=== PATIENT | male | born 1955 | race Caucasian/White ===

== ENCOUNTER → 2017-07-02 10:17 | Outpatient (CLI) | payer BC, SELFPAY ==
[2017-07-02 12:37] LABS: Prostate Specific Ag Screen 2.5 ng/mL (0.0-4.0)
== END ==
PROVIDERS: PCP Internal Medicine Adolescent Medicine; Visit Provider Urology
DX: Z12.5 Encounter for screening for malignant neoplasm of prostate (principal)
CPT/HCPCS: 36415; G0103

== ENCOUNTER → 2017-07-10 13:21 | Outpatient (CLI) | payer BC, SELFPAY ==
[2017-07-10 13:42] LABS: Basophils % 0.7 % (0.1-2.0); Eosinophils # 0.2 K/mm3 (0.0-0.4); Eosinophils % 3.6 % (0.1-12.0); Hematocrit 42.6 % (42.0-52.0); Hemoglobin 14.1 g/dL (14.1-18.0); Lymphocytes # 1.3 K/mm3 (0.7-4.5); Lymphocytes % 21.4 K/mm3 (10-50); Mean Corpuscular HGB Conc 33.2 g/dL (31.8-35.4); Mean Corpuscular Hemoglobin 28.8 pg (27.0-31.2); Mean Corpuscular Volume 86.8 fl (80-94); Mean Platelet Volume 7.9 fl (7.4-10.4); Monocytes # 0.5 K/mm3 (0.1-1.0); Monocytes % 8.4 % (1.7-9.3); Platelet Count 197 K/mm3 (142-424); Red Cell Distribution Width 13.2 % (11.5-17.5); White Blood Count 6.1 K/mm3 (4.8-10.8)
[2017-07-10 17:31] LABS: Alanine Aminotransferase 35 U/L (12-78); Albumin Level 3.8 gm/dL (3.4-5.0); Albumin/Globulin Ratio 1.6 (1.1-1.8); Alkaline Phosphatase 91 U/L (46-116); Anion Gap 9.5 mEq/L (5-15); Aspartate Amino Transferase 24 U/L (15-37); Bilirubin,Total 0.5 mg/dL (0.2-1.0); Blood Urea Nitrogen 15 mg/dL (7-18); Calcium 9.1 mg/dL (8.5-10.1); Carbon Dioxide 32 mmol/L (21.0-32.0); Chloride 106 mmol/L (98-107); Chol/HDL Ratio 2.9 (1-3.5); Cholesterol 124 mg/dL (140-200); Creatinine,Serum 1.47 mg/dL (0.70-1.30); Estimated Glomerular Filt Rate 49 ml/min (>60); GFR (African American) 59 ML/MIN (>60); Globulin 2.4 gm/dl (1.3-3.2); Glucose 93 mg/dL (74-106); HDL Cholesterol 43 mg/dL (27-67); LDL Cholesterol 66 mg/dL (0-130); Potassium 4.5 mmoL/L (3.5-5.1); Sodium 143 mmol/L (136-145); Thyroid Stimulating Hormone 0.03 uIU/ml (0.358-3.740); Total Protein,Serum 6.2 gm/dL (6.4-8.2); Triglycerides 76 mg/dL (30-200); VLDL Cholesterol 15 mg/dL (0-40)
== END ==
PROVIDERS: PCP Internal Medicine Adolescent Medicine; Visit Provider Internal Medicine Adolescent Medicine
DX: E78.5 Hyperlipidemia, unspecified (principal); I25.10 Atherosclerotic heart disease of native coronary artery without angina pectoris; E89.0 Postprocedural hypothyroidism
CPT/HCPCS: 36415; 80053; 80061; 84443; 85025

== ENCOUNTER → 2018-02-08 07:44 | Outpatient (CLI) | payer BC, SELFPAY ==
--- NOTE | 2018-02-08 07:53 | CA_ITS ---
PROCEDURE: 2-D M-mode and color Doppler study INDICATIONS FOR THE TEST: Chest pain + COPD Heart Murmur+ Tobacco Smoking Palpitations Fatigue Syncope Edema Hypertension+Diabetes Mellitus Rheumatic Fever SOB+LEONG Obesity Hyperlipidemia+ Family History HD Additional History B/S ORDERED, B/S NEG. STENTS PATIENT INFORMATION HEIGHT: 68 WEIGHT:188 GENDER: Male B/P:133/70 2-D/M-MODE INTERPRETATION: 2-D MEASUREMENTS OBSERVED VALUES IN CMS Right Ventricular Dimension (RVDd) 2.3 Interventricular Septum (Thickness)(IVsd) 1.5 Left Ventricular Internal Dimensions(LVIDd) 5.6 Left Ventricular Posterior Wall (Thickness)(LVPWd) 1.0 Aortic Root 3.0 Aortic Cusp Separation 1.8 Left Atrial Dimensions (LAD) 4.2 2D 1. Left atrium is mildly enlarged, left ventricle is normal size, mild concentric left ventricular hypertrophy, visually estimated ejection fraction 55% with no obvious regional wall motion abnormality. 2. The right atrium and right ventricle are normal size and contractility. 3. The aortic valve is minimally thickened and fibrosed leaflet continue to display good mobility. 4. The mitral and tricuspid valve leaflets are minimally thickened 5. The pulmonic valve is poorly visualized. 6. No significant pericardial effusion noted. DOPPLER INTERROGATION: Doppler interrogation of the aortic, mitral and tricuspid valvular presence of mild mitral and tricuspid regurgitation, tricuspid regurgitation jet velocity is insufficient for calculation of the right ventricular systolic pressure, grade 1 diastolic dysfunction seen with tissue Doppler evidence of raised left atrial pressure. CONCLUSION: 1. Mildly enlarged left atrium, normal left ventricular size, mild concentric left ventricular hypertrophy, visually estimated ejection fraction 55% with no obvious regional wall motion abnormality, diastolic dysfunction seen with tissue Doppler evidence of raised left atrial pressure. 2. Mild mitral and tricuspid regurgitation 3. No significant pericardial effusion noted.
--- NOTE | 2018-02-08 07:54 | CI_ITS ---
Cerebrovascular Exam Indications: 780.4 Dizziness and giddiness. IMPRESSIONS 1. The bilateral vertebral arteries are patent with normal antegrade flow. 2. Study suggests 20-49% stenosis involving the right internal carotid artery and the left internal carotid artery, lower end of the scale. Carotid duplex study. Complete study and Doppler flow study including spectral analysis, color and griffith scale imaging. Height: Height: 172.7cm. Height: 68in. Weight: Weight: 85.3kg. Weight: 187.6lb. Body mass index: BMI: 28.6kg/m^2. Body surface area: BSA: 2.04m^2. Location: Vascular laboratory. Patient status: Outpatient. Tables: Arterial flow: + +--------+--------+ Location V sys V ed + +--------+--------+ Right CCA - proximal 77.5cm/s 16.1cm/s + +--------+--------+ Right CCA - distal 71.2cm/s 20.3cm/s + +--------+--------+ Right ECA 70.6cm/s -------- + +--------+--------+ Right ICA - proximal 47.1cm/s 18.5cm/s + +--------+--------+ Right ICA - mid 42.8cm/s 19.3cm/s + +--------+--------+ Right ICA - distal 88.2cm/s 40.3cm/s + +--------+--------+ Right vertebral 45.4cm/s -------- + +--------+--------+ Left CCA - proximal 67.8cm/s 15.4cm/s + +--------+--------+ Left CCA - distal 61.8cm/s 19.9cm/s + +--------+--------+ Left ECA 77cm/s -------- + +--------+--------+ Left ICA - proximal 53cm/s 16.9cm/s + +--------+--------+ Left ICA - mid 75cm/s 31.4cm/s + +--------+--------+ Left ICA - distal 74.7cm/s 38.4cm/s + +--------+--------+ Left vertebral 59cm/s -------- + +--------+--------+ Velocity ratios: + + + + + + Right, V sys Right, V ed Left, V sys Left, V ed + + + + + + Max ICA/dist CCA 1.24 1.99 1.21 1.93 + + + + + + (Report amended ) Electronically signed by: Christ Ramon [id number]
[2018-02-08 10:28] LABS: Alanine Aminotransferase 27 U/L (12-78); Albumin Level 3.5 gm/dL (3.4-5.0); Albumin/Globulin Ratio 1.4 (1.1-1.8); Alkaline Phosphatase 85 U/L (46-116); Anion Gap 10.3 mEq/L (5-15); Aspartate Amino Transferase 14 U/L (15-37); Bilirubin,Total 0.6 mg/dL (0.2-1.0); Blood Urea Nitrogen 19 mg/dL (7-18); Calcium 9.4 mg/dL (8.5-10.1); Carbon Dioxide 30 mmol/L (21.0-32.0); Chloride 110 mmol/L (98-107); Chol/HDL Ratio 2.9 (1-3.5); Cholesterol 133 mg/dL (140-200); Creatinine,Serum 1.65 mg/dL (0.70-1.30); Estimated Glomerular Filt Rate 43 ml/min (>60); GFR (African American) 52 ML/MIN (>60); Globulin 2.5 gm/dl (1.3-3.2); Glucose 99 mg/dL (74-106); HDL Cholesterol 46 mg/dL (27-67); LDL Cholesterol 67 mg/dL (0-130); Potassium 4.3 mmoL/L (3.5-5.1); Sodium 146 mmol/L (136-145); Triglycerides 100 mg/dL (30-200); VLDL Cholesterol 20 mg/dL (0-40)
== END ==
PROVIDERS: PCP Internal Medicine Adolescent Medicine; Visit Provider Internal Medicine Adolescent Medicine
DX: I25.10 Atherosclerotic heart disease of native coronary artery without angina pectoris (principal); R51 Headache; R01.1 Cardiac murmur, unspecified
CPT/HCPCS: 36415; 80053; 80061; 93306; 93880

== ENCOUNTER → 2018-07-09 13:15 | Outpatient (CLI) | payer BC, SELFPAY ==
[2018-07-09 13:18] LABS: Microscopic, Urine URINE MICROSCOPIC (MICROSCOPIC)
[2018-07-09 13:36] LABS: Basophils % 0.4 % (0.1-2.0); Eosinophils # 0.2 K/mm3 (0.0-0.4); Eosinophils % 2.1 % (0.1-12.0); Hematocrit 38.2 % (42.0-52.0); Hemoglobin 12.2 g/dL (14.1-18.0); Lymphocytes # 1.2 K/mm3 (0.7-4.5); Lymphocytes % 15.4 % (10-50); Mean Corpuscular HGB Conc 32.1 g/dL (31.8-35.4); Mean Corpuscular Hemoglobin 27.7 pg (27.0-31.2); Mean Corpuscular Volume 86.4 fl (80-94); Mean Platelet Volume 7.8 fl (7.4-10.4); Monocytes # 0.7 K/mm3 (0.1-1.0); Monocytes % 8.6 % (1.7-9.3); Neutrophils # 5.5 K/mm3 (1.8-7.8); Neutrophils % 73.5 % (37.0-80.0); Platelet Count 208 K/mm3 (142-424); Red Blood Count 4.42 M/mm3 (4.60-6.20); Red Cell Distribution Width 14.6 % (11.5-17.5); White Blood Count 7.5 K/mm3 (4.8-10.8)
[2018-07-09 13:39] LABS: Appearance,Urine CLEAR (Clear); Bilirubin,Urine Negative (Negative); Blood, Urine TRACE-I (Negative); Color,Urine YELLOW (Yellow); Glucose,Urine (UA) Negative (Negative); Ketones,Urine Negative (Negative); Leukocyte Esterase,Urine 1+ (Negative); Nitrate,Urine Negative (Negative); PH,Urine 5.5 (5.0-8.5); Protein,Urine 1+ (Negative); Urobilinogen,Urine 0.2 EU/dl (0.2)
[2018-07-09 14:19] LABS: Bacteria,Urine Trace /lpf; Hyaline Casts,Urine Occasional #/lpf (0)
[2018-07-09 14:37] LABS: Creatinine,Urine Random 130 mg/dL (20-320)
[2018-07-09 15:10] LABS: Albumin Level 3.8 gm/dL (3.4-5.0); Anion Gap 12.3 mEq/L (5-15); Blood Urea Nitrogen 20 mg/dL (7-18); Calcium 9.2 mg/dL (8.5-10.1); Carbon Dioxide 27 mmol/L (21.0-32.0); Chloride 107 mmol/L (98-107); Creatinine,Serum 2.11 mg/dL (0.70-1.30); Estimated Glomerular Filt Rate 32 ml/min (>60); GFR (African American) 39 ML/MIN (>60); Glucose 98 mg/dL (74-106); Phosphorous 4.2 mg/dL (2.4-4.9); Potassium 4.3 mmoL/L (3.5-5.1); Sodium 142 mmol/L (136-145)
== END ==
PROVIDERS: Visit Provider Internal Medicine
DX: N18.9 Chronic kidney disease, unspecified (principal)
CPT/HCPCS: 36415; 80069; 81001; 82570; 84155; 85025; 87086

== ENCOUNTER → 2018-09-13 13:27 | Outpatient (CLI) | payer BC, SELFPAY ==
[2018-09-13 13:32] LABS: Microscopic, Urine URINE MICROSCOPIC (MICROSCOPIC)
[2018-09-13 14:00] LABS: Creatinine,Urine Random 296 mg/dL (20-320); Total Protein,Urine Random 27.4 mg/dL (0.0-11.9)
[2018-09-13 14:11] LABS: Basophils % 0.3 % (0.1-2.0); Eosinophils # 0.2 K/mm3 (0.0-0.4); Eosinophils % 2.8 % (0.1-12.0); Hematocrit 40.5 % (42.0-52.0); Hemoglobin 12.9 g/dL (14.1-18.0); Lymphocytes # 1.1 K/mm3 (0.7-4.5); Lymphocytes % 14.1 % (10-50); Mean Corpuscular HGB Conc 31.9 g/dL (31.8-35.4); Mean Corpuscular Hemoglobin 26.9 pg (27.0-31.2); Mean Corpuscular Volume 84.4 fl (80-94); Mean Platelet Volume 7.3 fl (7.4-10.4); Monocytes # 0.4 K/mm3 (0.1-1.0); Monocytes % 4.7 % (1.7-9.3); Neutrophils # 6.2 K/mm3 (1.8-7.8); Neutrophils % 78.1 % (37.0-80.0); Platelet Count 284 K/mm3 (142-424); Red Cell Distribution Width 13.6 % (11.5-17.5); White Blood Count 7.9 K/mm3 (4.8-10.8)
[2018-09-13 14:13] LABS: Appearance,Urine CLEAR (Clear); Bilirubin,Urine Negative (Negative); Blood, Urine Negative (Negative); Color,Urine YELLOW (Yellow); Glucose,Urine (UA) Negative (Negative); Ketones,Urine TRACE (Negative); Leukocyte Esterase,Urine Negative (Negative); Nitrate,Urine Negative (Negative); PH,Urine 5.5 (5.0-8.5); Protein,Urine Negative (Negative); Specific Gravity, Urine >= 1.030 (1.005-1.030); Urobilinogen,Urine 0.2 EU/dl (0.2)
[2018-09-13 14:27] LABS: Albumin Level 3.3 gm/dL (3.4-5.0); Anion Gap 15.7 mEq/L (5-15); Blood Urea Nitrogen 14 mg/dL (7-18); Calcium 9.1 mg/dL (8.5-10.1); Carbon Dioxide 26 mmol/L (21.0-32.0); Chloride 109 mmol/L (98-107); Creatinine,Serum 1.53 mg/dL (0.70-1.30); Estimated Glomerular Filt Rate 46 ml/min (>60); GFR (African American) 56 ML/MIN (>60); Glucose 129 mg/dL (74-106); Phosphorous 2.5 mg/dL (2.4-4.9); Potassium 3.7 mmoL/L (3.5-5.1); Sodium 147 mmol/L (136-145)
[2018-09-13 15:02] LABS: Bacteria,Urine Trace /lpf; RBC,Urine Occasional #/hpf (0-3)
[2018-09-14 16:13] LABS: Albumin 3.1 g/dL (2.9-4.4); Alpha-1-Globulin 0.3 g/dL (0.0-0.4); Free Kappa Lt Chains 16.9 mg/L (3.3-19.4); Free Lambda Lt Chains 13.4 mg/L (5.7-26.3); Gamma Globulin 0.6 g/dL (0.4-1.8); Protein, Total 6.1 g/dL (6.0-8.5)
[2018-09-16 14:16] LABS: Albumin, U 26.9 % (.); Alpha-2-Globulin, U 19.1 % (.); Beta Globulin, U 32.4 % (.); Gamma Globulin, U 18.7 % (.)
== END ==
PROVIDERS: Visit Provider Internal Medicine
DX: N18.9 Chronic kidney disease, unspecified (principal)
CPT/HCPCS: 36415; 80069; 81001; 82570; 83883; 84155; 84156; 84165; 84166; 85025

== ENCOUNTER → 2018-09-16 13:34 | Outpatient (POV) | payer BC, SELFPAY | PROVIDERS: Visit Provider Internal Medicine Nephrology | DX: Z00.00 Encounter for general adult medical examination without abnormal findings (principal) ==

== ENCOUNTER → 2019-01-31 12:51 | Outpatient (CLI) | payer BC, SELFPAY ==
[2019-01-31 13:14] LABS: Basophils % 0.6 % (0.1-2.0); Eosinophils # 0.2 K/mm3 (0.0-0.4); Eosinophils % 2.3 % (0.1-12.0); Hematocrit 46.5 % (42.0-52.0); Hemoglobin 15.5 g/dL (14.1-18.0); Lymphocytes # 1.7 K/mm3 (0.7-4.5); Mean Corpuscular HGB Conc 33.4 g/dL (31.8-35.4); Mean Corpuscular Hemoglobin 29.8 pg (27.0-31.2); Mean Corpuscular Volume 89.1 fl (80-94); Mean Platelet Volume 7.5 fl (7.4-10.4); Monocytes # 0.5 K/mm3 (0.1-1.0); Monocytes % 8.2 % (1.7-9.3); Neutrophils % 61.8 % (37.0-80.0); Platelet Count 233 K/mm3 (142-424); Red Blood Count 5.21 M/mm3 (4.60-6.20); Red Cell Distribution Width 14.3 % (11.5-17.5); White Blood Count 6.4 K/mm3 (4.8-10.8)
[2019-01-31 17:45] LABS: Alanine Aminotransferase 33 U/L (12-78); Albumin Level 3.8 gm/dL (3.4-5.0); Albumin/Globulin Ratio 1.5 (1.1-1.8); Alkaline Phosphatase 84 U/L (46-116); Anion Gap 11.4 mEq/L (5-15); Aspartate Amino Transferase 29 U/L (15-37); Bilirubin,Total 0.5 mg/dL (0.2-1.0); Blood Urea Nitrogen 15 mg/dL (7-18); Calcium 9.3 mg/dL (8.5-10.1); Carbon Dioxide 30 mmol/L (21.0-32.0); Chloride 107 mmol/L (98-107); Chol/HDL Ratio 3.2 (1-3.5); Cholesterol 120 mg/dL (140-200); Creatinine,Serum 1.57 mg/dL (0.70-1.30); Estimated Glomerular Filt Rate 45 ml/min (>60); GFR (African American) 54 ML/MIN (>60); Globulin 2.6 gm/dl (1.3-3.2); Glucose 107 mg/dL (74-106); HDL Cholesterol 37 mg/dL (27-67); LDL Cholesterol 66 mg/dL (0-130); Potassium 4.4 mmoL/L (3.5-5.1); Prostate Specific Ag Screen 3.3 ng/mL (0.0-4.0); Sodium 144 mmol/L (136-145); Thyroid Stimulating Hormone 0.23 uIU/ml (0.358-3.740); Total Protein,Serum 6.4 gm/dL (6.4-8.2); Triglycerides 84 mg/dL (30-200); VLDL Cholesterol 17 mg/dL (0-40)
== END ==
PROVIDERS: Visit Provider Internal Medicine Adolescent Medicine
DX: E78.5 Hyperlipidemia, unspecified (principal); E89.0 Postprocedural hypothyroidism; I25.10 Atherosclerotic heart disease of native coronary artery without angina pectoris; N40.1 Benign prostatic hyperplasia with lower urinary tract symptoms; Z12.5 Encounter for screening for malignant neoplasm of prostate
CPT/HCPCS: 36415; 80053; 80061; 84443; 85025; G0103

== ENCOUNTER → 2019-03-09 13:43 | Outpatient (CLI) | payer BC, SELFPAY ==
[2019-03-09 13:48] LABS: Microscopic, Urine URINE MICROSCOPIC (MICROSCOPIC)
[2019-03-09 14:03] LABS: Basophils % 0.6 % (0.1-2.0); Eosinophils # 0.1 K/mm3 (0.0-0.4); Eosinophils % 1.8 % (0.1-12.0); Hematocrit 45.1 % (42.0-52.0); Hemoglobin 13.9 g/dL (14.1-18.0); Lymphocytes % 14.8 % (10-50); Mean Corpuscular HGB Conc 30.9 g/dL (31.8-35.4); Mean Corpuscular Hemoglobin 29.2 pg (27.0-31.2); Mean Corpuscular Volume 94.3 fl (80-94); Mean Platelet Volume 8.1 fl (7.4-10.4); Monocytes # 0.5 K/mm3 (0.1-1.0); Monocytes % 6.6 % (1.7-9.3); Neutrophils # 5.2 K/mm3 (1.8-7.8); Neutrophils % 76.2 % (37.0-80.0); Platelet Count 240 K/mm3 (142-424); Red Blood Count 4.78 M/mm3 (4.60-6.20); Red Cell Distribution Width 14.6 % (11.5-17.5); White Blood Count 6.9 K/mm3 (4.8-10.8)
[2019-03-09 14:13] LABS: Appearance,Urine CLEAR (Clear); Bilirubin,Urine Negative (Negative); Blood, Urine Negative (Negative); Color,Urine YELLOW (Yellow); Glucose,Urine (UA) Negative (Negative); Ketones,Urine Negative (Negative); Leukocyte Esterase,Urine TRACE (Negative); Nitrate,Urine Negative (Negative); Protein,Urine Negative (Negative); Specific Gravity, Urine >= 1.030 (1.005-1.030); Urobilinogen,Urine 0.2 EU/dl (0.2)
[2019-03-09 14:22] LABS: Creatinine,Urine Random 197 mg/dL (20-320); Total Protein,Urine Random 15.6 mg/dL (0.0-11.9)
[2019-03-09 14:30] LABS: Squamous Epithelial Cell,Urine Occasional #/hpf (0-5)
[2019-03-09 16:05] LABS: Albumin Level 3.6 gm/dL (3.4-5.0); Anion Gap 14.1 mEq/L (5-15); Blood Urea Nitrogen 16 mg/dL (7-18); Calcium 9.2 mg/dL (8.5-10.1); Carbon Dioxide 26 mmol/L (21.0-32.0); Chloride 108 mmol/L (98-107); Creatinine,Serum 1.53 mg/dL (0.70-1.30); Estimated Glomerular Filt Rate 46 ml/min (>60); GFR (African American) 56 ML/MIN (>60); Glucose 107 mg/dL (74-106); Phosphorous 2.3 mg/dL (2.4-4.9); Potassium 4.1 mmoL/L (3.5-5.1); Sodium 144 mmol/L (136-145)
== END ==
PROVIDERS: PCP Internal Medicine Adolescent Medicine; Visit Provider Internal Medicine Nephrology
DX: N18.9 Chronic kidney disease, unspecified (principal)
CPT/HCPCS: 36415; 80069; 81001; 82570; 84155; 85025

== ENCOUNTER → 2019-03-17 14:38 | Outpatient (POV) | payer BC, SELFPAY | PROVIDERS: Visit Provider Internal Medicine Nephrology | DX: Z00.00 Encounter for general adult medical examination without abnormal findings (principal) ==

== ENCOUNTER → 2019-08-15 15:46 | Outpatient (CLI) | payer BC, SELFPAY ==
[2019-08-15 15:58] LABS: Basophils % 0.7 % (0.1-2.0); Eosinophils # 0.1 K/mm3 (0.0-0.4); Hematocrit 44.1 % (42.0-52.0); Lymphocytes # 1.3 K/mm3 (0.7-4.5); Lymphocytes % 21.3 % (10-50); Mean Corpuscular Volume 91.2 fl (80-94); Mean Platelet Volume 8.2 fl (7.4-10.4); Monocytes # 0.5 K/mm3 (0.1-1.0); Monocytes % 7.4 % (1.7-9.3); Neutrophils # 4.1 K/mm3 (1.8-7.8); Neutrophils % 68.7 % (37.0-80.0); Platelet Count 194 K/mm3 (142-424); Red Blood Count 4.84 M/mm3 (4.60-6.20); Red Cell Distribution Width 13.1 % (11.5-17.5)
[2019-08-15 16:31] LABS: Erythrocyte Sedimentation Rate 8 mm/hr (0-20)
[2019-08-15 18:52] LABS: Chloride 106 mmol/L (98-107); Potassium 4.5 mmoL/L (3.5-5.1); Sodium 142 mmol/L (136-145)
[2019-08-15 18:55] LABS: Alanine Aminotransferase 24 U/L (12-78); Albumin Level 3.9 g/dl (3.5-5.0); Albumin/Globulin Ratio 1.7 (1.1-1.8); Alkaline Phosphatase 69 U/L (38-126); Anion Gap 10.5 mEq/L (5-15); Aspartate Amino Transferase 29 U/L (17-59); Bilirubin,Total 0.3 mg/dl (0.2-1.3); Blood Urea Nitrogen 14 mg/dl (9-20); Calcium 9.6 mg/dl (8.4-10.2); Carbon Dioxide 30 mmol/L (22.0-30.0); Estimated Glomerular Filt Rate 47 ml/min (>60); GFR (African American) 57 ML/MIN (>60); Globulin 2.3 g/dL (1.3-3.2); Glucose 104 mg/dl (74-100); Total Protein,Serum 6.2 g/dl (6.3-8.2)
== END ==
PROVIDERS: Visit Provider Internal Medicine Adolescent Medicine
DX: G44.52 New daily persistent headache (NDPH) (principal)
CPT/HCPCS: 36415; 80053; 85025; 85651

== ENCOUNTER → 2019-08-19 14:10 | Outpatient (CLI) | payer BC, SELFPAY ==
--- NOTE | 2019-08-19 14:13 | MR_ITS ---
PROCEDURE: MR HEAD/BRAIN WO CON CLINICAL INDICATION: NEW DAILY PERSISTENT HEADACHE New daily persistent headache with dizziness COMPARISON: No exams were available for comparison TECHNIQUE: Routine multiplanar multi echo sequences are performed without gadolinium enhancement. FINDINGS: No midline shift, mass effect, intracranial hemorrhage, or hydrocephalus. No evidence of acute infarction The cerebellopontine angles, cerebellum, and brainstem are unremarkable. There is normal griffith-white matter differentiation with no abnormal white matter signal intensity evident. The pituitary, optic chiasm, corpus callosum, and craniocervical junction have an unremarkable appearance. No mastoid effusion or sinus air-fluid level. IMPRESSION: Negative MRI of the brain without contrast. No acute finding. Dictated by: Christ Ramon MD 08/20/2019 08:52 Electronically signed by Christ Ramon MD in [place] 08/20/2019 08:52
== END ==
PROVIDERS: PCP Internal Medicine Adolescent Medicine; Visit Provider Internal Medicine Adolescent Medicine
DX: G44.52 New daily persistent headache (NDPH) (principal)
CPT/HCPCS: 70551

== ENCOUNTER 2020-01-05 14:46 | Emergency (ER) | payer BC, SELFPAY ==
[2020-01-05 15:02] VITALS: PULSE 85; RESP 16; TEMP 36.9; O2SAT 98; BMI 28.0
--- NOTE | 2020-01-05 15:05 | HMH.EDUTC ---
[facility] Disposition Clinical Impression: Viral syndrome Disposition: Home, Self-Care Condition on Discharge: Good Instructions: DI for Viral Syndrome Additional Instructions: Drink plenty of fluids. Take tylenol or ibuprofen for pain or fever. Take the medications as directed. Follow up with your regular doctor. GO TO THE ER FOR ANY WORSENING SYMPTOMS FOLLOW THE DIRECTIONS ON THE COVID-19 HAND OUT THAT WE GAVE YOU REGARDING SELF-ISOLATION UNTIL YOU KNOW YOUR COVID-19 RESULTS Prescriptions: Benzonatate [Tessalon Perle 100mg Cap] 100 mg PO TIDP PRN #30 cap PRN Reason: Cough Transmission Status: Received by [facility] Azithromycin [Z-Walker 250mg Tab*] 250 mg PO UD DOSE PK #6 tab Transmission Status: Received by [facility] Referrals: Raúl Caraballo MD [Primary Care Provider] - Forms: Work/School Release Time of Disposition: 15:12 Medical Decision Making - Medical Records Medical records reviewed: No: I reviewed the patient's medical records. - Kike Inquiry Pt receiving controlled substance: No Vital Signs: 01/05/20 15:02 01/05/20 15:17 Temperature 98.5 F 98.5 F Temperature Source Oral Oral Pulse Rate 87 Pulse Rate [Right] 85 Respiratory Rate 16 16 Blood Pressure 145/78 H Blood Pressure Source Automatic Cuff Blood Pressure Position Sitting 02 Sat by Pulse Oximetry 98 Oxygen Delivery Method Room Air Room Air Orders (Tests/Meds): ORDERS Category Date Time Status SARS-CoV-2, LILY Stat Lab 01/05/20 14:55 Received [facility] HPI - General Stated complaint: wants covid test Time Seen by Provider: 01/05/20 15:05 Mode of Arrival: Ambulatory Source of Information: Patient Limitations: No Limitations Description of Symptoms (Recalled from Triage Doc. by RN): Pt c/o sore throat and cough that started last night. Doesn't thik he has had any direct exposure to covid but would like to be tested HEENT Symptoms (Recalled from RN notes): Yes (sore throat/cough) Resp Symptoms (Recalled from RN notes): No Skin Symptoms (Recalled from RN notes): No MS Symptoms (Recalled from RN notes): No Functional Status (Recalled from RN notes): na - History of Present Illness Provider Complaint: He states that for the past 2 days he has had a dry cough and a weird sore throat. He denies any known exposure to COVID-19, but he does work at [employer] and he is in contact with a lot of people. He denies any fever or chills. - Related Data Home Medications Medication Instructions Recorded Confirmed atorvastatin 10 mg tablet 10 mg PO QDAY 07/02/17 isosorbide dinitrate 5 mg tablet 5 mg PO QID 07/02/17 levothyroxine 25 mcg tablet 0.1 mcg PO QDAY tab 07/02/17 losartan 25 mg tablet 25 mg PO QDAY 07/02/17 ticagrelor 60 mg tablet 60 mg PO QDAY tab 07/02/17 trazodone 100 mg tablet 100 mg PO QDAY tab 07/02/17 Previous Rx's Medication Instructions Recorded Azithromycin [Z-Walker 250mg Tab*] 250 mg PO UD DOSE PK #6 tab 01/05/20 Benzonatate [Tessalon Perle 100mg 100 mg PO TIDP PRN #30 cap 01/05/20 Cap] Allergies Allergy/AdvReac Type Severity Reaction Status Date / Time No Known Allergies Allergy Unknown Uncoded 06/02/17 15:09 - Worker's Comp Is this a Worker's Comp case?: No [facility] History - Hepatitis A Screen Drug use history?: No High risk sexual behaviors?: No History of sexually transmitted infection?: No Currently employed?: No Childcare worker?: No Do you have indoor plumbing?: No Do you have electricity?: Yes Attestation statement:: This patient has been screened for Hepatitis A risk factors. I have reviewed the patient's past medical history: Yes Medical History: Reports:: Coronary Artery Disease, Hyperlipidemia, Hypertension Other Medical History: Reports: Thyroid Disease Comment: BPH Other Surgeries: Yes: Other (HEART STENT,THYROID,KIDNEY STONE) Amputation: No Fractures: No - Social History Smoking Status: Current every day smoker # Packs/Da
[2020-01-05 15:17] VITALS: BP 145/78; PULSE 87; RESP 16; TEMP 36.9; O2SAT 98
[2020-01-07 13:29] LABS: Covid-19 Nasal PCR Sendout Lex Not Detected
== END 2020-01-05 15:18 | disposition home or self-care (01) ==
PROVIDERS: Emergency Provider Nurse Practitioner Family; PCP Internal Medicine Adolescent Medicine
DX: B34.9 Viral infection, unspecified (principal); Z03.818 Encounter for observation for suspected exposure to other biological agents ruled out; I25.10 Atherosclerotic heart disease of native coronary artery without angina pectoris; E78.5 Hyperlipidemia, unspecified; I10 Essential (primary) hypertension; F17.210 Nicotine dependence, cigarettes, uncomplicated; Z79.899 Other long term (current) drug therapy
CPT/HCPCS: 99201; U0004

== ENCOUNTER → 2020-01-30 13:15 | Outpatient (CLI) | payer BC, SELFPAY ==
[2020-01-30 13:34] LABS: Basophils % 0.7 % (0.1-2.0); Eosinophils # 0.1 K/mm3 (0.0-0.4); Eosinophils % 2.5 % (0.1-12.0); Hematocrit 43.8 % (42.0-52.0); Hemoglobin 15.2 g/dL (14.1-18.0); Lymphocytes # 1.1 K/mm3 (0.7-4.5); Lymphocytes % 21.8 % (10-50); Mean Corpuscular HGB Conc 34.8 g/dL (31.8-35.4); Mean Corpuscular Hemoglobin 32.3 pg (27.0-31.2); Mean Corpuscular Volume 92.9 fl (80-94); Mean Platelet Volume 8.4 fl (7.4-10.4); Monocytes # 0.4 K/mm3 (0.1-1.0); Monocytes % 7.1 % (1.7-9.3); Neutrophils # 3.4 K/mm3 (1.8-7.8); Neutrophils % 67.9 % (37.0-80.0); Platelet Count 188 K/mm3 (142-424); Red Blood Count 4.71 M/mm3 (4.60-6.20); Red Cell Distribution Width 12.9 % (11.5-17.5); White Blood Count 4.9 K/mm3 (4.8-10.8)
[2020-01-30 14:06] LABS: Alanine Aminotransferase 22 U/L (12-78); Albumin Level 3.8 g/dl (3.5-5.0); Albumin/Globulin Ratio 1.7 (1.1-1.8); Alkaline Phosphatase 87 U/L (38-126); Anion Gap 11.4 mEq/L (5-15); Aspartate Amino Transferase 29 U/L (17-59); Bilirubin,Total 0.3 mg/dl (0.2-1.3); Blood Urea Nitrogen 17 mg/dl (9-20); Calcium 9.3 mg/dl (8.4-10.2); Carbon Dioxide 27 mmol/L (22.0-30.0); Chloride 107 mmol/L (98-107); Chol/HDL Ratio 2.8 (1-3.5); Cholesterol 137 mg/dl (140-200); Estimated Glomerular Filt Rate 47 ml/min (>60); GFR (African American) 57 ML/MIN (>60); Globulin 2.3 g/dL (1.3-3.2); Glucose 119 mg/dl (74-100); HDL Cholesterol 49 mg/dl (40-60); Potassium 4.4 mmoL/L (3.5-5.1); Sodium 141 mmol/L (136-145); Total Protein,Serum 6.1 g/dl (6.3-8.2); Triglycerides 97 mg/dl (30-150); VLDL Cholesterol 19 mg/dL (0-40)
[2020-01-30 14:17] LABS: Direct LDL Cholesterol 75.11 mg/dL (100-129)
[2020-01-30 14:36] LABS: Thyroid Stimulating Hormone 0.13 uIU/mL (0.465-4.68)
[2020-01-31 19:27] LABS: Hemoglobin A1C 5.6 % (4.0-6.0)
== END ==
PROVIDERS: Visit Provider Internal Medicine Adolescent Medicine
DX: E78.5 Hyperlipidemia, unspecified (principal); E89.0 Postprocedural hypothyroidism; I25.10 Atherosclerotic heart disease of native coronary artery without angina pectoris; R73.09 Other abnormal glucose
CPT/HCPCS: 36415; 80053; 80061; 83036; 84443; 85025

== ENCOUNTER → 2020-03-01 14:32 | Outpatient (CLI) | payer BC, SELFPAY ==
[2020-03-01 15:17] LABS: Calcium 9.3 mg/dl (8.4-10.2)
[2020-03-01 15:35] LABS: Free T4 (Free Thyroxine) 1.16 ng/dl (0.78-2.19)
[2020-03-01 15:49] LABS: Thyroid Stimulating Hormone 0.41 uIU/mL (0.465-4.68)
== END ==
PROVIDERS: Visit Provider Otolaryngology
DX: Z90.09 Acquired absence of other part of head and neck (principal)
CPT/HCPCS: 36415; 82310; 84439; 84443

== ENCOUNTER → 2020-03-20 14:49 | Outpatient (CLI) | payer BC, SELFPAY ==
[2020-03-20 14:53] LABS: Microscopic, Urine URINE MICROSCOPIC (MICROSCOPIC)
[2020-03-20 15:31] LABS: Basophils % 0.4 % (0.1-2.0); Eosinophils # 0.1 K/mm3 (0.0-0.4); Eosinophils % 1.7 % (0.1-12.0); Hematocrit 44.3 % (42.0-52.0); Hemoglobin 14.3 g/dL (14.1-18.0); Lymphocytes % 17.9 % (10-50); Mean Corpuscular HGB Conc 32.4 g/dL (31.8-35.4); Mean Corpuscular Hemoglobin 30.3 pg (27.0-31.2); Mean Corpuscular Volume 93.6 fl (80-94); Mean Platelet Volume 7.8 fl (7.4-10.4); Monocytes # 0.3 K/mm3 (0.1-1.0); Monocytes % 5.9 % (1.7-9.3); Neutrophils # 4.3 K/mm3 (1.8-7.8); Neutrophils % 74.2 % (37.0-80.0); Platelet Count 211 K/mm3 (142-424); Red Blood Count 4.73 M/mm3 (4.60-6.20); White Blood Count 5.8 K/mm3 (4.8-10.8)
[2020-03-20 15:59] LABS: Appearance,Urine CLEAR (Clear); Bilirubin,Urine Negative (Negative); Blood, Urine Negative (Negative); Color,Urine YELLOW (Yellow); Glucose,Urine (UA) Negative (Negative); Ketones,Urine Negative (Negative); Leukocyte Esterase,Urine Negative (Negative); Nitrate,Urine Negative (Negative); PH,Urine 5.5 (5.0-8.5); Protein,Urine Negative (Negative); Specific Gravity, Urine 1.025 (1.005-1.030); Urobilinogen,Urine 0.2 EU/dl (0.2)
[2020-03-20 16:07] LABS: Creatinine,Urine Random 195 mg/dL (Not Estab.)
[2020-03-20 17:04] LABS: Albumin Level 3.8 g/dl (3.5-5.0); Anion Gap 11.4 mEq/L (5-15); Blood Urea Nitrogen 16 mg/dl (9-20); Calcium 9.4 mg/dl (8.4-10.2); Carbon Dioxide 26 mmol/L (22.0-30.0); Chloride 110 mmol/L (98-107); Estimated Glomerular Filt Rate 47 ml/min (>60); GFR (African American) 57 ML/MIN (>60); Glucose 117 mg/dl (74-100); Phosphorous 2.4 mg/dl (2.5-4.5); Potassium 4.4 mmoL/L (3.5-5.1); Sodium 143 mmol/L (136-145)
[2020-03-20 17:17] LABS: Intact Parathyroid Hormone 36.2 pg/mL (7.5-53.5)
[2020-03-20 17:21] LABS: 25-OH Vitamin D, Total 76.2 ng/mL (30-100)
== END ==
PROVIDERS: Visit Provider Internal Medicine Nephrology
DX: N18.9 Chronic kidney disease, unspecified (principal)
CPT/HCPCS: 36415; 80069; 81001; 82306; 82570; 83970; 84155; 85025

== ENCOUNTER → 2020-03-26 15:32 | Outpatient (POV) | payer BC, SELFPAY | PROVIDERS: Visit Provider Internal Medicine Nephrology | DX: Z00.00 Encounter for general adult medical examination without abnormal findings (principal) ==

== ENCOUNTER → 2021-02-06 13:57 | Outpatient (CLI) | payer BC, SELFPAY ==
[2021-02-06 14:32] LABS: Basophils # 0.1 K/mm3 (0-0.2); Basophils % 0.7 % (0.1-2.0); Eosinophils # 0.2 K/mm3 (0.0-0.4); Eosinophils % 2.5 % (0.1-12.0); Hematocrit 41.3 % (42.0-52.0); Hemoglobin 13.8 g/dL (14.1-18.0); Lymphocytes # 1.2 K/mm3 (0.7-4.5); Mean Corpuscular HGB Conc 33.5 g/dL (31.8-35.4); Mean Corpuscular Hemoglobin 30.5 pg (27.0-31.2); Mean Corpuscular Volume 91.1 fl (80-94); Mean Platelet Volume 8.7 fl (7.4-10.4); Monocytes # 0.5 K/mm3 (0.1-1.0); Monocytes % 7.2 % (1.7-9.3); Neutrophils % 72.4 % (37.0-80.0); Platelet Count 196 K/mm3 (142-424); Red Blood Count 4.53 M/mm3 (4.60-6.20); Red Cell Distribution Width 13.8 % (11.5-17.5)
[2021-02-06 15:29] LABS: Alanine Aminotransferase 31 U/L (12-78); Albumin Level 3.6 g/dl (3.5-5.0); Albumin/Globulin Ratio 1.6 (1.1-1.8); Alkaline Phosphatase 86 U/L (38-126); Anion Gap 12.2 mEq/L (5-15); Aspartate Amino Transferase 37 U/L (17-59); Bilirubin,Total 0.5 mg/dl (0.2-1.3); Blood Urea Nitrogen 16 mg/dl (9-20); Calcium 9.1 mg/dl (8.4-10.2); Carbon Dioxide 26 mmol/L (22.0-30.0); Chloride 109 mmol/L (98-107); Chol/HDL Ratio 3.8 (1-3.5); Cholesterol 138 mg/dl (140-200); Estimated Glomerular Filt Rate 56 ml/min (>60); GFR (African American) 67 ML/MIN (>60); Globulin 2.3 g/dL (1.3-3.2); Glucose 104 mg/dl (74-100); HDL Cholesterol 36 mg/dl (40-60); Potassium 4.2 mmoL/L (3.5-5.1); Sodium 143 mmol/L (136-145); Total Protein,Serum 5.9 g/dl (6.3-8.2); Triglycerides 107 mg/dl (30-150); VLDL Cholesterol 21 mg/dL (0-40)
[2021-02-06 15:39] LABS: Direct LDL Cholesterol 76.91 mg/dL (100-129)
[2021-02-06 15:58] LABS: Prostate Specific Ag Screen 3.2 ng/ml (0.0-4.0); Thyroid Stimulating Hormone 0.27 uIU/mL (0.465-4.68)
[2021-02-06 16:21] LABS: Hemoglobin A1C 5.4 % (4.0-6.0)
== END ==
PROVIDERS: Visit Provider Internal Medicine Adolescent Medicine
DX: I25.10 Atherosclerotic heart disease of native coronary artery without angina pectoris (principal); E78.5 Hyperlipidemia, unspecified; E89.0 Postprocedural hypothyroidism; N40.1 Benign prostatic hyperplasia with lower urinary tract symptoms; Z12.5 Encounter for screening for malignant neoplasm of prostate
CPT/HCPCS: 36415; 80053; 80061; 83036; 84443; 85025; G0103

== ENCOUNTER → 2021-05-15 12:07 | Outpatient (CLI) | payer BC, SELFPAY ==
[2021-05-15 12:16] LABS: Microscopic, Urine URINE MICROSCOPIC (MICROSCOPIC)
[2021-05-15 13:05] LABS: Basophils # 0.1 K/mm3 (0-0.2); Basophils % 0.8 % (0.1-2.0); Eosinophils # 0.3 K/mm3 (0.0-0.4); Eosinophils % 2.6 % (0.1-12.0); Hematocrit 36.4 % (42.0-52.0); Hemoglobin 12.4 g/dL (14.1-18.0); Lymphocytes # 1.4 K/mm3 (0.7-4.5); Mean Corpuscular Volume 91.2 fl (80-94); Mean Platelet Volume 8.5 fl (7.4-10.4); Monocytes # 0.7 K/mm3 (0.1-1.0); Monocytes % 7.6 % (1.7-9.3); Neutrophils % 73.9 % (37.0-80.0); Platelet Count 385 K/mm3 (142-424); Red Blood Count 3.99 M/mm3 (4.60-6.20); Red Cell Distribution Width 14.3 % (11.5-17.5); White Blood Count 9.4 K/mm3 (4.8-10.8)
[2021-05-15 13:53] LABS: Albumin Level 3.5 g/dl (3.5-5.0); Anion Gap 6.3 mEq/L (5-15); Blood Urea Nitrogen 17 mg/dl (9-20); Calcium 8.8 mg/dl (8.4-10.2); Carbon Dioxide 32 mmol/L (22.0-30.0); Chloride 105 mmol/L (98-107); Estimated Glomerular Filt Rate 51 ml/min (>60); GFR (African American) 62 ML/MIN (>60); Glucose 102 mg/dl (74-100); Phosphorous 3.4 mg/dl (2.5-4.5); Potassium 4.3 mmoL/L (3.5-5.1); Sodium 139 mmol/L (136-145)
[2021-05-15 13:56] LABS: Appearance,Urine CLEAR (Clear); Bilirubin,Urine Negative (Negative); Blood, Urine Negative (Negative); Color,Urine YELLOW (Yellow); Glucose,Urine (UA) Negative (Negative); Ketones,Urine Negative (Negative); Leukocyte Esterase,Urine Negative (Negative); Nitrate,Urine Negative (Negative); Protein,Urine Negative (Negative); Specific Gravity, Urine >= 1.030 (1.005-1.030); Urobilinogen,Urine 0.2 EU/dl (0.2)
[2021-05-15 14:11] LABS: 25-OH Vitamin D, Total 52.3 ng/mL (30-100)
[2021-05-15 14:26] LABS: Total Protein,Urine Random < 5.0 mg/dL (0.0-12.0)
[2021-05-15 14:29] LABS: Bacteria,Urine 2+ /lpf; Mucus,Urine 2+ /lpf; Squamous Epithelial Cell,Urine Occasional #/hpf (0-5)
[2021-05-15 14:31] LABS: Creatinine,Urine Random 283 mg/dL (Not Estab.)
[2021-05-15 16:45] LABS: Intact Parathyroid Hormone 74.2 pg/mL (7.5-53.5)
[2021-05-16 16:11] LABS: Calcium, Ionized 5.2 mg/dL (4.5-5.6)
== END ==
PROVIDERS: Visit Provider Internal Medicine Nephrology
DX: N18.9 Chronic kidney disease, unspecified (principal)
CPT/HCPCS: 36415; 80069; 81001; 82306; 82330; 82570; 83970; 84155; 85025; 87086; 87088; 87186

== ENCOUNTER → 2021-05-20 15:10 | Outpatient (POV) | payer BC, SELFPAY | PROVIDERS: Visit Provider Internal Medicine Nephrology | DX: Z00.00 Encounter for general adult medical examination without abnormal findings (principal) ==

== ENCOUNTER → 2022-06-11 12:03 | Outpatient (CLI) | payer OTHER, MEDICARE, SELFPAY ==
[2022-06-11 12:17] LABS: Microscopic, Urine URINE MICROSCOPIC (MICROSCOPIC)
[2022-06-11 12:35] LABS: Appearance,Urine CLEAR (Clear); Bilirubin,Urine Negative (Negative); Blood, Urine Negative (Negative); Color,Urine YELLOW (Yellow); Glucose,Urine (UA) Negative (Negative); Ketones,Urine Negative (Negative); Leukocyte Esterase,Urine Negative (Negative); Nitrate,Urine Negative (Negative); PH,Urine 5.5 (5.0-8.5); Protein,Urine Negative (Negative); Specific Gravity, Urine 1.025 (1.005-1.030); Urobilinogen,Urine 0.2 EU/dl (0.2)
[2022-06-11 12:41] LABS: Basophils # 0.1 K/mm3 (0-0.2); Basophils % 0.9 % (0.1-2.0); Eosinophils # 0.2 K/mm3 (0.0-0.4); Eosinophils % 2.3 % (0.1-12.0); Hematocrit 41.1 % (42.0-52.0); Hemoglobin 13.6 g/dL (14.1-18.0); Lymphocytes # 1.6 K/mm3 (0.7-4.5); Lymphocytes % 22.1 % (10-50); Mean Corpuscular HGB Conc 33.1 g/dL (31.8-35.4); Mean Corpuscular Hemoglobin 29.1 pg (27.0-31.2); Mean Corpuscular Volume 87.9 fl (80-94); Mean Platelet Volume 8.8 fl (7.4-10.4); Monocytes # 0.5 K/mm3 (0.1-1.0); Monocytes % 7.1 % (1.7-9.3); Neutrophils # 4.8 K/mm3 (1.8-7.8); Neutrophils % 67.6 % (37.0-80.0); Platelet Count 295 K/mm3 (142-424); Red Blood Count 4.67 M/mm3 (4.60-6.20); White Blood Count 7.1 K/mm3 (4.8-10.8)
[2022-06-11 12:48] LABS: Bacteria,Urine Trace /lpf; RBC,Urine Occasional #/hpf (0-3); Squamous Epithelial Cell,Urine Occasional #/hpf (0-5); WBC,Urine Occasional #/hpf (0-3)
[2022-06-11 12:49] LABS: Total Protein,Urine Random < 5.0 mg/dL (0.0-12.0)
[2022-06-11 13:15] LABS: Albumin Level 4.1 g/dl (3.5-5.0); Anion Gap 11.5 mEq/L (5-15); Blood Urea Nitrogen 20 mg/dl (9-20); Calcium 9.3 mg/dl (8.4-10.2); Carbon Dioxide 27 mmol/L (22.0-30.0); Chloride 109 mmol/L (98-107); Estimated Glomerular Filt Rate 38 ml/min (>60); GFR (African American) 46 ML/MIN (>60); Glucose 104 mg/dl (74-100); Phosphorous 3.2 mg/dl (2.5-4.5); Potassium 4.5 mmoL/L (3.5-5.1); Sodium 143 mmol/L (136-145)
[2022-06-11 13:29] LABS: Intact Parathyroid Hormone 98.3 pg/mL (7.5-53.5)
[2022-06-11 13:34] LABS: 25-OH Vitamin D, Total 61.1 ng/mL (30-100)
[2022-06-12 15:54] LABS: Creatinine,Urine Random 237 mg/dL (Not Estab.)
== END ==
PROVIDERS: PCP Internal Medicine Adolescent Medicine; Visit Provider Internal Medicine Nephrology
DX: N18.30 Chronic kidney disease, stage 3 unspecified (principal)
CPT/HCPCS: 36415; 80069; 81001; 82306; 82570; 83970; 84155; 85025

== ENCOUNTER → 2022-06-19 13:52 | Outpatient (POV) | payer OTHER, MEDICARE, SELFPAY | PROVIDERS: Visit Provider Internal Medicine Nephrology | DX: Z00.00 Encounter for general adult medical examination without abnormal findings (principal) ==

== ENCOUNTER 2023-07-10 15:51 | Outpatient (CLI) | payer MEDICARE, SELFPAY ==
[2023-07-10 16:15] LABS: Microscopic, Urine URINE MICROSCOPIC (MICROSCOPIC)
[2023-07-10 16:44] LABS: Basophils # 0.1 K/mm3 (0-0.2); Basophils % 0.8 % (0.1-2.0); Eosinophils # 0.2 K/mm3 (0.0-0.4); Eosinophils % 2.4 % (0.1-12.0); Hematocrit 47.7 % (42.0-52.0); Hemoglobin 16.1 g/dL (14.1-18.0); Lymphocytes # 1.4 K/mm3 (0.7-4.5); Lymphocytes % 20.4 % (10-50); Mean Corpuscular HGB Conc 33.7 g/dL (31.8-35.4); Mean Corpuscular Volume 91.8 fl (80-94); Mean Platelet Volume 8.3 fl (7.4-10.4); Monocytes # 0.4 K/mm3 (0.1-1.0); Monocytes % 6.1 % (1.7-9.3); Neutrophils # 4.9 K/mm3 (1.8-7.8); Neutrophils % 70.4 % (37.0-80.0); Platelet Count 214 K/mm3 (142-424); Red Blood Count 5.19 M/mm3 (4.60-6.20); Red Cell Distribution Width 13.5 % (11.5-17.5)
[2023-07-10 17:23] LABS: Anion Gap 11.3 mEq/L (5-15); Blood Urea Nitrogen 20 mg/dl (9-20); Calcium 9.6 mg/dl (8.4-10.2); Carbon Dioxide 30 mmol/L (22.0-30.0); Chloride 106 mmol/L (98-107); Estimated Glomerular Filt Rate 40 ml/min (>60); GFR (African American) 49 ML/MIN (>60); Glucose 139 mg/dl (74-100); Potassium 4.3 mmoL/L (3.5-5.1); Sodium 143 mmol/L (136-145)
[2023-07-10 17:33] LABS: Intact Parathyroid Hormone 57.9 pg/mL (7.5-53.5)
[2023-07-10 17:40] LABS: 25-OH Vitamin D, Total 53.8 ng/mL (30-100)
[2023-07-10 18:00] LABS: Appearance,Urine CLEAR (Clear); Bilirubin,Urine Negative (Negative); Blood, Urine Negative (Negative); Color,Urine YELLOW (Yellow); Glucose,Urine (UA) Negative (Negative); Ketones,Urine Negative (Negative); Leukocyte Esterase,Urine Negative (Negative); Nitrate,Urine Negative (Negative); PH,Urine 5.5 (5.0-8.5); Protein,Urine Negative (Negative); Specific Gravity, Urine 1.025 (1.005-1.030); Urobilinogen,Urine 0.2 EU/dl (0.2)
[2023-07-10 18:41] LABS: RBC,Urine Occasional #/hpf (0-3); Squamous Epithelial Cell,Urine Occasional #/hpf (0-5); WBC,Urine Occasional #/hpf (0-3)
[2023-07-10 19:24] LABS: Total Protein,Urine Random < 5.0 mg/dL (0.0-12.0)
[2023-07-10 19:28] LABS: Creatinine,Urine Random 211 mg/dL (Not Estab.)
== END 2023-07-10 23:59 ==
LOC: LAB 15:55
PROVIDERS: PCP Internal Medicine Adolescent Medicine; Visit Provider Internal Medicine Nephrology
DX: N18.32 Chronic kidney disease, stage 3b; N18.9 Chronic kidney disease, unspecified; M89.9 Disorder of bone, unspecified; E83.9 Disorder of mineral metabolism, unspecified
CPT/HCPCS: 36415; 80069; 81001; 82306; 82570; 83970; 84155; 85025

== ENCOUNTER 2023-07-16 15:11 | Outpatient (POV) | payer MEDICARE, SELFPAY | END 2023-07-16 23:59 | disposition home or self-care (01) | LOC: SC 15:12 | PROVIDERS: Visit Provider Internal Medicine Nephrology | DX: Z00.00 Encounter for general adult medical examination without abnormal findings (principal) ==

== ENCOUNTER 2024-04-04 14:59 | Emergency (ER) | payer MEDICARE, SELFPAY ==
[2024-04-04 15:52] VITALS: BP 114/79; PULSE 53; RESP 16; TEMP 36.8; O2SAT 96; BMI 28.0
[2024-04-04 16:05] VITALS: BP 103/70; PULSE 50; O2SAT 92
[2024-04-04 16:11] LABS: Basophils # 0.1 K/mm3 (0-0.2); Basophils % 1.9 % (0.1-2.0); Eosinophils # 0.1 K/mm3 (0.0-0.4); Eosinophils % 2.1 % (0.1-12.0); Hematocrit 47.6 % (42.0-52.0); Hemoglobin 16.3 g/dL (14.1-18.0); Lymphocytes # 1.2 K/mm3 (0.7-4.5); Mean Corpuscular HGB Conc 34.3 g/dL (31.8-35.4); Mean Corpuscular Hemoglobin 31.7 pg (27.0-31.2); Mean Corpuscular Volume 92.3 fl (80-94); Mean Platelet Volume 8.1 fl (7.4-10.4); Monocytes # 0.4 K/mm3 (0.1-1.0); Monocytes % 6.3 % (1.7-9.3); Neutrophils # 4.2 K/mm3 (1.8-7.8); Neutrophils % 69.6 % (37.0-80.0); Platelet Count 170 K/mm3 (142-424); Red Blood Count 5.15 M/mm3 (4.60-6.20); Red Cell Distribution Width 13.4 % (11.5-17.5)
[2024-04-04 16:15] VITALS: BP 122/77; PULSE 49; O2SAT 92
--- NOTE | 2024-04-04 16:18 | HMH.EDGENADL ---
Discharge Plan Disposition Patient Disposition: Home, Self-Care Chief Complaint: Headache Prescriptions Prescriptions: No Action isosorbide mononitrate 30 mg tablet extended release 24 hr 30 mg PO atorvastatin 80 mg tablet 80 mg PO tamsulosin 0.4 mg capsule PO trazodone 150 mg tablet 150 mg PO clopidogrel 75 mg tablet 75 mg PO promethazine 12.5 mg tablet 12.5 mg PO Patient Comments: TAKE ONE TABLET BY MOUTH EVERY 4 TO 6 HOURS NEEDED FOR NAUSEA MAY CAUSE DROWSINESS losartan 25 mg tablet 25 mg PO levothyroxine 125 mcg tablet 125 mcg PO DAILY levocetirizine [Xyzal] 5 mg tablet 5 mg PO DAILY metoprolol tartrate 25 mg tablet 25 mg PO diclofenac sodium 1 % gel 2 g topical Referrals Follow up/Referrals: Raúl Caraballo MD [Primary Care Provider] - See instructions Activity Restrictions/Add. Instructions Additional Instructions/Restrictions: Call your family doctor to establish care for this visit to the emergency department and schedule follow-up within 48 hours to ensure improvement. If you have any worsening of your condition or any other concerning signs or symptoms, return to the emergency department or your primary care doctor for further evaluation. Erythromycin 3 times daily for 5 days. Clinical Impressions Clinical Impression: Acute conjunctivitis of right eye Print Language Print Language: Afghan Discharge ED Provider: Adrian Hutchins General Adult HPI General Chief complaint: Headache Stated complaint: knot in R eye headache Time Seen by Provider: 04/04/24 15:49 Mode of Arrival: Ambulatory Source of Information: Patient Limitations: No Limitations Description of Symptoms (Recalled from ER Triage Doc. by RN): pt c/o R eye redness and a MOODY behind his R eye x3d. pt states his eye became more red today. pt states the pain feels like pressure and is 3/10. History of Present Illness HPI narrative: Please note that above description of symptoms, in this electronic medical record under categorization of recalled from ER triage doctor by RN are reflective of an initial nursing assessment, however, is not reflective of my full history and physical exam that was personally taken and clarified. Consequentially, this preceding description of symptoms, which may include the patient's categorized chief complaint in the EMR, do not reflect my personal clinical impression, and the ultimate description of history of present illness and patient stated complaints should be deferred to this section of the note. Unless stated otherwise or congruent with this section of the note, additional signs, symptoms, or incongruence should be interpreted as inaccurate with my clinical impression. Related Data Home Medications ?Medication ?Instructions ?Recorded ?Confirmed atorvastatin 80 mg tablet 80 mg PO 03/06/20 05/25/23 clopidogrel 75 mg tablet 75 mg PO 03/06/20 05/25/23 isosorbide mononitrate 30 mg 30 mg PO 03/06/20 05/25/23 tablet,extended release 24 hr tamsulosin 0.4 mg capsule cap PO 03/06/20 05/25/23 trazodone 150 mg tablet 150 mg PO 03/06/20 05/25/23 promethazine 12.5 mg tablet 12.5 mg PO 03/29/20 05/25/23 diclofenac sodium 1 % topical gel 2 g topical 05/25/23 05/25/23 levocetirizine 5 mg tablet (Xyzal) 5 mg PO DAILY 05/25/23 05/25/23 levothyroxine 125 mcg tablet 125 mcg PO DAILY 05/25/23 05/25/23 losartan 25 mg tablet 25 mg PO 05/25/23 05/25/23 metoprolol tartrate 25 mg tablet 25 mg PO 05/25/23 05/25/23 Allergies Allergy/AdvReac Type Severity Reaction Status Date / Time No Known Allergies Allergy Unknown Uncoded 05/25/23 14:19 [facility] Disclaimer: The information contained in this section may have been updated after the patient was seen, as this information can be updated by other users. Medical History (Updated 04/04/24 @ 17:10 by Adrian Hutchins MD) Allergic rhinitis Impacted cerumen of right ear Social History Smoking Status: Never smoker alcohol intake: never substance use type: denies use current occupational status: retired Travel in the last 8 weeks: None Other Medical History Have you received the Flu Vaccine for this season: Yes Have you received the Pneumonia Vaccine: Yes ROS Obtained: Yes All systems reviewed & no additional complaints except as documented Physical Exam General General appearance: alert Head Head exam: atraumatic and normocephalic Eye Eye exam: Present normal appearance, PERRL and EOMI Neck Neck exam: Present normal inspection, full ROM and trachea midline Respiratory Respiratory exam: Absent respiratory distress, wheezes, stridor, accessory muscle use or prolonged expiratory phase Cardiovascular Cardiovascular exam: Present other (Pulses equal symmetric in upper and lower extremities) Abdominal Exam Abdominal exam: Present soft; Absent distention, tenderness or pulsatile mass Extremities Exam Extremities exam: Absent edema Neurological Exam Neurological exam: Present alert, oriented X3 and CN II-XII intact; Absent motor sensory deficit Skin Skin exam: Present warm and dry; Absent diaphoresis or erythema Medical Decision Making Medical Records Medical records reviewed: Yes I reviewed the patient's medical records. Screening: Per USPSTF and CDC recommendations, given the prevalence of disease in our region, it is our hospital?s policy to screen for HIV and viral Hepatitis for all patients aged 18 and over and those with ongoing risk factors. Kike Inquiry Pt receiving controlled substance: No Kike was queried for this patient: No Vital Signs: 04/04/24 15:52 04/04/24 16:05 04/04/24 16:15 Temperature 98.3 F Temperature Source Oral Pulse Rate 50 L 49 L Pulse Rate [Left] 53 L Respiratory Rate 16 Blood Pressure 103/70 L 122/77 Blood Pressure [Right Arm] 114/79 Blood Pressure Mean [Right Arm] 90 Blood Pressure Source [Right Arm] Automatic Cuff Blood Pressure Position [Right Arm] Sitting 02 Sat by Pulse Oximetry 96 92 L 92 L Oxygen Delivery Method Room Air Room Air Room Air 04/04/24 16:30 Temperature Temperature Source Pulse Rate 50 L Pulse Rate [Left] Respiratory Rate Blood Pressure 126/79 Blood Pressure [Right Arm] Blood Pressure Mean [Right Arm] Blood Pressure Source [Right Arm] Blood Pressure Position [Right Arm] 02 Sat by Pulse Oximetry 92 L Oxygen Delivery Method Room Air Lab Data Lab Results 04/04/24 16:05: WBC 6.0, RBC 5.15, Hgb 16.3, Hct 47.6, MCV 92.3, MCH 31.7 H, MCHC 34.3, RDW 13.4, Plt Count 170, MPV 8.1, Neut % (Auto) 69.6, Lymph % (Auto) 20.0, [place] % (Auto) 6.3, Eos % (Auto) 2.1, Baso % (Auto) 1.9, Neut # (Auto) 4.2, Lymph # (Auto) 1.2, [place] # (Auto) 0.4, Eos # (Auto) 0.1, Baso # (Auto) 0.1, Sodium 141, Potassium 4.1, Chloride 109 H, Carbon Dioxide 29, Anion Gap 7.1, BUN 17, Creatinine 1.50 H, Estimated Creat Clear 58, Estimated GFR 47 L, Est GFR ( Amer) 56 L, Glucose 102 H, Calcium 9.2, Total Bilirubin 0.7, AST 35, ALT 34, Alkaline Phosphatase 72, C-Reactive Protein 0.9, Total Protein 6.5, Albumin 4.1, Globulin 2.4, Albumin/Globulin Ratio 1.7 04/04/24 16:05 04/04/24 16:05 Orders (Tests/Meds): ED MEDICATIONS Discontinued Medications Generic Name Dose Route Start Last Admin Trade Name Freq PRN Reason Stop Dose Admin Acetaminophen 1,000 mg 04/04/24 16:21 04/04/24 16:29 Acetaminophen 500mg Tab PO 04/04/24 16:22 1,000 mg ONCE ONE Administration Fluorescein Sodium 1 mg 04/04/24 15:54 04/04/24 16:29 Fluorescein Sodium 1mg Strip OP 04/04/24 15:55 1 mg ONCE ONE Administration Ketorolac Tromethamine 15 mg 04/04/24 16:21 04/04/24 16:28 Ketorolac 30mg/Ml Vial IV 04/04/24 16:22 15 mg ONCE ONE Administration Tetracaine HCl 0 ml 04/04/24 15:54 04/04/24 16:29 Tetracaine 0.5% Opth Fang 15ml OP 04/04/24 15:55 15 ml ONCE ONE Administration ORDERS Category Date Time Status POCUS Point of Care (ER Only) Stat Exams 04/04/24 15:54 Ordered CBC w/Auto Diff [Complete Blood Count Auto Diff] Stat Lab 04/04/24 16:05 Results CMP [Comprehensive Metabolic Panel] Stat Lab 04/04/24 16:05 Completed CRP [C-Reactive Protein] Stat Lab 04/04/24 16:05 Completed ESR [Erythrocyte Sedimentation Rate] Stat Lab 04/04/24 16:05 Results HIV (1&2) Antibody Rapid Stat Lab 04/04/24 16:05 Received Hep C Ab with Reflex to RNA Stat Lab 04/04/24 16:05 Received Medical Decision Narrative: 68-year-old male presenting with right eye pain and headache. Patient states that 2 days prior to this, he started having conjunctival injection in the right eye. Has since progressed. States that today, it seemed worse. He is also having right-sided headache. He has not taken any medications for this. No fevers, chills, nausea, vomiting, weight loss, night sweats, blurry or double vision, eye pain, trauma to the area, jaw or scalp pain, or any other concerns. History was obtained via conversation with patient. On arrival, patient hemodynamically stable, alert, oriented x4, appropriate, GCS 15, moving all extremities spontaneously, pupils equal and reactive to light. Full physical exam performed and significant for well-appearing male in no acute distress. Visual marin intact. Pupils 2 mm bilaterally and reactive to light. EOMs intact and full. States that EOMs make his right sided headache worse. No evidence of hyphema, proptosis, entrapment, conjunctival hemorrhage, pupillary changes, cellulitic change, obvious foreign body, or otherwise irregular ocular findings. Fluorescein staining without focal uptake. 8.9 mmHg. Differential includes headache, migraine, conjunctivitis, arteritis, foreign body, among others.. Acetaminophen and Toradol given for symptoms. Fluorescein stain as above. Labs independently interpreted and significant for nonactionable CBC or chemistry, negative inflammatory markers. On reevaluation, patient states headache is gone. Given patient presentation, workup, history, this most likely represents acute conjunctivitis. Patient was given erythromycin for home-going. CT scan of the head with contrast was considered, but given complete resolution of headache with medications, not deemed necessary at this time. No red flag signs or symptoms and no pain with EOMs after topical tetracaine numbing and fluorescein staining. Because patient at baseline without signs or symptoms of clinical decompensation, deemed appropriate for discharge. Results were relayed to patient who voiced understanding and were agreeable to outpatient management and follow up. I discussed my clinical impression with patient and answered all questions. At this time, the evidence for any other entities in the differential is insufficient to warrant any further testing or ED observation. This was explained as well. Advisory was given that persistent or worsening symptoms require further evaluation. I confirmed the understanding of this discussion. Contract Graphic Designer disclaimer Much of this encounter note is an electronic camp maintenance supervisor spoken language to printed text. Electronic camp maintenance supervisor of the spoken language may permit errors. Although I have reviewed the note, some errors may still exist. Critical Care Critical Care Time Critical Care Time: No
[2024-04-04 16:20] LABS: Alanine Aminotransferase 34 U/L (12-78); Albumin Level 4.1 g/dl (3.5-5.0); Albumin/Globulin Ratio 1.7 (1.1-1.8); Alkaline Phosphatase 72 U/L (38-126); Anion Gap 7.1 mEq/L (5-15); Aspartate Amino Transferase 35 U/L (17-59); Bilirubin,Total 0.7 mg/dl (0.2-1.3); Blood Urea Nitrogen 17 mg/dl (9-20); Calcium 9.2 mg/dl (8.4-10.2); Carbon Dioxide 29 mmol/L (22.0-30.0); Chloride 109 mmol/L (98-107); Creatinine Clearance Estimated 58 mL/min (50-200); Estimated Glomerular Filt Rate 47 ml/min (>60); GFR (African American) 56 ML/MIN (>60); Globulin 2.4 g/dL (1.3-3.2); Glucose 102 mg/dl (74-100); Potassium 4.1 mmoL/L (3.5-5.1); Sodium 141 mmol/L (136-145); Total Protein,Serum 6.5 g/dl (6.3-8.2)
[2024-04-04] MEDS: KETOROLAC 30MG/ML VIAL 15 MG IV (16:28)
[2024-04-04] MEDS: ACETAMINOPHEN 500MG TAB 1000 MG PO (16:29)
[2024-04-04] MEDS: TETRACAINE 0.5% OPTH SOL 15ML OP (16:29)
[2024-04-04] MEDS: FLUORESCEIN SODIUM 1MG STRIP 1 MG OP (16:29)
[2024-04-04 16:30] VITALS: BP 126/79; PULSE 50; O2SAT 92
[2024-04-04 16:33] LABS: C-Reactive Protein 0.9 mg/L (0-4)
[2024-04-04 17:07] LABS: Erythrocyte Sedimentation Rate 10 mm/hr (0-20)
[2024-04-04 17:14] VITALS: BP 124/81; PULSE 50; RESP 18; TEMP 36.6; O2SAT 95
[2024-04-04 19:08] LABS: HIV (1&2) Antibody Rapid NONREACTIVE (NONREACTIVE)
[2024-04-05 09:29] LABS: HCV Ab Non Reactive (Non Reactive)
== END 2024-04-04 17:14 | disposition home or self-care (01) ==
PROVIDERS: Emergency Provider Emergency Medicine; PCP Internal Medicine Adolescent Medicine
DX: H10.31 Unspecified acute conjunctivitis, right eye (principal); R51.9 Headache, unspecified; H57.11 Ocular pain, right eye
CPT/HCPCS: 80053; 85025; 85651; 86140; 86803; 87389; 96374; 99283; J1885

== ENCOUNTER 2024-08-12 15:36 | Outpatient (CLI) | payer MEDICARE, SELFPAY ==
[2024-08-12 16:00] LABS: Microscopic, Urine URINE MICROSCOPIC (MICROSCOPIC)
[2024-08-12 16:40] LABS: Hematocrit 44.8 % (42.0-52.0); Hemoglobin 15.3 g/dL (14.1-18.0); Mean Corpuscular HGB Conc 34.2 g/dL (31.8-35.4); Mean Corpuscular Hemoglobin 31.1 pg (27.0-31.2); Mean Corpuscular Volume 91.1 fl (80-94); Platelet Count 213 K/mm3 (142-424); Red Blood Count 4.92 M/mm3 (4.60-6.20); Red Cell Distribution Width 12.5 % (11.5-17.5); White Blood Count 8.7 K/mm3 (4.8-10.8)
[2024-08-12 17:06] LABS: Anion Gap 9.3 mEq/L (5-15); Blood Urea Nitrogen 15 mg/dl (9-20); Calcium 9.2 mg/dl (8.4-10.2); Carbon Dioxide 25 mmol/L (22.0-30.0); Chloride 108 mmol/L (98-107); Estimated Glomerular Filt Rate 47 ml/min (>60); GFR (African American) 56 ML/MIN (>60); Glucose 119 mg/dl (74-100); Phosphorous 2.4 mg/dl (2.5-4.5); Potassium 4.3 mmoL/L (3.5-5.1); Sodium 138 mmol/L (136-145)
[2024-08-12 17:09] LABS: Appearance,Urine CLEAR (Clear); Bilirubin,Urine Negative (Negative); Blood, Urine Negative (Negative); Color,Urine YELLOW (Yellow); Glucose,Urine (UA) 3+ (Negative); Ketones,Urine Negative (Negative); Leukocyte Esterase,Urine Negative (Negative); Nitrate,Urine Negative (Negative); Protein,Urine Negative (Negative); Specific Gravity, Urine 1.025 (1.005-1.030); Urobilinogen,Urine 0.2 EU/dl (0.2)
[2024-08-12 17:14] LABS: Intact Parathyroid Hormone 56.9 pg/mL (7.5-53.5)
[2024-08-12 17:38] LABS: Creatinine,Urine Random 190 mg/dL (Not Estab.)
[2024-08-12 18:20] LABS: Bacteria,Urine Trace /lpf; Mucus,Urine Trace /lpf
[2024-08-16 15:38] LABS: Total Protein,Urine Random < 5.0 mg/dL (0.0-12.0)
[2024-08-19 16:12] LABS: 1,25 Dihydroxy Vitamin D 30 pg/mL (.); 1,25-Dihydroxy, Vitamin D-2 <10 pg/mL (.); 1,25-Dihydroxy, Vitamin D-3 30 pg/mL (.)
== END 2024-08-12 23:59 | disposition home or self-care (01) ==
LOC: LAB 15:37
PROVIDERS: PCP Internal Medicine Adolescent Medicine; Visit Provider Internal Medicine Nephrology
DX: N18.32 Chronic kidney disease, stage 3b (principal)
CPT/HCPCS: 36415; 80069; 81001; 82570; 82652; 83970; 84156; 85027

== ENCOUNTER 2025-04-21 12:52 | Outpatient (CLI) | payer MEDICARE, SELFPAY ==
--- OUTSIDE RECORDS SUMMARY | 2025-04-21 12:58 | XMS_ITS | Encounter Summary ---
Author Organization [employer] ([place], [place], [place], [place], [place]) Address [address] [place] [address] Care Team Providers Care Devil Dog Name Role Phone Raúl Caraballo MD Primary Care Provider + [phone] Encounter Details Date Type Department Care Team (Late st Contact Info) Description 04/15/2021 Transcribed Document [facility] Cardiology [address] [place], [place] [id number] Tisha Cheung MD [address] [facility] [address] [place] [address] Social History Tobacco Use Types Packs/Day Years Used Date Smoking Tobacco: Never Assessed Sex and Gender Information Value Date Recorded Sex Assigned at Not on file Legal Sex Male 1:20 PM CDT Gender Identity Not on file Sexual Orientation Not on file documented as of this encounter Miscellaneous Notes * Cerner Conversion Note - Tisha Cheung MD - 04/15/2021 3:44 PM EDT DATE OF SERVICE: PROCEDURE IN DETAIL: This patient underwent a pharmacologic stress test with a myocardial perfusion scan. EKG at baseline showed normal sinus rhythm, no EKG changes suggestive of ischemia were seen. No ventricular dysrhythmia was noted. NUCLEAR SCAN: Raw data, stress and resting images were reviewed, images were gated. Myocardial perfusion followup was reviewed as well. There appears to be a within normal myocardial perfusion throughout the entire myocardium except from some mild subtle apical reversibility, which may represent an artifact versus some mild ischemic changes at the apex. Ejection fraction was 58%. Mildly abnormal myocardial perfusion study with apical mild reversibility, which may represent mild ischemia. All-in-all, however, normal wall motion and normal perfusion is noted throughout the rest of the heart. Ejection fraction by gated SPECT was 58%. /[id number] Tisha Cheung MD NMF/AQ / NMF / MODL /[id number] documented in this encounter Plan of Treatment Not on file documented as of this encounter Visit Diagnoses Not on filedocumented in this encounter Care Teams Devil Dog Relationship Specialty Start Date End Date Raúl Caraballo MD [address] [place] [address] [place] [address] PCP - General Adolescent Medicine 12/08/22 documented as of this encounter
--- OUTSIDE RECORDS SUMMARY | 2025-04-21 12:58 | XMS_ITS | Encounter Summary ---
Author Organization [employer] ([place], [place], [place], [place], [place]) Address [address] [place] [address] Care Team Providers Care Matlab Developer Name Role Phone Raúl Caraballo MD Primary Care Provider + [phone] Encounter Details Date Type Department Care Team (Late st Contact Info) Description 05/09/2021 Transcribed Document [facility] Family Medicine [address] [place] [address] ProviderKyree MD [address] [place], [place] [address] Social History Tobacco Use Types Packs/Day Years Used Date Smoking Tobacco: Never Assessed Sex and Gender Information Value Date Recorded Sex Assigned at Not on file Legal Sex Male 1:20 PM CDT Gender Identity Not on file Sexual Orientation Not on file documented as of this encounter Miscellaneous Notes * Cerner Conversion Note - Historical ProviderMD - 05/09/2021 4:00 AM 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 Height and Weight, Routine Entered On: 05/09/2021 6:45 EST Performed On: 05/09/2021 4:00 EST by CHALO HERNANDEZ, RN Height and Weight, Routine Routine Weight Source : Bed scale Routine Weight Entry Format : Metric Routine Weight, Kilograms : 89 kg(Converted to: 196 lb 3 oz) Routine Weight Calculation : 89 kg Height Source : Measured Height Entry Format : [place] Height, Feet : 5 ft Height, Inches : 9 Inch Clinical Height : 175.26 cm Body Surface Area (BSA), Routine : 2.05 m2 Body Mass Index (BMI), Routine : 28.98 kg/m2 CHALO HERNANDEZ, RN - 05/09/2021 6:44 EST Electronically signed by [facility] Conversion Lead Pharmacy Technician Cerner at 09/29/2022 3:30 PM CDT documented in this encounter Plan of Treatment Not on file documented as of this encounter Visit Diagnoses Not on filedocumented in this encounter Care Teams Matlab Developer Relationship Specialty Start Date End Date Raúl Caraballo MD [address] [place] [address] [place] [address] PCP - General Adolescent Medicine 12/08/22 documented as of this encounter
--- OUTSIDE RECORDS SUMMARY | 2025-04-21 12:58 | XMS_ITS | Encounter Summary ---
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 Or Department Name Role Phone Raúl Card MD Primary Care Provider + [phone] Encounter Details Date Type Department Care Team (Late st Contact Info) Description 04/30/2021 Transcribed Document [facility] Family Medicine [address] [place] [address] ProviderKyree MD [address] [place] [address] Social History Tobacco Use Types Packs/Day Years Used Date Smoking Tobacco: Never Assessed Sex and Gender Information Value Date Recorded Sex Assigned at Not on file Legal Sex Male 1:20 PM CDT Gender Identity Not on file Sexual Orientation Not on file documented as of this encounter Miscellaneous Notes * Cerner Conversion Note - Kyree ProviderMD - 04/30/2021 2:58 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 [address] CHELSEA AVINA :1955 Visit Time:04/30/2021 Your Visit Summary Your Care Team Admitting Physician - JANEEN PICKETT MD-CAR Attending Physician - JANEEN PICKETT MD-CAR Primary Care Physician - RAÚL CARD (REF)[facility] Referring Physician - JANEEN PICKETT MD-CAR Your Diagnosis Abnormal result of other cardiovascular function study, Abnormal result of other cardiovascular function study These Are Your Goals No qualifying data available. Discharge Vitals Heart Rate (Monitored) 52 Blood Pressure 146/100 What to do next Instructions From Your Care Team Please read post radial instruction sheet Follow-Up Appointments Follow Up with AMARILYS JALLOH MD When Comments Follow-up as instructed Where: Medications What How Much When Instructions Next Dose aspirin 81 Milligram(s) atorvastatin 80 Milligram(s) Oral Every Day isosorbide mononitrate 30 Milligram(s) Oral Every Morning levothyroxine (levothyroxine 125 mcg (0.125 mg) oral tablet) 1 Tablet(s) Oral Every Day losartan (losartan 25 mg oral tablet) 2 Tablet(s) Oral Every Day tamsulosin (Flomax 0.4 mg oral capsule) Oral Every Day traZODone (traZODone 100 mg oral tablet) Oral At Bedtime Take your medications faithfully. Do NOT skip medication. Do NOT stop taking medications without the direction of a physician. Carry a list of your medications with you at all times, and take this medication list with you to your first follow up visit. Report any side effects. Avoid herbal remedies unless discussed with your physician. As part of your treatment plan, your physician may have prescribed a limited course of a controlled substance. This medication may be given to help people with moderate or severe pain or for other medical conditions, but there are risks involved with treatment. Common side effects may include nausea, constipation, drowsiness, sweating, itching, dry mouth, and rash. More serious side effects may include cognitive and motor impairment, like problems with thinking, concentrating, alertness, and movement (e.g. slowed reflexes), and driving and operating heavy machinery can be dangerous. It is important for you to talk to your physician if you have these side effects or questions. These controlled substances can produce physical dependence and be habit-forming if taken for an extended period of time, which means that the body has gotten used to them and may experience withdrawal symptoms if they are abruptly stopped. Withdrawal symptoms can include runny nose, sweating, goose bumps, diarrhea, abdominal cramping, rapid heartbeat, difficulty sleeping, and nervousness. Please dispose of unused and medications per your retail pharmacy guidance. Allergies shellfish ([D]Nausea and vomiting, [D]Nausea and vomiting) Immunizations This Visit No Immunizations Found Stroke/TIA Instructions Individualized Stroke Risk Factors Individualized Stroke Risk Factors *Q: Coronary artery disease, Diabetes, High cholesterol Stroke/TIA Signs/Symptoms to Report Immediately: Sudden onset difficulty speaking, Sudden onset difficulty understanding speech, Sudden onset change in vision, Sudden onset weakness particulary on one side of the body, Sudden onset numbness/tingling, Sudden severe headache, Sudden dizziness or trouble with gait, Call : EMS activation is crucial Mutually Agreed Upon Goals My LDL Level: My LDL Level: Education Materials Transradial Angiogram A transradial angiogram is an imaging test that is used to examine blood vessels. For this test, a long, thin tube (catheter) is inserted into an artery in the wrist (radial artery) and moved into the blood vessels that need to be checked. A dye (contrast dye) is injected into the blood vessels, and then X-rays are taken. The contrast dye makes the blood vessels show up better on X-rays to help your health care provider see any problems. You may have this test to check for problems that can affect blood flow through the blood vessels, such as: ??? A blocked or narrowed blood vessel. ??? A blood clot. ??? Abnormal connections between blood vessels. Tell a health care provider about: ??? Any allergies you have. ??? All medicines you are taking, including vitamins, herbs, eye drops, creams, and czff-qir-yqympka medicines. ??? Any problems you or family members have had with anesthetic medicines. ??? Any blood disorders you have. ??? Any surgeries you have had. ??? Any medical conditions you have or have had. ??? Whether you are or may be . What are the risks? Generally, this is a safe procedure. However, problems may occur, including: ??? Infection. ??? Bleeding. ??? Allergic reactions to medicines or dyes. ??? Damage to other structures or organs, such as the blood vessels, lungs, or heart. ??? Blood clots. ??? Blood flow through the radial artery stopping or slowing down. This is rare. What happens before the procedure? Medicines Ask your health care provider about: ??? Changing or stopping your regular medicines. This is especially important if you are taking diabetes medicines or blood thinners. ??? Taking medicines such as aspirin and ibuprofen. These medicines can thin your blood. Do not take these medicines unless your health care provider tells you to take them. ??? Taking gpem-ttm-jhvmmvu medicines, vitamins, herbs, and supplements. Exams and tests ??? You may have a physical exam. ??? You may have tests, including blood tests and X-rays. General instructions ??? Follow instructions from your health care provider about eating or drinking restrictions. ??? Do not use any products that contain nicotine or tobacco for at least 24 hours before the procedure. These products include cigarettes, e-cigarettes, and chewing tobacco. If you need help quitting, ask your health care provider. ??? Ask your health care provider: ? How your procedure site will be marked. ? What steps will be taken to help prevent infection. These may include: ? Washing skin with a germ-killing soap. ? Taking antibiotic medicine. ??? Plan to have someone take you home from the hospital or clinic. ??? If you will be going home right after the procedure, plan to have someone with you for 24 hours. What happens during the procedure? An IV will be inserted into one of your veins. ??? You may be given the following: ? A medicine to help you relax (sedative). ? A medicine that is injected into your wrist to numb the area near the radial artery (local anesthetic). ??? A needle will be inserted into your radial artery in your wrist. ??? A catheter will be inserted into your radial artery. The needle will help guide the catheter into your radial artery and will then be removed. ??? The catheter will be moved through your body to the desired area. An X-ray machine (fluoroscope) will help your health care provider place the catheter in the correct place in your body. ??? Contrast dye will be injected into the catheter and will travel to the blood vessels that are being examined. ??? X-ray images will be taken of how the dye flows through your blood vessels. While the images are being taken, you may be given instructions on breathing, swallowing, moving, or talking. ??? The catheter will be removed from your body. ??? A pressure (compression) wrap will be applied to your wrist to stop bleeding. The procedure may vary among health care providers and hospitals. What happens after the procedure? You will need to keep your wrist still for as long as told by your health care provider. ??? The pressure applied to your wrist will be gradually decreased until the compression wrap is removed. ??? Your blood pressure, heart rate, breathing rate, and blood oxygen level will be monitored until you leave the hospital or clinic. ??? You may continue to get fluids and medicines through an IV. ??? You may have soreness and bruising in your wrist. This is normal. This should get better within about 1 week. ??? Do not drive for 24 hours if you were given a sedative during your procedure. ??? You may have to wear compression stockings. These stockings help to prevent blood clots and lessen swelling in your legs. Summary ??? A transradial angiogram is an imaging test that is used to examine blood vessels and to check for problems that can affect blood flow. ??? For this test, a catheter is inserted into an artery in the wrist (radial artery) and moved into the blood vessels being examined. A dye (contrast dye) is injected into the blood vessels, and then X-rays are taken. ??? Before the procedure, follow instructions from your health care provider about changing or stopping your medicines. ??? Before the procedure, follow instructions from your health care provider about eating or drinking restrictions. ??? If you will be going home right after the procedure, plan to have someone take you home and stay with you for 24 hours. This information is not intended to replace advice given to you by your health care provider. Make sure you discuss any questions you have with your health care provider. Document Revised: 04/25/2019 Document Reviewed: 04/25/2019 [employer] Patient Education ?? 2020 [email or web address]. Radial Site Care This sheet gives you information about how to care for yourself after your procedure. Your health care provider may also give you more specific instructions. If you have problems or questions, contact your health care provider. What can I expect after the procedure? After the procedure, it is common to have: ??? Bruising and tenderness at the catheter insertion area. Follow these instructions at home: Medicines ??? Take znhg-ojj-ciighfp and prescription medicines only as told by your health care provider. Insertion site care ??? Follow instructions from your health care provider about how to take care of your insertion site. Make sure you: ? Wash your hands with soap and water before you change your bandage (dressing). If soap and water are not available, use hand gamb cutter. ? Change your dressing as told by your health care provider. ? Leave stitches (sutures), skin glue, or adhesive strips in place. These skin closures may need to stay in place for 2 weeks or longer. If adhesive strip edges start to loosen and curl up, you may trim the loose edges. Do not remove adhesive strips completely unless your health care provider tells you to do that. ??? Check your insertion site every day for signs of infection. Check for: ? Redness, swelling, or pain. ? Fluid or blood. ? Pus or a bad smell. ? Warmth. ??? Do not take baths, swim, or use a hot tub until your health care provider approves. ??? You may shower 24???48 hours after the procedure, or as directed by your health care provider. ? Remove the dressing and gently wash the site with plain soap and water. ? Pat the area dry with a clean towel. ? Do not rub the site. That could cause bleeding. ??? Do not apply powder or lotion to the site. Activity ??? For 24 hours after the procedure, or as directed by your health care provider: ? Do not flex or bend the affected arm. ? Do not push or pull heavy objects with the affected arm. ? Do not drive yourself home from the hospital or clinic. You may drive 24 hours after the procedure unless your health care provider tells you not to. ? Do not operate machinery or power tools. ??? Do not lift anything that is heavier than 10 lb (4.5 kg), or the limit that you are told, until your health care provider says that it is safe. ??? Ask your health care provider when it is okay to: ? Return to work or school. ? Resume usual physical activities or sports. ? Resume sexual activity. General instructions ??? If the catheter site starts to bleed, raise your arm and put firm pressure on the site. If the bleeding does not stop, get help right away. This is a medical emergency. ??? If you went home on the same day as your procedure, a responsible adult should be with you for the first 24 hours after you arrive home. ??? Keep all follow-up visits as told by your health care provider. This is important. Contact a health care provider if: ??? You have a fever. ??? You have redness, swelling, or yellow drainage around your insertion site. Get help right away if: ??? You have unusual pain at the radial site. ??? The catheter insertion area swells very fast. ??? The insertion area is bleeding, and the bleeding does not stop when you hold steady pressure on the area. ??? Your arm or hand becomes pale, cool, tingly, or numb. These symptoms may represent a serious problem that is an emergency. Do not wait to see if the symptoms will go away. Get medical help right away. Call your local emergency services (911 in the [place] Do not drive yourself to the hospital. Summary ??? After the procedure, it is common to have bruising and tenderness at the site. ??? Follow instructions from your health care provider about how to take care of your radial site wound. Check the wound every day for signs of infection. ??? Do not lift anything that is heavier than 10 lb (4.5 kg), or the limit that you are told, until your health care provider says that it is safe. This information is not intended to replace advice given to you by your health care provider. Make sure you discuss any questions you have with your health care provider. Document Revised: 07/07/2018 Document Reviewed: 07/07/2018 [employer] Patient Education ?? 2021 [employer] Moderate Conscious Sedation, Adult, Care After This sheet gives you information about how to care for yourself after your procedure. Your health care provider may also give you more specific instructions. If you have problems or questions, contact your health care provider. What can I expect after the procedure? After the procedure, it is common to have: ??? Sleepiness for several hours. ??? Impaired judgment for several hours. ??? Difficulty with balance. ??? Vomiting if you eat too soon. Follow these instructions at home: For at least 24 hours after the procedure: ??? Rest. ??? Do not: ? Participate in activities where you could fall or become injured. ? Drive. ? Use machinery. ? Drink alcohol. ? Take sleeping pills or medicines that cause drowsiness. ? Make important decisions or sign legal documents. ? Take care of children on your own. Eating and drinking ??? Follow the diet recommended by your health care provider. ??? Drink enough fluid to keep your urine pale yellow. ??? If you vomit: ? Drink water, juice, or soup when you can drink without vomiting. ? Make sure you have little or no nausea before eating solid foods. General instructions ??? Have a responsible adult stay with you until you are awake and alert. ??? Take eabc-vyw-ysmqwpp and prescription medicines only as told by your health care provider. ??? Do not smoke. ??? Keep all follow-up visits as told by your health care provider. This is important. Contact a health care provider if: ??? You are still sleepy or having trouble with balance after 24 hours. ??? You feel light-headed. ??? You keep feeling nauseous or you keep vomiting. ??? You develop a rash. ??? You have a fever. ??? You have redness or swelling around the IV site. Get help right away if: ??? You have trouble breathing. ??? You have new-onset confusion at home. Summary ??? After the procedure, it is common to feel sleepy, have impaired judgment, or feel nauseous if you eat too soon. ??? Rest after you get home. Know the things you should not do for at least 24 hours after the procedure. ??? Follow the diet recommended by your health care provider and drink enough fluid to keep your urine pale yellow. ??? Get help right away if you have trouble breathing or new-onset confusion at home. This information is not intended to replace advice given to you by your health care provider. Make sure you discuss any questions you have with your health care provider. Document Revised: 04/26/2020 Document Reviewed: 04/26/2020 [employer] Patient Education ?? 2020 [employer] What to do if you are sick with coronavirus disease 2019 (COVID-19) If you are sick with COVID-19 or suspect you are infected with the virus that causes COVID-19, follow the steps below to help prevent the disease from spreading to people in your home and community. Missing Image - the embedded image is not supported COVID-19 and Animals for more information. Call ahead before visiting your doctor If you have a medical appointment, call the healthcare provider and tell them that you have or may have COVID-19. This will help the healthcare provider???s office take steps to keep other people from getting infected or exposed. Wear a facemask You should wear a facemask when you are around other people (e.g., sharing a room or vehicle) or pets and before you enter a healthcare provider???s office. If you are not able to wear a facemask (for example, because it causes trouble breathing), then people who live with you should not stay in the same room with you, or they should wear a facemask if they enter your room. Cover your coughs and sneezes Cover your mouth and nose with a tissue when you cough or sneeze. Throw used tissues in a lined trash can; immediately wash your hands with soap and water for at least 20 seconds or clean your hands with an alcohol-based hand gamb cutter that contains at least 60 to 95% alcohol, covering all surfaces of your hands and rubbing them together until they feel dry. Soap and water should be used preferentially if hands are visibly dirty. Avoid sharing personal household items You should not share dishes, drinking glasses, cups, eating utensils, towels, or bedding with other people or pets in your home. After using these items, they should be washed thoroughly with soap and water. Clean your hands often Wash your hands often with soap and water for at least 20 seconds. If soap and water are not available, clean your hands with an alcohol-based hand gamb cutter that contains at least 60% alcohol, covering all surfaces of your hands and rubbing them together until they feel dry. Soap and water should be used preferentially if hands are visibly dirty. Avoid touching your eyes, nose, and mouth with unwashed hands. Clean all ???high-touch?? surfaces every day High touch surfaces include counters, tabletops, doorknobs, bathroom fixtures, toilets, phones, keyboards, tablets, and bedside tables. Also, clean any surfaces that may have blood, stool, or body fluids on them. Use a household cleaning spray or wipe, according to the label instructions. Labels contain instructions for safe and effective use of the cleaning product including precautions you should take when applying the product, such as wearing gloves and making sure you have good ventilation during use of the product. Monitor your symptoms Seek prompt medical attention if your illness is worsening (e.g., difficulty breathing). Before seeking care, call your healthcare provider and tell them that you have, or are being evaluated for, COVID-19. Put on a facemask before you enter the facility. These steps will help the healthcare provider???s office to keep other people in the office or waiting room from getting infected or exposed. Ask your healthcare provider to call the local or state health department. Persons who are placed under active monitoring or facilitated self-monitoring should follow instructions provided by their local health department or occupational health professionals, as appropriate. If you have a medical emergency and need to call 911, notify the dispatch personnel that you have, or are being evaluated for COVID-19. If possible, put on a facemask before emergency medical services arrive. Discontinuing home isolation Patients with confirmed COVID-19 should remain under home isolation precautions until the risk of secondary transmission to others is thought to be low. The decision to discontinue home isolation precautions should be made on a yymn-pg-lhds basis, in consultation with healthcare providers and state and local health departments. For more information: HYPERLINK http://www.cdc.gov/COVID19 www.cdc.gov/COVID19 DISCLAIMER: COVID-19 information is rapidly changing and documents will be updated accordingly. August 19, 2019 It???s Cold and Flu Season ??? How are you protecting yourself? The start of each year is often met with the peak of cold and flu season. This year is no different except that we are facing the new strain of coronavirus, COVID-19, and the widespread media attention this public health outbreak is causing. It is understandable that many are feeling overwhelmed by the thought of catching coronavirus and are concerned about how to best care for ourselves and our loved ones during this challenging time. Take comfort in knowing there are simple things you can do each and every day to help ensure your health is protected. Scrub a dub! Wash your hands! As simple as this sounds, it truly is the most effective way to stop the spread of germs. Be sure to use soap, and to make sure you are being thorough enough, sing the ???Happy Birthday?? song which is just the right length to ensure a thorough cleaning of your hands. Wash all parts of your hands, including the ???webs?? between your fingers and thumbs. When without, use a squeeze! If you are unable to get to a sink for soap and water to thoroughly wash your hands, use hand gamb cutter. While handwashing is best, hand gamb cutter helps to reduce the spread of germs when you are out and about. Have hand gamb cutter in several locations so you can always have some on hand ??? think about placing some bottles in your car, your purse, your suitcase, the diaper bag, or even in your coat pocket. Don???t rub, don???t touch! As tempting as it is to rub those scratchy eyes during allergy season or to rub a runny nose, don???t. In fact, if you can, try to avoid touching your face as much as possible, especially with unclean hands. Our eyes, nose, and mouth are easy access points for germs to enter our bodies. When in doubt, don???t go out! If you are feeling under the weather, stay home. If your child is feeling sick, keep them home. It is so important to not only rest when you are starting to get sick or are already under the weather, but also staying home and away from others helps to keep people from also getting sick. Don???t [place] It! Sneezing this time of year is part of life, especially if you suffer from allergies or do have the cold or flu. To help minimize the spread of germs from sneezing or coughing, use a Kleenex or your elbow to protect against rogue spray and to help keep your hands clean. And remember, most people will have a runny nose, coughs and sneezes these days either from seasonal allergies, the cold or the flu, but if you do feel ill or feel like you need some help to feel better, please contact your Primary Care Provider to determine the best course of treatment for you which may include home care for mild cases or making an appointment to be seen to address more moderate needs. To find a PCP near you, please visit HYPERLINK [email or web address]. August 19, 2019 Emergency Awareness and Preventative Care STROKE is an EMERGENCY Every Minute Counts Act FAST and Check for these signs: FACE Does the face look uneven? ARM Does one arm drift down? SPEECH Does their speech sound strange? TIME Call at any sign of stroke Stroke Risk Factors Atrial Fibrillation (irregular heartbeat) Diabetes Family history of stroke Heart Disease Heavy alcohol use High Blood Pressure High Cholesterol Physical inactivity and obesity Smoking Cigarette Smoking The facts are clear, cigarette smoking will shorten your life. Smoking can cause many illnesses along the way. As a healthcare provider, we recommend that you stop smoking. Assistance with quitting is available by contacting 3-198-WTOZ-NOW. This is a free resource providing counseling, support, and referral. Or you may contact your personal physician. National Suicide Prevention Lifeline: The National Suicide Prevention Lifeline is a national network of local crisis centers that provides free and confidential emotional support to people in suicidal crisis or emotional distress 24 hours a day, 7 days a week. Don't Wait! Stop a Heart Attack Before it Starts What is a heart attack? A heart attack is damage or to a part of the heart from severely decreased or lack of blood flow to the heart. Over time, arteries can become narrow from the buildup of fat and cholesterol, which is called plaque. The plaque can rupture causing a blood clot to form. When the blood clot forms, the artery can become severely narrowed or completely blocked, causing a heart attack. Heart attack is the leading cause of in the [place]. 85% of muscle damage occurs within the first 2 hours. Delay in the recognition of heart attack symptoms increases the chances of . Know the early symptoms of a heart attack: Nausea Feeling of fullness in chest Jaw Pain Pain that travels down one or both arms Fatigue/being tired Anxiety Back Pain Chest pressure, squeezing, or discomfort Shortness of breath Sweating, or a cold sweat Feeling of impending doom There are unusual signs of a heart attack, too! Women, the elderly, and diabetics may present with atypical symptoms: Fainting/dizziness Weakness Confusion Risk Factors for a Heart Attack Some heart disease risk factors, such as age and family history, cannot be changed. Others, like smoking and lack of exercise, can be changed. Smoking High Cholesterol High Blood Pressure Family History Obesity Age Gender (Males are at higher risk) Lack of Exercise Diabetes Diet Stress Excessive Alcohol Intake If you or someone you know is experiencing the signs and symptoms of a heart attack, DON???T DELAY. Call immediately and seek help. If someone collapses, perform CPR! Do not attempt to drive if you are having symptoms of heart attack. Hands-Only CPR Why Hands-Only CPR? Hands-Only CPR has been shown to be as effective as conventional CPR for cardiac arrests that occur outside of a hospital. Survival depends on immediately receiving CPR from someone nearby. How do you perform Hands-Only CPR? There are two easy steps: Call if you see a teen or adult collapse Push hard and fast in the center of the chest at a beat of 100 beats per minute. Save a life! 4 WAYS TO GET AHEAD OF SEPSIS SEPSIS is a MEDICAL EMERGENCY. Time matters! Infections put you and your family at risk for a life-threatening condition called sepsis. Sepsis is the body's extreme response to an infection. It is life-threatening, and without timely treatment, sepsis can rapidly lead to tissue damage, organ failure, and . Sepsis happens when an infection you already have-in your skin, lungs, urinary tract or somewhere else-triggers a chain reaction throughout your body. 1 PREVENT INFECTIONS Take good care of chronic conditions. Talk to your doctor about getting the recommended vaccines. 2 PRACTICE GOOD HYGIENE Wash your hands frequently. Keep cuts or open sores clean and covered until they are healed. 3 KNOW THE SYMPTOMS Confusion or disorientation Shortness of breath High heart rate Fever, shivering, or feeling very cold Extreme pain or discomfort Clammy or sweaty skin 4 ACT FAST Get medical care IMMEDIATELY if you suspect sepsis or if you have an infection that is not getting better or is getting worse. To learn more about sepsis and how to prevent infections, visit www.cdc.gov/sepsis. Test Results Laboratory or Other Results This Visit (last charted value for your 04/30/2021 visit) Hematology 04/30/2021 7:38 AM Platelet Count: 195 K/uL -- Normal range between ( 163 and 369 ) Microbiology 04/26/2021 3:00 PM SARS-CoV-2 (COVID19 PCR): Negative Patient Name:CHELSEA AVINA I have received and understand this information and was given the opportunity to ask questions. Patient/Automatic Pilot Mechanic Name: Patient/Automatic Pilot Mechanic Signature: Relationship to Patient: Clinician/Hospital Automatic Pilot Mechanic Signature: Date: Electronically signed by Jessica, [facility] Conversion Radar Engineering Teacher Cerner at 09/29/2022 3:33 PM CDT documented in this encounter Plan of Treatment Not on file documented as of this encounter Visit Diagnoses Not on filedocumented in this encounter Care Teams Chief Librarian Branch Or Department Relationship Specialty Start Date End Date Raúl Card MD [address] [place] [id number] PCP - General Adolescent Medicine 12/08/22 documented as of this encounter
--- OUTSIDE RECORDS SUMMARY | 2025-04-21 12:58 | XMS_ITS | Clinical Summary ---
Author Organization [employer] ([place], [place], [place], [place], [place]) Address [address] [place] [address] Care Team Providers Care Curb Supervisor Name Role Phone Raúl Caraballo MD Primary Care Provider + [phone] Allergies Active Allergy Reactions Criticality Noted Date Comments Shellfish Derived 12/03/2022 Medications aspirin 81 MG EC tablet Take 1 tablet (81 mg total) by mouth daily. Active atorvastatin (LIPITOR) 80 MG tablet Take 1 tablet (80 mg total) by mouth daily. Active levothyroxine (SYNTHROID, LEVOTHROID) 125 MCG tablet Take 1 tablet (125 mcg total) by mouth Every morning on an empty stomach. Active metoprolol tartrate (LOPRESSOR) 25 MG tablet Take 0.5 tablets (12.5 mg total) by mouth daily Takes 1/2 tab QD. Active clopidogreL (PLAVIX) 75 mg tablet Take 1 tablet (75 mg total) by mouth daily . Active potassium chloride (KLOR-CON-M) 10 MEQ CR tablet Take 1 tablet (10 mEq total) by mouth daily. Active tamsulosin (FLOMAX) 0.4 mg Cap 24 hr capsule Take 1 capsule (0.4 mg total) by mouth daily. Active Hospital, Clinic, or Other Facility Administered Medication Ordered Dose Route Frequency Start Date End Date Status nitroglycerin (NITROSTAT) SL tablet 0.4 mgIndications:Chest pain, unspecified type 0.4 mg SL Every 5 min PRN 08/06/2022 Active Active Problems Problem Noted Date Diagnosed Date Arteriosclerotic coronary artery disease 023 Carotid artery stenosis 12/03/2022 HLD (hyperlipidemia) 12/03/2022 HTN (hypertension) 12/03/2022 Family History Medical History Relation Name Comments Coronary artery disease Brother Hypertension Father Stroke Father Diabetes Maternal Grandmother Hypertension Mother Relation Name Status Comments Brother Father Maternal Grandmother Mother Social History Tobacco Use Types Packs/Day Years Used Date Smoking Tobacco: Never Smokeless Tobacco: Never Tobacco Cessation:Counseling Given: Not Answered Alcohol Use Standard Drinks/Week Comments Not Currently 0 (1 standard drink = 0.6 oz pur e alcohol) Family and Community Support Answer Chilo e Recorded Help with Day to Day Activities Not on file 06/26/2023 Feeling Lonely or Isolated Not on file 06/26 Educational Attainment Answer Date Tera rded Speak language other than Croatian at home Not on file 06/26/2023 Want help with school or training Not on file 06/26/2023 Substance Use Answer Date Recorded Used prescription meds for non-medical reasons N ot on file 06/26/2023 Used illegal drugs past 12 months Not on file 06/26/2023 Sex and Gender Information Value Date Recorded Sex Assigned at Not on file Legal Sex Male 1:20 PM CDT Gender Identity Not on file Sexual Orientation Not on file Last Filed Vital Signs Vital Sign Reading Time Taken Comments Blood Pressure 100/70 09/09/2023 2:10 PM EDT Pulse 54 09/09/2023 2:10 PM EDT Temperature - - Respiratory Rate - - Oxygen Saturation - - Inhaled Oxygen Concentration - - Weight 89.8 kg (198 lb) 09/09/2023 2:10 PM EDT Height 175.3 cm (5' 9 ) 09/09/2023 2:10 PM EDT Body Mass Index 29.24 09/09/2023 2:10 PM EDT Plan of Treatment Health Maintenance Due Date Last Done Comments CT Colonography 1956 Colonoscopy 1956 Colorectal Cancer Screening 1956 FOBT/FIT 1956 Fit-DNA (Cologuard) 1956 Sigmoidoscopy 1956 Depression Screening (12+) 1968 Hepatitis C Screening 1974 DTAP/TDAP/TD VACCINES (1 - Tdap) 1975 Shingles Vaccine (Zoster) (1 of 2) 2006 Respiratory Syncytial Virus (RSV) Adult or (1 - Risk 60-74 years 1-dose series) 2016 Pneumococcal 50+ years (2 of 2 - PCV) 05/15/202206/2020 Medicare Initial AWV [id number] 06/16/2023 Tobacco Cessation Counseling and Screening (12+) 12/09/2023 12/08/2022 Falls Risk Screening 06/15/2024 COVID-19 VACCINE ( - 2024- season) 2025 11/26/2021, 10/05/2020, 08/25/2020 Influenza Vaccine (#1) 2025 04/14/2022 Insurance [employer] MEDICARE HMO Care Teams Curb Supervisor Relationship Specialty Start Date End Date Raúl Caraballo MD [address] [place] [address] PCP - General Adolescent Medicine 12/08/22
--- OUTSIDE RECORDS SUMMARY | 2025-04-21 12:58 | XMS_ITS | Encounter Summary ---
Author Organization [employer] ([place], [place], [place], [place], [place]) Address [address] [place] [address] Care Team Providers Care Black Top Raker Name Role Phone Raúl Caraballo MD Primary Care Provider + [phone] Encounter Details Date Type Department Care Team (Late st Contact Info) Description 12/15/2019 Transcribed Document [facility] Cardiology [address] [place], [place] [id number] [place] [address] [place] [address] [address] [place] [address] Social History Tobacco Use Types Packs/Day Years Used Date Smoking Tobacco: Never Assessed Sex and Gender Information Value Date Recorded Sex Assigned at Not on file Legal Sex Male 1:20 PM CDT Gender Identity Not on file Sexual Orientation Not on file documented as of this encounter Miscellaneous Notes * Cerner Conversion Note - Tisha Cheung MD - 12/15/2019 10:11 AM EDT DATE OF SERVICE: This patient underwent a stress test with a myocardial perfusion study, the EKG portion of which was unremarkable. NUCLEAR SCAN: There appears to be a within normal myocardial perfusion, normal wall motion and wall thickening appreciated. Ejection fraction by gated SPECT was 72%. IMPRESSION: 1. Normal study. 2. Ejection fraction 72%. /[id number] Tisha Cheung MD NMF/AQ / CARINA / MODL /[id number] documented in this encounter Plan of Treatment Not on file documented as of this encounter Visit Diagnoses Not on filedocumented in this encounter Care Teams Black Top Raker Relationship Specialty Start Date End Date Raúl Caraballo MD [address] [place] [address] PCP - General Adolescent Medicine 12/08/22 documented as of this encounter
--- OUTSIDE RECORDS SUMMARY | 2025-04-21 12:58 | XMS_ITS | Encounter Summary ---
Author Organization [employer] ([place], [place], [place], [place], [place]) Address [address] [place] [address] Care Team Providers Care Metal Burnisher Name Role Phone Raúl Caraballo MD Primary Care Provider + [phone] Encounter Details Date Type Department Care Team (Late st Contact Info) Description 04/30/2021 Transcribed Document [facility] [place] [facility] [address] [place] [address] ProviderKyree MD [address], [place] [id number] Social History Tobacco Use Types Packs/Day Years Used Date Smoking Tobacco: Never Assessed Sex and Gender Information Value Date Recorded Sex Assigned at Not on file Legal Sex Male 1:20 PM CDT Gender Identity Not on file Sexual Orientation Not on file documented as of this encounter Miscellaneous Notes * Cerner Conversion Note - Historical ProviderMD - 04/30/2021 7:56 AM CEMENT FINISHER Pre Procedure Adult Entered On: 04/30/2021 8:01 EST Performed On: 04/30/2021 7:56 EST by YARELY OLIVAS RN Height and Weight, Clinical Dosing Height Source : Stated Height Entry Format : [place] Height, Feet : 5 ft(Converted to: 152 cm, 60 Inch) Height, Inches : 9 Inch(Converted to: 0 ft 9 Inch, 22.86 cm) Clinical Height : 175.26 cm Weight Source : Standing scale Weight Entry Format : [place] Clinical Dosing Weight : 85.45 kg Weight, Pounds : 188 lb Body Surface Area (BSA) : 2.01 m2 Body Mass Index : 27.8 kg/m2 (HI) [place] Body Weight : 70 kg YARELY OLIVAS RN - 04/30/2021 7:56 EST Health Histories Smoking Status : Former smoker, quit more than 30 days ago Smokeless Tobacco Status : Never YARELY OLIVAS RN - 04/30/2021 7:56 EST Social History (As Of: 04/30/2021 08:01:04 EST) Tobacco: Smoking Status Former smoker. Last Used: stopped in 2001. (Last Updated: 11/18/2016 07:56:15 EDT by LUZMA VELIZ RN) Alcohol: Alcohol Use History No. (Last Updated: 11/18/2016 07:56:35 EDT by LUZMA VELIZ RN) Infectious Disease History Does patient have symptoms of COVID-19? : No Has the Patient Been Tested for COVID-19 in the last 14 days? : Yes, Patient stated results Negative Does the Patient state known exposure to a COVID-19 positive case in the last 14 days? : No Patient Vaccinated for COVID-19 : Fully vaccinated YARELY OLIVAS RN - 04/30/2021 7:56 EST Infectious Disease Risk Screening Grid Cough < 2 wks of unknown origin : NO Cough > 2 weeks : NO Blood in Sputum : NO Fever or self-reported Fever : NO Rash of unknown origin : NO Headache : NO Stiff neck : NO Night Sweats : NO Unexplained Weight Loss : NO Diarrhea (3 episode per day) : NO YARELY OLIVAS RN - 04/30/2021 7:56 EST Physical contact outside [place] in the last 30 days : No Hospitalized in Foreign Country : No Infectious Disease History : Chicken pox/Shingles, Measles, Mumps INF Disease TB Screening Calc : 0 INF Disease Recent Travel Calc : 0 YARELY OLIVAS RN - 04/30/2021 7:56 EST COVID19 PreProcedure Screening Is this an Emergent or Add on Procedure? : No Date PreProcedure COVID-19 test known? : Yes Date of PreProcedure COVID-19 : 04/26/2021 EST Has patient been isolated since the test : Yes Exposed to COVID19 symptoms since test? : No YARELY OLIVAS RN - 04/30/2021 7:56 EST Anesthesia/Transfusion History Family History of Anesthesia Reaction : No prior transfusion(s) Blood Transfusion Acceptable to Patient : Yes Transfusion History : Prior anesthesia reaction Type of Anesthesia Reaction : Excessive somnolence Family History of Anesthesia Reaction : None YARELY OLIVAS RN - 04/30/2021 7:56 EST Functional Assessment Living Situation : Home Patient Lives With : Spouse Current Home Treatments : None YARELY OLIVAS RN - 04/30/2021 7:56 EST [place] Suicide Severity Rating Scale (C-SSRS) CSSRS Past Month Wish to be : No CSSRS Past Month Suicidal Thoughts : No CSSRS Lifetime Suicide Behavior : No Suicide Severity Rating Score : 0 Suicide Severity Rating : No Additional Care Required at this time YARELY OLIVAS RN - 04/30/2021 7:56 EST Psychosocial History Currently in Unsafe Situation : No YARELY OLIVAS RN - 04/30/2021 7:56 EST Advance Directive Patient has Advance Directive *Q : No, patient refuses Advance Directive information YARELY OLIVAS RN - 04/30/2021 7:56 EST General Info Want Family/Rep/Phys Notified of Admit : No Emergency Contact #1 : Deja Emergency Contact #1 Phone Number : Emergency Contact #1 Relationship : [phone] Emergency Contact #2 : none Emergency Contact #2 Phone Number : none Emergency Contact #2 Relationship : none Primary Language : Zambian Communication Barrier : None Freight Solicitor Needed : No YARELY OLIVAS RN - 04/30/2021 7:56 EST Sleep Apnea Risk Assmt Hx of Obstructive Sleep Apnea Diagnosis : No Snore Loudly : No Tired, Fatigued, or Sleepy During Day : No Observed Stopping Breathing During Sleep : No Have/Are Being Treated for Hypertension : Yes BMI Greater Than 35 kg/m2 : No Age over 50 Years Old : Yes Neck Circumference Greater Than 40 cm : No Gender Male : Yes STOP-BANG Sleep Apnea Risk Level Score : 3 YARELY OLIVAS RN - 04/30/2021 7:56 EST Brian Scale Brian Sensory Perception : No impairment Brian Moisture : Rarely moist Brian Activity : Walks frequently Brian Mobility : No limitation Brian Nutrition : Adequate Brian Friction and Shear : No apparent problem Brian Score : 22 YARELY OLIVAS RN - 04/30/2021 7:56 EST Fall Risk Scales ABCs Fall Injury Risk Identification : None MCDONALD Hx Falls Immediate/Within 3 Months : No Mcdonald Secondary Diagnosis : Yes MCDONALD Use of Ambulatory Aid : None MCDONALD IV Therapy or IV Access : Yes Mcdonald Gait/Transferring : Normal, bedrest, immobile Mcdonald Mental Status : Oriented to own ability Mcdonald Fall Risk Score : 35 MCDONALD Fall Scale Risk Level : 25-45 Medium Risk [place] Fall Interventions : Adequate lighting, Assistive devices within reach, Bed in low position, Call device within reach, Fall prevention handout/education per facility policy, Hourly comfort/safety rounds, Non-slip footwear, Personal items within reach, Reinforced to call for assistance before getting out of bed, Room free of clutter/spills, Upper side-rails up, Wheels locked, Wires/Cords secured YARELY OLIVAS RN - 04/30/2021 7:56 EST Valuables and Belongings Valuables and Belongings : Clothing Clothing : Common streetwear Clothing Disposition : Bedside YARELY OLIVAS RN - 04/30/2021 7:56 EST Electronically signed by Jessica [facility] Conversion Aircraft Cleaner Cerner at 09/29/2022 3:44 PM CDT documented in this encounter Plan of Treatment Not on file documented as of this encounter Visit Diagnoses Not on filedocumented in this encounter Care Teams Metal Burnisher Relationship Specialty Start Date End Date Raúl Caraballo MD [address] [place] [address] PCP - General Adolescent Medicine 12/08/22 documented as of this encounter
--- OUTSIDE RECORDS SUMMARY | 2025-04-21 12:58 | XMS_ITS | Encounter Summary ---
Author Organization [employer] ([place], [place], [place], [place], [place]) Address [address] [place] [address] Care Team Providers Care Drywall Taper Name Role Phone Raúl Caraballo MD Primary Care Provider + [phone] Encounter Details Date Type Department Care Team (Late st Contact Info) Description 05/09/2021 Transcribed Document [facility] [place] [facility] [address] [place] [address] ProviderKyree MD [address] [place] [place], [place] [address] Social History Tobacco Use Types Packs/Day Years Used Date Smoking Tobacco: Never Assessed Sex and Gender Information Value Date Recorded Sex Assigned at Not on file Legal Sex Male 1:20 PM CDT Gender Identity Not on file Sexual Orientation Not on file documented as of this encounter Miscellaneous Notes * Cerner Conversion Note - Historical ProviderMD - 05/09/2021 5:00 PM DIRECTOR OF INSTRUCTIONAL TECHNOLOGY Chart Check - Review Order Profile Entered On: 05/09/2021 18:58 EST Performed On: 05/09/2021 17:00 EST by SOLIS ISAACS, RN Chart Check All Active Orders Reviewed : Yes SOLIS ISAACS, RN - 05/09/2021 18:58 EST Electronically signed by Jessica [facility] Conversion Agency Development Manager Cerner at 09/29/2022 3:14 PM CDT documented in this encounter Plan of Treatment Not on file documented as of this encounter Visit Diagnoses Not on filedocumented in this encounter Care Teams Drywall Taper Relationship Specialty Start Date End Date Raúl Caraballo MD [address] [place] [address] PCP - General Adolescent Medicine 12/08/22 documented as of this encounter
--- OUTSIDE RECORDS SUMMARY | 2025-04-21 12:58 | XMS_ITS | Encounter Summary ---
Author Organization [employer] ([place], [place], [place], [place], [place]) Address [address] [place] [address] Care Team Providers Care Bisque Kiln Placer Name Role Phone Raúl Caraballo MD Primary Care Provider + [phone] Encounter Details Date Type Department Care Team (Late st Contact Info) Description 04/30/2021 Transcribed Document [facility] [place] [facility] [place] [address] ProviderKyree MD [address] [place] [address] Social History Tobacco Use Types Packs/Day Years Used Date Smoking Tobacco: Never Assessed Sex and Gender Information Value Date Recorded Sex Assigned at Not on file Legal Sex Male 1:20 PM CDT Gender Identity Not on file Sexual Orientation Not on file documented as of this encounter Miscellaneous Notes * Cerner Conversion Note - Historical ProviderMD - 04/30/2021 2:54 PM ALLEY CLEANER Nursing Discharge Summary Entered On: 04/30/2021 14:57 EST Performed On: 04/30/2021 14:54 EST by YARELY OLIVAS upper trimmer Documentation Discharge Date/Time : 04/30/2021 14:54 EST Patient Disposition, General : Discharge Discharge To : Home with ambulatory/outpatient follow-up Mode Of Departure, General Discharge : Private vehicle Accompanied By, Discharge : Spouse Personal Belongings With Patient : Yes Discharge Instructions Reviewed With, Opportunity For Questions Given : Patient, Spouse Patient Education Completed : Yes Teaching Method : Explanation Teaching Evaluation : Verbalizes understanding YARELY OLIVAS RN - 04/30/2021 14:54 EST Electronically signed by Jessica, [facility] Conversion Timber Harvester Operator Cerner at 09/29/2022 3:16 PM CDT documented in this encounter Plan of Treatment Not on file documented as of this encounter Visit Diagnoses Not on filedocumented in this encounter Care Teams Bisque Kiln Placer Relationship Specialty Start Date End Date Raúl Caraballo MD [address] [place] [address] PCP - General Adolescent Medicine 12/08/22 documented as of this encounter
--- OUTSIDE RECORDS SUMMARY | 2025-04-21 12:58 | XMS_ITS | Encounter Summary ---
Author Organization [employer] ([place], [place], [place], [place], [place]) Address [address] [place] [address] Care Team Providers Care Railroad Car Inspector Name Role Phone Raúl Caraballo MD Primary Care Provider + [phone] Encounter Details Date Type Department Care Team (Late st Contact Info) Description 05/11/2021 Transcribed Document [facility] [place] Family Medicine [address] [place] [address] ProviderKyree MD [address], [place] [address] Social History Tobacco Use Types Packs/Day Years Used Date Smoking Tobacco: Never Assessed Sex and Gender Information Value Date Recorded Sex Assigned at Not on file Legal Sex Male 1:20 PM CDT Gender Identity Not on file Sexual Orientation Not on file documented as of this encounter Miscellaneous Notes * Cerner Conversion Note - Historical ProviderMD - 05/11/2021 2:00 AM MOISTURE TESTER Farmworker Poultry Details Entered On: 05/11/2021 2:31 EST Performed On: 05/11/2021 2:00 EST by Allie Smith RN Order Details Transport Mode Order Detail : Wheelchair Isolation Precautions Order Detail : Standard Precautions Order Detail : N/A IV Order Detail : 1 Oxygen Order Detail : 1 Nurse Collect Order Detail : 0 Lift/Transfer : Minimal Central Line Order Detail : No Room Service : Appropriate Arterial Line : No Patient Needs Meds Crushed/Liquid : No Allie Smith RN - 05/11/2021 2:30 EST Electronically signed by Jessica [facility] Conversion Blackjack Dealer Cerner at 09/29/2022 3:42 PM CDT documented in this encounter Plan of Treatment Not on file documented as of this encounter Visit Diagnoses Not on filedocumented in this encounter Care Teams Railroad Car Inspector Relationship Specialty Start Date End Date Raúl Caraballo MD [address] [place] [address] PCP - General Adolescent Medicine 12/08/22 documented as of this encounter
--- OUTSIDE RECORDS SUMMARY | 2025-04-21 12:58 | XMS_ITS | Encounter Summary ---
Author Organization [employer] ([place], [place], [place], [place], [place]) Address [address] [place] [address] Care Team Providers Care Administrative Liaison Name Role Phone Raúl Caraballo MD Primary Care Provider + [phone] Encounter Details Date Type Department Care Team (Late st Contact Info) Description 04/30/2021 Transcribed Document [facility] [place] Family Medicine [address] [place] [address] ProviderKyree MD [address] [place] [address] Social History Tobacco Use Types Packs/Day Years Used Date Smoking Tobacco: Never Assessed Sex and Gender Information Value Date Recorded Sex Assigned at Not on file Legal Sex Male 1:20 PM CDT Gender Identity Not on file Sexual Orientation Not on file documented as of this encounter Miscellaneous Notes * Cerner Conversion Note - Historical ProviderMD - 04/30/2021 2:52 PM CINDER MAN Stroke/Warfarin Instructions Entered On: 04/30/2021 14:52 EST Performed On: 04/30/2021 14:52 EST by YARELY OLIVAS RN Stroke/Warfarin Instructions Stroke/TIA Discharge Ins : Open Warfarin Discharge Ins : N/A YARELY OLIVAS RN - 04/30/2021 14:52 EST Stroke/TIA Discharge Instructions Individualized Stroke Risk Factors *Q : Coronary artery disease, Diabetes, High cholesterol Stroke Education Handouts Given *Q : Yes YARELY OLIVAS RN - 04/30/2021 14:52 EST Stroke Education Materials Given-Grid Activation of EMS *Q : Verbalizes understanding Follow-up Care After Discharge *Q : Verbalizes understanding Medications prescribed at DC *Q : Verbalizes understanding Risk Factors for Stroke *Q : Verbalizes understanding Warning S&S of Stroke *Q : Verbalizes understanding YARELY OLIVAS RN - 04/30/2021 14:52 EST Stroke/TIA Signs/Symptoms to Report Immediately : Sudden onset difficulty speaking, Sudden onset difficulty understanding speech, Sudden onset change in vision, Sudden onset weakness particulary on one side of the body, Sudden onset numbness/tingling, Sudden severe headache, Sudden dizziness or trouble with gait, Call : EMS activation is crucial My LDL Level: : LDL Level No qualifying data available. YARELY OLIVAS RN - 04/30/2021 14:52 EST Electronically signed by Jessica [facility] Conversion Clothing Designer Cerner at 09/29/2022 3:28 PM CDT documented in this encounter Plan of Treatment Not on file documented as of this encounter Visit Diagnoses Not on filedocumented in this encounter Care Teams Administrative Liaison Relationship Specialty Start Date End Date Raúl Caraballo MD [address] [place] [address] [place] [id number] PCP - General Adolescent Medicine 12/08/22 documented as of this encounter
--- OUTSIDE RECORDS SUMMARY | 2025-04-21 12:58 | XMS_ITS | Encounter Summary ---
Author Organization [employer] ([place], [place], [place], [place], [place]) Address [address] [place] [address] Care Team Providers Care Tubing Drier Name Role Phone Raúl Caraballo MD Primary Care Provider + [phone] Encounter Details Date Type Department Care Team (Late st Contact Info) Description 05/09/2021 Transcribed Document [facility] [place] [address] [place] [address] ProviderKyree MD [address], [place] [address] Social History Tobacco Use Types Packs/Day Years Used Date Smoking Tobacco: Never Assessed Sex and Gender Information Value Date Recorded Sex Assigned at Not on file Legal Sex Male 1:20 PM CDT Gender Identity Not on file Sexual Orientation Not on file documented as of this encounter Miscellaneous Notes * Cerner Conversion Note - Historical ProviderMD - 05/09/2021 5:00 AM PIG FARM MANAGER Chart Check - Review Order Profile Entered On: 05/09/2021 6:35 EST Performed On: 05/09/2021 5:00 EST by CHALO HERNANDEZ RN Chart Check Powerplans Initiated/Discontinued as Appropriate : Yes All Active Orders Reviewed : Yes CHALO HERNANDEZ RN - 05/09/2021 6:34 EST documented in this encounter Plan of Treatment Not on file documented as of this encounter Visit Diagnoses Not on filedocumented in this encounter Care Teams Tubing Drier Relationship Specialty Start Date End Date Raúl Caraballo MD [address] [place] [address] [place] [id number] PCP - General Adolescent Medicine 12/08/22 documented as of this encounter
--- OUTSIDE RECORDS SUMMARY | 2025-04-21 12:58 | XMS_ITS | Encounter Summary ---
Author Organization [employer] ([place], [place], [place], [place], [place]) Address [address] [place] [address] Care Team Providers Care Corporate Representative Name Role Phone Raúl Caraballo MD Primary Care Provider + [phone] Encounter Details Date Type Department Care Team (Late st Contact Info) Description 04/30/2021 Transcribed Document [facility] [place] Family Medicine [address] [place] [address] ProviderKyree MD [address], [place] [address] Social History Tobacco Use Types Packs/Day Years Used Date Smoking Tobacco: Never Assessed Sex and Gender Information Value Date Recorded Sex Assigned at Not on file Legal Sex Male 1:20 PM CDT Gender Identity Not on file Sexual Orientation Not on file documented as of this encounter Miscellaneous Notes * Cerner Conversion Note - Historical ProviderMD - 04/30/2021 2:51 PM BPM DEVELOPER Patient Education Materials Follows: What to do if you are sick with coronavirus disease 2019 (COVID-19) If you are sick with COVID-19 or suspect you are infected with the virus that causes COVID-19, follow the steps below to help prevent the disease from spreading to people in your home and community. Stay home except to get medical care You should restrict activities outside your home, except for getting medical care. Do not go to work, school, or public areas. Avoid using public transportation, ride-sharing, or taxis. Separate yourself from other people and animals in your home People: As much as possible, you should stay in a specific room and away from other people in your home. Also, you should use a separate bathroom, if available. Animals: Do not handle pets or other animals while sick. See HYPERLINK https://www.cdc.gov/coronavirus/2019-ncov/faq.html#5901-nZqO-cij-animals COVID-19 and Animals for more information. Call [...] clean your hands with an alcohol-based hand oil tester that contains at least 60 to 95% [...] clean your hands with an alcohol-based hand oil tester that contains at least 60% alcohol, covering [...] isolation precautions should be made on a gali-la-veep basis, in consultation with healthcare providers and [...] to thoroughly wash your hands, use hand oil tester. While handwashing is best, hand oil tester helps to reduce the spread of germs when you are out and about. Have hand oil tester in several locations so you can always [...] keep people from also getting sick. Don???t [place] It! Sneezing this time of year is [...] a PCP near you, please visit HYPERLINK [email or web address]. August 19, 2019 Neurology Radial Site Care This sheet gives you [...] these instructions at home: Medicines ??? Take epgz-mqr-aoyybgu and prescription medicines only as told by your health care provider. Insertion site care ??? Follow instructions from your health care provider about how to take care of your insertion site. Make sure you: ? Wash your hands with soap and water before you change your bandage (dressing). If soap and water are not available, use hand oil tester. ? Change your dressing as told by [...] care provider approves. ??? You may shower 24?48 hours after the procedure, or as directed [...] provider. Document Revised: 07/07/2018 Document Reviewed: 07/07/2018 [employer] Patient Education ? 2020 [employer] Pharmacology Moderate Conscious Sedation, Adult, Care After This [...] you are awake and alert. ??? Take ndrl-zax-mmalyxs and prescription medicines only as told by [...] provider. Document Revised: 04/26/2020 Document Reviewed: 04/26/2020 [employer] Patient Education ? 2020 [employer] Procedures Transradial Angiogram A transradial angiogram is an [...] including vitamins, herbs, eye drops, creams, and vlpq-jkc-khjuoxq medicines. ??? Any problems you or family [...] tells you to take them. ??? Taking knjd-byq-yilngmg medicines, vitamins, herbs, and supplements. Exams and [...] provider. Document Revised: 04/25/2019 Document Reviewed: 04/25/2019 [employer] Patient Education ? 2020 [employer] documented in this encounter Plan of Treatment Not on file documented as of this encounter Visit Diagnoses Not on filedocumented in this encounter Care Teams Corporate Representative Relationship Specialty Start Date End Date Raúl Caraballo MD [address] [place] [id number] PCP - General Adolescent Medicine 12/08/22 documented as of this encounter
--- OUTSIDE RECORDS SUMMARY | 2025-04-21 12:58 | XMS_ITS | Clinical Summary ---
Author Organization [facility] Address [address] [place] [address] Care Team Providers Care Chlorobutadiene Scrubber Operator Name Role Phone Raúl Caraballo MD Primary Care Provider + [phone] Allergies Active Allergy Reactions Criticality Noted Date Comments Shellfish Protein-Containing Drug Products Unknown (See Comments) Low 07/14/2018 Medications tamsulosin (FLOMAX) 0.4 MG capsule 24 hr capsule Take 1 capsule by mouth Every Night. Active atorvastatin (LIPITOR) 80 MG tablet Take 1 tablet by mouth Daily. Active levothyroxine (SYNTHROID, LEVOTHROID) 125 MCG tablet Take 1 tablet by mouth Daily. Active traZODone (DESYREL) 100 MG tablet Take 1.5 tablets by mouth Every Night. Active losartan (COZAAR) 50 MG tablet 02/06/2021 Active metoprolol tartrate (LOPRESSOR) 25 MG tablet Take 0.5 tablets by mouth Daily. Active Farxiga 10 MG tablet Take 10 mg by mouth Daily. 12/06/2023 Active clopidogrel (PLAVIX) 75 MG tablet Take 1 tablet by mouth Daily. Active aspirin 81 MG EC tablet Take 1 tablet by mouth Daily. Active Sod Picosulfate-Mag Ox-Cit Acd 10-3.5-12 MG-GM -GM/160ML solution Take 350 mL by mouth Take As Directed for 1 dose. 350 mL 04/04/2024 Active Active Problems Problem Noted Date Diagnosed Date Arteriosclerotic coronary artery disease 023 Carotid artery stenosis 12/03/2022 HLD (hyperlipidemia) 12/03/2022 Chronic kidney disease-mineral and bone disorder 05/20/2021 BPH (benign prostatic hyperplasia) 07/14/2018 Essential hypertension 07/14/2018 High cholesterol 07/14/2018 Stage 3 chronic kidney disease 05/24/2018 Immunizations Immunization Administration Dates Next Due Arexvy (RSV, Adults 60+ yrs) 06/24/2023 Fluzone >6mos 05/11/2021(Deferred: Patient roberto carlos reinoso) Fluzone High-Dose 65+YRS 02/25/2023,04/14/2022 Hepatitis A 01/26/2019,01/25/2019 Pneumococcal Polysaccharide (PPSV23) 05/15/2021 Family History Medical History Relation Name Comments Colon cancer Neg Hx Colon polyps Neg Hx Esophageal cancer Neg Hx Social History Tobacco Use Types Packs/Day Years Used Date Smoking Tobacco: Former Smokeless Tobacco: Never Tobacco Cessation:Counseling Given: No Alcohol Use Standard Drinks/Week Comments No 0 (1 standard drink = 0.6 oz pur e alcohol) AUDIT-C Answer Date Recorded Frequency of Alcohol Consumption Never 04/05/2019 Average Number of Drinks Not on file 019 Frequency of Binge Drinking Not on file 03/16 Abuse Screen Answer Date Recorded Unsafe at Home or Work/School Not on file Feels Threatened by Someone? Not on file 02/2023 Does Anyone Keep You from Co ntacting Others or Doint Things Outside the Home? Not on file 03/23/2023 Physical Sign of Abuse Present Not on file 1 Housing Stability Answer Date Recorded Current Living Arrangements Not on file 02/2023 Potentially Unsafe Housing Conditions Not on jenelle e 03/23/2023 Family and Community Support Answer Chilo e Recorded Help with Day-to-Day Activities Not on file 03/23/2023 Lonely or Isolated Not on file 03/23/2023 Employment Answer Date Recorded Do you want help finding or keeping work or a vladimir b? Not on file 03/23/2023 Disabilities Answer Date Recorded Concentrating, Remembering, or Making Decisions Difficulty Not on file 03/23/2023 Doing Errands Independently Difficulty Not on fi le 03/23/2023 Education Answer Date Recorded Help with school or training? Not on file Preferred Language Not on file 03/23/2023 Sex and Gender Information Value Date Recorded Sex Assigned at Not on file Legal Sex Male 12:21 PM EDT Gender Identity Not on file Sexual Orientation Not on file Last Filed Vital Signs Vital Sign Reading Time Taken Comments Blood Pressure 118/72 02/22/2024 2:08 PM EDT Pulse 51 02/22/2024 2:08 PM EDT Temperature 36.3 C (97.4 F) 02/22/2024 2:08 PM EDT Respiratory Rate 16 04/05/2019 2:38 PM EDT Oxygen Saturation 96% 02/22/2024 2:08 PM EDT Inhaled Oxygen Concentration - - Weight 88.4 kg (194 lb 12.8 oz) 02/22/2024 2:08 PM EDT Height 175.3 cm (5' 9 ) 02/22/2024 2:08 PM EDT Body Mass Index 28.77 02/22/2024 2:08 PM EDT Plan of Treatment Health Maintenance Due Date Last Done Comments LIPID PANEL 1956 TDAP/TD VACCINES (1 - Tdap) 1975 COLOGUARD 2001 COLON CANCER SCREENING 5 YEA R SIGMOIDOSCOPY 2001 CT COLONOGRAPHY 2001 FECAL OCCULT BLOOD TEST 2001 FIT Testing (1 year) 2001 ZOSTER VACCINE (1 of 2) 2006 ANNUAL WELLNESS VISIT 09/23/2018 HEPATITIS C SCREENING 09/23/2018 Pneumococcal Vaccine 50+ (2 of 2 - PCV) 05/15/2022 05/15/2021 INFLUENZA VACCINE 01/13/2025 02/29/2024, , 04/14/2022 COVID-19 Vaccine ( season) 2025 11/26/2021, 10/05/2020, 08/25/2020 COLONOSCOPY 04/11/2034 04/11/2024, 11/22/2018 COLORECTAL CANCER SCREENING 04/11/2034 AAA SCREEN ONCE Completed 09/28/2018 Procedures Procedure Name Priority Date/Time Associated Diagnosis Comments SCANNED - COLONOSCOPY 04/11/2024 US ABDOMEN COMPLETE Routine 09/28/2018 2 :29 PM EDT Abnormal finding on radiology exam Chronic abdominal pain from Last 3 Months or Most Recently Relevant to Health Maintenance Results * Colonoscopy, Scan (04/11/2024) Bolivar Harvey MD CHART REVIEW TABS Final Result * US Abdomen Complete (09/28/2018 2:29 PM EDT) Anatomical Region Laterality Modality Body, Abdomen Ultrasound 09/29/2018 9:52 AM EDT Impressions 09/29/2018 1:15 PM EDT Normal examination. E: 09/29/2018 This report was finalized on 09/29/2018 1:[address] Cristian Obrien MD. Narrative 09/29/2018 1:15 PM EDT EXAMINATION: US ABDOMEN COMPLETE- 09/28/2018 INDICATION: Chronic right sided pain; R93.89-Abnormal findings on diagnostic imaging of other specified body structures; R10.9-Unspecified abdominal pain; G89.29-Other chronic pain TECHNIQUE: Ultrasound of the abdomen was performed in the longitudinal and transverse planes. COMPARISON: NONE FINDINGS: The aorta and inferior vena cava are normal. The pancreas is normal. The liver reveals no focal abnormality or biliary ductal dilatation. Gallbladder demonstrates no wall thickening or stones. The common bile duct is normal with an AP dimension of 4 mm. The right and left kidneys measure 11.9 and 11.2 cm in length respectively without evidence of mass, stone or obstruction. The spleen is normal with a sagittal dimension of 11 cm. Procedure Note Den Obrien MD - 09/29/2018 EXAMINATION: US ABDOMEN COMPLETE- 09/28/2018 INDICATION: Chronic right sided pain; R93.89-Abnormal findings on diagnostic imaging of other specified body structures; R10.9-Unspecified abdominal pain; G89.29-Other chronic pain TECHNIQUE: Ultrasound of the abdomen was performed in the longitudinal and transverse planes. COMPARISON: NONE FINDINGS: The aorta and inferior vena cava are normal. The pancreas is normal. The liver reveals no focal abnormality or biliary ductal dilatation. Gallbladder demonstrates no wall thickening or stones. The common bile duct is normal with an AP dimension of 4 mm. The right and left kidneys measure 11.9 and 11.2 cm in length respectively without evidence of mass, stone or obstruction. The spleen is normal with a sagittal dimension of 11 cm. IMPRESSION: Normal examination. E: 09/29/2018 This report was finalized on 09/29/2018 1:[address] Cristian Obrien MD. Bolivar Harvey MD [facility] ORDERABLES Final Re sult from Last 3 Months or Most Recently Relevant to Health Maintenance Insurance MEDICARE A & B Member Subscriber Plan / Payer (Ef fective 2021-Present) Name:Jovon Duncan Member ID:[id number] Relation to Subscriber:Self Name:Jovon Duncan Subscriber ID:[id number] Payer ID:[id number] Group ID:Not on file Type:Not on file Address: [facility] [id number] MEDICARE ADVANTAGE HMO Care Teams Chlorobutadiene Scrubber Operator Relationship Specialty Start Date End Date Raúl Caraballo MD [address] [facility] [address] [place] [address] PCP - General 02/09/15
--- OUTSIDE RECORDS SUMMARY | 2025-04-21 12:58 | XMS_ITS | Encounter Summary ---
Author Organization [employer] ([place], [place], [place], [place], [place]) Address [address] [place] [address] Care Team Providers Care Wind Farm Support Specialist Name Role Phone Raúl Caraballo MD Primary Care Provider + [phone] Encounter Details Date Type Department Care Team (Late st Contact Info) Description 05/09/2021 Transcribed Document [facility] [place] [facility] [place] [address] ProviderKyree MD [address] [place] [address] Social History Tobacco Use Types Packs/Day Years Used Date Smoking Tobacco: Never Assessed Sex and Gender Information Value Date Recorded Sex Assigned at Not on file Legal Sex Male 1:20 PM CDT Gender Identity Not on file Sexual Orientation Not on file documented as of this encounter Miscellaneous Notes * Cerner Conversion Note - Historical ProviderMD - 05/09/2021 8:06 AM PHONE BANKER Patient: CHELSEA AVINA Age: 66 years Sex: Male : 1955 Associated Diagnoses: None Author: SOFIE WRAY PA Subjective Mr. Avina is a 66-year-old gentleman who presented with chest pain. He was diagnosed by cath as having multivessel disease. The patient elected to go home prior to his procedure. He was symptom-free at that time and allowed to be discharged home. Remainder of his workup was noncontributory. His risk calculator for the STS database was calculated and discussed with the patient in full detail. He is agreeable to an STS risk calculator score of approximately 1%. He was consented and taken to the operating room in an elective fashion. 05/07: Coronary artery bypass grafting x4 (left internal mammary to LAD, reverse saphenous vein graft triple sequential from PD to OM to ramus) on cardiopulmonary bypass with endoscopic vein harvest. 05/08/21: POD#1 OOB in chair. Reports incisional discomfort. Denies dyspnea. 05/09/21: POD#2 usual post op soreness, admits he hasn't been using IS, walked 80 ft yesterday with PT Health Status Allergies: Allergic Reactions (Selected) Severity Not Documented Shellfish- [d]nausea and vomiting and [d]nausea and vomiting., No qualifying data available Current medications: (Selected) Inpatient Medications Ordered Chap Stick: 1 Application, Topical, Q1H, PRN: Other (See Comment) Colace: 100 mg, Oral, BID Dextrose 50% injection: 12.5 Gram, IV Push, Q15Min, PRN: Other (See Comment) Dextrose 50% injection: 25 Gram, IV Push, Q15Min, PRN: Other (See Comment) Dextrose 50% injection: 25 Gram, IV Push, Q15Min, PRN: Other (See Comment) Dextrose 50% injection: 25 Gram, IV Push, Q15Min, PRN: Other (See Comment) DuoNeb 0.5 mg-2.5 mg/3 mL inhalation solution: 3 mL, Nebulized Inhalation, RT_Q4H, PRN: Shortness of Breath Lopressor: 12.5 mg, Oral, BID Milk of Magnesia 8% oral suspension: 30 mL, Oral, Q8H, PRN: Constipation Nitrostat: 0.4 mg, SubLINgual, Q5Min, PRN: Pain Normal Saline Flush: 10 mL, IV Push, Q8H Normal Saline Flush: 10 mL, IV Push, See Comment, PRN: IV Use Normal Saline Flush: 10 mL, IV Push, See Comment, PRN: Other (See Comment) Plavix: 75 mg, Oral, Daily Protonix: 40 mg, Oral, Daily Reglan: 5 mg, IV Push, Q6H, PRN: Nausea/Vomiting Senokot: 17.2 mg, Oral, BID Tylenol: 1 Gram, Oral, Q8H, PRN: Temperature Tylenol: 650 mg, Oral, Q6H, PRN: Fever Zofran: 4 mg, IV Push, Q4H, PRN: Nausea acetaminophen-HYDROcodone 325 mg-5 mg oral tablet: 2 Tab, Oral, Q4H, PRN: Pain (Moderate 4-6) ascorbic acid: 500 mg, Oral, BID aspirin: 81 mg, Oral, Daily atorvastatin: 80 mg, Oral, Daily fluocinonide 0.05% topical cream: 1 Application, Topical, QID, PRN: Other (See Comment) glucagon: 1 mg, IntraMuscular, Q15Min, PRN: Other (See Comment) glucose 4 g oral tablet, chewable: 16 Gram, 4 Tab, Chew, Q15Min, PRN: Other (See Comment) glucose 40% oral gel: 15 Gram, 37.5 mL, Oral, Q15Min, PRN: Other (See Comment) insulin lispro sliding scale: Scale D:, SubCutaneous, AC and at Bedtime levothyroxine: 125 mcg, Oral, Daily multivitamin: 1 Tab, Oral, Daily oxyCODONE: 5 mg, Oral, Q6H, PRN: Pain (Moderate 4-6) sodium bicarbonate 50 mEq per amp (adult): 100 mEq, IV Push, 1-Time, PRN: Other (See Comment) sodium bicarbonate 50 mEq per amp (adult): 50 mEq, IV Push, 1-Time, PRN: Other (See Comment) tamsulosin: 0.4 mg, Oral, Daily Pending Complete influenza virus vaccine, inactivated: 0.5 mL, IntraMuscular, [id number] pneumococcal 23-polyvalent vaccine: 0.5 mL, IntraMuscular, [id number] Documented Medications Documented Fish Oil: Oral, Daily, 0 Refill(s) Flomax 0.4 mg oral capsule: Cap, Oral, Daily, 0 Refill(s) Saw Maddock: mg, Oral, Daily, does not know dose, 0 Refill(s) aspirin: 81 mg, 0 Refill(s) atorvastatin: 80 mg, Oral, Daily, 0 Refill(s) isosorbide mononitrate: 30 mg, Oral, QAM, 0 Refill(s) levothyroxine 125 mcg (0.125 mg) oral tablet: 1 Tab, Oral, Daily, 60 Tab, 0 Refill(s) losartan: 50 mg, Oral, Daily, 0 Refill(s) multivitamin: 1 Tab, Oral, Daily, 0 Refill(s) traZODone 100 mg oral tablet: Tab, Oral, At Bedtime, 0 Refill(s), Home Medications (10) Active aspirin 81 mg atorvastatin 80 mg, Oral, Daily Fish Oil , Oral, Daily Flomax 0.4 mg oral capsule , Oral, Daily isosorbide mononitrate 30 mg, Oral, QAM levothyroxine 125 mcg (0.125 mg) oral tablet 125 mcg = 1 Tab, Oral, Daily losartan 50 mg, Oral, Daily multivitamin 1 Tab, Oral, Daily Saw Maddock , Oral, Daily traZODone 100 mg oral tablet , Oral, At Bedtime , Medications (35) Active Scheduled: (13) #NaCl 0.9% *FLUSH* inj 10 mL 10 mL, IV Push, Q8H ascorbic acid 500 mg tab 500 mg 1 Tab, Oral, BID aspirin EC 81 mg tab 81 mg 1 Tab, Oral, Daily atorvastatin 40 mg tab 80 mg 2 Tab, Oral, Daily clopidogrel 75 mg tab 75 mg 1 Tab, Oral, Daily docusate sodium 100 mg cap 100 mg 1 Cap, Oral, BID insulin lispro 1 unit/0.01 mL inj Scale D:, SubCutaneous, AC and at Bedtime levothyroxine 125 mcg tab 125 mcg 1 Tab, Oral, Daily metoprolol tartrate 25 mg tab 12.5 mg 0.5 Tab, Oral, BID multiple vitamin (Thera) tab 1 Tab, Oral, Daily pantoprazole EC 40 mg tab 40 mg 1 Tab, Oral, Daily senna 8.6 mg tab 17.2 mg 2 Tab, Oral, BID tamsulosin CR 0.4 mg cap 0.4 mg 1 Cap, Oral, Daily Continuous: (0) PRN: (22) #NaCl 0.9% *FLUSH* inj 10 mL 10 mL, IV Push, See Comment #NaCl 0.9% *FLUSH* inj 10 mL 10 mL, IV Push, See Comment acetaminophen 325 mg tab 650 mg 2 Tab, Oral, Q6H acetaminophen 500 mg tab 1 Gram 2 Tab, Oral, Q8H acetaminophen/HYDROcodone 325/5 mg tab 2 Tab, Oral, Q4H albuterol-ipratropium inh 3 mL 3 mL, Nebulized Inhalation, RT_Q4H dextrose 50% 25 g/50 mL inj syr 25 Gram 50 mL, IV Push, Q15Min dextrose 50% 25 g/50 mL inj syr 25 Gram 50 mL, IV Push, Q15Min dextrose 50% 25 g/50 mL inj syr 25 Gram 50 mL, IV Push, Q15Min dextrose 50% 25 g/50 mL inj syr 12.5 Gram 25 mL, IV Push, Q15Min fluocinonide 0.05% crm 15 g 1 Application, Topical, QID glucagon 1 mg/1 mL inj 1 mg 1 mL, IntraMuscular, Q15Min glucose 4 g tab 16 Gram 4 Tab, Chew, Q15Min glucose 40% gel 15 g 15 Gram 37.5 mL, Oral, Q15Min magnesium hydroxide 8% liq 30 mL 30 mL, Oral, Q8H metoclopramide 10 mg/2 mL inj 5 mg 1 mL, IV Push, Q6H nitroglycerin 0.4 mg tab # 25 btl 0.4 mg 1 Tab, SubLINgual, Q5Min ondansetron 4 mg/2 mL inj 4 mg 2 mL, IV Push, Q4H oxyCODONE 5 mg tab 5 mg 1 Tab, Oral, Q6H padimate O Lip balm stick 1 Application, Topical, Q1H sodium bicarbonate 50 mEq/50 ml inj syr 50 mEq 50 mL, IV Push, 1-Time sodium bicarbonate 50 mEq/50 ml inj syr 100 mEq 100 mL, IV Push, 1-Time Problem list: All Problems Allergic rhinitis / SNOMED CT 762600054 / Confirmed At risk for sleep apnea / IMO 05200830 / Confirmed Bronchitis / SNOMED CT 74296174 / Confirmed Carotid artery stenosis / SNOMED CT 624331955 / Confirmed 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 / SNOMED CT 5533764614 / Confirmed Coronary artery disease / SNOMED CT 0500945281 / Confirmed Hemorrhoids / SNOMED CT 733684517 / Confirmed H/O right coronary artery stent placement / SNOMED CT 6367750480 / Confirmed History of placement of stent in LAD coronary artery / SNOMED CT 1805329450 / Confirmed Hyperlipidemia / SNOMED CT 85739436 / Confirmed Hypertension / SNOMED CT 07889259 / Confirmed Renal calculus / SNOMED CT 079023538 / Confirmed Thyroid cancer / SNOMED CT 9385910068 / Confirmed Thyroid disease / SNOMED CT 539848719 / Confirmed, Active Problems (14) Allergic rhinitis At risk for sleep apnea Bronchitis Carotid artery stenosis Coronary artery disease H/O right coronary artery stent placement Hemorrhoids History of placement of stent in LAD coronary artery Hyperlipidemia Hypertension Renal calculus 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 Neck: Supple. Respiratory: Respirations are non-labored. Breath sounds: Bilateral, Base, Diminished. Cardiovascular: Normal rate, 74 beats per minute, Regular rhythm, No edema. Gastrointestinal: Soft, Non-tender. Integumentary: Warm, Dry, Sternal Dressing: c/d/i. Neurologic: Alert, Oriented. Psychiatric: Cooperative, Appropriate mood & affect. Results Review Radiology Results (Last 48 hours) [id number] -- 05/07/2021 06:53 CR Chest 1 Vw Portable (05/07/2021 12:26) Result: PORTABLE CHEST 05/07/2021 11:29 AMHISTORY: PneumothoraxCOMPARISON: May 03, 2021FINDINGS: The patient is status post sternotomy for CABG. There is anendotracheal tube present with the tip at the right mainstem origin,recommend retracting 2.5 cm. There is a mediastinal drain present. Thereis an NG tube and left-sided chest tube present. The cardiac silhouetteis normal in size. The aortic contours are normal. The mediastinal andhilar structures are unremarkable. Small left pleural effusion with leftbasilar atelectasis. There is no pneumothorax.IMPRESSION: Endotracheal tube at the right mainstem origin, recommendretracting 2.5 cm.Small left effusion and left basilar atelectasis.The findings were discussed with the patient's nurse, Krysta, at thetime of dictation.Images reviewed, interpreted, and dictated by Dr. Golden Hassan.Transcribed by Toan Briggs PA-C.I have personally viewed, interpreted and dictated the examination. Ihave read and agree with the above final transcribed report. CR Chest 1 Vw Portable (05/08/2021 04:29) Result: PORTABLE CHEST 05/08/2021 4:00 AM HISTORY: Shortness of breath.COMPARISON: Previous day .FINDINGS: The heart is stable in size. Lungs are under aerated.Otherwise, there is no significant change in the appearance of thelungs. There is no pneumothorax. The patient has been extubated in theinterim. Nasogastric tube has been removed. The remainder of the supportdevices are in stable position.IMPRESSION: There has been no significant interval change .Images reviewed, interpreted, and dictated by Dr. Dallas Montoya.Transcribed by YEN Mederos have personally viewed, interpreted and dictated the examination. Ihshanice read and agree with the above final transcribed report. MAY 09 05:50 138 105 19 / H 143 4.8 29 H 1.40 \ MAY 09 05:50 \ L 12.1 / H 13.4 169 / L 36.8 \ Impression and Plan 05/07 Coronary artery bypass grafting x4 (left internal mammary to LAD, reverse saphenous vein graft triple sequential from PD to OM to ramus) on cardiopulmonary bypass with endoscopic vein harvest. 05/08 POD#[address]: 170mL overnight/300mL 24 hours MT: 280mL overnight/640mL 24 hours Continue tubes for drainage. Start Plavix, Statin. Continue aspirin, beta jerry. Transfer to telemetry. 05/09/21 POD #2 s/p CABG x 4 Continue tubes for drainage ASA, statin, Plavix, BB Lasix 20 mg IV x 1 1L fluid restriction Post op atelectasis - Encouraged IS 10x/ hour - counselled patient on proper use of IS documented in this encounter Plan of Treatment Not on file documented as of this encounter Visit Diagnoses Not on filedocumented in this encounter Care Teams Wind Farm Support Specialist Relationship Specialty Start Date End Date Raúl Caraballo MD [address] [place] [address] [place] [id number] PCP - General Adolescent Medicine 12/08/22 documented as of this encounter
--- OUTSIDE RECORDS SUMMARY | 2025-04-21 12:58 | XMS_ITS | Encounter Summary ---
Author Organization [employer] ([place], [place], [place], [place], [place]) Address [address] [place] [address] Care Team Providers Care Medical Education Specialist Name Role Phone Raúl Caraballo MD Primary Care Provider + [phone] Encounter Details Date Type Department Care Team (Late st Contact Info) Description 05/05/2021 Transcribed Document [facility] Pulm & Critical Care Medicine [address] [place] [address] [place], [place] [id number] [place] [address] [place] [address] [address] [place] [address] Social History Tobacco Use Types Packs/Day Years Used Date Smoking Tobacco: Never Assessed Sex and Gender Information Value Date Recorded Sex Assigned at Not on file Legal Sex Male 1:20 PM CDT Gender Identity Not on file Sexual Orientation Not on file documented as of this encounter Miscellaneous Notes * Cerner Conversion Note - Hyacinth Mcgrath MD - 05/05/2021 7:10 PM EST DATE OF SERVICE: 05/03/2021 DEMOGRAPHIC DATA: Gender: Male. Age: 66. Race: . Height: 69 inches. Weight: 188 pounds. BMI 27.92. PULMONARY FUNCTION TEST: SPIROMETRY: FVC 3.86 L, 87% of predicted; FEV1 3.25 L, 98% predicted; FEV1/FVC ratio 84%. DIFFUSION STUDY: DLCO 21.8, 97% of predicted; DLCO adjusted for lung volume 4.27, 115% of predicted. INTERPRETATION: Spirometry data is acceptable and reproducible for interpretation. Based on ATS criteria spirometry show no evidence of obstruction. Bronchodilator response study was not performed during spirometry. Diffusion study show normal diffusion for carbon monoxide. IMPRESSION: Normal spirometry and normal diffusion study. /[id number] Hyacinth Mcgrath MD NB/AQ / NB / MODL /[id number] documented in this encounter Plan of Treatment Not on file documented as of this encounter Visit Diagnoses Not on filedocumented in this encounter Care Teams Medical Education Specialist Relationship Specialty Start Date End Date Raúl Caraballo MD [address] [place] [address] [place] [id number] PCP - General Adolescent Medicine 12/08/22 documented as of this encounter
--- OUTSIDE RECORDS SUMMARY | 2025-04-21 12:58 | XMS_ITS | Data Portability ---
Author Organization [facility] YESSI SoaresS [place] CLOSED Address [address] [place] [address] Care Team Providers Care Welfare Supervisor Name Role Phone FRANCO CORDERO Urologist FRANCO CARD Primary Care Provider Assessment Encounter Date Assessment Date Assessment LastModified by Organization Details LastModified Time 03/05/2021 03/05/2021 65-year-old male with a history of urolithiasis, BPH, and chronic kidney disease. He underwent laser lithotripsy around 1993 and ESWL around 2010. He has been on tamsulosin since about 2019. He feels reasonably well. He has moderate lower urinary tract symptoms despite tamsulosin. Other options include finasteride, cystoscopy, Urolift, Greenlight laser, and TURP. He has some interest in Urolift. Plan: Check KUB and PSA. Schedule cystoscopy. Consider Urolift. ventura Not available 03/05/2021 15:41:55 Plan of Treatment Reminders Order Date Submit Date Provider Last Modified By Organization Details Last Modified Time Details Appointments None recorded. Lab urinalysis panel, auto 2024 025 pollo [facility], [address], [place], [address], 23:16:16 PSA, serum or plasma 2024 025 pollo [facility], [address], [address], [place], [address], 5 23:16:16 urinalysis panel, auto [address] [facility], [address], [address], [place], [address], 4 22:20:49 PSA, serum or plasma [address] [facility], [address], [address], [place], [address], 4 22:20:50 urinalysis panel, auto [address] [facility], [address], [address], [place], [address], 3 15:46:40 urinalysis, dipstick 2020 021 [email or web address] Not available 1 15:09:38 Referral None recorded. Procedures None recorded. Surgeries None recorded. Imaging None recorded. Medication Orders tamsulosin 0.4 mg capsule 2023 024 [id number], [address], [place], [id number], 4 22:20:55 Patient TargetsNo targets recorded. Patient InstructionsNo instructions recorded. Reason for Referral None Reported. Results Created Date Observation Date Name Description Value Unit Range Abnormal Flag Note LastModifiedBy Organization Detail LastModifiedTime 03/05/20 21 03/05/2021 PROST ATE SPECI FIC AG prostate specific Ag 2.78 NG/mL 0.00-4 .10 normal Test metho d is based on WHO-s tanda rdize d calib ratio n using the Michael Cinthia E801 ankush zer. PSA resul ts by diffe rent test proce dures canno t be direc tly justin red with one anoth er. . Not Available [facility] [address] [place] [address], [address], 03/05/2021 17:00:22 03/05/20 21 03/05/2021 urina lysis , dipst ick Unknown Analyte Yellow Not Available [facility] [address], [address], 03/05/2021 14:41:58 03/05/20 21 03/05/2021 urina lysis , dipst ick Unknown Analyte Clear Not Available [facility] [address], [address], 03/05/2021 14:41:58 03/05/2003/05/2021 urina lysis , dipst ick Unknown Analyte 1.010 Not Available [facility] [address], [address], 03/05/2021 14:41:58 03/05/20 21 03/05/2021 urina lysis , dipst ick Unknown Analyte 1.003 - 1.035 Not Available [facility] [address], [address], 03/05/2021 14:41:58 03/05/20 21 03/05/2021 urina lysis , dipst ick Unknown Analyte 7.0 Not Available [facility] [address], [address], 03/05/2021 14:41:58 03/05/2003/05/2021 urina lysis , dipst ick Unknown Analyte 5.0 - 8.0 Not Available [facility] [address], [address], 03/05/2021 14:41:58 03/05/20 21 03/05/2021 urina lysis , dipst ick Unknown Analyte Negati ve Not Available [facility] [address], [address], 03/05/2021 14:41:58 03/05/20 21 03/05/2021 urina lysis , dipst ick Unknown Analyte Negati ve Not Available [facility] [address], [address], 03/05/2021 14:41:58 03/05/20 21 03/05/2021 urina lysis , dipst ick Unknown Analyte Negati ve Not Available [facility] [address], [address], 03/05/2021 14:41:58 03/05/20 21 03/05/2021 urina lysis , dipst ick Unknown Analyte Negati ve Not Available [facility] [address], [address], 03/05/2021 14:41:58 03/05/2003/05/2021 urina lysis , dipst ick Unknown Analyte Negati ve Not Available [address], [address], 03/05/2021 14:41:58 03/05/20 21 03/05/2021 urina lysis , dipst ick Unknown Analyte Negati ve - Trace Not Available [address], [address], 03/05/2021 14:41:58 03/05/2003/05/2021 urina lysis , dipst ick Unknown Analyte Normal Not Available [facility] [address], [address], 03/05/2021 14:41:58 03/05/20 21 03/05/2021 urina lysis , dipst ick Unknown Analyte Normal Not Available [facility] [address] [place], [address], 03/05/2021 14:41:58 03/05/20 21 03/05/2021 urina lysis , dipst ick Unknown Analyte Negati ve Not Available [facility] [address] [place] [address], [address], 03/05/2021 14:41:58 03/05/20 21 03/05/2021 urina lysis , dipst ick Unknown Analyte Negati ve Not Available [facility] [address] [place] [address], [address], 03/05/2021 14:41:58 03/05/2003/05/2021 urina lysis , dipst ick Unknown Analyte Normal Not Available [facility] [address], [address], 03/05/2021 14:41:58 03/05/20 21 03/05/2021 urina lysis , dipst ick Unknown Analyte Normal - 1mg/dl Not Available [facility] [address], [address], 03/05/2021 14:41:58 03/05/2003/05/2021 urina lysis , dipst ick Unknown Analyte Negati ve Not Available [facility] [address], [address], 03/05/2021 14:41:58 03/05/2003/05/2021 urina lysis , dipst ick Unknown Analyte Negati ve Not Available [facility] [address], [address], 03/05/2021 14:41:58 03/05/20 21 03/05/2021 urina lysis , dipst ick Unknown Analyte Negati ve Not Available [facility] [address] [place], [address], 03/05/2021 14:41:58 03/05/20 21 03/05/2021 urina lysis , dipst ick Unknown Analyte Negati ve Not Available [facility] [address], [address], 03/05/2021 14:41:58 03/05/20 21 03/05/2021 urina lysis , dipst ick Unknown Analyte Clean Catch Not Available [facility] [address], [address], 03/05/2021 14:41:58 03/05/2003/05/2021 urina lysis , dipst ick Unknown Analyte Visual Not Available [facility] [address], [address], 03/05/2021 14:41:58 10/28/19 23 10/27/2022 urina lysis panel , auto Unknown Analyte Clean Catch Not Available [facility] [address], [address], 10/27/2022 14:30:48 10/28/19 23 10/27/2022 urina lysis panel , auto Unknown Analyte Yellow Not Available [facility] [address], [address], 10/27/2022 14:30:48 10/28/19 23 10/27/2022 urina lysis panel , auto Unknown Analyte Clear Not Available [facility] [address], [address], 10/27/2022 14:30:48 10/28/19 23 10/27/2022 urina lysis panel , auto Unknown Analyte 1.020 Not Available [facility] [address], [place], [address], 10/27/2022 14:30:48 10/28/19 23 10/27/2022 urina lysis panel , auto Unknown Analyte 1.003- 1.035 Not Available [facility] [address], [place], [address], 10/27/2022 14:30:48 10/28/19 23 10/27/2022 urina lysis panel , auto Unknown Analyte 5.0 Not Available [facility] [address], [place], [address], 10/27/2022 14:30:48 10/28/19 23 10/27/2022 urina lysis panel , auto Unknown Analyte 5.0-8. 0 Not Available [facility] [address] [place] [address] [address], [place], [address], 10/27/2022 14:30:48 10/28/19 23 10/27/2022 urina lysis panel , auto Unknown Analyte 500 [address]/ul (++) Not Available [facility] [address] [place] [address] [address], [place], [address], 10/27/2022 14:30:48 10/28/19 23 10/27/2022 urina lysis panel , auto Unknown Analyte Negati ve Not Available [facility] [address], [place], [address], 10/27/2022 14:30:48 10/28/19 23 10/27/2022 urina lysis panel , auto Unknown Analyte Negati ve Not Available [facility] [address], [place], [address], 10/27/2022 14:30:48 10/28/19 23 10/27/2022 urina lysis panel , auto Unknown Analyte Negati ve Not Available [facility] [address], [place], [address], 10/27/2022 14:30:48 10/28/19 23 10/27/2022 urina lysis panel , auto Unknown Analyte 30 mg/dl (+) Not Available [facility] [address], [place], [address], 10/27/2022 14:30:48 10/28/19 23 10/27/2022 urina lysis panel , auto Unknown Analyte Negati ve Not Available [facility] [address], [place], [address], 10/27/2022 14:30:48 10/28/19 23 10/27/2022 urina lysis panel , auto Unknown Analyte Normal Not Available [facility] [address], [place], [address], 10/27/2022 14:30:48 10/28/19 23 10/27/2022 urina lysis panel , auto Unknown Analyte Normal Not Available [facility] [address], [place], [address], 10/27/2022 14:30:48 10/28/19 23 10/27/2022 urina lysis panel , auto Unknown Analyte Negati ve Not Available [facility] [address], [place], [address], 10/27/2022 14:30:48 10/28/19 23 10/27/2022 urina lysis panel , auto Unknown Analyte Negati ve Not Available [facility] [address], [place], [address], 10/27/2022 14:30:48 10/28/19 23 10/27/2022 urina lysis panel , auto Unknown Analyte Normal Not Available [facility] [address], [place], [address], 10/27/2022 14:30:48 10/28/19 23 10/27/2022 urina lysis panel , auto Unknown Analyte Normal 1 mg/dl Not Available [facility] [address], [place], [address], 10/27/2022 14:30:48 10/28/19 23 10/27/2022 urina lysis panel , auto Unknown Analyte 1 mg/dl (+) Not Available [facility] [address], [place], [address], 10/27/2022 14:30:48 10/28/19 23 10/27/2022 urina lysis panel , auto Unknown Analyte Negati ve Not Available [facility] [address], [place], [address], 10/27/2022 14:30:48 10/28/19 23 10/27/2022 urina lysis panel , auto Unknown Analyte Negati ve Not Available [facility] [address], [place], [address], 10/27/2022 14:30:48 10/28/19 23 10/27/2022 urina lysis panel , auto Unknown Analyte Negati ve Not Available [facility] [address], [place], [address], 10/27/2022 14:30:48 10/29/19 23 10/28/2022 PSA, serum or plasm a PSA 2.3 NG/mL 0.0 - 4.0 Not Available [facility] [address] [address], [place], [address], 10/28/2022 07:30:20 11/02/19 24 11/02/2023 PSA, serum or plasm a PSA 2.6 NG/mL 0.0 - 4.0 Not Available [facility] [address], [place], [address], 11/02/2023 14:36:29 11/02/19 24 11/02/2023 urina lysis panel , auto Unknown Analyte Clean Catch Not Available [facility] [address], [address], 11/02/2023 14:14:54 11/02/19 24 11/02/2023 urina lysis panel , auto Unknown Analyte Yellow Not Available [facility] [address], [address], 11/02/2023 14:14:54 11/02/19 24 11/02/2023 urina lysis panel , auto Unknown Analyte Clear Not Available [facility] [address] [facility] [address], [place], [address], 11/02/2023 14:14:54 11/02/19 24 11/02/2023 urina lysis panel , auto Unknown Analyte 1.015 Not Available [facility] [address] [place] [address] [address], [place], [address], 11/02/2023 14:14:54 11/02/19 24 11/02/2023 urina lysis panel , auto Unknown Analyte 1.003- 1.035 Not Available [facility] [address] [facility] [address], [place], [address], 11/02/2023 14:14:54 11/02/19 24 11/02/2023 urina lysis panel , auto Unknown Analyte 5.0 Not Available [facility] [address] [place] [address] [address], [place], [address], 11/02/2023 14:14:54 11/02/19 24 11/02/2023 urina lysis panel , auto Unknown Analyte 5.0-8. 0 Not Available [facility] [address] [place] [address] [address], [place], [address], 11/02/2023 14:14:54 11/02/19 24 11/02/2023 urina lysis panel , auto Unknown Analyte 25 Aldair/ul Trace Not Available [facility] [address] [facility] [address], [place], [address], 11/02/2023 14:14:54 11/02/19 24 11/02/2023 urina lysis panel , auto Unknown Analyte Negati ve Not Available [facility] [address], [place], [address], 11/02/2023 14:14:54 11/02/19 24 11/02/2023 urina lysis panel , auto Unknown Analyte Negati ve Not Available [facility] [address], [place], [address], 11/02/2023 14:14:54 11/02/19 24 11/02/2023 urina lysis panel , auto Unknown Analyte Negati ve Not Available [facility] [address], [place], [address], 11/02/2023 14:14:54 11/02/19 24 11/02/2023 urina lysis panel , auto Unknown Analyte Negati ve Not Available [facility] [address], [place], [address], 11/02/2023 14:14:54 11/02/19 24 11/02/2023 urina lysis panel , auto Unknown Analyte Negati ve Not Available [facility] [address], [place], [address], 11/02/2023 14:14:54 11/02/19 24 11/02/2023 urina lysis panel , auto Unknown Analyte >1000 mg/dl Not Available [facility] [address], [place], [address], 11/02/2023 14:14:54 11/02/19 24 11/02/2023 urina lysis panel , auto Unknown Analyte Normal Not Available [facility] [address], [place], [address], 11/02/2023 14:14:54 11/02/19 24 11/02/2023 urina lysis panel , auto Unknown Analyte Negati ve Not Available [facility] [address], [place], [address], 11/02/2023 14:14:54 11/02/19 24 11/02/2023 urina lysis panel , auto Unknown Analyte Negati ve Not Available [facility] [address], [place], [address], 11/02/2023 14:14:54 11/02/19 24 11/02/2023 urina lysis panel , auto Unknown Analyte Normal Not Available [facility] [address], [place], [address], 11/02/2023 14:14:54 11/02/19 24 11/02/2023 urina lysis panel , auto Unknown Analyte Normal 1 mg/dl Not Available [facility] [address], [place], [address], 11/02/2023 14:14:54 11/02/19 24 11/02/2023 urina lysis panel , auto Unknown Analyte Negati ve Not Available [facility] [address], [place], [address], 11/02/2023 14:14:54 11/02/19 24 11/02/2023 urina lysis panel , auto Unknown Analyte Negati ve Not Available [facility] [address], [place], [address], 11/02/2023 14:14:54 11/02/19 24 11/02/2023 urina lysis panel , auto Unknown Analyte Negati ve Not Available [facility] [address], [place], [address], 11/02/2023 14:14:54 11/02/19 24 11/02/2023 urina lysis panel , auto Unknown Analyte Negati ve Not Available [facility] [address], [place], [address], 11/02/2023 14:14:54 12/06/19 25 12/05/2024 PSA, serum or plasm a PSA 3.0 NG/mL 0.0 - 4.0 Not Available [facility] [address], [place], [address], 12/05/2024 16:53:06 12/06/19 25 12/05/2024 urina lysis panel , auto Unknown Analyte Clean Catch Not Available [facility] [address], [place], [address], 12/05/2024 16:31:05 12/06/19 25 12/05/2024 urina lysis panel , auto Unknown Analyte Yellow Not Available [facility] [address], [place], [address], 12/05/2024 16:31:05 12/06/19 25 12/05/2024 urina lysis panel , auto Unknown Analyte Clear Not Available [facility] [address], [place], [address], 12/05/2024 16:31:05 12/06/19 25 12/05/2024 urina lysis panel , auto Unknown Analyte 1.015 Not Available [facility] [address] [place] [address] [address], [place], [address], 12/05/2024 16:31:05 12/06/19 25 12/05/2024 urina lysis panel , auto Unknown Analyte 1.003 - 1.030 Not Available [facility] [address], [place], [address], 12/05/2024 16:31:05 12/06/19 25 12/05/2024 urina lysis panel , auto Unknown Analyte 5.0 Not Available [facility] [address], [place], [address], 12/05/2024 16:31:05 12/06/19 25 12/05/2024 urina lysis panel , auto Unknown Analyte 5.0 - 8.0 Not Available [facility] [address], [place], [address], 12/05/2024 16:31:05 12/06/19 25 12/05/2024 urina lysis panel , auto Unknown Analyte 25 Aldair/uL Not Available [facility] [address], [place], [address], 12/05/2024 16:31:05 12/06/19 25 12/05/2024 urina lysis panel , auto Unknown Analyte Negati ve Not Available [facility] [address], [place], [address], 12/05/2024 16:31:05 12/06/19 25 12/05/2024 urina lysis panel , auto Unknown Analyte Negati ve Not Available [facility] [address], [place], [address], 12/05/2024 16:31:05 12/06/19 25 12/05/2024 urina lysis panel , auto Unknown Analyte Negati ve Not Available [facility] [address], [place], [address], 12/05/2024 16:31:05 12/06/19 25 12/05/2024 urina lysis panel , auto Unknown Analyte Negati ve Not Available [facility] [address], [place], [address], 12/05/2024 16:31:05 12/06/19 25 12/05/2024 urina lysis panel , auto Unknown Analyte Negati ve Not Available [facility] [address], [place], [address], 12/05/2024 16:31:05 12/06/19 25 12/05/2024 urina lysis panel , auto Unknown Analyte 250 mg/dL Not Available [facility] [address], [place], [address], 12/05/2024 16:31:05 12/06/19 25 12/05/2024 urina lysis panel , auto Unknown Analyte Normal Not Available [facility] [address], [place], [address], 12/05/2024 16:31:05 12/06/19 25 12/05/2024 urina lysis panel , auto Unknown Analyte Negati ve Not Available [facility] [address], [place], [address], 12/05/2024 16:31:05 12/06/19 25 12/05/2024 urina lysis panel , auto Unknown Analyte Negati ve Not Available [facility] [address], [place], [address], 12/05/2024 16:31:05 12/06/19 25 12/05/2024 urina lysis panel , auto Unknown Analyte Normal Not Available [facility] [address], [place], [address], 12/05/2024 16:31:05 12/06/19 25 12/05/2024 urina lysis panel , auto Unknown Analyte Normal Not Available [facility] [address], [place], [address], 12/05/2024 16:31:05 12/06/19 25 12/05/2024 urina lysis panel , auto Unknown Analyte Negati ve Not Available [facility] [address], [place], [address], 12/05/2024 16:31:05 12/06/19 25 12/05/2024 urina lysis panel , auto Unknown Analyte Negati ve Not Available [facility] [address], [place], [address], 12/05/2024 16:31:05 12/06/19 25 12/05/2024 urina lysis panel , auto Unknown Analyte Negati ve Not Available [facility] [address], [place], [address], 12/05/2024 16:31:05 12/06/19 25 12/05/2024 urina lysis panel , auto Unknown Analyte Negati ve Not Available [facility] [address], [place], [address], 12/05/2024 16:31:05 03/05/20 21 03/05/2021 XR, abdom en, [address] [address] Patien t Name: CHELSEA KING ON Patien t : 1954 Patien t 3 Orderi ng Provid er: DA CORDERO EXAM DATE: 2020 EXAM: XR ABDOME N [facility] AL INFORM ATION: Histor y of urinar y tract stones . IMAGES PROVID ED: KUB AP radiog raphic images of the abdome n. COMPAR ALIN: None. FINDIN GS AND IMPRES JOSE M: No stones or calcif icatio ns are seen in the expect ed locati on of the kidney s, ureter s or urinar y bladde r. No other signif icant abnorm ality. Interp reted By: Landen Linder MD Electr onical ly Signed By: Landen Linder MD on 021 5:15 PM [email or web address] [facility] [address], [address], 03/06/2021 09:37:37 Result Notes Documentation Provider Name and Address Organization Details Recorded Time Xr, Abdomen, 1 View : [address] [address] Patient Name: CHELSEA DUNCAN Patient : 1955 Patient Ordering Provider: FRANCO CORDERO EXAM DATE: 03/05/2021 EXAM: XR ABDOMEN [facility] INFORMATION: History of urinary tract stones. IMAGES PROVIDED: KUB AP radiographic images of the abdomen. COMPARISON: None. FINDINGS AND IMPRESSION: No stones or calcifications are seen in the expected location of the kidneys, ureters or urinary bladder. No other significant abnormality. Interpreted By: Flo Linder MD Manuel Coffey [facility] 03/06/2021 09:37:37 Problems No Known Problems Procedures Surgical History Date Name Laterality Status Provider Name and Address Organization Details Recorded Time Post Void Residual; Ultrasound completed [facility] 03/05/2021 15:12:53 Kidney Stone Removal completed [facility] 03/05/2021 14:41:13 Imaging Results None recorded. Procedure Notes None recorded. Medical Equipment None Reported. Allergies Allergen ID Allergen Name Allergen Category Reaction Reaction Severity Criticality Documentation Date Start Date Code Code System Note Provider Name and Address Organization Details Recorded Time 972242 shellfish derived food,medi cation Not available Not available Not available 03/05/2021 Melissa Dutton [facility] 14:39:20 Medications Name Sig Start Date Stop Date Status Note LastModified by Organization Details LastModified Time losartan 50 mg tablet Take 0.5 tablets every day by oral route for 90 days. 10/27 completed Not Available Not Available Not Available atorvasta tin 80 mg tablet Take 1 tablet every day by oral route for 90 days. active Not Available Not Available No t Available azithromy rose 250 mg tablet TAKE 2 TABLETS BY MOUTH ON DAY 1, THEN TAKE 1 TABLET DAILY ON DAYS 2-5 11/01 completed Not Available Not Available Not Available promethaz ine 12.5 mg tablet TAKE ONE TABLET BY MOUTH EVERY 4 TO 6 HOURS NEEDED FOR NAUSEA MAY CAUSE DROWSINE SS active Not Available Not Available No t Available isosorbid e mononitra te ER 30 mg tablet,ex tended release 24 hr Take 1 tablet every day by oral route for 90 days. 10/27 completed Not Available Not Available Not Available clopidogr el 75 mg tablet active Not Available Not Available Not Available tamsulosi n 0.4 mg capsule Take 2 capsules every day by oral route. 2023 active Not Available Not Available Not Avai lable trazodone 100 mg tablet active Not Available Not Available Not Available trazodone 150 mg tablet active Not Available Not Available Not Available levothyro xine 125 mcg tablet Take 1 tablet every day by oral route for 90 days. active Not Available Not Available No t Available promethaz ine 25 mg tablet TAKE 1/2 TABLET BY MOUTH EVERY 6 HOURS NEEDED FOR NAUSEA AND VOMITING active Not Available Not Available No t Available levothyro xine 150 mcg tablet active Not Available Not Available Not Available losartan 25 mg tablet active Not Available Not Available Not Available nitroglyc herminio 0.4 mg sublingua l tablet DISSOLVE 1 TABLET UNDER THE TONGUE EVERY 5 MINUTES NEEDED FOR CHEST PAIN. DO NOT EXCEED A TOTAL OF 3 DOSES IN 15 MINUTES. IF NO RELIEF AFTER 3 DOSES CALL 911/GO TO ER active Not Available Not Available No t Available Claritin- D 12 Hour 5 mg-120 mg tablet,ex tended release TAKE 1 TABLET BY MOUTH EVERY 12 HOURS active Not Available Not Available No t Available levothyro xine 112 mcg tablet active Not Available Not Available Not Available metoprolo l tartrate 25 mg tablet active Not Available Not Available Not Available simvastat in active Medicati on Descript ion: simvasta tin; Route:or al; refills: 0 Not Available Not Available Not Available trazodone 10/27 completed Medicati on Descript ion: trazodon e; refills: 0 Not Available Not Available Not Available amlodipin e-benazep ril 10/27 completed Medicati on Descript ion: amlodipi ne; Route:or al; refills: 0 Not Available Not Available Not Available peg 3350-elec trolytes 236 gram-22.7 4 gram-6.74 gram-5.86 gram solution take BY MOUTH DIRECTED (4 liters WITHIN 24 hours) active Not Available Not Available No t Available diclofena c 1 % topical gel active Not Available Not Available Not Available levothyro xine 150 mcg capsule Take 1 capsule every day by oral route. 10/27 completed Not Available Not Available Not Available Farxiga 10 mg tablet active Not Available Not Available Not Available Vitals Date Recorded Body weight Body mass index (BMI) Body height Provider Name and Address Organization Details Last Updated DateTime 10/27/2022 96553.55 g 28.1 kg/m2 175.26 cm Barb Eid [facility] 10/27/2022 14:24:48 Date Recorded Body height Body mass index (BMI) Body weight Provider Name and Address Organization Details Last Updated DateTime 11/02/2023 175.26 cm 28.4 kg/m2 00232.74 g Keren Johnson [facility] 11/02/2023 14:12:33 Date Recorded Body height Body mass index (BMI) Body weight Provider Name and Address Organization Details Last Updated DateTime 12/05/2024 172.72 cm 28.4 kg/m2 66596.77 g Cira Stanton [facility] 12/05/2024 16:32:47 Date Recorded Body height Body mass index (BMI) Body weight Provider Name and Address Organization Details Last Updated DateTime 03/05/2021 175.26 cm 27.9 kg/m2 94438.96 g Melissa Dutton [facility] 03/05/2021 14:40:11 Social History Question Answer Notes LastModified by Organizat ion Details LastModified Time Tobacco Smoking Status Former Smoker Melissa Dutton [facility] 03/05/2021 14:40:45 What Was The Date Of Your Most Recent Tobacco Screening? 03/05/2021 [email or web address] Information not available 03/05/2021 What Is Your Relationship Status? [email or web address] Information not available 03/05/2021 Sex: Unknown Functional Status Question Answer Note LastModified by Organizat ion Details LastModified Time What is your level of alcohol consumption? None Information not available 03/05/2021 Are you currently employed? 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 Family History Relationship Description Onset Age of this Age Resolved Age Notes LastModified by Organization Details LastModified Time Unspecified Relation Family history of malignant neoplasm thyroi d [email or web address] Not available 03/05/2021 14:40:29 Medical History Condition Response Kidney Stones Y Cancer Y High Cholesterol Y Hypertension Y Past Encounters Encounter ID Performer Location Encounter Start Date Encounter Closed Date Diagnosis/Indication Diagnosis SNOMED-CT Code Diagnosis ICD10 Code Diagnosis IMO Codes Diagnosis Note [id number] FRANCO CORDERO MD UROLOGY [facility] [address] [place] [address] 03/05/2021 14:06:28 03/05/2021 15:47:48 Lower urinary tract symptoms due to benign prostatic hypertrophy 2559516118 9101 N40.1 History of urinary stone 261215880 Z87.442 Screening for malignant neoplasm of prostate 820981457 Z12.5 [id number] BOWEN ELISE MD [facility] [address] [place] [address] 10/27/2022 13:51:56 10/27/2022 14:47:33 Benign prostatic hyperplasia with outflow obstruction 385496384 N40.1 He will continue with tamsulosin 0.8 mg/day. He will follow-up in 1 year if his PSA is acceptable [id number] BOWEN ELISE MD [facility] [address] [place] [address] 11/02/2023 13:59:09 11/02/2023 14:50:01 Benign prostatic hyperplasia with outflow obstruction 195523403 N40.1 He will continue with tamsulosin 0.8 mg/day. He will follow-up in 1 year with PSA [id number] BOWEN ELISE MD [facility] [address] [address] 12/05/2024 14:41:39 12/05/2024 16:54:42 Benign prostatic hyperplasia with outflow obstruction 216927089 N40.1 N13.8 [id number] He will continue with tamsulosin 0.8 mg/day. He will follow-up in 1 year with PSA Health Concerns Section Related Observation LastModified by Organization Detai ls LastModified Time None Recorded Concern Status LastModified by Organization Details LastModified Time None Recorded Advance Directives Directive None Recorded Payers Insurance Date Sequence Insurance Name Policy Number Policy Holloway Covered Member ID Holloway Member ID Guarantor Name 11/17/2022 2 [employer] (MEDICARE REPLACEMENT/ ADVANTAGE - PPO) Chelsea Pichardo Dakota [id number] Chelsea Pichardo Dakota 12/05/2024 2 [employer] - GOLD PLUS (MEDICARE REPLACEMENT/ ADVANTAGE - HMO) [id number] Chelsea Duncan [id number] Chelsea Duncan 12/05/2024 1 [employer] (MEDICARE REPLACEMENT/ ADVANTAGE - PPO) Chelsea Pichardo [place] [id number] Chelsea Pichardo Dakota 10/27/2022 1 [place] [id number] Chelsea Duncan [id number] Chelsea Duncan Notes Date Note Type Note Provider Name and Address Organization Details Recorded Time 03/05/2021 text/html 65-year-old white male self-referred for checkup of the prostate and kidney stones. He has a history of urolithiasis. He underwent laser lithotripsy in 1993. He passed some stones on his own. He underwent ESWL in 2010. He was previously under the care of Dr. Antonio. He tries to drink water and lemon. He said he saw a prosthetic aides teacher to [place] was placed on tamsulosin around 2019. He said he has elevated creatinine but does not know if he has chronic kidney disease. He has a history of BPH. He believes the tamsulosin helped some. He has decreased flow, starting and stopping of the flow, some straining, mild frequency, occasional urgency, and nocturia one time. The AUA symptom index is 18. 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 He is a former smoker. He denies family history of prostate cancer or kidney stones. FRANCO CORDERO MD [address] [place] [address], [address], [facility] 03/05/2021 15:42:47 10/27/2022 text/html Patient is here to establish urologic care. He takes tamsulosin 0.8 mg/day for moderate obstructive symptoms. He states he typically has nocturia x2 and for the most part satisfied. He has history of urolithiasis. He states that he has not had a PSA in a couple of years. His PSA today is pending. He has no other urologic complaints. BOWEN ELISE MD [address] [place], [address], [facility] 10/27/2022 15:47:09 11/02/2023 text/html Patient is here for schedule I year follow-up for prostate enlargement. He continues to take tamsulosin 0.8 mg/day. He has no voiding complaints. He does have a small right spermatocele which occasionally is symptomatic but for the most part is tolerable. His PSA remains acceptable at 2.6. His PSA last year was 2.3. He also has a previous history of urolithiasis but has had no stones recently. BOWEN ELISE MD [facility] [place], [address], [facility] 11/03/2023 22:21:15 12/05/2024 text/html Patient is here in follow-up. Regarding prostate enlargement. He continues to take tamsulosin twice per day. He was satisfied from a urination standpoint. He PSA is stable at 3.0. He typically has nocturia x 1. Follow-up MD [place], [address], [facility] 12/06/2024 23:17:28
--- OUTSIDE RECORDS SUMMARY | 2025-04-21 12:59 | XMS_ITS | Encounter Summary ---
Author Organization [employer] ([place], [place], [place], [place], [place]) Address [address] [place] [address] Care Team Providers Care Screen Machine Operator Name Role Phone Raúl Caraballo MD Primary Care Provider + [phone] Encounter Details Date Type Department Care Team (Late st Contact Info) Description 05/11/2021 Transcribed Document [facility] Family Medicine [address] [place] [address] ProviderKyree MD [address] [place], [place] [address] Social History Tobacco Use Types Packs/Day Years Used Date Smoking Tobacco: Never Assessed Sex and Gender Information Value Date Recorded Sex Assigned at Not on file Legal Sex Male 1:20 PM CDT Gender Identity Not on file Sexual Orientation Not on file documented as of this encounter Miscellaneous Notes * [employer] Conversion Note - Historical ProviderMD - 05/11/2021 12:17 PM SENIOR QUALITY ASSURANCE SPECIALIST Nursing Discharge Summary Entered On: 05/11/2021 12:18 EST Performed On: 05/11/2021 12:17 EST by SOLIS ISAACS heating and air conditioning mechanic Documentation Discharge Date/Time : 05/11/2021 13:00 EST Patient Disposition, General : Discharge Discharge To : Home with ambulatory/outpatient follow-up Mode Of Departure, General Discharge : Private vehicle Accompanied By, Discharge : Spouse IV Discontinued : Yes Personal Belongings With Patient : Yes Prescriptions Given to Patient : Yes Discharge Instructions Reviewed With, Opportunity For Questions Given : Patient, Spouse Patient Education Completed : Yes Number of Prescriptions Given : 2 Teaching Method : Explanation, Printed materials Teaching Evaluation : Verbalizes understanding Education Comment : pt verbalized understanding of POC and medication ISAACS, SOLIS Randle RN - 05/11/2021 12:17 EST Electronically signed by Interface, [facility] Conversion Shank Stitcher [employer] at 09/29/2022 3:39 PM CDT documented in this encounter Plan of Treatment Not on file documented as of this encounter Visit Diagnoses Not on filedocumented in this encounter Care Teams Screen Machine Operator Relationship Specialty Start Date End Date Raúl Caraballo MD [address] [place] [address] [place] [id number] PCP - General Adolescent Medicine 12/08/22 documented as of this encounter
--- OUTSIDE RECORDS SUMMARY | 2025-04-21 12:59 | XMS_ITS | Referral Summary ---
Author Organization [employer] ([place], [place], [place], [place], [place]) Address [address] [place] [address] Care Team Providers Care Manager Games Name Role Phone Raúl Caraballo MD Primary Care Provider + [phone] Allergies Active Allergy Reactions Criticality Noted Date [...] 12/03/2022 HLD (hyperlipidemia) 12/03/2022 HTN (hypertension) 12/03/2022 Social History Tobacco Use Types Packs/Day Years [...] Date Tera rded Speak language other than Omani at home Not on file 06/26/2023 Want [...] 09/09/2023 2:10 PM EDT Plan of Treatment Not on file Insurance [employer] MEDICARE HMO Care Teams Manager Games Relationship Specialty Start Date End Date Raúl Caraballo MD [address] [place] [address] [place] [id number] PCP - General Adolescent Medicine 12/08/22
--- OUTSIDE RECORDS SUMMARY | 2025-04-21 12:59 | XMS_ITS | Encounter Summary ---
Author Organization [employer] ([place], [place], [place], [place], [place]) Address [address] [place] [address] Care Team Providers Care Oracle Architect Name Role Phone Raúl Caraballo MD Primary Care Provider + [phone] Encounter Details Date Type Department Care Team (Late st Contact Info) Description 05/10/2021 Transcribed Document [facility] Family Medicine [address] [place] [address] ProviderKyree MD [address] [place], [place] [address] Social History Tobacco Use Types Packs/Day Years Used Date Smoking Tobacco: Never Assessed Sex and Gender Information Value Date Recorded Sex Assigned at Not on file Legal Sex Male 1:20 PM CDT Gender Identity Not on file Sexual Orientation Not on file documented as of this encounter Miscellaneous Notes * [employer] Conversion Note - Kyree ProviderMD - 05/10/2021 5:00 AM POWER LINE INSTALLER Chart Check - Review Order Profile Entered On: 05/10/2021 5:16 EST Performed On: 05/10/2021 5:00 EST by CHALO HERNANDEZ RN Chart Check Powerplans Initiated/Discontinued as Appropriate : Yes All Active Orders Reviewed : Yes CHALO HERNANDEZ RN - 05/10/2021 5:16 EST Electronically signed by Jessica [facility] Conversion Storeperson [employer] at 09/29/2022 3:34 PM CDT documented in this encounter Plan of Treatment Not on file documented as of this encounter Visit Diagnoses Not on filedocumented in this encounter Care Teams Oracle Architect Relationship Specialty Start Date End Date Raúl Caraballo MD [address] [place] [id number] PCP - General Adolescent Medicine 12/08/22 documented as of this encounter
--- OUTSIDE RECORDS SUMMARY | 2025-04-21 12:59 | XMS_ITS | Encounter Summary ---
Author Organization [employer] ([place], [place], [place], [place], [place]) Address [address] [place] [address] Care Team Providers Care Resource Conservation Manager Name Role Phone Raúl Caraballo MD Primary Care Provider + [phone] Encounter Details Date Type Department Care Team (Late st Contact Info) Description 05/11/2021 Transcribed Document [facility] Family Medicine [address] [place] [address] ProviderKyree MD [address], [place] [address] Social History Tobacco Use Types Packs/Day Years Used Date Smoking Tobacco: Never Assessed Sex and Gender Information Value Date Recorded Sex Assigned at Not on file Legal Sex Male 1:20 PM CDT Gender Identity Not on file Sexual Orientation Not on file documented as of this encounter Miscellaneous Notes * [employer] Conversion Note - Historical ProviderMD - 05/11/2021 12:17 PM STUDENT SPECIALIST Stroke/Warfarin Instructions Entered On: 05/11/2021 12:17 EST Performed On: 05/11/2021 12:17 EST by SOLIS ISAACS RN Stroke/Warfarin Instructions Stroke/TIA Discharge Ins : N/A Warfarin Discharge Ins : N/A SOLIS ISAACS RN - 05/11/2021 12:17 EST Electronically signed by Jessica [facility] Conversion Call Center Recruiter [employer] at 09/29/2022 3:28 PM CDT documented in this encounter Plan of Treatment Not on file documented as of this encounter Visit Diagnoses Not on filedocumented in this encounter Care Teams Resource Conservation Manager Relationship Specialty Start Date End Date Raúl Caraballo MD [address] [place] [id number] PCP - General Adolescent Medicine 12/08/22 documented as of this encounter
--- OUTSIDE RECORDS SUMMARY | 2025-04-21 12:59 | XMS_ITS | Encounter Summary ---
Author Organization [employer] ([place], [place], [place], [place], [place]) Address [address] [place] [address] Care Team Providers Care Statistical Machine Servicer Name Role Phone Raúl Caraballo MD Primary Care Provider + [phone] Encounter Details Date Type Department Care Team (Late st Contact Info) Description 05/07/2021 Transcribed Document [facility] [place] [facility] [address] [place] [address] ProviderKyree MD [address] [place], [place] [address] Social History Tobacco Use Types Packs/Day Years Used Date Smoking Tobacco: Never Assessed Sex and Gender Information Value Date Recorded Sex Assigned at Not on file Legal Sex Male 1:20 PM CDT Gender Identity Not on file Sexual Orientation Not on file documented as of this encounter Miscellaneous Notes * Cerner Conversion Note - Kyree ProviderMD - 05/07/2021 8:09 AM VALIDATION CONSULTANT [facility] Main OR IntraOp Summary Primary Physician: AMARILYS JALLOH MD Finalized Date/Time: 05/08/21 10:55:17 Pt. Name: CHELSEA DUNCAN /Sex: 1955 Male Med Rec #: [id number] Physician: AMARILYS JALLOH MD Financial #: [id number] Pt. Type: I Room/Bed: [facility] Admit/Disch: 05/07/21 06:53:00 - Institution: [facility] IntraOp Case Attendance Entry 1 Entry 2 Entry 3 Case Attendee AMARILYS JALLOH MD GHANSAH, LALITA DUARTE, ALICIA MARTIN, ÁNGELA BERGER Role Performed Surgeon/Proceduralist, Anesthesiologist Physician stores assistant First Time In 05/07/21 07:15:00 05/07/21 07:15:00 05/07/21 07:15:00 Time Out 05/07/21 11:39:00 05/07/21 11:39:00 05/07/21 11:39:00 Procedure Coronary Artery Bypass Coronary Artery Bypass Coronary Artery Bypass Graft, Vein Paulden Graft, Vein Paulden Graft, Vein Paulden Endo Saphenous, Endo Saphenous, Endo Saphenous, Transesophageal Transesophageal Transesophageal Echocardiogram Echocardiogram Echocardiogram Other Attendee Superficial Wound Closed By: Last Modified By: MERT ADLER, MERT JETER, MERT JETER, RILEY 05/07/21 11:39:31 05/07/21 11:39:31 05/07/21 11:39:31 Entry 4 Entry 5 Entry 6 Case Attendee Faraz Guerra, patient care manager Miriam Smith, VALIDATION CONSULTANT MARY GRESHAM, Role Performed Physicist Solid State Scrub, First Scrub, Second Time In 05/07/21 07:15:00 05/07/21 07:15:00 05/07/21 07:15:00 Time Out 05/07/21 11:39:00 05/07/21 11:39:00 05/07/21 11:39:00 Procedure Coronary Artery Bypass Coronary Artery Bypass Coronary Artery Bypass Graft, Vein Paulden Graft, Vein Paulden Graft, Vein Paulden Endo Saphenous, Endo Saphenous, Endo Saphenous, Transesophageal Transesophageal Transesophageal Echocardiogram Echocardiogram Echocardiogram Other Attendee Superficial Wound Closed By: Last Modified By: MERT ADLER, MERT JETER, MERT JETER RN 05/07/21 11:39:31 05/07/21 11:39:31 05/07/21 11:39:31 Entry 7 Entry 8 Entry 9 Case Attendee MERT ADLER, Jami Horn, Mishel PAZ, LORETTA GUPTA, Pref Card Builder AB Role Performed Feller Machine Operator, First Feller Machine Operator, Second Anesthesiologist Time In 05/07/21 07:15:00 05/07/21 09:20:00 05/07/21 09:49:00 Time Out 05/07/21 11:39:00 05/07/21 09:39:00 05/07/21 09:58:00 Procedure Coronary Artery Bypass Coronary Artery Bypass Coronary Artery Bypass Graft, Vein Paulden Graft, Vein Paulden Graft, Vein Paulden Endo Saphenous, Endo Saphenous, Endo Saphenous, Transesophageal Transesophageal Transesophageal Echocardiogram Echocardiogram Echocardiogram Other Attendee BREAK Superficial Wound Closed By: Last Modified By: MERT ADLER, RN MERT ADLER, RN MERT ADLER, RN 05/07/21 11:39:31 05/07/21 11:39:31 05/07/21 11:39:31 [facility] IntraOp Case Attendance Audit 05/07/21 11:39:31 Production Support Consultant: [email or web address] Modifier: RESULTJO 1 <+> Time Out 1 <*> Procedure Coronary Artery Bypass Graft, Vein Paulden Endo Saphenous, Transesophageal Echocardiogram 2 <+> Time Out 2 <*> Procedure Coronary Artery Bypass Graft, Vein Paulden Endo Saphenous, Transesophageal Echocardiogram 3 <+> Time Out 3 <*> Procedure Coronary Artery Bypass Graft, Vein Paulden Endo Saphenous, Transesophageal Echocardiogram 4 <+> Time Out 4 <*> Procedure Coronary Artery Bypass Graft, Vein Paulden Endo Saphenous, Transesophageal Echocardiogram 5 <+> Time Out 5 <*> Procedure Coronary Artery Bypass Graft, Vein Paulden Endo Saphenous, Transesophageal Echocardiogram 6 <+> Time Out 6 <*> Procedure Coronary Artery Bypass Graft, Vein Paulden Endo Saphenous, Transesophageal Echocardiogram 7 <+> Time Out 7 <*> Procedure Coronary Artery Bypass Graft, Vein Paulden Endo Saphenous, Transesophageal Echocardiogram 8 <*> Procedure Coronary Artery Bypass Graft, Vein Paulden Endo Saphenous, Transesophageal Echocardiogram 9 <*> Procedure Coronary Artery Bypass Graft, Vein Paulden Endo Saphenous, Transesophageal Echocardiogram 05/07/21 09:58:29 Production Support Consultant: [email or web address] Modifier: RESULTJO 9 <+> Time Out 9 <*> Procedure Coronary Artery Bypass Graft, Vein Paulden Endo Saphenous, Transesophageal Echocardiogram 05/07/21 09:52:14 Production Support Consultant: RESULTJO Modifier: RESULTJO 1 <*> Case Attendee AMARILYS JALLOH MD 1 <*> Role Performed Surgeon/Proceduralist, First 1 <*> Time In 05/07/21 07:15:00 1 <*> Procedure Coronary Artery Bypass Graft, Vein Paulden Endo Saphenous, Transesophageal Echocardiogram 2 <*> Case Attendee LALITA ANGEL MD-ANS 2 <*> Role Performed Anesthesiologist 2 <*> Time In 05/07/21 07:15:00 2 <*> Procedure Coronary Artery Bypass Graft, Vein Paulden Endo Saphenous, Transesophageal Echocardiogram 3 <*> Case Attendee ALICIA MARTIN PA-UNK 3 <*> Role Performed Physician stores assistant 3 <*> Time In 05/07/21 07:15:00 3 <*> Procedure Coronary Artery Bypass Graft, Vein Paulden Endo Saphenous, Transesophageal Echocardiogram 4 <*> Case Attendee Faraz Guerra, patient care manager 4 <*> Role Performed Physicist Solid State 4 <*> Time In 05/07/21 07:15:00 4 <*> Procedure Coronary Artery Bypass Graft, Vein Paulden Endo Saphenous, Transesophageal Echocardiogram 5 <*> Case Attendee Miriam Smith, VALIDATION CONSULTANT 5 <*> Role Performed Scrub, First 5 <*> Time In 05/07/21 07:15:00 5 <*> Procedure Coronary Artery Bypass Graft, Vein Paulden Endo Saphenous, Transesophageal Echocardiogram 6 <*> Case Attendee MARY GRESHAM ST 6 <*> Role Performed Scrub, Second 6 <*> Time In 05/07/21 07:15:00 6 <*> Procedure Coronary Artery Bypass Graft, Vein Paulden Endo Saphenous, Transesophageal Echocardiogram 7 <*> Case Attendee MERT ADLER, RN 7 <*> Role Performed Feller Machine Operator, First 7 <*> Time In 05/07/21 07:15:00 7 <*> Procedure Coronary Artery Bypass Graft, Vein Paulden Endo Saphenous, Transesophageal Echocardiogram <+> 8 Case Attendee <+> 8 Role Performed <+> 8 Time In <+> 8 Time Out <+> 8 Procedure <+> 9 Case Attendee <+> 9 Role Performed <+> 9 Time In <+> 9 Procedure <+> 9 Other Attendee 05/07/21 08:33:19 Production Support Consultant: [email or web address] Modifier: RESULTJO 1 <*> Procedure Coronary Artery Bypass Graft, Vein Paulden Endo Saphenous, Transesophageal Echocardiogram 2 <*> Procedure Coronary Artery Bypass Graft, Vein Paulden Endo Saphenous, Transesophageal Echocardiogram 3 <*> Procedure Coronary Artery Bypass Graft, Vein Paulden Endo Saphenous, Transesophageal Echocardiogram 4 <*> Procedure Coronary Artery Bypass Graft, Vein Paulden Endo Saphenous, Transesophageal Echocardiogram 5 <*> Procedure Coronary Artery Bypass Graft, Vein Paulden Endo Saphenous, Transesophageal Echocardiogram 6 <*> Procedure Coronary Artery Bypass Graft, Vein Paulden Endo Saphenous, Transesophageal Echocardiogram 7 <+> Time In 7 <*> Procedure Coronary Artery Bypass Graft, Vein Paulden Endo Saphenous, Transesophageal Echocardiogram 05/07/21 08:20:37 Production Support Consultant: RESULTJO Modifier: RESULTJO 1 <*> Procedure Coronary Artery Bypass Graft, Vein Paulden Endo Saphenous, Transesophageal Echocardiogram 2 <+> Time In 2 <*> Procedure Coronary Artery Bypass Graft, Vein Paulden Endo Saphenous, Transesophageal Echocardiogram 3 <+> Time In 3 <*> Procedure Coronary Artery Bypass Graft, Vein Paulden Endo Saphenous, Transesophageal Echocardiogram 4 <+> Time In 4 <*> Procedure Coronary Artery Bypass Graft, Vein Paulden Endo Saphenous, Transesophageal Echocardiogram 5 <+> Time In 5 <*> Procedure Coronary Artery Bypass Graft, Vein Paulden Endo Saphenous, Transesophageal Echocardiogram 6 <+> Time In 6 <*> Procedure Coronary Artery Bypass Graft, Vein Paulden Endo Saphenous, Transesophageal Echocardiogram <+> 7 Case Attendee <+> 7 Role Performed <+> 7 Procedure 05/07/21 07:40:15 Production Support Consultant: RESULTJO Modifier: RESULTJO 1 <*> Procedure Transesophageal Echocardiogram, Coronary Artery Bypass Graft, Vein Paulden Endo Saphenous <+> 2 Case Attendee <+> 2 Role Performed <+> 2 Procedure <+> 3 Case Attendee <+> 3 Role Performed <+> 3 Procedure <+> 4 Case Attendee <+> 4 Role Performed <+> 4 Procedure <+> 5 Case Attendee <+> 5 Role Performed <+> 5 Procedure <+> 6 Case Attendee <+> 6 Role Performed <+> 6 Procedure 05/07/21 07:38:48 Production Support Consultant: RESULTJO Modifier: RESULTJO <+> 1 Procedure [facility] IntraOp Case Times Entry 1 Patient In Room Time 05/07/21 07:15:00 Out Room Time 05/07/21 11:39:00 Anesthesia Start Time 05/07/21 07:15:00 Stop Time 05/07/21 11:39:00 Surgery / Procedure Times Start Time 05/07/21 08:09:00 Stop Time 05/07/21 11:28:00 Last Modified By: MERT ADLER RN 05/07/21 11:39:28 [facility] IntraOp Case Times Audit 05/07/21 11:39:28 Production Support Consultant: [email or web address] Modifier: RESULTJO <+> 1 Out Room Time <+> 1 Stop Time 05/07/21 11:28:33 Production Support Consultant: RESULTJO Modifier: RESULTJO <+> 1 Stop Time 05/07/21 08:34:54 Production Support Consultant: RESULTJO Modifier: RESULTJO <+> 1 Start Time [facility] IntraOp Cautery Entry 1 Entry 2 ESU Identification Cautery Type Monopolar ESU Monopolar ESU Cautery Type Comments ID Number [id number] ID Type Hospital Number Hospital Number Cautery Settings Cut Setting 40 1 Coag Setting 60 35 Blend Setting 2 Bipolar Setting Argon Setting Argon Salvador ESU Grounding Pad Ground Pad Type Reusable electrode pad Reusable electrode pad Grounding Pad Type Comment Grounding Pad Site Posterior Posterior Grounding Pad Site Comment Grounding Pad MERT ADLER RN RESULTAY, JOSEFINA, RN Applied By Grounding Pad Site Warm, Dry, Intact Warm, Dry, Intact Skin Condition Before Cautery Site Skin Condition WDL WDL Before Comment Grounding Pad Site Unchanged Unchanged Skin Condition After Cautery Site Skin Condition WDL WDL After Comment Last Modified By: MERT ADLER RN RESULTAY, JOSEFINA, RN 05/07/21 08:36:36 05/07/21 08:36:36 [facility] IntraOp Communication Entry 1 Entry 2 Entry 3 Communication To Family/Significant other Other Other Comment START CTVU - START CTVU - ON PUMP Communication By MERT ADLER RN RESULTAY, JOSEFINA, RN RESULTAY, JOSEFINA, RN Date and Time 05/07/21 08:09:00 05/07/21 08:09:00 05/07/21 08:53:00 Last Modified By: MERT ADLER RN RESULTAY, JOSEFINA, RN RESULTAY, JOSEFINA, RN 05/07/21 08:35:30 05/07/21 08:35:30 05/07/21 08:55:50 Entry 4 Entry 5 Entry 6 Communication To Family/Significant other Other Family/Significant other Comment UPDATE CTVU - OFF PUMP UPDATE Communication By MERT ADLER RN RESULTAY, JOSEFINA, RN RESULTAY, JOSEFINA, RN Date and Time 05/07/21 09:19:00 05/07/21 10:25:00 05/07/21 10:27:00 Last Modified By: MERT ADLER RN RESULTAY, JOSEFINA, RN RESULTAY, JOSEFINA, RN 05/07/21 09:19:43 05/07/21 10:26:38 05/07/21 10:34:27 Entry 7 Entry 8 Communication To Family/Significant other Other Comment CLOSING CTVU - CLOSING Communication By MERT ADLER RN RESULTAY, JOSEFINA, RN Date and Time 05/07/21 11:18:00 05/07/21 11:18:00 Last Modified By: MERT ADLER RN RESULTAY, JOSEFINA, RN 05/07/21 11:19:09 05/07/21 11:19:09 [facility] IntraOp Communication Audit 05/07/21 11:19:09 Production Support Consultant: [email or web address] Modifier: RESULTJO <+> 7 Communication By <+> 7 Date and Time <+> 7 Communication To <+> 7 Comment <+> 8 Communication By <+> 8 Date and Time <+> 8 Communication To <+> 8 Comment 05/07/21 10:34:27 Production Support Consultant: [email or web address] Modifier: RESULTJO <+> 6 Communication By <+> 6 Date and Time <+> 6 Communication To <+> 6 Comment 05/07/21 10:26:38 Production Support Consultant: [email or web address] Modifier: RESULTJO <+> 5 Communication By <+> 5 Date and Time <+> 5 Communication To <+> 5 Comment 05/07/21 09:19:43 Production Support Consultant: RESULTJO Modifier: RESULTJO <+> 4 Communication By <+> 4 Date and Time <+> 4 Communication To <+> 4 Comment 05/07/21 08:55:50 Production Support Consultant: RESULTJO Modifier: RESULTJO <+> 3 Communication By <+> 3 Date and Time <+> 3 Communication To <+> 3 Comment [facility] IntraOp Counts Verification Entry 1 Entry 2 Procedure Coronary Artery Bypass Coronary Artery Bypass Graft, Vein Paulden Graft, Vein Paulden Endo Saphenous, Endo Saphenous, Transesophageal Transesophageal Echocardiogram Echocardiogram Count Info Count Type Sponge, Sharps, Sponge, Sharps, Instrument, Instrument, Miscellaneous Miscellaneous Counts Verification Baseline/pre-procedure Before wound closure Sequence Count Results Not Applicable Correct, surgeon notified If Incorrect or Waived complete the Counts Action Taken form: If Intentional Retention, complete the Intential Retention form: Counts Performed By Count Performed By Miriam Smith, Miriam Villasenor CST (Scrub) Count Performed By MERT ADLER RN RESULTAY, JOSEFINA, RN (RN) Last Modified By: MERT ADLER RN RESULTAY, JOSEFINA, RN 05/07/21 08:24:23 05/07/21 11:07:12 [facility] IntraOp Counts Verification Audit 05/07/21 11:07:12 Production Support Consultant: [email or web address] Modifier: RESULTJO <+> 2 Procedure <+> 2 Count Type <+> 2 Counts Verification Sequence <+> 2 Count Results <+> 2 Count Performed By (Scrub) <+> 2 Count Performed By (RN) [facility] IntraOp Counts Final Entry 1 Procedure Coronary Artery Bypass Graft, Vein Paulden Endo Saphenous, Transesophageal Echocardiogram Final Count Info Count Type Sponge, Sharps, Miscellaneous Counts Verification Skin Closure/end of Sequence procedure Count Results Correct, surgeon notified Counts Performed By Count Performed By MARY GRESHAM ST (Scrub) Count Performed By MERT ADLER RN (RN) Last Modified By: EMRT ADLER RN 05/07/21 11:19:28 [facility] IntraOp Departure from OR Entry 1 Integumentary Assessment Integumentary WDL Assessment WDL Transfer/Handoff Transfer to ICU - Cardiovascular Handoff Method Bedside/Face to face, Phone call, Online nursing summary Post-op Transport Bed (including Via specialty) Patient Transport LALITA ANGEL, Accompanied by AB, Faraz Guerra, patient care manager, ALICIA MARTIN PA-UNK Transfer/Handoff CTVU UPDATED THROUGHOUT Comments CASE Last Modified By: MERT ADLER RN 05/07/21 08:25:06 [facility] IntraOp Drains and Tubes Entry 1 Entry 2 Device Type Chest Tube Calixto Drain Size 36 Fr. straight FR 24 ROUND X2 Drain/Tube Activity Tube Tube secured/stabilized, secured/stabilized, Inserted Inserted Drain/Tube Suction Drain/Tube Drainage Device Location Mediastinum Mediastinum Method of Drainage Continuous suction Continuous suction Chest Tubes Water-Seal 20 cm suction Water-Seal 20 cm suction Connectivity Tube Dressing Dry, Intact Dry, Intact Condition Surgical Drains and Tubes Irrigation Comment Last Modified By: MERT ADLER RN RESULTAY, JOSEFINA, RN 05/07/21 08:37:42 05/07/21 08:37:42 [facility] IntraOp Dressing and Packing Entry 1 Entry 2 Type Dressing Dressing Location Chest Leg incision Wound Dressing Item Skin Closure Glue, Skin Closure Glue, Occlusive dressing Other, Coban Wound Packing Type Tape Type Supplemental Applications Applied By ALICIA MARTIN PA-UNK MEECE, PAUL, PA-UNK Other Comments DERMABOND, COVADERM, DERMABOND, ROLLED TEGADERM STERILE TOWEL Last Modified By: MERT ADLER RN RESULTAY, JOSEFINA, RN 05/07/21 08:27:36 05/07/21 08:27:36 [facility] IntraOp Fire Risk Assessment Entry 1 Fire Info Surgical Site or 1- Yes Incision Above the Xyphoid Open O2 Source 0- No (Mask or Cannula) Available Ignition 1- Yes (ESU, Laser, Light Source) Fire Risk 2 Assessment Score Fire Score Fire Risk Yes Assessment Complete Fire Risk MERT ADLER RN Assessment Verified By Fire Risk 05/07/21 07:38:00 Assessment Verified Date/Time Fire Risk Standard Fire Yes Safety Precautions Followed Last Modified By: MERT ADLER RN 05/07/21 08:27:43 [facility] IntraOp Fire Risk Assessment Audit 05/07/21 08:27:43 Production Support Consultant: [email or web address] Modifier: RESULTJO <+> 1 Fire Risk Assessment Verified By [facility] IntraOp General Case Felt Dyeing Machine Tender 1 Case Information OR OR 14 [facility] Case Level 2 Room Verified Yes Wound Class 1 - Clean Specialty Cardio Thoracic Anesthesia Type General ASA Class 4 Diagnosis Preop Diagnosis CAD Postop Diagnosis SEE POST OP MD NOTES Wound Class Definitions Last Modified By: MERT ADLER RN 05/07/21 08:28:16 [facility] IntraOp General Case Data Audit 05/07/21 08:28:16 Production Support Consultant: RESULTJO Modifier: RESULTJO <+> 1 Specialty <+> 1 ASA Class <+> 1 Wound Class <+> 1 Anesthesia Type <+> 1 Preop Diagnosis <+> 1 Postop Diagnosis <+> 1 Room Verified [facility] IntraOp Implant Log Entry 1 Type Implant (Synthetic) Implant Log Implant Type Marker Implant [employer] Identification [id number] Description Implant Quantity 1 Implant Site AORTA Implant [id number] Identification Lot Number Implant Rand Med Prdt Identification Clipping Marker Name: Implant [id number] Identification Catalog Number Implant Has an Yes Expiration Date Implant Expiration 10/12/22 Date Tissue Implant Last Modified By: MERT ADLER RN 05/07/21 10:09:32 [facility] IntraOp Intraoperative Assessment Entry 1 Handoff Method Online nursing summary Valid History / Yes Physical in Chart Preoperative Yes Checklist Reviewed/Evaluated Allergies Reviewed Yes Patient is Latex No Sensitive Isolation Not applicable Precautions Noted Level of WDL Consciousness (WDL = Alert, Oriented to Person, Place, and Time) Patient's Normal WDL Level of Consciousness Variance(s) Skin Assessment Yes Verified Present Upon IVs Arrival to OR Intraoperative SMALL RED AREA ON THE Assessment Comment LEFT THIGH Last Modified By: MERT ADLER RN 05/07/21 08:28:55 [facility] IntraOp Intraoperative Assessment Audit 05/07/21 08:28:55 Production Support Consultant: RESULTJO Modifier: RESULTJO <+> 1 Intraoperative Assessment Comment [facility] IntraOp Intraoperative Equipment Entry 1 Type Monitoring Equipment Intraop Monitoring Electrocardiogram Five lead placement (ECG) Electrode Placement Blood Pressure Arterial Pressure Line Source Pulse Oximeter Hand, right Probe Site Antiembolic Devices Scopes Flexible Endoscopes KIKA Transducer Scope Used Photo/Video Documentation Photo No Video No Last Modified By: MERT ADLER RN 05/07/21 08:29:22 [facility] IntraOp Medication Admin Entry 1 Entry 2 Entry 3 Medication/Irrigant lidocaine 1% 30ml vial NS 0.9% 50ml injection COMBO heparinized - [id number] - [id number] Lactated Ringers 1000units/100ml - [id number] Combo Med List Time Administered Route of LOCAL - LINE INSERTION FLUSH - LINE INSERTION FLUSH Administration Dose Dose 8 20 1000 Unit of Measure ml ml units Volume Administered By ALICIA MARTIN PA-UNK MEECE, PAUL, PA-UNK DIMELING, GEORGE, MD Procedure Irrigation Irrigant Volume In Irrigant Volume Out Last Modified By: MERT ADLER RN RESULTAY, JOSEFINA, RN RESULTAY, JOSEFINA, RN 05/07/21 08:31:12 05/07/21 08:31:12 05/07/21 08:31:12 Entry 4 Entry 5 Entry 6 Medication/Irrigant papaverine HCL 30mg/ml thrombin 5000units SPNG SURGFOAM [id number] 10ml - [id number] topical powder - [id number] Combo Med List Time Administered Route of TOPICAL (MIXED WITH TOPICAL TOPICAL Administration SALINE) Dose Dose 60 16644 1 Unit of Measure mg units gram Volume Administered By AMARILYS JALLOH MD DIMELING, GEORGE, MD DIMELING, GEORGE, MD Procedure Irrigation Irrigant Volume In Irrigant Volume Out Last Modified By: MERT ADLER RN RESULTAY, JOSEFINA, RN RESULTAY, JOSEFINA, RN 05/07/21 08:31:12 05/07/21 08:31:12 05/07/21 08:32:12 Entry 7 Medication/Irrigant SPNG CLLGN AVITN 3 [id number] Combo Med List Time Administered Route of TOPICAL Administration Dose Dose 1 Unit of Measure pkt Volume Administered By AMARILYS JALLOH MD Procedure Irrigation Irrigant Volume In Irrigant Volume Out Last Modified By: MERT ADLER RN 05/07/21 08:32:12 [facility] IntraOp Medication Admin Audit 05/07/21 08:32:12 Production Support Consultant: ARMANDO Modifier: RESULTJO <+> 6 Medication/Irrigant <+> 6 Route of Administration <+> 6 Administered By <+> 6 Dose <+> 6 Unit of Measure <+> 7 Medication/Irrigant <+> 7 Route of Administration <+> 7 Administered By <+> 7 Dose <+> 7 Unit of Measure [facility] IntraOp Patient Positioning Entry 1 Procedure Coronary Artery Bypass Graft, Vein Paulden Endo Saphenous, Transesophageal Echocardiogram Body Position Supine Left Arm Position Tucked and padded at side Right Arm Position Tucked and padded at side Left Leg Position Uncrossed, parallel Right Leg Position Uncrossed, parallel Feet Uncrossed Yes Pressure Points Yes Checked Positioning Devices Head Rest, Pad, Arm, Pad, Elbow, Pad, Mattress, Wedge, Safety Strap, Thighs Device Position SAINI HEADREST, TEMPURPEDIC MATTRESS, ULNAR NERVE PROTECTORS, SAFETY BELT PRE-PREP, SHOULDER ROLL Positioned By AMARILYS JALLOH MD, [facility], MERT ADLER RN Position Verified Positioning Yes Verified by Anesthesia Positioning Yes Verified by Surgeon Last Modified By: MERT ADLER RN 05/07/21 08:33:08 [facility] IntraOp Sign In Entry 1 Patient, Site, Yes Procedure Identified Surgical Consent Yes Confirmed Relevant Surgical Yes Documents Available Surgical Site N/A Marked by person performing procedure Anesthesia Machine Yes Check Completed Medication Checks Yes Completed Allergies Yes Airway Difficult Yes Airway/Aspiration Risk Difficult Yes Airway/Aspiration Intervention Equipment Available Blood Loss Risk Yes Blood Loss Yes Intervention Equipment Prepared and Ready Blood Identifiers Yes Verified Per Policy Hypothermia Risk Yes Warming Measures Yes Taken Last Modified By: MERT ADLER RN 05/07/21 08:33:17 [facility] IntraOp Sign Out Entry 1 RN Confirmation Surgical Yes Procedure(s) Identified Instrument, Sponge Yes and Sharps Counts Correct/Documented Equipment Problems N/A Documented Specimen Labeled N/A Correctly Urinary Catheter Yes Documented in IView Wound Yes classification reviewed, verified and updated post case in both the General Case Data and Procedure segments [place] Patient Yes Recovery Concerns Reviewed with Anesthesia Provider, Surgeon and RN [place] Patient Yes Management Concerns Reviewed with Anesthesia Provider, Surgeon and RN Safety Checklist Yes Elements Complete? RN Sign Out MERT ADLER RN Signature RN Sign Out 05/07/21 11:39:00 Signature Date/Time Plan of Care Outcome - Fire Risk OUTCOME STATEMENT: Goal met Patient is free from injury related to surgical fire Plan of Care Outcome - Pt Positioning OUTCOME STATEMENT: Goal met Absence of signs and symptoms of positioning injury. Plan of Care Outcome - Skin Prep OUTCOME STATEMENT: Goal met Intraoperative care is consistent with measures to prevent infection Plan of Care Outcome - Xray/Images OUTCOME STATEMENT: N/A Absence of observable signs or symptoms of radiation injury Plan of Care Outcome - Counts OUTCOME STATEMENT: Goal met Absence of signs and symptoms of injury related to extraneous objects Last Modified By: MERT ADLER RN 05/07/21 11:40:01 [facility] IntraOp Sign Out Audit 05/07/21 11:40:01 Production Support Consultant: RESULTJO Modifier: RESULTJO <+> 1 RN Sign Out Signature Date/Time [facility] IntraOp Skin Prep Entry 1 Procedure Coronary Artery Bypass Graft, Vein Paulden Endo Saphenous, Transesophageal Echocardiogram Prescribed Yes Pre-Surgical Prep Completed Prep Area Chin to toes, legs circumferentially Intraop Prep Integumentary WDL Assessment WDL Patients Normal WDL Integumentary Variance(s) Prep Agents Alcohol, Iodine Prep by MERT ADLER RN Hair Removal Methods No hair removal performed Last Modified By: MERT ADLER RN 05/07/21 08:33:54 [facility] IntraOp Surgical Procedures Entry 1 Entry 2 Entry 3 Procedure Coronary Artery Bypass Vein [place] [facility] Transesophageal Graft Saphenous Echocardiogram Modifiers Additional INTRAOP KIKA, CORONARY Procedure ARTERY BYPASS GRAFT X 4 Description (ON PUMP) USING LEFT SAPHENOUS VEIN VIA ENDOSCOPIC VEIN HARVEST + LEFT INTERNAL MAMMARY ARTERY Primary Procedure Yes No No Primary Surgeon AMARILYS JALLOH MD DIMELING, GEORGE, MD DIMELING, GEORGE, MD Start 05/07/21 08:09:00 05/07/21 08:09:00 05/07/21 08:09:00 Stop 05/07/21 11:28:00 05/07/21 08:55:00 05/07/21 11:28:00 Physician States Cecum Reached Anesthesia Type General General General Specialty Cardio Thoracic Cardio Thoracic Cardio Thoracic Wound Class 1 - Clean 1 - Clean 2 - Clean-Contaminated Last Modified By: MERT ADLER RN RESULTAY, JOSEFINA, MERT JETER RN 05/07/21 11:40:04 05/07/21 09:01:17 05/07/21 11:40:23 [facility] IntraOp Surgical Procedures Audit 05/07/21 11:40:23 Production Support Consultant: RESULTJO Modifier: RESULTJO 3 <*> Procedure Transesophageal Echocardiogram 3 <+> Specialty 05/07/21 11:40:04 Production Support Consultant: RESULTJO Modifier: RESULTJO <+> 1 Stop <+> 3 Stop 05/07/21 10:10:44 Production Support Consultant: RESULTJO Modifier: RESULTJO 1 <*> Procedure Coronary Artery Bypass Graft 1 <+> Specialty 1 <+> Wound Class 1 <*> Additional Procedure Description (CABG, EVH) 05/07/21 09:01:17 Production Support Consultant: RESULTJO Modifier: RESULTJO <+> 1 Start 2 <*> Procedure Vein [place] Endo Saphenous 2 <+> Specialty 2 <+> Start 2 <+> Stop 2 <+> Wound Class <+> 3 Start [facility] IntraOp Temp Regulation Devices Entry 1 Temp Regulation Temperature Forced Air Warming Regulation Device device, Warm blankets Temperature [id number] Regulation Device Serial/Unit Number Temperature Lower body Regulation Site Temperature Device 43 DEGREES Setting Temperature MERT ADLER RN Regulation Device Applied by Temperature KOFFI HUGGER TURNED ON Regulation Comment AFTER AORTIC CROSS CLAMP REMOVED. FULL BODY WARM BLANKETS APPLIED BEFORE AND AFTER THE PROCEDURE Last Modified By: MERT ADLER RN 05/07/21 08:34:42 [facility] IntraOP Time Out Entry 1 Procedure to be Coronary Artery Bypass Performed Graft, Vein [place] [facility] Saphenous, Transesophageal Echocardiogram Time Out Time Out Pause Time 05/07/21 08:09:00 All activity Yes suspended (unless life threatening emergency) Team Verbally Correct patient Confirms Information identity, Correct side and site are marked, Consent form is present and accurate, Agreement on the procedure to be done, Correct patient position, Relevant images/results properly labeled/appropriately displayed, Confirm antibiotics have been administered, Confirm the skin prep has dried, Performed in location of procedure after prepped/draped Antibiotic Yes Prophylaxis Administered Or In Progress Within the Last 60 Minutes Beta Chloe N/A Administered Venous Yes Thromboembolism Prophylaxis Required Anticipated Critical Events Surgeon Critical or unexpected steps, Anticipated blood loss, Special equipment need, Special instrumentation need Anesthesia Provider Patient specific concerns Nursing Assures Sterility of instruments Essential Imaging Yes Labeled and Displayed Anticipated ALLERGIC TO SHELLFISH Critical Event BUT THE PT SAID, HE'S Comment OK WITH TOPICAL IODINE. NO BETA CHLOE - HR IS LOW Last Modified By: MERT ADLER RN 05/07/21 08:22:46 Case Comments <None> Finalized By: ALINA SALVADOR Document Signatures Signed By: ALINA SALVADOR 05/07/21 16:04 MERT ADLER RN 05/07/21 11:40 ALINA SALVADOR 05/08/21 10:55 Unfinalized History Date/Time Username Reason for Unfinalizing Freetext Reason for Unfinalizing 05/07/21 16:02 WATTSDR Correct Billing 05/08/21 10:53 WATTSDR Correct Billing Electronically signed by Jessica [facility] Conversion Network Operations Analyst Cerner at 09/29/2022 3:25 PM CDT documented in this encounter Plan of Treatment Not on file documented as of this encounter Visit Diagnoses Not on filedocumented in this encounter Care Teams Statistical Machine Servicer Relationship Specialty Start Date End Date Raúl Caraballo MD [address] [place] [address] PCP - General Adolescent Medicine 12/08/22 documented as of this encounter
--- OUTSIDE RECORDS SUMMARY | 2025-04-21 12:59 | XMS_ITS | Encounter Summary ---
Author Organization [employer] ([place], [place], [place], [place], [place]) Address [address] [place] [address] Care Team Providers Care Line Mechanic Name Role Phone Raúl Caraballo MD Primary Care Provider + [phone] Encounter Details Date Type Department Care Team (Late st Contact Info) Description 05/07/2021 Transcribed Document [facility] [place] [address] [place] [address] ProviderKyree MD [address] [place] [address] Social History Tobacco Use Types Packs/Day Years Used Date Smoking Tobacco: Never Assessed Sex and Gender Information Value Date Recorded Sex Assigned at Not on file Legal Sex Male 1:20 PM CDT Gender Identity Not on file Sexual Orientation Not on file documented as of this encounter Miscellaneous Notes * Cerner Conversion Note - Kyree ProviderMD - 05/07/2021 11:59 AM TEXTILE CHEMIST Pain Assessment Entered On: 05/10/2021 5:51 EST Performed On: 05/10/2021 6:24 EST by CHALO HERNANDEZ RN Intervention Information: acetaminophen-HYDROcodone Performed by CHALO HERNANDEZ RN on 05/10/2021 05:24:00 EST acetaminophen-HYDROcodone,2Tab Oral,Pain (Moderate 4-6) Pain Assessment Pain Assessment : Follow-up assessment Pain Scale Goal : 2 Pain Improved by Intervention : Yes CHALO HERNANDEZ RN - 05/10/2021 5:51 EST Electronically signed by Jessica [facility] Conversion Cad Technician Cerner at 10/05/2022 1:04 PM CDT documented in this encounter Plan of Treatment Not on file documented as of this encounter Visit Diagnoses Not on filedocumented in this encounter Care Teams Line Mechanic Relationship Specialty Start Date End Date Raúl Caraballo MD [address] [place] [address] PCP - General Adolescent Medicine 12/08/22 documented as of this encounter
--- OUTSIDE RECORDS SUMMARY | 2025-04-21 12:59 | XMS_ITS | Clinical Summary ---
Author Organization Healthcare Address [address] [place] [address] Care Team Providers Care Passenger Screener Name Role Phone Raúl Caraballo MD Primary Care Provider + [phone] Allergies Active Allergy Reactions Criticality Noted Date Comments Shellfish-Derived Products Unknown - Pat ient states they do not know rxn details Low 07/14/2018 Medications atorvastatin (Lipitor) 80 MG tablet 8 Active clopidogrel (Plavix) 75 MG tablet 0 Active isosorbide mononitrate ER (Imdur) 30 MG 24 hr tablet 8 Active nitroglycerin (Nitrostat) 0.4 MG SL tablet 8 Active aspirin 81 MG EC tablet Take 1 tablet (81 mg) by mouth daily. Active metoprolol succinate XL (Toprol-XL) 25 MG 24 hr tablet Take 1 tablet (25 mg) by mouth daily. Do not crush or chew. 1 1/2 tab daily Active Multiple Vitamin (multivitamin) tablet Take 1 tablet by mouth daily. Active losartan (Cozaar) 25 MG tablet 4 Active metoprolol tartrate (Lopressor) 25 MG tablet 4 Active Finerenone (Kerendia) 10 MG tablet Take 10 mg by mouth 1 (one) time each day. Active levothyroxine (Synthroid, Levoxyl) 112 MCG tablet Take 1 tablet (112 mcg) by mouth daily before breakfast. Active traZODone (Desyrel) 150 MG tablet Take 175 mg by mouth nightly. Active dapagliflozin (Farxiga) 10 MG tablet Take 1 tablet (10 mg) by mouth daily. Active tamsulosin (Flomax) 0.4 MG 24 hr capsule Take 2 capsules (0.8 mg) by mouth 1 (one) time each day with dinner. Active promethazine (Phenergan) 12.5 MG tabletIndication s:Nausea Take 1 tablet (12.5 mg) by mouth every 6 hours as needed for nausea or vomiting. 30 tablet Active Active Problems Problem Noted Date Diagnosed Date Hypertensive chronic kidney disease with stage 1 through stage 4 chronic kidney disease, or unspecified chronic kidney disease 08/19/2024 Nausea 08/19/2024 Anemia in stage 3a chronic kidney disease 2024 Chronic kidney disease-mineral and bone disorder (CKD-MBD) 05/20/2021 BPH (benign prostatic hyperplasia) 07/14/2018 Essential hypertension 07/14/2018 Other hyperlipidemia 07/14/2018 Stage 3 chronic kidney disease 05/24/2018 Immunizations Immunization Administration Dates Next Due Hep A, Adult 01/26/2019 Influenza, high-dose, quadrivalent 02/25/2023, Pneumococcal Polysaccharide PPV23 05/15/2021 Rsvpref, Recombinant, Protein Subunit, Adjuvent 06/24/2023 Family History Medical History Relation Name Comments Hypertension Father Hypertension Mother Relation Name Status Comments Father Mother Social History Tobacco Use Types Packs/Day Years Used Date Smoking Tobacco: Former Smokeless Tobacco: Never Tobacco Cessation:Counseling Given: Not Answered Alcohol Use Standard Drinks/Week Comments No 0 (1 standard drink = 0.6 oz pure alcohol) Alcoholic Drinks/day: Never Drank Alcohol Sex and Gender Information Value Date Recorded Sex Assigned at Not on file Legal Sex Male 8:56 PM EDT Gender Identity Not on file Sexual Orientation Not on file Last Filed Vital Signs Vital Sign Reading Time Taken Comments Blood Pressure 114/74 08/19/2024 1:10 PM EST Pulse 50 08/19/2024 1:10 PM EST Temperature 36.6 C (97.8 F) 08/19/2024 1:10 PM EST Respiratory Rate 18 08/19/2024 1:10 PM EST Oxygen Saturation 97% 08/19/2024 1:10 PM EST Inhaled Oxygen Concentration - - Weight 87.1 kg (192 lb) 08/19/2024 1:10 PM EST Height 172.7 cm (5' 8 ) 08/19/2024 1:10 PM EST Body Mass Index 29.19 08/19/2024 1:10 PM EST Plan of Treatment Upcoming Encounters Date Type Department Care Team (Late st Contact Info) Description 08/18/2025 1:40 PM EST Office Visit [facility] [address] [place] [id number] Patrick Barron MD [address] [place] [address] Health Maintenance Due Date Last Done Comments [facility]-Depression Screening 1955 [facility]-Hepatitis C Screening 1955 [facility]-Medicare Annual Wellness (AWV) 1955 [facility]-Infant/Child/Adol SDOH Screenings 1956 [facility]- SDOH Screenings 1974 [facility]-Adult SDOH Screenings 1974 CT Colonography 2001 Colonoscopy 2001 FIT-DNA 2001 FIT 2001 FOBT 2001 Sigmoidoscopy 2001 [facility]-Colorectal Cancer Screening 2001 [facility]-Zoster Vaccines (1 of 2) 2006 [facility]-Abdominal Aortic Aneurys m (AAA) Screening 2021 [facility]-Pneumococcal Vaccine: 50 + Years (2 of 2 - PCV) 05/15/2022 05/15/2021 AZO-KEGTH-62 Vaccine (4 - season) 2025 11/26/2021, 10/05/2020, 08/25/2020 [facility]-Influenza Vaccine (#1) 02/13/202502/28, 02/25/2023, 04/14/2022 [facility]-DTaP,Tdap,and Td Vaccine s (2 - Td or Tdap) 06/14/2034 06/14/2024 [facility]-Hepatitis A Vaccines Aged Out 01/26/2019 No longer eligible based on patient's age to complete this topic [facility]-RSV Vaccine: 60+ Years o r Completed 06/24/2023 [facility]-Obesity Intervention Completed 025, 07/16/2023 HPV Vaccines Aged Out No longer eligi ble based on patient's age to complete this topic [facility]-HIB Vaccines Aged Out No longer e ligible based on patient's age to complete this topic [facility]-IPV Vaccines Aged Out No longer e ligible based on patient's age to complete this topic [facility]-Rotavirus Vaccines Aged Out No lo nger eligible based on patient's age to complete this topic Insurance [facility] MEDICARE Care Teams Passenger Screener Relationship Specialty Start Date End Date Raúl Caraballo MD [address] [place] [address] PCP - General 10/26/20
--- OUTSIDE RECORDS SUMMARY | 2025-04-21 12:59 | XMS_ITS | Encounter Summary ---
Author Organization [employer] ([place], [place], [place], [place], [place]) Address [address] [place] [address] Care Team Providers Care Small Offset Printer Name Role Phone Raúl Caraballo MD Primary Care Provider + [phone] Encounter Details Date Type Department Care Team (Late st Contact Info) Description 05/06/[address] [facility] [place] Medicine [address] [place] [address] ProviderKyree MD [address], [place] [address] Social History Tobacco Use Types Packs/Day Years Used Date Smoking Tobacco: Never Assessed Sex and Gender Information Value Date Recorded Sex Assigned at Not on file Legal Sex Male 1:20 PM CDT Gender Identity Not on file Sexual Orientation Not on file documented as of this encounter Miscellaneous Notes * Cerner Conversion Note - Historical ProviderMD - 05/06/2021 1:12 PM AIR INTELLIGENCE SPECIALIST Authorization Entered On: 05/06/2021 13:12 EST Performed On: 05/06/2021 13:12 EST by MAU GILES, Nursing Resident Primary Insurance Authorization Authorization and Policy Numbers : Insurance 1 Health Plan: [employer]THE[employer] Policy Number: [id number] Authorization Number: Insurance 2 Health Plan: MEDICARE Policy Number: [id number] Authorization Number: Insurance Primary Name : Farhana [id number] Authorization Status-Primary : Admit approved Authorization Number-Primary : [id number] Number of Days Authorized-Primary : 3 Day(s) Authorized Service Begin Date-Primary : 05/07/2021 EST Authorized Service End Date-Primary : 05/10/2021 EST Authorization Comments-Primary : per BLAYNE hernandez approved 4 IP days auth# [id number] Historical Authorization Comments-Primary : No Authorization Comments Found MAU GILES, Nursing Resident - 05/06/2021 13:12 EST Electronically signed by [facility] Conversion Skip Pitman Cerner at 09/29/2022 3:15 PM CDT documented in this encounter Plan of Treatment Not on file documented as of this encounter Visit Diagnoses Not on filedocumented in this encounter Care Teams Small Offset Printer Relationship Specialty Start Date End Date Raúl Caraballo MD [address] [place] [address] PCP - General Adolescent Medicine 12/08/22 documented as of this encounter
--- OUTSIDE RECORDS SUMMARY | 2025-04-21 12:59 | XMS_ITS | Encounter Summary ---
Author Organization [employer] ([place], [place], [place], [place], [place]) Address [address] [place] [address] Care Team Providers Care Wind Turbine Technician Name Role Phone Raúl Caraballo MD Primary Care Provider + [phone] Encounter Details Date Type Department Care Team (Late st Contact Info) Description 05/11/2021 Transcribed Document [facility] [place] Family Medicine [address] [place] [address] ProviderKyree MD [address] [place], [place] [id number] Social History Tobacco Use Types Packs/Day Years Used Date Smoking Tobacco: Never Assessed Sex and Gender Information Value Date Recorded Sex Assigned at Not on file Legal Sex Male 1:20 PM CDT Gender Identity Not on file Sexual Orientation Not on file documented as of this encounter Miscellaneous Notes * Cerner Conversion Note - Kyree ProviderMD - 05/11/2021 5:00 AM TELEGRAPHIC TYPEWRITER OPERATOR Chart Check - Review Order Profile Entered On: 05/11/2021 6:27 EST Performed On: 05/11/2021 5:00 EST by Allie Smith RN Chart Check All Active Orders Reviewed : Yes Allie Smith RN - 05/11/2021 6:27 EST documented in this encounter Plan of Treatment Not on file documented as of this encounter Visit Diagnoses Not on filedocumented in this encounter Care Teams Wind Turbine Technician Relationship Specialty Start Date End Date Raúl Caraballo MD [address] [place] [address] PCP - General Adolescent Medicine 12/08/22 documented as of this encounter
--- OUTSIDE RECORDS SUMMARY | 2025-04-21 12:59 | XMS_ITS | Encounter Summary ---
Author Organization [employer] ([place], [place], [place], [place], [place]) Address [address] [place] [address] Care Team Providers Care Coffee Host Name Role Phone Raúl Caraballo MD Primary Care Provider + [phone] Encounter Details Date Type Department Care Team (Late st Contact Info) Description 05/11/2021 Transcribed Document [facility] [place] [facility] [place] [address] ProviderKyree MD [address] [place] [address] Social History Tobacco Use Types Packs/Day Years Used Date Smoking Tobacco: Never Assessed Sex and Gender Information Value Date Recorded Sex Assigned at Not on file Legal Sex Male 1:20 PM CDT Gender Identity Not on file Sexual Orientation Not on file documented as of this encounter Miscellaneous Notes * Cerner Conversion Note - Historical ProviderMD - 05/11/2021 11:51 AM PIPE LINE GAUGER Final Discharge Planning Entered On: 05/11/2021 11:51 EST Performed On: 05/11/2021 11:51 EST by NETTIE DINERO, Corrosion Control Fitter-Quahogger Final Discharge Planning Discharge Arrangements : Patient Post-Acute Information Patient Name: CHELSEA AVINA Gender: Male : 57 Age: 66 Years No Post-Acute Placement(s) Listed No Post-Acute Service(s) Listed No [place] Referral(s) Listed Patient Offered Choice/Affiliations Explained : No Designation of Choice Signed : No Transportation Needs : Family/Friend Follow Up Appointment Scheduled : No Is Patient High/Moderate Readmission Risk? : No Patient/Family Notified of Plan : Yes Support Person/Pt Rep Notified of Plan : Yes Is Patient Ready for Discharge? : Yes Physician Notified Patient is Ready for Discharge? : Yes Discharge To Care Management : Home/Residential/Halfway or Self Care -01 NETTIE DINERO Corrosion Control Fitter-Quahogger - 05/11/2021 11:51 EST Final Narrative Note Final Narrative Note : Patient is discharging home. Patient declined any discharge services. Patient was tested for home o2 and did not qualify. He also did not have a qualifying diagnosis. NO other needs identified. Patient has transport home. NETTIE DINERO Corrosion Control Fitter-Quahogger - 05/11/2021 11:51 EST documented in this encounter Plan of Treatment Not on file documented as of this encounter Visit Diagnoses Not on filedocumented in this encounter Care Teams Coffee Host Relationship Specialty Start Date End Date Raúl Caraballo MD [address] [place] [address] PCP - General Adolescent Medicine 12/08/22 documented as of this encounter
--- OUTSIDE RECORDS SUMMARY | 2025-04-21 12:59 | XMS_ITS | Encounter Summary ---
Author Organization [employer] ([place], [place], [place], [place], [place]) Address [address] [place] [address] Care Team Providers Care Conductor Pullman Name Role Phone Raúl Caraballo MD Primary Care Provider + [phone] Encounter Details Date Type Department Care Team (Late st Contact Info) Description 05/07/2021 Transcribed Document [facility] Family Medicine [address] [place] [address] ProviderKyree MD [address] [place] [address] Social History Tobacco Use Types Packs/Day Years Used Date Smoking Tobacco: Never Assessed Sex and Gender Information Value Date Recorded Sex Assigned at Not on file Legal Sex Male 1:20 PM CDT Gender Identity Not on file Sexual Orientation Not on file documented as of this encounter Miscellaneous Notes * [employer]ner Conversion Note - Historical ProviderMD - 05/07/2021 6:30 AM ANCHOR TACK PULLER Patient: CHELSEA AVINA Age: 66 years Sex: Male : 1955 Associated Diagnoses: None Author: COMEROTTO APRN Chief Complaint pleasant 66 yo male here with his for CABG with Dr. Rey. pt has had chest pain for 3-4 months and some SOB with exertion. Review of Systems Constitutional: Negative. Eye: Negative. Ear/Nose/Mouth/Throat: Negative. Respiratory: Shortness of breath. Cardiovascular: Chest pain: Bilateral, Midsternal, Anterior. Gastrointestinal: Negative. Genitourinary: Negative. Hematology/Lymphatics: Negative. Endocrine: Negative. Immunologic: Negative. Musculoskeletal: Negative. Integumentary: Negative. Neurologic: Negative. Psychiatric: Negative. All other systems are negative Health Status Allergies: Allergic Reactions (Selected) Severity Not Documented Shellfish- [d]nausea and vomiting and [d]nausea and vomiting., No qualifying data available Current medications: (Selected) Inpatient Medications Ordered Ancef: 2 Gram, 50 mL, 100 mL/Hr, IV Piggyback, PREOP Lactated Ringers Injection intravenous solution 1,000 mL: 20 mL/Hr, IntraVENous Lactated Ringers Injection intravenous solution 1,000 mL: 30 mL/Hr, IntraVENous NORepinephrine injection 8 mg + NaCl 0.9% for drip 250 mL: TITRATE, IntraVENous Nitrostat: 0.4 mg, SubLINgual, Q5Min, PRN: Pain dexmedeTOMIDine injection 400 mcg + NaCl 0.9% for drip 100 mL: TITRATE, IntraVENous Pending Complete Bactroban 2% topical ointment: 1 Application, Nostrils Both, BID Documented Medications Documented Fish Oil: Oral, Daily, 0 Refill(s) Flomax 0.4 mg oral capsule: Cap, Oral, Daily, 0 Refill(s) Saw Merlin: mg, Oral, Daily, does not know dose, [...] Daily multivitamin 1 Tab, Oral, Daily Saw Merlin , Oral, Daily traZODone 100 mg oral tablet , Oral, At Bedtime , Medications (6) Active Scheduled: (1) ceFAZolin/D5w 2 Gram 50 mL, IV Piggyback, PREOP Continuous: (4) dexmedeTOMIDine 400 mcg + NaCl 0.9% TITRATE 100 mL 100 mL, IntraVENous lactated ringers 1,000 mL 1,000 mL, IntraVENous, 30 mL/Hr lactated ringers 1,000 mL 1,000 mL, IntraVENous, 20 mL/Hr NORepinephrine 8 mg + NaCl 0.9% T ITRATE 250 mL 250 mL, IntraVENous PRN: (1) nitroglycerin 0.4 mg tab # 25 btl 0.4 mg 1 Tab, SubLINgual, Q5Min Problem list: All Problems Thyroid disease / SNOMED CT 753730528 / Confirmed Thyroid cancer / SNOMED CT 4256059330 / Confirmed Renal calculus / SNOMED CT 108130984 / Confirmed Hypertension / SNOMED CT 76226124 / Confirmed Hyperlipidemia / SNOMED CT 85220160 / Confirmed History of placement of stent in LAD coronary artery / SNOMED CT 3659391709 / Confirmed H/O right coronary artery stent placement / SNOMED CT 6310219023 / Confirmed Hemorrhoids / SNOMED CT 695107565 / Confirmed Coronary artery disease / SNOMED CT 5789352341 / Confirmed 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 / SNOMED CT 4326509419 / Confirmed Carotid artery stenosis / SNOMED CT 367569691 / Confirmed Bronchitis / SNOMED CT 66583201 / Confirmed At risk for sleep apnea / IMO 49793120 / Confirmed Allergic rhinitis / SNOMED CT 549935372 / Confirmed, Active Problems (14) Allergic rhinitis At risk for sleep apnea Bronchitis Carotid artery stenosis Coronary artery disease H/O right coronary artery stent placement Hemorrhoids History of placement of stent in LAD coronary artery Hyperlipidemia Hypertension Renal calculus 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 Family History: No family history items have been selected or recorded. Procedure history: hemhroid ectomy. cardiac cath with stent. thyroidectomy. lithotripsy. Comments: 05/03/2021 9:25 BELLO - WANDA ALMAZAN RN shockwave x1 and laser x1 retinal tear bleeding left. Social History Social & Psychosocial Habits Alcohol 11/18/2016 Alcohol Use History, Social Habits No Substance Abuse 05/03/2021 Recreational Drug Use History No Recreational Drug Use Last 12 Months No Tobacco 11/18/2016 Smoking Status Former smoker Month Tobacco Last Used stopped in 200105/02/2021 Smoking Status Former smoker, quit more Smokeless Tobacco Status Never Years of Tobacco Use 5 Packs/Tins Daily 1 Month Tobacco Last Used Quit 2000 . Physical Examination VS/Measurements Vital Signs/Vital Measures 05/07/2021 6:46 EST Heart Rate, Apical Not Done: hr 53 held (Not Done) 05/07/2021 6:18 EST Systolic Blood Pressure 137 mmHg Diastolic Blood Pressure 83 mmHg Temperature Source Temporal artery scanning Temperature Mode Fahrenheit Temperature, Fahrenheit 98.1 Deg F Clinical Temperature, C 36.7 Deg C Heart Rate Monitored 57 bpm LOW Respiratory Rate 20 Breaths/Min Oxygen Saturation 97 % , Vitals Signs (last 24 hrs) Last Charted Minimum Maximum Temp 98.1 (MAY 07 06:18) 98.1 (MAY 07 06:18) 98.1 (MAY 07 06:18) Mon HR 57 (MAY 07 06:18) 57 (MAY 07 06:18) 57 (MAY 07 06:18) Resp Rate 20 (MAY 07 06:18) 20 (MAY 07 06:18) 20 (MAY 07 06:18) SBP 137 (MAY 07 06:18) 137 (MAY 07 06:18) 137 (MAY 07 06:18) DBP 83 (MAY 07 06:18) 83 (MAY 07 06:18) 83 (MAY 07 06:18) SpO2 97 (MAY 07 06:18) 97 (MAY 07 06:18) 97 (MAY 07 06:18) General: Alert and oriented, No acute distress. Eye: Extraocular movements are intact, glasses. HENT: Normocephalic, Normal hearing. Respiratory: Lungs are clear to auscultation, Respirations are non-labored. Cardiovascular: Normal rate, Regular rhythm, No murmur, No gallop, No edema. Musculoskeletal: Normal range of motion, Normal strength. Integumentary: Warm, Dry, [place]. Neurologic: Alert, Oriented. Psychiatric: Cooperative, Appropriate mood & affect. Review / Management Results review: Labs (Last four charted values) WBC 9.0 (MAY 03) HB 16.0 (MAY 03) HCT 47.5 (MAY 03) Plt 215 (MAY 03) Na 143 (MAY 03) K 4.2 (MAY 03) Cl 109 (MAY 03) CO2 26 (MAY 03) BUN 21 (MAY 03) Cr H 1.70 (MAY 03) H 1.4 (MAY 07) Glu R 100 (MAY 03) Ca 10.0 (MAY 03) PT 10.4 (MAY 03) INR 1.0 (MAY 03) PTT 26.1 (MAY 03) AST 20 (MAY 03) ALT 32 (MAY 03) ALK P 98 (MAY 03) T Bili 0.5 (MAY 03) PTN 6.7 (MAY 03) ALB 3.8 (MAY 03) , Lab results 05/07/2021 6:33 EST eGFR 62 mL/min/1.73m2 eGFR NonAfrican 51 mL/min/1.73m2 LOW Creatinine POC 1.4 mg/dL HI 05/07/2021 6:26 EST Glucose POC2 100 mg/dL ABO/Rh O POS Antibody Screen Negative ABSC . Impression and Plan Diagnosis 1. CAD 2. chest pain 3. NOE risk 4. hemorrhoids 5. hyperlipidemia 6. HTN 7. CKD. Condition: Stable. pt to proceed with surgery, plan to stay 4-7 nights. Electronically signed by Jessica, [facility] Conversion Job Boss Cerner at 09/29/2022 3:30 PM CDT documented in this encounter Plan of Treatment Not on file documented as of this encounter Visit Diagnoses Not on filedocumented in this encounter Care Teams Conductor Pullman Relationship Specialty Start Date End Date Raúl Caraballo MD [address] [place] [id number] PCP - General Adolescent Medicine 12/08/22 documented as of this encounter
--- OUTSIDE RECORDS SUMMARY | 2025-04-21 12:59 | XMS_ITS | Encounter Summary ---
Author Organization [employer] ([place], [place], [place], [place], [place]) Address [address] [place] [address] Care Team Providers Care Academic Support Assistant Name Role Phone Raúl Caraballo MD Primary Care Provider + [phone] Encounter Details Date Type Department Care Team (Late st Contact Info) Description 05/08/2021 Transcribed Document [facility] [place] [address] [place] [address] ProviderKyree MD [address] [place] [address] Social History Tobacco Use Types Packs/Day Years Used Date Smoking Tobacco: Never Assessed Sex and Gender Information Value Date Recorded Sex Assigned at Not on file Legal Sex Male 1:20 PM CDT Gender Identity Not on file Sexual Orientation Not on file documented as of this encounter Miscellaneous Notes * [employer]ner Conversion Note - Historical ProviderMD - 05/08/2021 9:02 AM MANAGEMENT SCIENTIST Evaluation, Physical Therapy Entered On: 05/08/2021 13:22 EST Performed On: 05/08/2021 11:00 EST by Sissy Hester INTERN-PHYSICAL THERAPY General Information, PT Visit Type, PT : Initial evaluation Patient Orders : Order Date Order Ordering 05/07/2021 11:29 Consult to Physical Therapy Ordered By: AMARILYS JALLOH MD 05/08/2021 09:02 PT Evaluation and Treatment Ordered By: KELLEN PARIKH PA Active Diagnoses : No Qualifying Diagnoses Therapy Diagnosis, PT : Dx: pain limiting function Onset of Problem, PT : 05/07/2021 EST Admission Date : 05/07/2021 06:53 Assisted by, PT : technology strategist/aide Personal Devices : Personal Devices No Devices Recorded Assistive Devices : Assistive Devices No Devices Recorded Precautions in Place : Fall prevention measures, Sternal Precautions General Information Comment, PT : Hx: HTN, CKD, HLD Dx: CAD Sx: 05/07/2021 CABG x4 Sissy Hester INTERNPHYSICAL THERAPY - 05/08/2021 13:11 EST General Status Patient Received Status : Up in chair Treatment Start Time : 05/08/2021 10:30 EST Patient Left Status : Up in chair, RN/PCT informed, Communication board completed, All needs met and within reach RN/PCT Informed Comment : RN ok'd PTx Treatment End Time : 05/08/2021 11:00 EST Treatment Time : 30 Minute(s) Sissy Hester INTERNPHYSICAL THERAPY - 05/08/2021 13:11 EST History and Environment Living Situation, Therapy : Home Patient Lives With : Spouse Persons Assisting Patient at Home : Significant other(s) Home Setup : One story Stairs : Yes Stair Location(s) : Outside Outside Stairs, Number of Steps : 2 Railing Outside : No Sissy Hester INTERNPHYSICAL THERAPY - 05/08/2021 13:11 EST Prior Level of Function PT GRID Prior LOF Ambulation, Household : Independent Prior LOF Ambulation, Community : Independent Prior LOF Bed Mobility : Independent Prior LOF Toileting : Independent Prior LOF Transfer : Independent Sissy Hester INTERNPHYSICAL THERAPY - 05/08/2021 13:11 EST Intervention Summary BP Systolic Pre-intervention : 135 mmHg BP Diastolic Pre-intervention : 95 mmHg O2 Pre-Intervention : 4 L NC O2 During Intervention : 4 L NC O2 Post-Intervention : 4 L NC SpO2 Post-Intervention : 94 % Sissy Hester INTERNPHYSICAL THERAPY - 05/08/2021 13:11 EST Functional Mobility Mobility Grid Sit to Stand : Supervision/set-up Stand to Sit : Supervision/set-up Sissy Hester INTERNPHYSICAL THERAPY - 05/08/2021 13:11 EST Sit to Stand Device : Belt, gait, Walker, front wheel Stand to Sit Device : Belt, gait, Walker, front wheel Sissy Hester INTERNPHYSICAL THERAPY - 05/08/2021 13:11 EST Gait Training/Assessment, PT Weight Bearing Status Maintained : Yes Weight Bearing Status : Full Gait Assistance Level : Assist, minimal Walking Distance : 80' Ambulatory Devices : Gait belt, Walker, front wheel Sissy Hester INTERNPHYSICAL THERAPY - 05/08/2021 13:11 EST Cognition Assessment, PT Orientation : Oriented x 4 Follows Basic Command Assessment : pt able to follow commands appropriately. Sissy Hester INTERNPHYSICAL THERAPY - 05/08/2021 13:11 EST Edu Topics Physical Therapy Education Grid Gait Training : Returns demonstration, Needs further teaching Home Program/Exercises : Verbalizes understanding Precaution/Contraindication : Verbalizes understanding Sissy Hester INTERNPHYSICAL THERAPY - 05/08/2021 13:11 EST Balance Training : Returns demonstration, Needs further teaching FRANCIS TORO, PT - 05/08/2021 17:02 EST Teaching/Learning Assessment Barriers To Learning : Acuity of Illness Sissy Hester INTERNPHYSICAL THERAPY - 05/08/2021 13:11 EST Indication Assesessment, PT Physical Therapy Indicated : Yes PT Problem List : Impaired, endurance tolerance, Impaired, gait, Impaired, muscle tone, Impaired, strength, Pain limiting function Potential Barriers To Therapy : Acuity of Illness, Pain Rehabilitation Potential : Good Sissy Hester INTERNPHYSICAL THERAPY - 05/08/2021 13:11 EST Plan of Care, PT PT Tx Plan/Goals Established w Patient : Yes PT Frequency Rehab : Daily PT Duration Rehab : Fourteen days PT Treatments Planned : Balance training, Caregiver training, Gait training, Neuromuscular reeducation, Pain management, Safety education, Stair training, Therapeutic exercises, Transfer training Sissy Hester INTERNPHYSICAL THERAPY - 05/08/2021 13:11 EST Short Term Goals Transfer STG Grid Goal #1 Destination : Chair, with arms Type : Stand Pivot Sit Cues : No cues Assist : Independent, complete Equipment : Belt, gait Date to Meet : 05/15/2021 EST Goal Status : Intial Goal Sissy Hester INTERNPHYSICAL THERAPY - 05/08/2021 13:11 EST Ambulation STG Grid Goal #1 Device : Walker, front wheel Distance : 150' Cues : No cues Assist : Assist, minimal Date to Meet : 05/15/2021 EST Goal Status : Intial Goal Sissy Hester INTERNPHYSICAL THERAPY - 05/08/2021 13:11 EST Stairs STG Grid Goal #1 Device : Walker, front wheel Number of Steps : 2 Handrail(s) : No handrails Assist : Assist, minimal Date to Meet : 05/15/2021 EST Goal Status : Initial goal Sissy Hester INTERNPHYSICAL THERAPY - 05/08/2021 13:11 EST Jail Goals Ambulation LTG Grid Goal #1 Device : Walker, front wheel Distance : 250' Cues : No cues Assist : Independent, modified Date to Meet : 05/22/2021 EST Goal Status : Intial Goal Sissy Hester INTERNPHYSICAL THERAPY - 05/08/2021 13:11 EST Stairs LTG Grid Goal #1 Device : Walker, front wheel Number of Steps : 2 Handrail(s) : No handrails Assist : Independent, modified Date to Meet : 05/22/2021 EST Goal Status : Intial Goal Sissy Hester INTERNPHYSICAL THERAPY - 05/08/2021 13:11 EST Treatment Note Subjective Comment : pt agreed to PTx. Patient's Response to Treatment : Pt SpO2 remaining in 90s with ambulation and pt had slight increase in pain. Additional Objective Information : Pt was educated on sternal precautions and utilizing sternal pillow. Pt completed a STS transfer from chair with supervision. Pt ambulated 80' with Min A and required several standing breaks 2/2 pain. Pt returned to chair in room and completed a STS transfer with supervision. Pt was educated on completing exercise in bed when possible to promote strength and blood flow such as APs and SLR. Assessment : Pt tolerated therapy session well today with slight increase in pain with ambulation. Pt was educated on sternal precautions and remaining active and pt was agreeable to this education. Pt is highly motivated to participate in PT. Pt would benefit from skilled PT services in order to increase tolerance to mobility and initiate stair training. Sissy Hester INTERN-PHYSICAL THERAPY - 05/08/2021 13:11 EST Plan for Treatment : Continue with PTx and POC. PT has reviewed and agrees. FRANCIS TORO, PT - 05/08/2021 17:02 EST Pain Assessment Pain Scaled Used : 0-10 Pain scale Pain Score Pre-Intervention : 7 Location : Chest (Comment: incision site [Sissy Hester INTERN-PHYSICAL THERAPY - 05/08/2021 13:11 EST] ) Pain Improved by : Medication, Relaxation, Repositioning Sissy Hester FINANCIAL COACH-PHYSICAL THERAPY - 05/08/2021 13:11 EST Image 1 - Images currently included in the form version of this document have not been included in the text rendition version of the form. Anticipated Discharge Needs, OT/PT Anticipated Discharge to : Home, with home health Recommend Continued Therapy at Discharge : Yes Sissy Hester FINANCIAL COACH-PHYSICAL THERAPY - 05/08/2021 13:[address] [facility] PT Charges Gait Training Each 15 Min : 1 PT Eval Low Complexity : 1 Sissy Hester FINANCIAL COACH-PHYSICAL THERAPY - 05/08/2021 13:11 EST Electronically signed by Jessica, [facility] Conversion Research Staff Member Cerner at 09/29/2022 3:28 PM CDT documented in this encounter Plan of Treatment Not on file documented as of this encounter Visit Diagnoses Not on filedocumented in this encounter Care Teams Academic Support Assistant Relationship Specialty Start Date End Date Raúl Caraballo MD [address] [place] [id number] PCP - General Adolescent Medicine 12/08/22 documented as of this encounter
--- OUTSIDE RECORDS SUMMARY | 2025-04-21 12:59 | XMS_ITS | Encounter Summary ---
Author Organization [email or web address] ([place], [place], [place], [place], [place]) Address [address] [place] [address] Care Team Providers Care Curtain Drier Name Role Phone Raúl Caraballo MD Primary Care Provider + [phone] Encounter Details Date Type Department Care Team (Late st Contact Info) Description 05/08/2021 Transcribed Document [facility] Family [facility] [place] [address] ProviderKyree MD [address] [place] [address] Social History Tobacco Use Types Packs/Day Years Used Date Smoking Tobacco: Never Assessed Sex and Gender Information Value Date Recorded Sex Assigned at Not on file Legal Sex Male 1:20 PM CDT Gender Identity Not on file Sexual Orientation Not on file documented as of this encounter Miscellaneous Notes * Cerner Conversion Note - Historical ProviderMD - 05/08/2021 7:57 AM VETERINARIAN Patient: CHELSEA AVINA Age: 66 years Sex: Male : 1955 Associated Diagnoses: None Author: KELLEN PARIKH PA Subjective Mr. Avina is a 66-year-old [...] on cardiopulmonary bypass with endoscopic vein harvest. 05/08: POD#1 OOB in chair. Reports incisional discomfort. Denies dyspnea. Health Status Allergies: Allergic Reactions (Selected) Severity Not Documented Shellfish- [d]nausea and vomiting and [d]nausea and vomiting., No qualifying data available Current medications: (Selected) Inpatient Medications Ordered Dextrose 5% with 0.225% NaCl intravenous solution 1,000 mL: 30 mL/Hr, IntraVENous Dextrose 50% injection: 12.5 Gram, IV Push, [...] Nebulized Inhalation, RT_Q4H, PRN: Shortness of Breath Lactated Ringers Injection intravenous solution 1,000 mL: 30 mL/Hr, IntraVENous Lyrica: 75 mg, Oral, Q8H Milk of Magnesia 8% oral suspension: 30 mL, Oral, Q8H, PRN: Constipation NORepinephrine injection 8 mg + NaCl 0.9% for drip 250 mL: TITRATE, IntraVENous Nitrostat: 0.4 mg, SubLINgual, Q5Min, PRN: Pain Normal Saline Flush: 10 mL, IV Push, Q12H Normal Saline Flush: 10 mL, IV Push, See Comment, PRN: IV Use Normal Saline Flush: 10 mL, IV Push, See Comment, PRN: IV Use Protonix: 40 mg, IV Push, BID Reglan: 5 mg, IV Push, Q6H, PRN: Nausea/Vomiting Senokot: 17.2 mg, Oral, BID Tylenol: 1 Gram, Oral, Q8H, PRN: Temperature Tylenol: 650 mg, Oral, Q6H, PRN: Fever Zofran: 4 mg, IV Push, Q4H, PRN: Nausea acetaminophen-HYDROcodone 325 mg-5 mg oral tablet: 2 Tab, Oral, Q4H, PRN: Pain (Moderate 4-6) albumin human 5% intravenous solution: 12.5 Gram, 50 mL, IV Piggyback, Q1H, PRN: Hypotension ascorbic acid: 500 mg, Oral, BID aspirin: 81 mg, Oral, Daily dexmedeTOMIDine injection 400 mcg + NaCl 0.9% for drip 100 mL: TITRATE, IntraVENous fluocinonide 0.05% topical cream: 1 Application, Topical, QID, PRN: Other (See Comment) glucagon: 1 mg, IntraMuscular, Q15Min, PRN: Other (See Comment) glucose 4 g oral tablet, chewable: 16 Gram, 4 Tab, Chew, Q15Min, PRN: Other (See Comment) glucose 40% oral gel: 15 Gram, 37.5 mL, Oral, Q15Min, PRN: Other (See Comment) influenza virus vaccine, inactivated: 0.5 mL, IntraMuscular, [id number] insulin lispro sliding scale: Scale D:, SubCutaneous, AC and at Bedtime magnesium sulfate: 1 Gram, 100 mL, 100 mL/Hr, IV Piggyback, 1-Time, PRN: Other (See Comment) metoprolol tartrate: 12.5 mg, Oral, 1-Time morphine: 2 mg, IV Push, Q10Min, PRN: Pain (Severe 7-10) nitroglycerin injection 25 mg + D5W Premix Diluent for Drip 250 mL: TITRATE, IntraVENous oxyCODONE: 5 mg, Oral, Q6H, PRN: Pain (Moderate 4-6) pneumococcal 23-polyvalent vaccine: 0.5 mL, IntraMuscular, [id number] potassium chloride 10 mEq/50 mL intravenous solution: 10 mEq, 50 mL, 50 mL/Hr, IV Piggyback, Q1H, PRN: Other (See Comment) sodium bicarbonate 50 mEq per amp (adult): 100 mEq, IV Push, 1-Time, PRN: Other (See Comment) sodium bicarbonate 50 mEq per amp (adult): 50 mEq, IV Push, 1-Time, PRN: Other (See Comment) Documented Medications Documented Fish Oil: Oral, Daily, 0 Refill(s) Flomax 0.4 mg oral capsule: Cap, Oral, Daily, 0 Refill(s) Saw [place]: mg, Oral, Daily, does not know dose, [...] Daily multivitamin 1 Tab, Oral, Daily Saw [place] , Oral, Daily traZODone 100 mg oral tablet , Oral, At Bedtime , Medications (40) Active Scheduled: (10) #NaCl 0.9% *FLUSH* inj 10 mL 10 mL, IV Push, Q12H ascorbic acid 500 mg tab 500 mg 1 Tab, Oral, BID aspirin EC 81 mg tab 81 mg 1 Tab, Oral, Daily influenza vaccine, quadrivalent 0.5 mL, IntraMuscular, [id number] insulin lispro 1 unit/0.01 mL inj Scale D:, SubCutaneous, AC and at Bedtime metoprolol tartrate 25 mg tab 12.5 mg 0.5 Tab, Oral, 1-Time pantoprazole 40 mg inj 40 mg, IV Push, BID pneumococcal 23-josé miguel vacc inj 0.5 mL 0.5 mL, IntraMuscular, [id number] pregabalin 75 mg cap 75 mg 1 Cap, Oral, Q8H senna 8.6 mg tab 17.2 mg 2 Tab, Oral, BID Continuous: (5) D5/NaCl 0.225% 1,000 mL 1,000 mL, IntraVENous, 30 mL/Hr dexmedeTOMIDine 400 mcg + NaCl 0.9% TITRATE 100 mL 100 mL, IntraVENous lactated ringers 1,000 mL 1,000 mL, IntraVENous, 30 mL/Hr nitroglycerin/D5w 25 mg + Premix Diluent D5W TITRATE 250 mL 250 mL, IntraVENous NORepinephrine 8 mg + NaCl 0.9% T ITRATE 250 mL 250 mL, IntraVENous PRN: (25) #NaCl 0.9% *FLUSH* inj 10 mL 10 mL, IV Push, See Comment #NaCl 0.9% *FLUSH* inj 10 mL 10 mL, IV Push, See Comment acetaminophen 325 mg tab 650 mg 2 Tab, Oral, Q6H acetaminophen 500 mg tab 1 Gram 2 Tab, Oral, Q8H acetaminophen/HYDROcodone 325/5 mg tab 2 Tab, Oral, Q4H albumin human 25% 12.5 g/50 mL inj 12.5 Gram 50 mL, IV Piggyback, Q1H albuterol-ipratropium inh 3 mL 3 mL, Nebulized [...] liq 30 mL 30 mL, Oral, Q8H magnesium sulfate 1 Gram 100 mL, IV Piggyback, 1-Time metoclopramide 10 mg/2 mL inj 5 mg 1 mL, IV Push, Q6H morphine 2 mg/1 ml inj 2 mg 1 mL, IV Push, Q10Min nitroglycerin 0.4 mg tab # 25 btl 0.4 mg 1 Tab, SubLINgual, Q5Min ondansetron 4 mg/2 mL inj 4 mg 2 mL, IV Push, Q4H oxyCODONE 5 mg tab 5 mg 1 Tab, Oral, Q6H potassium chloride 10 mEq 50 mL, IV Piggyback, Q1H sodium bicarbonate 50 mEq/50 ml inj syr 50 mEq 50 mL, IV Push, 1-Time sodium bicarbonate 50 mEq/50 ml inj syr 100 mEq 100 mL, IV Push, 1-Time Problem list: All Problems Allergic rhinitis / SNOMED CT 223385041 / Confirmed Coronary artery disease / SNOMED CT 0970187608 / Confirmed Hypertension / SNOMED CT 05835762 / Confirmed Hyperlipidemia / SNOMED CT 53444655 / Confirmed Bronchitis / SNOMED CT 24443328 / Confirmed Hemorrhoids / SNOMED CT 586954526 / Confirmed Renal calculus / SNOMED CT 509764344 / Confirmed Thyroid disease / SNOMED CT 693620492 / Confirmed Thyroid cancer / SNOMED CT 4537491364 / Confirmed At risk for sleep apnea / IMO 49295795 / Confirmed Carotid artery stenosis / SNOMED CT 722510527 / Confirmed History of placement of stent in LAD coronary artery / SNOMED CT 0717486702 / Confirmed H/O right coronary artery stent placement / SNOMED CT 5765770952 / Confirmed 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 / SNOMED CT 3662098517 / Confirmed, Active Problems (14) Allergic rhinitis At risk for sleep apnea Bronchitis Carotid artery stenosis Coronary artery disease H/O right coronary artery stent placement Hemorrhoids History of placement of stent in LAD coronary artery Hyperlipidemia Hypertension Renal calculus 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 Thyroid cancer Thyroid disease Objective Intake and Output 24 hour intake: Total 4,932 ml 24 hour output: Total 4,[address]: 170mL overnight/300mL 24 hours MT: 280mL overnight/640mL 24 hours VS/Measurements Vitals Signs (last 24 hrs) Last Charted Minimum Maximum Mon HR 74 (MAY 08 06:45) 67 (MAY 07 12:00) 81 (MAY 07 22:30) Resp Rate H 25 (MAY 08 06:45) 16 (MAY 07 11:40) H 49 (MAY 08 06:15) SBP 129 (MAY 08 06:45) L 86 (MAY 07 15:00) H 152 (MAY 07 23:45) DBP 72 (MAY 08 06:45) L 54 (MAY 07 16:00) H 98 (MAY 08 05:15) MAP 86 (MAY 08 06:45) 68 (MAY 07 15:00) 118 (MAY 07 23:45) SpO2 97 (MAY 08 06:45) L 89 (MAY 08 04:15) 99 (MAY 07 11:40) General: Alert and oriented, No acute distress. Neck: Supple. Respiratory: Respirations are non-labored. Breath sounds: Bilateral, Base, Diminished. Cardiovascular: Normal rate, Regular rhythm, No edema. Integumentary: Warm, Dry, Sternal Dressing: c/d/i. Neurologic: Alert, Oriented. Psychiatric: Cooperative, Appropriate mood & affect. Results Review Radiology Results (Last 48 hours) [id number] -- 05/07/2021 06:53 CR Chest 1 Vw [...] reviewed, interpreted, and dictated by Dr. Golden Hasasn.Transcribed by Toan Briggs PA-C.I have personally viewed, [...] and dictated by Dr. Dallas Montoya.Transcribed by Chi Mckeon PA-C MAY 08 03:02 138 106 14 / H 163 4.7 25 1.30 \ MAY 08 03:02 \ L 12.3 / H 13.9 L 155 / L 35.8 \ Impression and Plan 05/07 Coronary artery bypass grafting x4 (left internal mammary to LAD, reverse saphenous vein graft triple sequential from PD to OM to ramus) on cardiopulmonary bypass with endoscopic vein harvest. 05/08 POD#[address]: 170mL overnight/300mL 24 hours MT: 280mL overnight/640mL 24 hours Continue tubes for drainage. Start Plavix, Statin. Continue aspirin, beta jerry. Transfer to telemetry. documented in this encounter Plan of Treatment Not on file documented as of this encounter Visit Diagnoses Not on filedocumented in this encounter Care Teams Curtain Drier Relationship Specialty Start Date End Date Raúl Caraballo MD [address] [place] [address] [place] [address] PCP - General Adolescent Medicine 12/08/22 documented as of this encounter
--- OUTSIDE RECORDS SUMMARY | 2025-04-21 12:59 | XMS_ITS | Encounter Summary ---
Author Organization [employer] ([place], [place], [place], [place], [place]) Address [address] [place] [address] Care Team Providers Care Liaison Planner Name Role Phone Raúl Caraballo MD Primary Care Provider + [phone] Encounter Details Date Type Department Care Team (Late st Contact Info) Description 05/07/2021 Transcribed Document [facility] Radiology [address] [place] [address] Jazmin Best MD [address] [place] [address] Social History Tobacco Use Types Packs/Day Years Used Date Smoking Tobacco: Never Assessed Sex and Gender Information Value Date Recorded Sex Assigned at Not on file Legal Sex Male 1:20 PM CDT Gender Identity Not on file Sexual Orientation Not on file documented as of this encounter Miscellaneous Notes * Cerner Conversion Note - Jazmin Best MD - 05/07/2021 12:55 PM EST DATE OF SERVICE: 05/07/2021 INTRAOPERATIVE ECHOCARDIOGRAPHY This 66-year-old gentleman with a history of coronary artery disease and prior stents to the LAD and RCA, presents for coronary artery bypass grafting due to unstable angina. Due to the high risk of ischemia, Dr. Rey requested for intraoperative echocardiography. The procedure was carried out in the operating room with the patient under general anesthesia. The echocardiographic probe was passed easily and images were acquired by Dr. Best. The aortic valve was a normal trileaflet structure. There was neither stenosis nor regurgitation. The valve area by planimetry was 2.7 sq cm, annulus measured 2.4, the sinotubular junction 2.7, and the ascending aorta 3.2 cm. The mitral valve leaflets were grossly normal and the subvalvular apparatus was intact. The annulus was dilated measuring 3.7 cm. There was trace regurgitation and no stenosis. The pulmonary vein flow pattern was grossly normal. The transmitral flow showed pseudonormalization. This was indicative of diastolic dysfunction of the left ventricle. Left atrium was enlarged measuring about 3.4 x 5 cm. There were no clots or masses seen in the left atrial appendage. Tricuspid valve was grossly normal with trace to mild regurgitation. The intra-atrial septum was intact. A saline contrast study showed no shunt. There was trace pulmonary regurgitation. Left ventricular function was grossly normal with an estimated ejection fraction of about 50% to 55%. There was mild to moderate left ventricular hypertrophy. Right ventricle was grossly normal. All sections of the thoracic aorta examined showed no atheromatous changes. There were neither pleural effusions. No pericardial fluid seen. POST CARDIOPULMONARY BYPASS: 1. Left ventricular ejection fraction stayed grossly unchanged about 50% to 55%. 2. There was trace mitral regurgitation. 3. There was mild tricuspid regurgitation. 4. There was no aortic insufficiency seen. 5. There was no aortic dissection seen. IMPRESSION: 1. Normal left ventricular function with estimated ejection fraction about 50% to 55%. Mild to moderate left ventricular hypertrophy. 2. No atheromatous disease seen in the thoracic aorta. 3. Trace mitral regurgitation. 4. Mild tricuspid regurgitation. 5. Left atrial enlargement. 6. Diastolic dysfunction of left ventricle. All these findings were discussed with Dr. Rey. /[id number] Emmanuelle Best MD NDG/AQ / NDG / MODL /[id number] CC: Calvin Rey IV, MD documented in this encounter Plan of Treatment Not on file documented as of this encounter Visit Diagnoses Not on filedocumented in this encounter Care Teams Liaison Planner Relationship Specialty Start Date End Date Raúl Caraballo MD [address] [place] [address] PCP - General Adolescent Medicine 12/08/22 documented as of this encounter
--- OUTSIDE RECORDS SUMMARY | 2025-04-21 12:59 | XMS_ITS | Encounter Summary ---
Author Organization [employer] ([place], [place], [place], [place], [place]) Address [address] [place] [address] Care Team Providers Care Rigging Worker Name Role Phone Raúl Caraballo MD Primary Care Provider + [phone] Encounter Details Date Type Department Care Team (Late st Contact Info) Description 05/08/2021 Transcribed Document [facility] Family Medicine [facility] [place] [address] ProviderKyree MD [address] [place] [address] Social History Tobacco Use Types Packs/Day Years Used Date Smoking Tobacco: Never Assessed Sex and Gender Information Value Date Recorded Sex Assigned at Not on file Legal Sex Male 1:20 PM CDT Gender Identity Not on file Sexual Orientation Not on file documented as of this encounter Miscellaneous Notes * Cerner Conversion Note - Kyree ProviderMD - 05/08/2021 10:07 AM PERSONNEL TRAINING OFFICER Patient: CHELSEA AVINA Age: 66 years Sex: Male : 1955 Associated Diagnoses: None Author: JOVANNI GARCIA MD Referring physician: Dr. Rey Reason for consult: post operative ventilator weaning CC: Unable to obtain Basic Information HPI: The patient is a 66 year old male with past medical history significant for CAD s/p PCI, carotid artery stenosis, hypertension, and hyperlipidemia who presented to our facility on 05/07 for scheduled CABG. Per medical record, the patient had been experiencing chest pain both at rest and with activity with associated shortness of breath. Echo on 04/15/2021 showed normal EF with no significant valvular disease. Stress test on 04/15 was abnormal. Cardiac craterization on 04/30/2021 reported to have shown multivessel CAD. On 05/07, the patient underwent a CABG X [address] Rey. Pulmonary is being asked to see the patient for post operative ventilator weaning. At time of exam, patient remains sedated on ventilator. There is no family present at bedside during exam, therefor history was obtained primarily via chart review. Past medical history CAD Hyperlipidemia HTN Thyroid cancer Carotid artery stenosis Surgical history: Cardiac cath with PCI Hemorrhoidectomy Thyroidectomy Social history: Former smoker, Quit 2001 Family history: Brother with CAD 05/08: Seen and examined on 6L HFNC, sitting in chair. Extubated yesterday without difficulty. Awake and alert, reporting some post-op chest pain. Hemodynamically stable, afebrile. Leukocytosis improving. Creatinine stable, 2.9L UOP and +492mL I&Os. Tolerating PO diet. ICU day: 2 Review of Systems Constitutional: No weakness, No fatigue. Eye: No recent visual problem. Ear/Nose/Mouth/Throat: No decreased hearing. Respiratory: No shortness of breath, No cough, No sputum production. Cardiovascular: Post-op pain. Immunologic: Negative. Musculoskeletal: Negative. Integumentary: Negative. Neurologic: Alert and oriented X4. Psychiatric: Negative. Health Status Allergies: Allergic Reactions (Selected) Severity [...] of Breath Lopressor: 12.5 mg, Oral, BID Lyrica: 75 mg, Oral, Q8H Milk of [...] influenza virus vaccine, inactivated: 0.5 mL, IntraMuscular, [id number] pneumococcal 23-polyvalent vaccine: 0.5 mL, IntraMuscular, [id number] Documented Medications Documented Fish Oil: Oral, Daily, 0 Refill(s) Flomax 0.4 mg oral capsule: Cap, Oral, Daily, 0 Refill(s) Saw [place]: mg, Oral, Daily, does not know dose, [...] tablet: Tab, Oral, At Bedtime, 0 Refill(s), Medications (38) Active Scheduled: (15) #NaCl 0.9% *FLUSH* inj 10 mL 10 mL, IV Push, Q12H #NaCl 0.9% *FLUSH* inj 10 mL 10 [...] tab 40 mg 1 Tab, Oral, Daily pregabalin 75 mg cap 75 mg 1 Cap, Oral, Q8H senna 8.6 mg tab 17.2 mg 2 Tab, Oral, BID tamsulosin CR 0.4 mg cap 0.4 mg 1 Cap, Oral, Daily Continuous: (0) PRN: (23) #NaCl 0.9% *FLUSH* inj 10 mL 10 [...] All Problems Allergic rhinitis / SNOMED CT 694297253 / Confirmed At risk for sleep apnea / IMO 55639512 / Confirmed Bronchitis / SNOMED CT 01029882 / Confirmed Carotid artery stenosis / SNOMED CT 050177663 / Confirmed 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 / SNOMED CT 0443798671 / Confirmed Coronary artery disease / SNOMED CT 6691808238 / Confirmed Hemorrhoids / SNOMED CT 783772254 / Confirmed H/O right coronary artery stent placement / SNOMED CT 2341173965 / Confirmed History of placement of stent in LAD coronary artery / SNOMED CT 3755830222 / Confirmed Hyperlipidemia / SNOMED CT 72594206 / Confirmed Hypertension / SNOMED CT 64099042 / Confirmed Renal calculus / SNOMED CT 190625228 / Confirmed Thyroid cancer / SNOMED CT 2852101680 / Confirmed Thyroid disease / SNOMED CT 974424714 / Confirmed, Active Problems (14) Allergic rhinitis At risk for sleep apnea Bronchitis Carotid artery stenosis Coronary artery disease H/O right coronary artery stent placement Hemorrhoids History of placement of stent in LAD coronary artery Hyperlipidemia Hypertension Renal calculus 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 Thyroid cancer Thyroid disease Physical Examination VS/Measurements Vitals Signs (last 24 hrs) Last Charted Minimum Maximum Apical HR 75 (MAY 08 08:27) 75 (MAY 08 08:27) 75 (MAY 08 08:) Mon HR 74 (MAY 08 09:00) 67 (MAY 07 12:00) 81 (MAY 07 22:30) Resp Rate H 23 (MAY 08:00) 16 (MAY 07 11:40) H 49 (MAY 08 06:15) SBP 131 (MAY 08 09:00) L 86 (MAY 07 15:00) H 152 (MAY 07 23:45) DBP 83 (MAY 08 09:00) L 54 (MAY 07 16:00) H 98 (MAY 08 05:15) MAP 103 (MAY 08 09:00) 68 (MAY 07 15:00) 118 (MAY 07 23:45) SpO2 96 (MAY 08 09:00) L 89 (MAY 08 04:15) 99 (MAY 07 11:40) General: Alert and oriented, Mild distress, 6L HFNC. Eye: Pupils are equal, round and reactive to light, Normal conjunctiva. HENT: Normocephalic, Oral ET tube present. Mouth: Oral mucosa ( Dry ). Neck: Supple, No lymphadenopathy. Respiratory: Respirations are non-labored, Breath sounds are equal, Symmetrical chest wall expansion, Breath sounds diminished bilaterally. No wheezing. Support: Chest tube ( MT X 2 ). Cardiovascular: Normal rate, Regular rhythm, No edema. Gastrointestinal: Soft, Non-distended. Bowel sounds: All four quadrants, Diminished. Genitourinary: Support: Urinary catheter ( Indwelling ). Musculoskeletal: No swelling, No deformity. Integumentary: Warm, Dry, Midsternal incision present. CDI. Left leg EVH site. Neurologic: Alert, Oriented. Psychiatric: Cooperative, Appropriate mood & affect. Review / Management Results review: Labs (Last four charted values) WBC H 13.9 (MAY 08) H 14.7 (MAY 07) H 20.5 (MAY 07) H 19.3 (MAY 07) HB L 12.3 (MAY 08) L 11.9 (MAY 07) L 12.2 (MAY 07) L 11.4 (MAY 07) HCT L 35.8 (MAY 08) L 35.3 (MAY 07) L 35.3 (MAY 07) L 33.3 (NOV ) Plt L 155 (MAY 08) L 139 (NOV ) 163 (NOV ) L 122 (NOV ) Na 138 (NOV ) 141 (NOV ) 143 (NOV ) K 4.7 (MAY 08) H 5.4 (MAY 07) 4.8 (MAY 07) 4.4 (MAY 07) Cl 106 (NOV ) 108 (NOV ) 109 (NOV ) CO2 25 (NOV 24) 25 (NOV ) 26 (NOV ) BUN 14 (NOV ) 15 (NOV ) 21 (NOV ) Cr 1.30 (MAY 08) 1.30 (NOV ) H 1.70 (NOV ) H 1.4 (MAY 07) Glu R H 163 (MAY 08) H 156 (MAY 07) 100 (NOV ) Ca L 7.5 (MAY 08) L 7.6 (MAY 07) 10.0 (MAY 03) PT H 12.7 (MAY 07) 10.4 (MAY 03) INR 1.2 (MAY 07) 1.0 (MAY 03) PTT 27.1 (MAY 07) 26.1 (MAY 03) AST H 116 (MAY 08) 20 (MAY 03) ALT 31 (MAY 08) 32 (MAY 03) ALK P 53 (MAY 08) 98 (MAY 03) T Bili 0.5 (MAY 08) 0.5 (MAY 03) PTN L 5.5 (MAY 08) 6.7 (MAY 03) ALB 3.5 (MAY 08) 3.8 (MAY 03) . Blood Gases (Current Encounter/Past 24 Hours) pH Art 7.38 05/08/2021 04:03 pCO2 Art 42.4 05/08/2021 04:03 pO2 Art 60.0 LOW 05/08/2021 04:03 HCO3 Art 25.1 05/08/2021 04:03 BE Art -.1 05/08/2021 04:03 sO2 Art 92.3 LOW 05/08/2021 04:03 tHb Art 12.2 05/08/2021 04:03 FHHb 7.5 NA 05/08/2021 04:03 ctO2 15.5 NA 05/08/2021 04:03 FIO2 Art 32 NA 05/08/2021 04:03 Delivery Device Type Art Cannula NA 05/08/2021 04:03 Temperature, F Art 98.6 NA 05/08/2021 04:03 Art Blood Gas (ABG) Site Arterial Line NA 05/08/2021 04:03 Acceptable Christ's Test Art Non-Applicable NA 05/08/2021 04:03 Ventilator Mode Art N/A NA 05/08/2021 04:03 Tidal Volume Set Art 480.0 NA 05/07/2021 12:18 Oxygen Flow Rate Art 3.0 NA 05/08/2021 04:03 Set Rate Art 16.0 NA 05/07/2021 12:18 Respiratory Rate Art 16.0 NA 05/07/2021 15:17 CPAP/PEEP Art 5.0 NA 05/07/2021 15:17 Pressure Support Art 8.0 NA 05/07/2021 15:17 Comment Art supine NA 05/08/2021 04:03 ABG Num of Draw Attempts 1 NA 05/08/2021 04:03 PaO2/FiO2 calculated 188 NA 05/08/2021 04:03 Radiology Results (Last 48 hours) [id number] -- 05/07/2021 06:53 CR Chest 1 Vw [...] Dr. Dallas Montoya.Transcribed by Chi Mckeon PA-C PFTs 05/03/2021 FVC 87% predicted, FEVV1 98% predicted, FEV1/FVC best 84 Impression and Plan Pulmonary Encounter for post operative ventilator weaning FVC 87% predicted, FEVV1 98% predicted, FEV1/FVC best 84 Former cigarette smoker, quit 2001 Cardiac S/p CABG X [address] Rey History of CAD with PCI History of carotid artery disease History of hypertension History of hyperlipidemia ID Leukocytosis, suspect acute phase reactant - improving Heme Anemia Thrombocytopenia Leukocytosis - improving Neuro Awake, alert Endocrine Hyperglycemia Plan: Supplemental O2 for goal sat 92-96% - currently on 6L HFNC DuoNeb PRN Encourage IS/FVD Hemodynamics: Stable off pressors Chest tube management per CTS Antibiotics: None currently Glycemic control per CTS protocol Prophylaxis: Protonix, SCD, chemical DVT prophylaxis when OK with CTS I have personally evaluated the patient; history and review of systems, physical examination, laboratory studies and radiology data. I have actively directed the medical care, formulated diagnosis and plan and discussed it with our team. Chest imaging were reviewed independent of the radiologist report. Prognosis: Guarded. Complex case Pulmonary will sign off at this time. Please call if needed further. Electronically signed by Interface, [facility] Conversion Back Feeder [employer] Layup Line Cerner at 09/29/2022 3:23 PM CDT documented in this encounter Plan of Treatment Not on file documented as of this encounter Visit Diagnoses Not on filedocumented in this encounter Care Teams Rigging Worker Relationship Specialty Start Date End Date Raúl Caraballo MD [address] [place] [address] PCP - General Adolescent Medicine 12/08/22 documented as of this encounter
--- OUTSIDE RECORDS SUMMARY | 2025-04-21 12:59 | XMS_ITS | Encounter Summary ---
Author Organization [employer] ([place], [place], [place], [place], [place]) Address [address] [place] [address] Care Team Providers Care Olive Grower Name Role Phone Raúl Caraballo MD Primary Care Provider + [phone] Encounter Details Date Type Department Care Team (Late st Contact Info) Description 05/11/2021 Transcribed Document [facility] [place] Family Medicine [address] [place] [address] ProviderKyree MD [address] [place], [place] [address] Social History Tobacco Use Types Packs/Day Years Used Date Smoking Tobacco: Never Assessed Sex and Gender Information Value Date Recorded Sex Assigned at Not on file Legal Sex Male 1:20 PM CDT Gender Identity Not on file Sexual Orientation Not on file documented as of this encounter Miscellaneous Notes * Cerner Conversion Note - Historical ProviderMD - 05/11/2021 2:13 PM HAND II CUTTER Discharge Summary, PT Entered On: 05/11/2021 14:14 EST Performed On: 05/11/2021 14:13 EST by BOUBACAR VYAS, PT Discharge Summary Discharge Summary Provider Notified : Physical Therapy Reason for Discharge : Discharged from hospital Discharged to, Therapy : Home, with family care Discharge Summary Comment, PT : 1 goals met, but pt able to perform supine to sit and sit to/from stand with min A. He completed sit to supine with supervision and amb x 250 ft with a RWx with supervision. BOUBACAR VYAS, PT - 05/11/2021 14:13 EST Short Term Goals Transfer STG Grid Goal #1 Destination : Chair, with arms Type : Stand Pivot Sit Cues : No cues Assist : Independent, complete Equipment : Belt, gait Date to Meet : 05/15/2021 EST Goal Status : Not met BOUBACAR VYAS, PT - 05/11/2021 14:13 EST Ambulation STG Grid Goal #1 Device : Walker, front wheel Distance : 150' Cues : No cues Assist : Assist, minimal Date to Meet : 05/15/2021 EST Goal Status : Goal met Date Met : 05/10/2021 EST BOUBACAR VYAS, PT - 05/11/2021 14:13 EST Stairs STG Grid Goal #1 Device : Walker, front wheel Number of Steps : 2 Handrail(s) : No handrails Assist : Assist, minimal Date to Meet : 05/15/2021 EST Goal Status : Not Met BOUBACAR VYAS, PT - 05/11/2021 14:13 EST Aerospace Project Engineer Goals Ambulation LTG Grid Goal #1 Device : Walker, front wheel Distance : 250' Cues : No cues Assist : Independent, modified Date to Meet : 05/22/2021 EST Goal Status : Not met BOUBACAR VYAS, PT - 05/11/2021 14:13 EST Stairs LTG Grid Goal #1 Device : Walker, front wheel Number of Steps : 2 Handrail(s) : No handrails Assist : Independent, modified Date to Meet : 05/22/2021 EST Goal Status : Not met BOUBACAR VYAS, PT - 05/11/2021 14:13 EST Electronically signed by Jessica [facility] Conversion Remote Sensing Research Scientist Cerner at 09/29/2022 3:25 PM CDT documented in this encounter Plan of Treatment Not on file documented as of this encounter Visit Diagnoses Not on filedocumented in this encounter Care Teams Olive Grower Relationship Specialty Start Date End Date Raúl Caraballo MD [address] [place] [address] PCP - General Adolescent Medicine 12/08/22 documented as of this encounter
--- OUTSIDE RECORDS SUMMARY | 2025-04-21 12:59 | XMS_ITS | Encounter Summary ---
Author Organization [employer] ([place], [place], [place], [place], [place]) Address [address] [place] [address] Care Team Providers Care Assembler Body Name Role Phone Raúl Caraballo MD Primary Care Provider + [phone] Encounter Details Date Type Department Care Team (Late st Contact Info) Description 05/08/2021 Transcribed Document [facility] [place] Family Medicine [address] [place] [address] ProviderKyree MD [address] [place] [address] Social History Tobacco Use Types Packs/Day Years Used Date Smoking Tobacco: Never Assessed Sex and Gender Information Value Date Recorded Sex Assigned at Not on file Legal Sex Male 1:20 PM CDT Gender Identity Not on file Sexual Orientation Not on file documented as of this encounter Miscellaneous Notes * Cerner Conversion Note - Kyree ProviderMD - 05/08/2021 8:42 AM PORCELAIN ENAMEL SPRAYER Authorization Entered On: 05/08/2021 8:42 EST Performed On: 05/08/2021 8:42 EST by CORTNEY DAWKINS Rn-Utilization Review Primary Insurance Authorization Authorization and Policy Numbers : Insurance 1 Health Plan: FARHANA HMOPPO Policy Number: [id number] Authorization Number: [id number] Insurance 2 Health Plan: MEDICARE Policy Number: [id number] Authorization Number: Insurance Primary Name : Farhana [id number] Authorization Status-Primary : Admit approved Authorization Number-Primary : [id number] Number of Days Authorized-Primary : 3 Day(s) Authorized Service Begin Date-Primary : 05/07/2021 EST Authorized Service End Date-Primary : 05/10/2021 EST Historical Authorization Comments-Primary : Comment 1: octavia hernandez approved 4 IP days auth# [id number] (MAU GILES, High School Industrial Arts Teacher 05/06/2021 13:12) CORTNEY DAWKINS Rn-Utilization Review - 05/08/2021 8:42 EST Electronically signed by Jessica [facility] Conversion Linoleum Printer Cerner at 09/29/2022 3:42 PM CDT documented in this encounter Plan of Treatment Not on file documented as of this encounter Visit Diagnoses Not on filedocumented in this encounter Care Teams Assembler Body Relationship Specialty Start Date End Date Raúl Caraballo MD [address] [place] [address] PCP - General Adolescent Medicine 12/08/22 documented as of this encounter
--- OUTSIDE RECORDS SUMMARY | 2025-04-21 12:59 | XMS_ITS | Encounter Summary ---
Author Organization [employer] ([place], [place], [place], [place], [place]) Address [address] [place] [address] Care Team Providers Care Core Fitter Name Role Phone Raúl Caraballo MD Primary Care Provider + [phone] Encounter Details Date Type Department Care Team (Late st Contact Info) Description 05/11/2021 Transcribed Document [facility] [place] [facility] [place] [address] ProviderKyree MD [address] [place] [address] Social History Tobacco Use Types Packs/Day Years Used Date Smoking Tobacco: Never Assessed Sex and Gender Information Value Date Recorded Sex Assigned at Not on file Legal Sex Male 1:20 PM CDT Gender Identity Not on file Sexual Orientation Not on file documented as of this encounter Miscellaneous Notes * Cerner Conversion Note - Historical ProviderMD - 05/11/2021 8:58 AM MEDICAL TECHNOLOGIST CHEMISTRY Patient: CHELSEA AVINA Age: 66 years Sex: [...] IS, walked 80 ft yesterday with PT 05/10/21: POD#3 s/p CABG x 4, denies SOB, did not walk yesterday 05/11/21: POD#4 s/p CABG x 4, using IS, ambulated 350 ft yesterday Health Status Allergies: Allergic Reactions (Selected) Severity [...] Nausea/Vomiting Senokot: 17.2 mg, Oral, BID Tylenol: 650 mg, Oral, Q6H, PRN: Fever [...] influenza virus vaccine, inactivated: 0.5 mL, IntraMuscular, [id number] pneumococcal 23-polyvalent vaccine: 0.5 mL, IntraMuscular, [id number] Prescriptions Prescribed Delmar 5 mg-325 mg oral tablet: 1 Tab, Oral, Q4H, PRN: for pain, 42 Tab, 0 Refill(s) Documented Medications Documented Fish Oil: Oral, Daily, 0 Refill(s) Flomax 0.4 mg oral capsule: Cap, Oral, Daily, 0 Refill(s) Saw [place]: mg, Oral, Daily, does not know dose, [...] Oral, At Bedtime, 0 Refill(s), Home Medications (11) Active aspirin 81 mg atorvastatin 80 mg, Oral, Daily Fish Oil , Oral, Daily Flomax 0.4 mg oral capsule , Oral, Daily isosorbide mononitrate 30 mg, Oral, QAM levothyroxine 125 mcg (0.125 mg) oral tablet 125 mcg = 1 Tab, Oral, Daily losartan 50 mg, Oral, Daily multivitamin 1 Tab, Oral, Daily Delmar 5 mg-325 mg oral tablet 1 Tab, PRN, Oral, Q4H Saw [place] , Oral, Daily traZODone 100 mg oral tablet , Oral, At Bedtime , Medications (34) Active Scheduled: (13) #NaCl 0.9% *FLUSH* inj [...] 1 Cap, Oral, Daily Continuous: (0) PRN: (21) #NaCl 0.9% *FLUSH* inj 10 mL 10 mL, IV Push, See Comment #NaCl 0.9% *FLUSH* inj 10 mL 10 mL, IV Push, See Comment acetaminophen 325 mg tab 650 mg 2 Tab, Oral, Q6H acetaminophen/HYDROcodone 325/5 mg tab 2 Tab, Oral, [...] All Problems Allergic rhinitis / SNOMED CT 813117799 / Confirmed At risk for sleep apnea / IMO 13398184 / Confirmed Bronchitis / SNOMED CT 49155065 / Confirmed Carotid artery stenosis / SNOMED CT 879775472 / Confirmed 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 / SNOMED CT 1869576588 / Confirmed Coronary artery disease / SNOMED CT 9375750348 / Confirmed Hemorrhoids / SNOMED CT 702145257 / Confirmed H/O right coronary artery stent placement / SNOMED CT 4504861918 / Confirmed History of placement of stent in LAD coronary artery / SNOMED CT 5183989902 / Confirmed Hyperlipidemia / SNOMED CT 43524890 / Confirmed Hypertension / SNOMED CT 26387692 / Confirmed Renal calculus / SNOMED CT 395577658 / Confirmed Thyroid cancer / SNOMED CT 5117872221 / Confirmed Thyroid disease / SNOMED CT 883086221 / Confirmed, Active Problems (14) Allergic rhinitis At risk for sleep apnea Bronchitis Carotid artery stenosis Coronary artery disease H/O right coronary artery stent placement Hemorrhoids History of placement of stent in LAD coronary artery Hyperlipidemia Hypertension Renal calculus 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 Neck: Supple. Respiratory: Lungs are clear to auscultation, Respirations are non-labored, Breath sounds are equal. Cardiovascular: Normal rate, 93 beats per minute, Regular rhythm, No edema. Gastrointestinal: Soft, Non-tender. Integumentary: Warm, Dry, Sternal incision and MTs healnig well. Neurologic: Alert, Oriented, No focal deficits. Psychiatric: Cooperative, Appropriate mood & affect. Results Review Radiology Results (Last 48 hours) [id number] -- 05/07/2021 06:53 CR Chest 1 Vw Portable (05/10/2021 06:11) Result: PORTABLE CHEST X-RAYINDICATION: Shortness of breath. Sternotomy.FINDINGS: A portable view of the chest was obtained. Comparison ismade to a prior exam dated 05/09/2021. Patient is status post mediansternotomy. Support tubes and lines are unchanged. Cardiomegaly isstable. Left lung opacity and a left pleural effusion are unchanged.There is improving right basilar atelectasis. No pneumothorax.IMPRESSION: Improved right basilar opacity. Otherwise, no intervalchange.Images reviewed, interpreted, and dictated by Pavithra Kulkarni MD CT Chest WO (05/10/2021 10:29) Result: CT SCAN OF THE CHEST 05/10/2021 9:09 AM HISTORY: Pleural effusionCOMPARISON: None.PROCEDURE: Axial images were obtained from the lung apex to the midabdomen by computed tomography. This study was performed with techniquesto keep radiation doses as low as reasonably achievable, (ALARA).Individualized dose reduction techniques using automated exposurecontrol or adjustment of mA and/or kV according to the patient size wereemployed.FINDINGS: CHEST: The patient is status post sternotomy for CABG. Air is noted inthe anterior mediastinum, likely related from recent mediastinal drainremoval. There is no mediastinal fluid collection. There is a tracepericardial effusion measuring up to 8.5 mm. Epicardial pacer leads arenoted. There is a trace medial right lung base effusion withatelectasis. There is a very small left pleural effusion with completecollapse of the left lower lobe. There is no pneumothorax. There arefaint scattered ground glass opacities in the perihilar regions andupper lobes which may represent minimal edema. Limited images of theupper abdomen demonstrate a distended gallbladder.IMPRESSION: Postoperative changes in the anterior mediastinum.Trace pericardial effusion and bilateral pleural effusions with rightlung base atelectasis.Complete collapse of the left lower lobe.Scattered groundglass opacities in the lungs bilaterally which mayrepresent minimal edema.Images reviewed, interpreted, and dictated by Dr. Golden Hassan.Transcribed by Brandie Gama (R).I have personally viewed, interpreted and dictated the examination. Ihave read and agree with the above final transcribed report. MAY 11 05:10 140 106 20 / H 123 3.9 31 1.20 \ MAY 11 05:10 \ L 11.4 / H 9.8 177 / L 35.4 \ Impression and Plan 05/07 Coronary artery [...] counselled patient on proper use of IS 05/10/21 POD #3 s/p CABG x 4 MT removed without difficulty, PW clipped CT chest without contrast, left lower lobe opacity Encouraged IS and ambulation Home 24-48 hr 05/11/21 POD#4 s/p CABG x 4 Incisions healing well D/c home today Encouraged IS at home ASA, statin, BB, Plavix Electronically signed by [facility] Conversion Supplier Diversity Director Cerner at 09/29/2022 3:30 PM CDT documented in this encounter Plan of Treatment Not on file documented as of this encounter Visit Diagnoses Not on filedocumented in this encounter Care Teams Core Fitter Relationship Specialty Start Date End Date Raúl Caraballo MD [address] [place] [address] PCP - General Adolescent Medicine 12/08/22 documented as of this encounter
--- OUTSIDE RECORDS SUMMARY | 2025-04-21 12:59 | XMS_ITS | Encounter Summary ---
Author Organization [employer] ([place], [place], [place], [place], [place]) Address [address] [place] [address] Care Team Providers Care Clinical Psychology Professor Name Role Phone Raúl Caraballo MD Primary Care Provider + [phone] Encounter Details Date Type Department Care Team (Late st Contact Info) Description 05/13/2021 Transcribed Document [facility] [place] Family Medicine [address] [place] [address] ProviderKyree MD [address] [place] [address] Social History Tobacco Use Types Packs/Day Years Used Date Smoking Tobacco: Never Assessed Sex and Gender Information Value Date Recorded Sex Assigned at Not on file Legal Sex Male 1:20 PM CDT Gender Identity Not on file Sexual Orientation Not on file documented as of this encounter Miscellaneous Notes * Cerner Conversion Note - Kyree ProviderMD - 05/13/2021 2:59 PM SHREDDING MACHINE OPERATOR Authorization Entered On: 05/13/2021 15:00 EST Performed On: 05/13/2021 14:59 EST by Nahomy Briggs, Knife Setter Primary Insurance Authorization Authorization and Policy Numbers : Insurance 1 Health Plan: FARHANA HMOPPO Policy Number: [id number] Authorization Number: [id number] Insurance 2 Health Plan: MEDICARE Policy Number: [id number] Authorization Number: Insurance Primary Name : Farhana [id number] Authorization Status-Primary : Approved Auth/Referral Contact Name-Primary : DC Authorization Number-Primary : [id number] Number of Days Authorized-Primary : 3 Day(s) Authorized Service Begin Date-Primary : 05/07/2021 EST Authorized Service End Date-Primary : 05/10/2021 EST Authorization Comments-Primary : Discharge date and summary faxed. Historical Authorization Comments-Primary : Comment 1: octavia hernandez approved 4 IP days auth# [id number] (MAU GILES, Patient Account Liaison 05/06/2021 13:12) Nahomy Briggs, Knife Setter - 05/13/2021 14:59 EST Electronically signed by Jessica [facility] Conversion Nuisance Wildlife Specialist Cerner at 09/29/2022 3:24 PM CDT documented in this encounter Plan of Treatment Not on file documented as of this encounter Visit Diagnoses Not on filedocumented in this encounter Care Teams Clinical Psychology Professor Relationship Specialty Start Date End Date Raúl Caraballo MD [address] [place] [address] PCP - General Adolescent Medicine 12/08/22 documented as of this encounter
--- OUTSIDE RECORDS SUMMARY | 2025-04-21 12:59 | XMS_ITS | Encounter Summary ---
Author Organization [employer] ([place], [place], [place], [place], [place]) Address [address] [place] [address] Care Team Providers Care Obstetrics Tech Name Role Phone Raúl Caraballo MD Primary Care Provider + [phone] Encounter Details Date Type Department Care Team (Late st Contact Info) Description 05/07/2021 Transcribed Document [facility] [place] Family Medicine [address] [place] [address] ProviderKyree MD [address], [place] [address] Social History Tobacco Use Types Packs/Day Years Used Date Smoking Tobacco: Never Assessed Sex and Gender Information Value Date Recorded Sex Assigned at Not on file Legal Sex Male 1:20 PM CDT Gender Identity Not on file Sexual Orientation Not on file documented as of this encounter Miscellaneous Notes * Cerner Conversion Note - Historical ProviderMD - 05/07/2021 1:54 PM REPORTER ANCHOR Nutrition Assessment Entered On: 05/08/2021 10:12 EST Performed On: 05/08/2021 10:12 EST by Cori Su Non Emp Supervisor [employer]lass Boat Assembly Nutrition Assessment Nutrition Assessment Reason : Follow Up Cori Su Non Emp Diet Tech - 05/08/2021 10:07 EST Nutrition Recommendations Dietitian Recommendations : 05/08: Rec'd consult for cardiac post-op. Pt is s/p CABG x 4 on 05/07. Currently on cardiac diet. RD provided pt w/ Ensure Surgery TID x 5 days. Pt is agreeable. Will rescreen in 3-5 days to check on intake and provide diet edu. No nutrition risk Ashley Anaya Dietitian - 05/08/2021 10:23 EST Nutrition Care Level : No nutritional risk Cori Su Non Emp Supervisor [employer] - 05/08/2021 10:07 EST Electronically signed by Jessica, [facility] Conversion Mva Operator Cerner at 09/29/2022 3:33 PM CDT documented in this encounter Plan of Treatment Not on file documented as of this encounter Visit Diagnoses Not on filedocumented in this encounter Care Teams Obstetrics Tech Relationship Specialty Start Date End Date Raúl Caraballo MD [address] [place] [address] PCP - General Adolescent Medicine 12/08/22 documented as of this encounter
--- OUTSIDE RECORDS SUMMARY | 2025-04-21 12:59 | XMS_ITS | Encounter Summary ---
Author Organization [employer] ([place], [place], [place], [place], [place]) Address [address] [place] [address] Care Team Providers Care Imaging Account Manager Name Role Phone Raúl Caraballo MD Primary Care Provider + [phone] Encounter Details Date Type Department Care Team (Late st Contact Info) Description 05/10/2021 Transcribed Document [facility] [place] Family Medicine [facility] [place] [address] ProviderKyree MD [address] [place] [address] Social History Tobacco Use Types Packs/Day Years Used Date Smoking Tobacco: Never Assessed Sex and Gender Information Value Date Recorded Sex Assigned at Not on file Legal Sex Male 1:20 PM CDT Gender Identity Not on file Sexual Orientation Not on file documented as of this encounter Miscellaneous Notes * Cerner Conversion Note - Historical ProviderMD - 05/10/2021 9:06 AM DEV MANAGER Patient: CHELSEA AVINA Age: 66 years Sex: [...] 4, denies SOB, did not walk yesterday Health Status Allergies: Allergic Reactions (Selected) [...] influenza virus vaccine, inactivated: 0.5 mL, IntraMuscular, [id number] pneumococcal 23-polyvalent vaccine: 0.5 mL, IntraMuscular, [id number] Documented Medications Documented Fish Oil: Oral, Daily, 0 Refill(s) Flomax 0.4 mg oral capsule: Cap, Oral, Daily, 0 Refill(s) Saw [place]: mg, Oral, Daily, does not know dose, [...] Daily multivitamin 1 Tab, Oral, Daily Saw [place] , Oral, Daily traZODone 100 mg oral [...] All Problems Allergic rhinitis / SNOMED CT 219622940 / Confirmed At risk for sleep apnea / IMO 68236088 / Confirmed Bronchitis / SNOMED CT 40392786 / Confirmed Carotid artery stenosis / SNOMED CT 617121869 / Confirmed 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 / SNOMED CT 6937050908 / Confirmed Coronary artery disease / SNOMED CT 8763530251 / Confirmed Hemorrhoids / SNOMED CT 276788220 / Confirmed H/O right coronary artery stent placement / SNOMED CT 9232428341 / Confirmed History of placement of stent in LAD coronary artery / SNOMED CT 7696596254 / Confirmed Hyperlipidemia / SNOMED CT 81644035 / Confirmed Hypertension / SNOMED CT 97594751 / Confirmed Renal calculus / SNOMED CT 597697597 / Confirmed Thyroid cancer / SNOMED CT 8294804172 / Confirmed Thyroid disease / SNOMED CT 276860839 / Confirmed, Active Problems (14) Allergic rhinitis At risk for sleep apnea Bronchitis Carotid artery stenosis Coronary artery disease H/O right coronary artery stent placement Hemorrhoids History of placement of stent in LAD coronary artery Hyperlipidemia Hypertension Renal calculus 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 Neck: Supple. Respiratory: Respirations are non-labored. Breath sounds: Bilateral, Base, Diminished. Cardiovascular: Normal rate, 88 beats per minute, Regular rhythm, No edema. Gastrointestinal: Soft, Non-tender. Integumentary: Warm, Dry, Sternal Dressing: c/d/i. Neurologic: Alert, Oriented, No focal deficits. Psychiatric: Cooperative, Appropriate mood & affect. Results Review Radiology Results (Last 48 hours) [id number] -- 05/07/2021 06:53 CR Chest 1 Vw Portable (05/09/2021 07:29) Result: PORTABLE CHESTHISTORY: Coronary artery disease, status post CABG.COMPARISON: 05/08/2021.FINDINGS: A single portable radiograph of the chest was performed. Thepatient is status post sternotomy for CABG. There are cardiac electrodesoverlying the chest wall. There is cardiomegaly. There is decreased lungvolume. There is increased density at the left lung base consistent witheffusion and atelectasis. There is vascular congestion with improvededema. There is no pneumothorax.IMPRESSION:1. Cardiomegaly with vascular congestion but improved edema.2. Decreased lung volume with left basilar effusion and atelectasis.Images reviewed, interpreted, and dictated by MD SPENCER Bhagat Chest 1 Vw Portable (05/10/2021 06:11) Result: [...] interpreted, and dictated by Pavithra Kulkarni MD MAY 10 04:11 140 104 22 / H 114 5.0 32 1.30 \ MAY 10 04:11 \ L 11.5 / H 11.3 L 143 / L 34.4 \ Impression and Plan 05/07 Coronary artery [...] Encouraged IS and ambulation Home 24-48 hr Electronically signed by Jessica [facility] Conversion Hr Specialist Cerner at 09/29/2022 3:21 PM CDT documented in this encounter Plan of Treatment Not on file documented as of this encounter Visit Diagnoses Not on filedocumented in this encounter Care Teams Imaging Account Manager Relationship Specialty Start Date End Date Raúl Caraballo MD [address] [place] [address] PCP - General Adolescent Medicine 12/08/22 documented as of this encounter
--- OUTSIDE RECORDS SUMMARY | 2025-04-21 12:59 | XMS_ITS | Encounter Summary ---
Author Organization [employer] ([place], [place], [place], [place], [place]) Address [address] [place] [address] Care Team Providers Care Pitch Flaker Name Role Phone Raúl Caraballo MD Primary Care Provider + [phone] Encounter Details Date Type Department Care Team (Late st Contact Info) Description 05/10/2021 Transcribed Document [facility] [place] Family Medicine [address] [place] [address] ProviderKyree MD [address] [place], [place] [address] Social History Tobacco Use Types Packs/Day Years Used Date Smoking Tobacco: Never Assessed Sex and Gender Information Value Date Recorded Sex Assigned at Not on file Legal Sex Male 1:20 PM CDT Gender Identity Not on file Sexual Orientation Not on file documented as of this encounter Miscellaneous Notes * Cerner Conversion Note - Historical ProviderMD - 05/10/2021 2:00 AM FERRYBOAT CAPTAIN Research Consultant Details Entered On: 05/10/2021 5:16 EST Performed On: 05/10/2021 2:00 EST by CHALO HERNANDEZ RN Order Details Transport Mode Order Detail : Stretcher/Gurney Isolation Precautions Order Detail : Standard Precautions Order Detail : N/A IV Order Detail : 1 Oxygen Order Detail : 1 Nurse Collect Order Detail : 0 Lift/Transfer : Minimal Central Line Order Detail : No Room Service : Needs Assistance Arterial Line : No Patient Needs Meds Crushed/Liquid : No CHALO HERNANDEZ RN - 05/10/2021 5:15 EST Electronically signed by Jessica [facility] Conversion Tongue Carrier Cerner at 09/29/2022 3:31 PM CDT documented in this encounter Plan of Treatment Not on file documented as of this encounter Visit Diagnoses Not on filedocumented in this encounter Care Teams Pitch Flaker Relationship Specialty Start Date End Date Raúl Caraballo MD [address] [place] [address] PCP - General Adolescent Medicine 12/08/22 documented as of this encounter
--- OUTSIDE RECORDS SUMMARY | 2025-04-21 12:59 | XMS_ITS | Encounter Summary ---
Author Organization [employer] ([place], [place], [place], [place], [place]) Address [address] [place] [address] Care Team Providers Care Water Resource Project Manager Name Role Phone Raúl Caraballo MD Primary Care Provider + [phone] Encounter Details Date Type Department Care Team (Late st Contact Info) Description 05/07/2021 Transcribed Document [facility] [place] Family Medicine [address] [place] [address] ProviderKyree MD [facility] [address] Social History Tobacco Use Types Packs/Day Years Used Date Smoking Tobacco: Never Assessed Sex and Gender Information Value Date Recorded Sex Assigned at Not on file Legal Sex Male 1:20 PM CDT Gender Identity Not on file Sexual Orientation Not on file documented as of this encounter Miscellaneous Notes * Cerner Conversion Note - Historical ProviderMD - 05/07/2021 11:29 AM CAGE/VAULT SUPERVISOR Consult Phone Call Documentation Entered On: 05/07/2021 13:09 EST Performed On: 05/07/2021 11:29 EST by DARREN LINO, Inspector Tester Sorter-Health Unit Coord Phone Call for Consults Consult Phone Call/Page Attempt : Other: DARREN Hicks, Inspector Tester Sorter-Health Unit Coord - 05/07/2021 13:09 EST Electronically signed by Jessica [facility] Conversion Cash Sales Audit Clerk Cerner at 09/29/2022 3:28 PM CDT documented in this encounter Plan of Treatment Not on file documented as of this encounter Visit Diagnoses Not on filedocumented in this encounter Care Teams Water Resource Project Manager Relationship Specialty Start Date End Date Raúl Caraballo MD [address] [place] [address] PCP - General Adolescent Medicine 12/08/22 documented as of this encounter
--- OUTSIDE RECORDS SUMMARY | 2025-04-21 12:59 | XMS_ITS | Encounter Summary ---
Author Organization [employer] ([place], [place], [place], [place], [place]) Address [address] [place] [address] Care Team Providers Care Change Management Expert Name Role Phone Raúl Caraballo MD Primary Care Provider + [phone] Encounter Details Date Type Department Care Team (Late st Contact Info) Description 05/10/2021 Transcribed Document [facility] [place] Family Medicine [address] [place] [address] ProviderKyree MD [address] [place], [place] [address] Social History Tobacco Use Types Packs/Day Years Used Date Smoking Tobacco: Never Assessed Sex and Gender Information Value Date Recorded Sex Assigned at Not on file Legal Sex Male 1:20 PM CDT Gender Identity Not on file Sexual Orientation Not on file documented as of this encounter Miscellaneous Notes * Cerner Conversion Note - Historical ProviderMD - 05/10/2021 5:00 AM METALLURGICAL ENGINEERING TEACHER Height and Weight, Routine Entered On: 05/10/2021 5:51 EST Performed On: 05/10/2021 5:00 EST by CHALO HERNANDEZ, RN Height and Weight, Routine Routine Weight Entry Format : Metric Routine Weight, Kilograms : 87 kg(Converted to: 191 lb 13 oz) Routine Weight Calculation : 87 kg Height Source : Measured Height Entry Format : [place] Height, Feet : 5 ft Height, Inches : 9 Inch Clinical Height : 175.26 cm Body Surface Area (BSA), Routine : 2.03 m2 Body Mass Index (BMI), Routine : 28.32 kg/m2 CHALO HERNANDEZ RN - 05/10/2021 5:51 EST Electronically signed by Jessica, [facility] Conversion Gas Maker Helper Cerner at 09/29/2022 3:30 PM CDT documented in this encounter Plan of Treatment Not on file documented as of this encounter Visit Diagnoses Not on filedocumented in this encounter Care Teams Change Management Expert Relationship Specialty Start Date End Date Raúl Caraballo MD [address] [place] [address] PCP - General Adolescent Medicine 12/08/22 documented as of this encounter
--- OUTSIDE RECORDS SUMMARY | 2025-04-21 12:59 | XMS_ITS | Encounter Summary ---
Author Organization [employer] ([place], [place], [place], [place], [place]) Address [address] [place] [address] Care Team Providers Care Welder Gas Tungsten Arc Name Role Phone Raúl Caraballo MD Primary Care Provider + [phone] Encounter Details Date Type Department Care Team (Late st Contact Info) Description 05/08/2021 Transcribed Document [facility] [place] Family Medicine [facility] [place] [address] ProviderKyree MD [address] [place] [address] Social History Tobacco Use Types Packs/Day Years Used Date Smoking Tobacco: Never Assessed Sex and Gender Information Value Date Recorded Sex Assigned at Not on file Legal Sex Male 1:20 PM CDT Gender Identity Not on file Sexual Orientation Not on file documented as of this encounter Miscellaneous Notes * Cerner Conversion Note - Historical ProviderMD - 05/08/2021 5:05 PM SLEEP MEDICINE PHYSICIAN Treatment Intervention, PT Entered On: 05/10/2021 14:50 EST Performed On: 05/10/2021 14:08 EST by KIT CONNORS, MARGE General Information, PT Visit Type, PT : Treatment Note Patient Orders : Order Date Order Ordering 05/07/2021 11:29 Consult to Physical Therapy Ordered By: AMARILYS JALLOH MD 05/08/2021 09:02 PT Evaluation and Treatment Ordered By: KELLEN PARIKH PA 05/08/2021 17:05 PT Additional Treatment Ordered By: FRANCIS TORO, MARGE Active Diagnoses : No Qualifying Diagnoses Therapy Diagnosis, PT : Dx: pain limiting function Admission Date : 05/07/2021 06:53 Assisted by, PT : water filtration technician/aide Personal Devices : Personal Devices No Devices Recorded Assistive Devices : Assistive Devices No Devices Recorded Precautions in Place : Fall prevention measures, Sternal Precautions KIT CONNORS, PT - 05/10/2021 14:44 EST General Status Patient Received Status : Supine in bed Treatment Start Time : 05/10/2021 13:50 EST Patient Left Status : Supine in bed, RN/PCT informed, Family/Visitors at bedside, Communication board completed, All needs met and within reach (Comment: present [KIT CONNORS, PT - 05/10/2021 14:44 EST] ) Treatment End Time : 05/10/2021 14:08 EST Treatment Time : 18 Minute(s) Actual Treatment Time : 18 Minute(s) KIT CONNORS, PT - 05/10/2021 14:44 EST Functional Mobility Mobility Grid Supine to Sit : Rehab Minimal assistance Sit to Stand : Rehab Minimal assistance Stand to Sit : Rehab Minimal assistance Sit to Supine : Supervision/set-up KIT CONNORS, PT - 05/10/2021 14:44 EST Supine to Sit Device : Rails Sit to Stand Device : Walker, front wheel KIT CONNORS, PT - 05/10/2021 14:44 EST Gait Training/Assessment, PT Weight Bearing Status Maintained : Yes Weight Bearing Status : Full Gait Assistance Level : Supervision Walking Distance : 350' Ambulatory Devices : Gait belt, Walker, front wheel Gait Deviations : No Gait Training Comment : Using 3L 02 KIT CONNORS, PT - 05/10/2021 14:44 EST Activity Tolerance, PT Activity Comment : Pt did well by amb 350' with Rwx and supervision using 3L 02. KIT CONNORS, PT - 05/10/2021 14:44 EST Cognitive Treatment, PT Orientation : Oriented x 4 Safety/Judgment Findings, PT : Good Follows Basic Command Findings, PT : Yes KIT CONNORS, PT - 05/10/2021 14:44 EST Edu Topics Physical Therapy Education Grid Balance Training : Needs further teaching Bed Mobility Training : Needs further teaching Gait Training : Needs further teaching Role of Physical Therapy : Verbalizes understanding Therapeutic Exercises : Needs further teaching Transfer Training : Needs further teaching KIT CONNORS, PT - 05/10/2021 14:44 EST Indication Assesessment, PT Physical Therapy Indicated : Yes KIT CONNORS, PT - 05/10/2021 14:44 EST Plan of Care, PT PT Tx Plan/Goals Established w Patient : Yes KIT CONNORS, PT - 05/10/2021 14:44 EST Short Term Goals Transfer STG Grid Goal #1 Destination : Chair, with arms Type : Stand Pivot Sit Cues : No cues Assist : Independent, complete Equipment : Belt, gait Date to Meet : 05/15/2021 EST Goal Status : Intial Goal KIT CONNORS, PT - 05/10/2021 14:44 EST Ambulation STG Grid Goal #1 Device : Walker, front wheel Distance : 150' Cues : No cues Assist : Assist, minimal Date to Meet : 05/15/2021 EST Goal Status : Goal met Date Met : 05/10/2021 EST DORYRUBENEN, PT - 05/10/2021 14:44 EST Stairs STG Grid Goal #1 Device : Walker, front wheel Number of Steps : 2 Handrail(s) : No handrails Assist : Assist, minimal Date to Meet : 05/15/2021 EST Goal Status : Initial goal PRIMOKIT DUKE, PT - 05/10/2021 14:44 EST [facility] Goals Ambulation LTG Grid Goal #1 Device : Walker, front wheel Distance : 250' Cues : No cues Assist : Independent, modified Date to Meet : 05/22/2021 EST Goal Status : Progressing, continue DORYRUBENEN, PT - 05/10/2021 14:44 EST Stairs LTG Grid Goal #1 Device : Walker, front wheel Number of Steps : 2 Handrail(s) : No handrails Assist : Independent, modified Date to Meet : 05/22/2021 EST Goal Status : Intial Goal DORYRUBENEN, PT - 05/10/2021 14:44 EST Treatment Note Subjective Comment : Pt agrees to amb today and wants to know if STEAM SHOVELMAN or family can amb with him later. Discussed having STEAM SHOVELMAN/RN walk with him later. Assessment : Good mobility with Rwx to amb 350' with 3L 02. Plan for Treatment : Cont PTx KIT CONNORS, PT - 05/10/2021 14:44 EST Pain Assessment Pain Scaled Used : 0-10 Pain scale Pain Score During-Intervention : 4 Location : Chest, midsternal KIT CONNORS, PT - 05/10/2021 14:44 EST Image 1 - Images currently included in the form version of this document have not been included in the text rendition version of the form. Anticipated Discharge Needs, OT/PT Anticipated Discharge to : Home, with home health (Comment: S1 [KIT CONNORS, PT - 05/10/2021 14:44 EST] ) PRIMOLEILANIKIT, PT - 05/10/2021 14:44 EST [facility] Charges PT Therap. Exercise 15 min : 1 KIT CONNORS, PT - 05/10/2021 14:44 EST Electronically signed by [facility] Conversion Brace Maker Cerner at 09/29/2022 3:44 PM CDT documented in this encounter Plan of Treatment Not on file documented as of this encounter Visit Diagnoses Not on filedocumented in this encounter Care Teams Welder Gas Tungsten Arc Relationship Specialty Start Date End Date Raúl Caraballo MD [address] [place] [address] PCP - General Adolescent Medicine 12/08/22 documented as of this encounter
--- OUTSIDE RECORDS SUMMARY | 2025-04-21 12:59 | XMS_ITS | Clinical Summary ---
Author Organization [facility] Address [address] [place] [id number] Phone [email or web address] Care Team Providers Care Developmental Training Counselor Name Role Phone Unavailable Primary Care Provider Unavailabl e Immunizations Immunization Administration Dates Next Due COVID-19 (Pf[employer] [place] 12 yrs+) ([id number]) 021,08/25/2020 Social History Tobacco Use Types Packs/Day Years Used Date Smoking Tobacco: Never Assessed Intimate Partner Violence Answer Date R ecorded Insults You Not on file 09/26/2020 Threatens You Not on file 09/26/2020 Screams at You Not on file 09/26/2020 Physically Hurt Not on file 09/26/2020 Intimate Partner Violence Score Not on file 09/26/2020 Stress Answer Date Recorded Stress in your Life 0 07/27/2020 Dealing with Stress Not on file 07/27/2020 Sex and Gender Information Value Date Recorded Sex Assigned at Not on file Legal Sex Male 9:04 AM CDT Gender Identity Not on file Sexual Orientation Not on file Plan of Treatment Health Maintenance Due Date Last Done Comments CT Colonography 1956 Colonoscopy 1956 Colorectal Cancer Screening Combo 1955 DNA Cologuard 1956 Dental Cleaning/Exam 1956 FIT or FOBT Test 1956 Sigmoidoscopy 1956 Tetanus Diphtheria and Pertussis Immunization (1 - Tdap) 1975 Pneumococcal: 50+ Years (1 o f 1 - PCV) 2006 Zoster Immunization (1 of 2) 2006 Covid-19 Immunization (3 - season) 2025 10/05/2020, 08/25/2020 Influenza Immunization (#1) 2025 HIB Immunization Aged Out No longer e ligible based on patient's age to complete this topic HPV Immunization Aged Out No longer e ligible based on patient's age to complete this topic Hepatitis A Immunization Aged Out No longer eligible based on patient's age to complete this topic Hepatitis B Immunization Aged Out No longer eligible based on patient's age to complete this topic Polio Immunization Aged Out No longer eligible based on patient's age to complete this topic
--- OUTSIDE RECORDS SUMMARY | 2025-04-21 12:59 | XMS_ITS | Encounter Summary ---
Author Organization [employer] ([place], [place], [place], [place], [place]) Address [address] [place] [address] Care Team Providers Care Global Regulatory Lead Name Role Phone Raúl Caraballo MD Primary Care Provider + [phone] Encounter Details Date Type Department Care Team (Late st Contact Info) Description 05/07/2021 Transcribed Document [facility] [place] Family Medicine [facility] [place] [address] ProviderKyree MD [address] [place] [address] Social History Tobacco Use Types Packs/Day Years Used Date Smoking Tobacco: Never Assessed Sex and Gender Information Value Date Recorded Sex Assigned at Not on file Legal Sex Male 1:20 PM CDT Gender Identity Not on file Sexual Orientation Not on file documented as of this encounter Miscellaneous Notes * Cerner Conversion Note - Historical ProviderMD - 05/07/2021 12:16 PM LEGEND MAKER DATE OF PROCEDURE: 05/07/2021 PROCEDURE REPORT SURGEON: Calvin Rey IV, MD PREPROCEDURE DIAGNOSIS: Coronary artery disease. POSTPROCEDURE DIAGNOSIS: Coronary artery disease. PROCEDURES PERFORMED: 1. Left radial arterial line. 2. Left subclavian deep line/CVP. INDICATIONS: The patient is a 66-year-old male who is being brought to the operating room today for CABG surgery requiring hemodynamic monitoring lines. DESCRIPTION OF PROCEDURE: The patient was brought into the operating room on 05/07/2021. There, his left wrist was prepped and draped in sterile fashion. An Arrow introducer was introduced into his left radial artery receiving good systemic blood pressure tracings. We then went to the left subclavian area, which was prepped and draped in sterile fashion. A guidewire was placed within the left subclavian vein. Then, a double-lumen MAC introducer was inserted over guidewire. A double-lumen CVP catheter then was inserted into MAC introducer receiving good CVP pressures. The patient tolerated both procedures well without any blood loss. /[id number] DICTATED BY: QI Frey for Calvin Rey IV, MD Calvin Rey IV, MD PM/AQ / PM / MODL /[id number] Electronically signed by Jessica [facility] Conversion Tool Smith Cerner at 09/29/2022 3:22 PM CDT documented in this encounter Plan of Treatment Not on file documented as of this encounter Visit Diagnoses Not on filedocumented in this encounter Care Teams Global Regulatory Lead Relationship Specialty Start Date End Date Raúl Caraballo MD [address] [place] [address] PCP - General Adolescent Medicine 12/08/22 documented as of this encounter
--- OUTSIDE RECORDS SUMMARY | 2025-04-21 12:59 | XMS_ITS | Encounter Summary ---
Author Organization [employer] ([place], [place], [place], [place], [place]) Address [address] [place] [address] Care Team Providers Care Agricultural Engineer Name Role Phone Raúl Caraballo MD Primary Care Provider + [phone] Encounter Details Date Type Department Care Team (Late st Contact Info) Description 05/02/2021 Transcribed Document [facility] [place] Family Medicine [address] [place] [address] ProviderKyree MD [address] [place] [address] Social History Tobacco Use Types Packs/Day Years Used Date Smoking Tobacco: Never Assessed Sex and Gender Information Value Date Recorded Sex Assigned at Not on file Legal Sex Male 1:20 PM CDT Gender Identity Not on file Sexual Orientation Not on file documented as of this encounter Miscellaneous Notes * Cerner Conversion Note - Historical ProviderMD - 05/02/2021 11:56 AM SET UP MECHANIC CROWN ASSEMBLY MACHINE PAT Adult Entered On: 05/02/2021 12:02 EST Performed On: 05/02/2021 11:56 EST by SCOTT MITCHELL RN Vital Measurements Temperature Source : Temporal artery scanning Temperature Mode : Fahrenheit Temperature, Fahrenheit : 97.8 Deg F Clinical Temperature, C : 36.6 Deg C Pulse Method : Palpation Pulse Source : Radial, Right Heart Rate, Apical : 66 bpm Pulse Rhythm : Regular Respiratory Rate : 18 Breaths/Min Blood Pressure Location : Arm, right upper Blood Pressure Source : Non-Invasive BP Device Blood Pressure Position : Sitting Systolic Blood Pressure : 129 mmHg Diastolic Blood Pressure : 90 mmHg Oxygen Saturation : 98 % Oxygen Therapy Mode : Room air WANDA ALMAZAN RN - 05/03/2021 9:32 EST Height and Weight, Clinical Dosing Height Source : Measured Height Entry Format : [place] Height, Feet : 5 ft(Converted to: 152 cm, 60 Inch) Height, Inches : 9 Inch(Converted to: 0 ft 9 Inch, 22.86 cm) Clinical Height : 175.26 cm Weight Source : Standing scale Weight Entry Format : [place] Clinical Dosing Weight : 85.45 kg Weight, Pounds : 188 lb Body Surface Area (BSA) : 2.01 m2 Body Mass Index : 27.8 kg/m2 (HI) [place] Body Weight : 70 kg WANDA ALMAZAN RN - 05/03/2021 9:25 EST Health Histories Smoking Status : Former smoker, quit more than 30 days ago Smokeless Tobacco Status : Never Implant/Device Type, Bilingual Teacher Aide and Model : cardiac stents SCOTT MITCHELL RN - 05/02/2021 11:56 EST Social History (As Of: 05/07/2021 06:18:06 EST) Tobacco: Smoking Status Former smoker. Last Used: stopped in 2001. (Last Updated: 11/18/2016 07:56:15 EDT by LUZMA VELIZ RN) Former smoker, quit more than 30 days ago Smoking Status. Never Smokeless Tobacco Status. Years of Use: 5. Packs/Tins Daily: 1. Last Used: Quit 2000. (Last Updated: 05/02/2021 11:57:26 EST by SCOTT MITCHELL, [place]) Alcohol: Alcohol Use History No. (Last Updated: 11/18/2016 07:56:35 EDT by LUZMA VELIZ RN) Substance Abuse: Drug Use Hx: No. Use in Last 12 Months: No. (Last Updated: 05/03/2021 09:25:19 EST by WANDA ALMAZAN RN) Infectious Disease History Does patient have symptoms of COVID-19? : No WANDA ALMAZAN RN - 05/03/2021 9:25 EST Has the Patient Been Tested for COVID-19 in the last 14 days? : Yes, Patient stated results Negative ADRIAN DELEON - 05/07/2021 6:17 EST Does the Patient state known exposure to a COVID-19 positive case in the last 14 days? : No Does Patient want a COVID-19 Vaccine? : Yes WANDA ALMAZAN RN - 05/03/2021 9:25 EST Infectious Disease Risk Screening Grid Cough < 2 wks of unknown origin : NO Cough > 2 weeks : NO Blood in Sputum : NO Fever or self-reported Fever : NO Rash of unknown origin : NO Headache : NO Stiff neck : NO Night Sweats : NO Unexplained Weight Loss : NO Diarrhea (3 episode per day) : NO WANDA ALMAZAN RN - 05/03/2021 9:25 EST INF Disease TB Screening Calc : 0 WANDA ALMAZAN RN - 05/03/2021 9:25 EST Patient Vaccinated for COVID-19 : Partially vaccinated or need booster Physical contact outside [place] in the last 30 days : No Hospitalized in Foreign Country : No Infectious Disease History : Chicken pox/Shingles, Influenza, Measles, Mumps INF Disease Recent Travel Calc : 0 SCOTT MITCHELL RN - 05/02/2021 11:56 EST COVID19 PreProcedure Screening Has patient been isolated since the test : No Exposed to COVID19 symptoms since test? : No ADRIAN DELEON - 05/07/2021 6:17 EST Date PreProcedure COVID-19 test known? : Yes Date of PreProcedure COVID-19 : 05/03/2021 EST WANDA ALMAZAN RN - 05/03/2021 9:25 EST Is this an Emergent or Add on Procedure? : No SCOTT MITCHELL RN - 05/02/2021 11:56 EST Anesthesia/Transfusion History Blood Transfusion Acceptable to Patient : Yes ADRIAN DELEON - 05/07/2021 6:17 EST Family History of Anesthesia Reaction : No prior transfusion(s) Transfusion History : Prior anesthesia reaction Type of Anesthesia Reaction : Excessive somnolence Family History of Anesthesia Reaction : None SCOTT MITCHELL RN - 05/02/2021 11:56 EST Functional Assessment Functional ADL Evaluation Index EBN Bathing : Independent (2) Dressing : Independent (2) Toileting : Independent (2) Transferring Bed or Chair : Independent (2) Continence : Independent (2) Feeding : Independent (2) SCOTT MITCHELL RN - 05/02/2021 11:56 EST ADL Index Score : 12 SCOTT MITCHELL RN - 05/02/2021 11:56 EST Advance Directive Copy Advance Directive Verified/on Chart : Yes WANDA ALMAZAN RN - 05/03/2021 9:25 EST Patient has Advance Directive *Q : Yes, Advance Directive on file Advance Directive Type : Living will SCOTT MITCHELL RN - 05/02/2021 11:56 EST Spiritual/Cultural Needs Any Spiritual/Cultural Needs or Requests : Yes Spiritual/Cultural Needs Comment : prayer on DOS 05/07/2021 Spiritual/Cultural Needs Comment : prayer on DOS 05/07/2021 SCOTT MITCHELL RN - 05/02/2021 11:56 EST [place] Suicide Severity Rating Scale (C-SSRS) CSSRS Past Month Wish to be : No CSSRS Past Month Suicidal Thoughts : No CSSRS Lifetime Suicide Behavior : No Suicide Severity Rating Score : 0 Suicide Severity Rating : No Additional Care Required at this time SCOTT MITCHELL RN - 05/02/2021 11:56 EST Psychosocial History Do You Have a History of the Following? : Depression Currently in Unsafe Situation : No SCOTT MITCHELL RN - 05/02/2021 11:56 EST General Info Arrived From : Home Mode of Arrival on Unit : Ambulatory ADRIAN DELEON - 05/07/2021 6:17 EST Preferred Name : Junaid Support Person/Pt Rep Contact Information : [phone] Deja Rosalva Family/Rep/Phys Notified of Admit : No Emergency Contact #1 : Deja Duncan Emergency Contact #1 Emergency Contact #1 Relationship : Emergency Contact #2 : none Emergency Contact #2 Phone Number : none Emergency Contact #2 Relationship : none Chief Complaint : chest pain, testing reveals multiple blockages Information Obtained From : Patient Primary Language : Gambian Communication Barrier : None Trucker Hand Needed : No SCOTT MITCHELL RN - 05/02/2021 11:56 EST Brian Scale Brian Sensory Perception : No impairment Brian Moisture : Rarely moist Brian Activity : Walks frequently Brian Mobility : No limitation Brian Nutrition : Excellent Brian Friction and Shear : No apparent problem Brian Score : 23 SCOTT MITCHELL RN - 05/02/2021 11:56 EST Sleep Apnea Risk Assmt Hx of [...] Sleep Apnea Risk Level Score : 3 SCOTT MITCHELL RN - 05/02/2021 11:56 EST Electronically signed by Jessica, [facility] Conversion Occupational Health Technician Cerner at 09/29/2022 3:23 PM CDT documented in this encounter Plan of Treatment Not on file documented as of this encounter Visit Diagnoses Not on filedocumented in this encounter Care Teams Agricultural Engineer Relationship Specialty Start Date End Date Raúl Caraballo MD [address] [place] [address] [place] [id number] PCP - General Adolescent Medicine 12/08/22 documented as of this encounter
--- OUTSIDE RECORDS SUMMARY | 2025-04-21 12:59 | XMS_ITS | Encounter Summary ---
Author Organization [employer] ([place], [place], [place], [place], [place]) Address [address] [place] [address] Care Team Providers Care Bird Keeper Name Role Phone Raúl Caraballo MD Primary Care Provider + [phone] Encounter Details Date Type Department Care Team (Late st Contact Info) Description 05/09/[address] 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 Details Entered On: 05/09/2021 6:34 EST Performed On: 05/09/2021 2:00 EST by CHALO HERNANDEZ RN Order Details Transport Mode Order Detail : Stretcher/Gurney Isolation Precautions Order Detail : Standard Precautions Order Detail : N/A IV Order Detail : 1 Oxygen Order Detail : 1 Nurse Collect Order Detail : 0 Lift/Transfer : Moderate assist Central Line Order Detail : No Room Service : Needs Assistance Arterial Line : No Patient Needs Meds Crushed/Liquid : No CHALO HERNANDEZ RN - 05/09/2021 6:34 EST Electronically signed by Jessica [facility] Conversion 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
--- OUTSIDE RECORDS SUMMARY | 2025-04-21 12:59 | XMS_ITS | Encounter Summary ---
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 Name Role Phone Raúl Caraballo MD Primary Care Provider + [phone] Encounter Details Date Type Department Care Team (Late st Contact Info) Description 05/11/2021 Transcribed Document [facility] [place] [facility] [place] [address] Kyree Murdock MD [address], [place] [id number] Social History Tobacco Use Types Packs/Day Years Used Date Smoking Tobacco: Never Assessed Sex and Gender Information Value Date Recorded Sex Assigned at Not on file Legal Sex Male 1:20 PM CDT Gender Identity Not on file Sexual Orientation Not on file documented as of this encounter Miscellaneous Notes * Cerner Conversion Note - Historical ProviderMD - 05/11/2021 12:14 PM [employer] Patient Education Materials Follows: Coronary Artery Disease, Male Coronary artery disease (CAD) is a condition in which the arteries that lead to the heart (coronary arteries) become narrow or blocked. The narrowing or blockage can lead to decreased blood flow to the heart. Prolonged reduced blood flow can cause a heart attack (myocardial infarction or ND). This condition may also be called coronary heart disease. Because CAD is the leading cause of in men, it is important to understand what causes this condition and how it is treated. What are the causes? CAD is most often caused by atherosclerosis. This is the buildup of fat and cholesterol (plaque) on the inside of the arteries. Over time, the plaque may narrow or block the artery, reducing blood flow to the heart. Plaque can also become weak and break off within a coronary artery and cause a sudden blockage. Other less common causes of CAD include: ??? A blood clot or a piece of a blood clot or other substance that blocks the flow of blood in a coronary artery (embolism). ??? A tearing of the artery (spontaneous coronary artery dissection). ??? An enlargement of an artery (aneurysm). ??? Inflammation (vasculitis) in the artery wall. What increases the risk? The following factors may make you more likely to develop this condition: ??? Age. Men over age 45 are at a greater risk of CAD. ??? Family history of CAD. ??? Gender. Men often develop CAD earlier in life than women. ??? High blood pressure (hypertension). ??? Diabetes. ??? High cholesterol levels. ??? Tobacco use. ??? Excessive alcohol use. ??? Lack of exercise. ??? A diet high in saturated and trans fats, such as fried food and processed meat. Other possible risk factors include: ??? High stress levels. ??? Depression. ??? Obesity. ??? Sleep apnea. What are the signs or symptoms? Many people do not have any symptoms during the early stages of CAD. As the condition progresses, symptoms may include: ??? Chest pain (angina). The pain can: ? Feel like crushing or squeezing, or like a tightness, pressure, fullness, or heaviness in the chest. ? Last more than a few minutes or can stop and recur. The pain tends to get worse with exercise or stress and to fade with rest. ??? Pain in the arms, neck, jaw, ear, or back. ??? Unexplained heartburn or indigestion. ??? Shortness of breath. ??? Nausea or vomiting. ??? Sudden light-headedness. ??? Sudden cold sweats. ??? Fluttering or fast heartbeat (palpitations). How is this diagnosed? This condition is diagnosed based on: ??? Your family and medical history. ??? A physical exam. ??? Tests, including: ? A test to check the electrical signals in your heart (electrocardiogram). ? Exercise stress test. This looks for signs of blockage when the heart is stressed with exercise, such as running on a treadmill. ? Pharmacologic stress test. This test looks for signs of blockage when the heart is being stressed with a medicine. ? Blood tests. ? Coronary angiogram. This is a procedure to look at the coronary arteries to see if there is any blockage. During this test, a dye is injected into your arteries so they appear on an X-ray. ? Coronary artery CT scan. This CT scan helps detect calcium deposits in your coronary arteries. Calcium deposits are an indicator of CAD. ? A test that uses sound waves to take a picture of your heart (echocardiogram). ? Chest X-ray. How is this treated? This condition may be treated by: ??? Healthy lifestyle changes to reduce risk factors. ??? Medicines such as: ? Antiplatelet medicines and blood-thinning medicines, such as aspirin. These help to prevent blood clots. ? Nitroglycerin. ? Blood pressure medicines. ? Cholesterol-lowering medicine. ??? Coronary angioplasty and stenting. During this procedure, a thin, flexible tube is inserted through a blood vessel and into a blocked artery. A balloon or similar device on the end of the tube is inflated to open up the artery. In some cases, a small, mesh tube (stent) is inserted into the artery to keep it open. ??? Coronary artery bypass surgery. During this surgery, veins or arteries from other parts of the body are used to create a bypass around the blockage and allow blood to reach your heart. Follow these instructions at home: Medicines ??? Take mawp-[id number] and prescription medicines only as told by your health care provider. ??? Do not take the following medicines unless your health care provider approves: ? NSAIDs, such as ibuprofen, naproxen, or celecoxib. ? Vitamin supplements that contain vitamin A, vitamin E, or both. Lifestyle ??? Follow an exercise program approved by your health care provider. Aim for 150 minutes of moderate exercise or 75 minutes of vigorous exercise each week. ??? Maintain a healthy weight or lose weight as approved by your health care provider. ??? Learn to manage stress or try to limit your stress. Ask your health care provider for suggestions if you need help. ??? Get screened for depression and seek treatment, if needed. ??? Do not use any products that contain nicotine or tobacco, such as cigarettes, e-cigarettes, and chewing tobacco. If you need help quitting, ask your health care provider. ??? Do not use illegal drugs. Eating and drinking ??? Follow a heart-healthy diet. A dietitian can help educate you about healthy food options and changes. In general, eat plenty of fruits and vegetables, lean meats, and whole grains. ??? Avoid foods high in: ? Sugar. ? Salt (sodium). ? Saturated fat, such as processed or fatty meat. ? Trans fat, such as fried foods. ??? Use healthy cooking methods such as roasting, grilling, broiling, baking, poaching, steaming, or stir-frying. ??? Do not drink alcohol if your health care provider tells you not to drink. ??? If you drink alcohol: ? Limit how much you have to 0?2 drinks per day. ? Be aware of how much alcohol is in your drink. In the [place] one drink equals one 12 oz bottle of beer (355 mL), one 5 oz glass of wine (148 mL), or one 1? oz glass of hard liquor (44 mL). General instructions ??? Manage any other health conditions, such as hypertension and diabetes. These conditions affect your heart. ??? Your health care provider may ask you to monitor your blood pressure. Ideally, your blood pressure should be below 130/80. ??? Keep all follow-up visits as told by your health care provider. This is important. Get help right away if: ??? You have pain in your chest, neck, ear, arm, jaw, stomach, or back that: ? Lasts more than a few minutes. ? Is recurring. ? Is not relieved by taking medicine under your tongue (sublingual nitroglycerin). ??? You have profuse sweating without cause. ??? You have unexplained: ? Heartburn or indigestion. ? Shortness of breath or difficulty breathing. ? Fluttering or fast heartbeat (palpitations). ? Nausea or vomiting. ? Fatigue. ? Feelings of nervousness or anxiety. ? Weakness. ? Diarrhea. ??? You have sudden light-headedness or dizziness. ??? You faint. ??? You feel like hurting yourself or think about taking your own life. These symptoms may represent a serious problem that is an emergency. Do not wait to see if the symptoms will go away. Get medical help right away. Call your local emergency services (911 in the [place] Do not drive yourself to the hospital. Summary ??? Coronary artery disease (CAD) is a condition in which the arteries that lead to the heart (coronary arteries) become narrow or blocked. The narrowing or blockage can lead to a heart attack. ??? Many people do not have any symptoms during the early stages of CAD. ??? CAD can be treated with lifestyle changes, medicines, surgery, or a combination of these treatments. This information is not intended to replace advice given to you by your health care provider. Make sure you discuss any questions you have with your health care provider. Document Revised: 02/18/2019 Document Reviewed: 02/08/2019 [employer] Patient Education ? 2020 [employer]. Nutrition Heart-Healthy Eating Plan Many factors influence your heart (coronary) health, including eating and exercise habits. Coronary risk increases with abnormal blood fat (lipid) levels. Heart-healthy meal planning includes limiting unhealthy fats, increasing healthy fats, and making other diet and lifestyle changes. What is my plan? Your health care provider may recommend that you: ??? Limit your fat intake to % or less of your total calories each day. ??? Limit your saturated fat intake to % or less of your total calories each day. ??? Limit the amount of cholesterol in your diet to less than mg per day. What are tips for following this plan? Cooking Cook foods using methods other than frying. Baking, boiling, grilling, and broiling are all good options. Other ways to reduce fat include: ??? Removing the skin from poultry. ??? Removing all visible fats from meats. ??? Steaming vegetables in water or broth. Meal planning ??? At meals, imagine dividing your plate into fourths: ? Fill one-half of your plate with vegetables and green salads. ? Fill one-fourth of your plate with whole grains. ? Fill one-fourth of your plate with lean protein foods. ??? Eat 4?5 servings of vegetables per day. One serving equals 1 cup raw or cooked vegetable, or 2 cups raw leafy greens. ??? Eat 4?5 servings of fruit per day. One serving equals 1 medium whole fruit, ? cup dried fruit, ? cup fresh, frozen, or canned fruit, or ? cup 100% fruit juice. ??? Eat more foods that contain soluble fiber. Examples include apples, broccoli, carrots, beans, peas, and barley. Aim to get 25?30 g of fiber per day. ??? Increase your consumption of legumes, nuts, and seeds to 4?5 servings per week. One serving of dried beans or legumes equals ? cup cooked, 1 serving of nuts is ? cup, and 1 serving of seeds equals 1 tablespoon. Fats ??? Choose healthy fats more often. Choose monounsaturated and polyunsaturated fats, such as olive and canola oils, flaxseeds, walnuts, almonds, and seeds. ??? Eat more omega-3 fats. Choose salmon, mackerel, sardines, tuna, flaxseed oil, and ground flaxseeds. Aim to eat fish at least 2 times each week. ??? Check food labels carefully to identify foods with trans fats or high amounts of saturated fat. ??? Limit saturated fats. These are found in animal products, such as meats, butter, and cream. Plant sources of saturated fats include palm oil, palm kernel oil, and coconut oil. ??? Avoid foods with partially hydrogenated oils in them. These contain trans fats. Examples are stick margarine, some tub margarines, cookies, crackers, and other baked goods. ??? Avoid fried foods. General information ??? Eat more home-cooked food and less restaurant, buffet, and fast food. ??? Limit or avoid alcohol. ??? Limit foods that are high in starch and sugar. ??? Lose weight if you are overweight. Losing just 5?10% of your body weight can help your overall health and prevent diseases such as diabetes and heart disease. ??? Monitor your salt (sodium) intake, especially if you have high blood pressure. Talk with your health care provider about your sodium intake. ??? Try to incorporate more vegetarian meals weekly. What foods can I eat? Fruits All fresh, canned (in natural juice), or frozen fruits. Vegetables Fresh or frozen vegetables (raw, steamed, roasted, or grilled). Green salads. Grains Most grains. Choose whole wheat and whole grains most of the time. Rice and pasta, including brown rice and pastas made with whole wheat. Meats and other proteins Lean, well-trimmed beef, veal, pork, and cash. Chicken and turkey without skin. All fish and shellfish. Wild duck, rabbit, pheasant, and venison. Egg whites or low-cholesterol egg substitutes. Dried beans, peas, lentils, and tofu. Seeds and most nuts. Dairy Low-fat or nonfat cheeses, including ricotta and mozzarella. Skim or 1% milk (liquid, powdered, or evaporated). Buttermilk made with low-fat milk. Nonfat or low-fat yogurt. Fats and oils Non-hydrogenated (trans-free) margarines. Vegetable oils, including soybean, sesame, sunflower, olive, peanut, safflower, corn, canola, and cottonseed. Salad dressings or mayonnaise made with a vegetable oil. Beverages Water (mineral or sparkling). Coffee and tea. Diet carbonated beverages. Sweets and desserts Sherbet, gelatin, and fruit ice. Small amounts of dark chocolate. Limit all sweets and desserts. Seasonings and condiments All seasonings and condiments. The items listed above may not be a complete list of foods and beverages you can eat. Contact a dietitian for more options. What foods are not recommended? Fruits Canned fruit in heavy syrup. Fruit in cream or butter sauce. Fried fruit. Limit coconut. Vegetables Vegetables cooked in cheese, cream, or butter sauce. Fried vegetables. Grains Breads made with saturated or trans fats, oils, or whole milk. Croissants. Sweet rolls. Donuts. High-fat crackers, such as cheese crackers. Meats and other proteins Fatty meats, such as hot dogs, ribs, sausage, estes, rib-eye roast or steak. High-fat deli meats, such as salami and bologna. Caviar. Domestic duck and goose. Organ meats, such as liver. Dairy Cream, sour cream, cream cheese, and creamed cottage cheese. Whole milk cheeses. Whole or 2% milk (liquid, evaporated, or condensed). Whole buttermilk. Cream sauce or high-fat cheese sauce. Whole-milk yogurt. Fats and oils Meat fat, or shortening. [place] butter, hydrogenated oils, palm oil, coconut oil, palm kernel oil. Solid fats and shortenings, including estes fat, salt pork, lard, and butter. Nondairy cream substitutes. Salad dressings with cheese or sour cream. Beverages Regular sodas and any drinks with added sugar. Sweets and desserts Frosting. Pudding. Cookies. Cakes. Pies. Milk chocolate or white chocolate. Buttered syrups. Full-fat ice cream or ice cream drinks. The items listed above may not be a complete list of foods and beverages to avoid. Contact a dietitian for more information. Summary ??? Heart-healthy meal planning includes limiting unhealthy fats, increasing healthy fats, and making other diet and lifestyle changes. ??? Lose weight if you are overweight. Losing just 5?10% of your body weight can help your overall health and prevent diseases such as diabetes and heart disease. ??? Focus on eating a balance of foods, including fruits and vegetables, low-fat or nonfat dairy, lean protein, nuts and legumes, whole grains, and heart-healthy oils and fats. This information is not intended to replace advice given to you by your health care provider. Make sure you discuss any questions you have with your health care provider. Document Revised: 07/09/2018 Document Reviewed: 07/09/2018 [employer] Patient Education ? 2020 [employer] Procedures Coronary Artery Bypass Grafting, Care After This sheet gives you information about how to care for yourself after your procedure. Your doctor may also give you more specific instructions. If you have problems or questions, call your doctor. What can I expect after the procedure? After the procedure, it is common to: ??? Feel sick to your stomach (nauseous). ??? Not want to eat as much as normal (lack of appetite). ??? Have trouble pooping (constipation). ??? Have weakness and tiredness (fatigue). ??? Feel sad (depressed) or grouchy (irritable). ??? Have pain or discomfort around the cuts from surgery (incisions). Follow these instructions at home: Medicines ??? Take fqem-xql-iymckoc and prescription medicines only as told by your doctor. Do not stop taking medicines or start any new medicines unless your doctor says it is okay. ??? If you were prescribed an antibiotic medicine, take it as told by your doctor. Do not stop taking the antibiotic even if you start to feel better. Incision care ??? Follow instructions from your doctor about how to take care of your cuts from surgery. Make sure you: ? Wash your hands with soap and water before and after you change your bandage (dressing). If you cannot use soap and water, use hand roll skinner. ? Change your bandage as told by your doctor. ? Leave stitches (sutures), skin glue, or skin tape (adhesive) strips in place. They may need to stay in place for 2 weeks or longer. If tape strips get loose and curl up, you may trim the loose edges. Do not remove tape strips completely unless your doctor says it is okay. ??? Make sure the surgery cuts are clean, dry, and protected. ??? Check your cut areas every day for signs of infection. Check for: ? More redness, swelling, or pain. ? More fluid or blood. ? Warmth. ? Pus or a bad smell. ??? If cuts were made in your legs: ? Avoid crossing your legs. ? Avoid sitting for long periods of time. Change positions every 30 minutes. ? Raise (elevate) your legs when you are sitting. Bathing ??? Do not take baths, swim, or use a hot tub until your doctor says it is okay. ??? Only take sponge baths. Pat the surgery cuts dry. Do not rub the cuts to dry. ??? Ask your doctor when you can shower. Eating and drinking ??? Eat foods that are high in fiber, such as beans, nuts, whole grains, and raw fruits and vegetables. Any meats you eat should be lean cut. Avoid canned, processed, and fried foods. This can help prevent trouble pooping. This is also a part of a heart-healthy diet. ??? Drink enough fluid to keep your pee (urine) pale yellow. ??? Do not drink alcohol until you are fully recovered. Ask your doctor when it is safe to drink alcohol. Activity ??? Rest and limit your activity as told by your doctor. You may be told to: ? Stop any activity right away if you have chest pain, shortness of breath, irregular heartbeats, or dizziness. Get help right away if you have any of these symptoms. ? Move around often for short periods or take short walks as told by your doctor. Slowly increase your activities. ? Avoid lifting, pushing, or pulling anything that is heavier than 10 lb (4.5 kg) for at least 6 weeks or as told by your doctor. ??? Do physical therapy or a cardiac rehab (cardiac rehabilitation) program as told by your doctor. ? Physical therapy involves doing exercises to maintain movement and build strength and endurance. ? A cardiac rehab program includes: ? Exercise training. ? Education. ? Counseling. ??? Do not drive until your doctor says it is okay. ??? Ask your doctor when you can go back to work. ??? Ask your doctor when you can be sexually active. General instructions ??? Do not drive or use heavy machinery while taking prescription pain medicine. ??? Do not use any products that contain nicotine or tobacco. These include cigarettes, e-cigarettes, and chewing tobacco. If you need help quitting, ask your doctor. ??? Take 2?3 deep breaths every few hours during the day while you get better. This helps expand your lungs and prevent problems. ??? If you were given a device called an incentive spirometer, use it several times a day to practice deep breathing. Support your chest with a pillow or your arms when you take deep breaths or cough. ??? Wear compression stockings as told by your doctor. ??? Weigh yourself every day. This helps to see if your body is holding (retaining) fluid that may make your heart and lungs work harder. ??? Keep all follow-up visits as told by your doctor. This is important. Contact a doctor if: ??? You have more redness, swelling, or pain around any cut. ??? You have more fluid or blood coming from any cut. ??? Any cut feels warm to the touch. ??? You have pus or a bad smell coming from any cut. ??? You have a fever. ??? You have swelling in your ankles or legs. ??? You have pain in your legs. ??? You gain 2 lb (0.9 kg) or more a day. ??? You feel sick to your stomach or you throw up (vomit). ??? You have watery poop (diarrhea). Get help right away if: ??? You have chest pain that goes to your jaw or arms. ??? You are short of breath. ??? You have a fast or irregular heartbeat. ??? You notice a clicking in your breastbone (sternum) when you move. ??? You have any signs of a stroke. BE FAST is an easy way to remember the main warning signs: ? B - Balance. Signs are dizziness, sudden trouble walking, or loss of balance. ? E - Eyes. Signs are trouble seeing or a change in how you see. ? F - Face. Signs are sudden weakness or loss of feeling of the face, or the face or eyelid drooping on one side. ? A - Arms. Signs are weakness or loss of feeling in an arm. This happens suddenly and usually on one side of the body. ? S - Speech. Signs are sudden trouble speaking, slurred speech, or trouble understanding what people say. ? T - Time. Time to call emergency services. Write down what time symptoms started. ??? You have other signs of a stroke, such as: ? A sudden, very bad headache with no known cause. ? Feeling sick to your stomach. ? Throwing up. ? Jerky movements you cannot control (seizure). These symptoms may be an emergency. Do not wait to see if the symptoms will go away. Get medical help right away. Call your local emergency services (911 in the [place] Do not drive yourself to the hospital. Summary ??? After the procedure, it is common to have pain or discomfort in the cuts from surgery (incisions). ??? Do not take baths, swim, or use a hot tub until your doctor says it is okay. ??? Slowly increase your activities. You may need physical therapy or cardiac rehab. ??? Weigh yourself every day. This helps to see if your body is holding fluid. This information is not intended to replace advice given to you by your health care provider. Make sure you discuss any questions you have with your health care provider. Document Revised: 02/08/2019 Document Reviewed: 02/08/2019 [employer] Patient Education ? 2020 [employer]. 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
--- OUTSIDE RECORDS SUMMARY | 2025-04-21 12:59 | XMS_ITS | Encounter Summary ---
Author Organization [employer] ([place], [place], [place], [place], [place]) Address [address] [place] [address] Care Team Providers Care Scientific Editor Name Role Phone Raúl Caraballo MD Primary Care Provider + [phone] Encounter Details Date Type Department Care Team (Late st Contact Info) Description 05/08/2021 Transcribed Document [facility] [place] [address] [place] [address] ProviderKyree MD [address] [place] [address] Social History Tobacco Use Types Packs/Day Years Used Date Smoking Tobacco: Never Assessed Sex and Gender Information Value Date Recorded Sex Assigned at Not on file Legal Sex Male 1:20 PM CDT Gender Identity Not on file Sexual Orientation Not on file documented as of this encounter Miscellaneous Notes * Cerner Conversion Note - Historical ProviderMD - 05/08/2021 9:41 AM RAILROAD AUDITOR Initial Discharge Planning Entered On: 05/08/2021 9:42 EST Performed On: 05/08/2021 9:41 EST by SCOTT CHUNG, Juan Miguel-Taping Supervisor Initial Assessment I Previously Documented Living Environment : No qualifying data available. Living Situation : Home Patient Lives With : Spouse Emergency Contact #1 : Deja [place] Emergency Contact #1 Emergency Contact #1 Relationship : Emergency Contact #2 : none Emergency Contact #2 Phone Number : none Emergency Contact #2 Relationship : none Enter Doctors Name : Dr. Caraballo Does Patient have PCP Listed? : Yes Medical Durable Power of Business Applications Manager Name : Deja Duncan Legal Guardian : No Is Guardianship Needed : No SCOTT CHUNG Rn-Taping Supervisor - 05/08/2021 9:41 EST Initial Assessment II Sensory and Motor Deficits : None Current Home Treatments and Equipment : None SCOTT CHUNG Rn-Taping Supervisor - 05/08/2021 9:41 EST Discharge Needs I Anticipated Discharge Date : 05/13/2021 EST Anticipated Discharge To, CM : Home with family care Current Home Treatment/Equipment : Current Home Treatment/Equipment No qualifying data available. Post Acute/Home Treatments : None Documentation Status Complete : Yes SCOTT CHUNG Rn-Taping Supervisor - 05/08/2021 9:41 EST Discharge Needs II Professional Skilled Services : Professional Skilled Services No qualifying data available. Services and Community Resources : Outpatient Cardiac Rehab Needs Assistance with Transportation : No Discharge Options Discussed with Patient : DME, Outpatient services SCOTT CHUNG Rn-Taping Supervisor - 05/08/2021 9:41 EST Narrative Note Narrative Note : HD#1; POD#1 - CABGx4 R CT/MT in place r/t drainage; 02=4L; Start Plavix; pt on transfer out of [facility] Pt A&O - OOB in chair; lives w/spouse Deja/SARA - Living Will in chart Pt's PLOF independent, no hx of home health or short-term rehab; uses no DME Discussed OP Cardiac Rehab - pt agrees; referral placed DCP - likely home without needs; monitor for home oxygen SCOTT CHUNG Rn-Taping Supervisor - 05/08/2021 9:42 EST Electronically signed by [facility] Conversion Fill Plant Operator Cerner at 09/29/2022 3:40 PM CDT documented in this encounter Plan of Treatment Not on file documented as of this encounter Visit Diagnoses Not on filedocumented in this encounter Care Teams Scientific Editor Relationship Specialty Start Date End Date Raúl Caraballo MD [address] [place] [address] PCP - General Adolescent Medicine 12/08/22 documented as of this encounter
--- OUTSIDE RECORDS SUMMARY | 2025-04-21 12:59 | XMS_ITS | Encounter Summary ---
Author Organization [employer] ([place], [place], [place], [place], [place]) Address [address] [place] [address] Care Team Providers Care Electrocardiograph Technician Name Role Phone Raúl Caraballo MD Primary Care Provider + [phone] Encounter Details Date Type Department Care Team (Late st Contact Info) Description 05/07/2021 Transcribed Document [facility] [place] [address] [place] [address] ProviderKyree MD [address], [place] [address] Social History Tobacco Use Types Packs/Day Years Used Date Smoking Tobacco: Never Assessed Sex and Gender Information Value Date Recorded Sex Assigned at Not on file Legal Sex Male 1:20 PM CDT Gender Identity Not on file Sexual Orientation Not on file documented as of this encounter Miscellaneous Notes * Cerner Conversion Note - Historical ProviderMD - 05/07/2021 11:59 AM DIRECTOR ELECTRONICS Pain Assessment Entered On: 05/08/2021 0:34 EST Performed On: 05/07/2021 23:13 EST by Lisa Soriano, Java Sdet-Student Nurse Intervention Information: morphine Performed by Lisa Soriano, Java Sdet-Student Nurse on 05/07/2021 22:43:00 EST morphine,2mg IV Push,Peripheral Line 1,Pain (Severe 7-10) Pain Assessment Pain Scale Goal : 2 Lisa Soriano, Java Sdet-Student Nurse - 05/08/2021 0:34 EST Electronically signed by [facility] Conversion Grommet Worker Cerner at 10/05/2022 1:04 PM CDT documented in this encounter Plan of Treatment Not on file documented as of this encounter Visit Diagnoses Not on filedocumented in this encounter Care Teams Electrocardiograph Technician Relationship Specialty Start Date End Date Raúl Caraballo MD [address] [place] [address] PCP - General Adolescent Medicine 12/08/22 documented as of this encounter
--- OUTSIDE RECORDS SUMMARY | 2025-04-21 12:59 | XMS_ITS | Encounter Summary ---
Author Organization [employer] ([place], [place], [place], [place], [place]) Address [address] [place] [address] Care Team Providers Care Stripe Matcher Name Role Phone Raúl Caraballo MD Primary Care Provider + [phone] Encounter Details Date Type Department Care Team (Late st Contact Info) Description 05/07/2021 Transcribed Document [facility] [place] [facility] [place] [address] ProviderKyree MD [address] [place] [address] Social History Tobacco Use Types Packs/Day Years Used Date Smoking Tobacco: Never Assessed Sex and Gender Information Value Date Recorded Sex Assigned at Not on file Legal Sex Male 1:20 PM CDT Gender Identity Not on file Sexual Orientation Not on file documented as of this encounter Miscellaneous Notes * Cerner Conversion Note - Historical ProviderMD - 05/07/2021 12:50 PM FIRE SERVICES PLUMBER Patient: CHELSEA AVINA Age: 66 years Sex: [...] Quit 2001 Family history: Brother with CAD ICU day: 1 Vent day: 1 Central line: 05/07 Review of Systems Unable to obtain: Due to clinical condition, Sedated on vent. Health Status Allergies: Allergic Reactions (Selected) Severity Not Documented Shellfish- [d]nausea and vomiting and [d]nausea and vomiting., No qualifying data available Current medications: (Selected) Inpatient Medications Ordered Dextrose 5% with 0.225% NaCl intravenous solution 1,000 mL: 30 mL/Hr, IntraVENous Dextrose: 25 Gram, IV Push, 1-Time, PRN: Hypoglycemia DuoNeb 0.5 mg-2.5 mg/3 mL inhalation solution: 3 mL, Nebulized Inhalation, RT_Q4H, PRN: Shortness of Breath Insulin regular injection 100 Units + Sodium Chloride 0.9% intravenous solution 100 mL: Corrective Insulin Drip, IntraVENous Lactated Ringers Injection intravenous solution 1,000 [...] Oral, BID aspirin: 81 mg, Oral, Daily calcium gluconate: 1 Gram, 10 mL, 60 mL/Hr, IV Piggyback, 1-Time, PRN: Other (See Comment) dexmedeTOMIDine injection 400 mcg + NaCl 0.9% for drip 100 mL: TITRATE, IntraVENous fluocinonide 0.05% topical cream: 1 Application, Topical, QID, PRN: Other (See Comment) magnesium sulfate: 1 Gram, 100 mL, 100 mL/Hr, IV Piggyback, 1-Time, PRN: Other (See Comment) morphine: 2 mg, IV Push, Q10Min, PRN: Pain (Severe 7-10) oxyCODONE: 5 mg, Oral, Q6H, PRN: Pain (Moderate 4-6) potassium chloride 10 mEq/50 mL intravenous solution: [...] capsule: Cap, Oral, Daily, 0 Refill(s) Saw [place]: mg, Oral, Daily, does not know dose, [...] Tab, Oral, At Bedtime, 0 Refill(s), Medications (32) Active Scheduled: (6) #NaCl 0.9% *FLUSH* inj 10 mL 10 mL, IV Push, Q12H ascorbic acid 500 mg tab 500 mg 1 Tab, Oral, BID aspirin EC 81 mg tab 81 mg 1 Tab, Oral, Daily pantoprazole 40 mg inj 40 mg, IV Push, BID pregabalin 75 mg cap 75 mg 1 Cap, Oral, Q8H senna 8.6 mg tab 17.2 mg 2 Tab, Oral, BID Continuous: (6) D5/NaCl 0.225% 1,000 mL 1,000 mL, IntraVENous, 30 mL/Hr dexmedeTOMIDine 400 mcg + NaCl 0.9% TITRATE 100 mL 100 mL, IntraVENous insulin regular 100 Units + NaCl 0.9% 100 mL 100 mL, IntraVENous lactated ringers 1,000 mL 1,000 mL, IntraVENous, 30 mL/Hr lactated ringers 1,000 mL 1,000 mL, IntraVENous, 20 mL/Hr NORepinephrine 8 mg + NaCl 0.9% T ITRATE 250 mL 250 mL, IntraVENous PRN: (20) #NaCl 0.9% *FLUSH* inj 10 mL 10 [...] 3 mL 3 mL, Nebulized Inhalation, RT_Q4H calcium gluconate 1 Gram 10 mL, IV Piggyback, 1-Time dextrose 50% 25 g/50 mL inj syr 25 Gram 50 mL, IV Push, 1-Time fluocinonide 0.05% crm 15 g 1 Application, Topical, QID magnesium hydroxide 8% liq 30 mL 30 [...] IV Push, 1-Time Problem list: All Problems Thyroid disease / SNOMED CT 322601064 / Confirmed Thyroid cancer / SNOMED CT 7076380716 / Confirmed Renal calculus / SNOMED CT 544124804 / Confirmed Hypertension / SNOMED CT 64621155 / Confirmed Hyperlipidemia / SNOMED CT 43045068 / Confirmed History of placement of stent in LAD coronary artery / SNOMED CT 1817831652 / Confirmed H/O right coronary artery stent placement / SNOMED CT 8628790958 / Confirmed Hemorrhoids / SNOMED CT 844569411 / Confirmed Coronary artery disease / SNOMED CT 4315264524 / Confirmed 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 RASS -4. Not currently following commands. . Eye: Pupils are equal, round and reactive to light, Normal conjunctiva. HENT: Normocephalic, Oral ET tube present. Mouth: Oral mucosa ( Dry ). Neck: Supple, No lymphadenopathy. Respiratory: Breath sounds are equal, Symmetrical chest wall expansion, Breath sounds diminished bilaterally. No wheezing. Support: Chest tube ( MT X 2 ), Ventilator. Cardiovascular: Normal rate, Regular rhythm, No edema. Gastrointestinal: Soft, Non-distended. Bowel sounds: All four quadrants, Diminished. Support: Gastric tube ( Nasal ). Genitourinary: Support: Urinary catheter ( Indwelling ). Musculoskeletal: No swelling, No deformity. Integumentary: Warm, Dry, Midsternal incision present. CDI. Left leg EVH site. Neurologic: Sedated on ventilator. RASS -4. Not currently following commands. . Psychiatric: Unable to assess. . Review / Management Results review: Labs (Last four charted values) WBC H 19.3 (MAY 07) 9.0 (MAY 03) HB L 11.4 (MAY 07) 16.0 (MAY 03) HCT L 33.3 (MAY 07) 47.5 (MAY 03) Plt L 122 (MAY 07) 215 (NOV ) Na 141 (MAY 07) 143 (MAY 03) K 4.4 (MAY 07) 4.2 (NOV ) Cl 108 (MAY 07) 109 (NOV ) CO2 25 (MAY 07) 26 (NOV ) BUN 15 (MAY 07) 21 (NOV ) Cr 1.30 (MAY 07) H 1.70 (MAY 03) H 1.4 (MAY 07) Glu R H 156 (MAY 07) 100 (MAY 03) Ca L 7.6 (MAY 07) 10.0 (MAY 03) PT H 12.7 (MAY 07) 10.4 (MAY 03) INR 1.2 (MAY 07) 1.0 (MAY 03) PTT 27.1 (MAY 07) 26.1 (MAY 03) AST 20 (MAY 03) ALT 32 (MAY 03) ALK P 98 (MAY 03) T Bili 0.5 (MAY 03) PTN 6.7 (MAY 03) ALB 3.8 (MAY 03) . Blood Gases (Current Encounter/Past 24 Hours) pH Art 7.36 05/07/2021 12:18 pCO2 Art 43.6 05/07/2021 12:18 pO2 Art 82.9 05/07/2021 12:18 HCO3 Art 24.8 05/07/2021 12:18 BE Art -.7 05/07/2021 12:18 sO2 Art 96.4 05/07/2021 12:18 tHb Art 12.3 05/07/2021 12:18 FHHb 3.5 NA 05/07/2021 12:18 ctO2 16.4 NA 05/07/2021 12:18 FIO2 Art 50 NA 05/07/2021 12:18 Delivery Device Type Art Ventilator NA 05/07/2021 12:18 Temperature, F Art 98.6 NA 05/07/2021 12:18 Art Blood Gas (ABG) Site Arterial Line NA 05/07/2021 12:18 Acceptable Christ's Test Art Non-Applicable NA 05/07/2021 12:18 Ventilator Mode Art AC NA 05/07/2021 12:18 Tidal Volume Set Art 480.0 NA 05/07/2021 12:18 Set Rate Art 16.0 NA 05/07/2021 12:18 Respiratory Rate Art 16.0 NA 05/07/2021 12:18 CPAP/PEEP Art 5.0 NA 05/07/2021 12:18 ABG Num of Draw Attempts 1 NA 05/07/2021 12:18 PaO2/FiO2 calculated 166 NA 05/07/2021 12:18 No Radiology Results Found PFTs 05/03/2021 FVC 87% predicted, FEVV1 98% [...] hyperlipidemia ID Leukocytosis, suspect acute phase reactant Heme Anemia Thrombocytopenia Leukocytosis Neuro Sedated on vent Endocrine Hyperglycemia Plan: Vent bundle; continue to wean mechanical ventilation support. We wean FiO2 to 40% from 50%. Keep PEEP at 5. Chest x-ray was reviewed and showed right mainstem intubation. Tube pulled up to chest tube 3 cm. Wean to extubate DuoNeb PRN Sedation: Precedex for RASS 0 Encourage IS/FVD upon extubation Hemodynamics: Stable off pressors Chest tube management [...] the radiologist report. Prognosis: Guarded. Complex case Electronically signed by [facility] Conversion Survey Researcher Cerner at 09/29/2022 3:36 PM CDT documented in this encounter Plan of Treatment Not on file documented as of this encounter Visit Diagnoses Not on filedocumented in this encounter Care Teams Stripe Matcher Relationship Specialty Start Date End Date Raúl Caraballo MD [address] [place], [place] [address] PCP - General Adolescent Medicine 12/08/22 documented as of this encounter
--- OUTSIDE RECORDS SUMMARY | 2025-04-21 12:59 | XMS_ITS | Encounter Summary ---
Author Organization [employer] ([place], [place], [place], [place], [place]) Address [address] [place] [address] Care Team Providers Care Jewelry Technician Name Role Phone Raúl Caraballo MD Primary Care Provider + [phone] Encounter Details Date Type Department Care Team (Late st Contact Info) Description 05/07/[address] [facility] [place] [address] [place] [address] ProviderKyree MD [address] [place] [address] Social History Tobacco Use Types Packs/Day Years Used Date Smoking Tobacco: Never Assessed Sex and Gender Information Value Date Recorded Sex Assigned at Not on file Legal Sex Male 1:20 PM CDT Gender Identity Not on file Sexual Orientation Not on file documented as of this encounter Miscellaneous Notes * [employer]ner Conversion Note - Historical ProviderMD - 05/07/2021 11:45 AM ADVICE CLERK DATE OF PROCEDURE: 05/07/2021 SURGEON: Calvin Rey IV, MD PREOPERATIVE DIAGNOSIS: Multivessel coronary artery disease. POSTOPERATIVE DIAGNOSIS: Multivessel coronary artery disease. PROCEDURE PERFORMED: Coronary artery bypass grafting x4 (left internal mammary to LAD, reverse saphenous vein graft triple sequential from PD to OM to ramus) on cardiopulmonary bypass with endoscopic vein harvest. FEED ELEVATOR WORKER: QI Frey. ANESTHESIA: General anesthesia performed by Dr. Morales. DRAINS: 24 left pleural Calixto, 24 posterior mediastinal Calixto, 36 anterior mediastinal chest tube. 2 V wires. INTRAOPERATIVE FINDINGS: The PD was 1.5 mm. The OM was 2 mm. The ramus was 1.2 mm. The LAD was 2 mm. The MARTINEZ was 2 mm. The saphenous vein graft was 2-3 mm with one small thick-walled aneurysm. Ejection fraction was preserved. No blood products were transfused. PATIENT INFORMATION: Mr. Duncan is a 66-year-old gentleman who presented with [...] the operating room in an elective fashion. DESCRIPTION OF PROCEDURE: The patient was placed supine. General anesthesia was induced. The patient was intubated, and appropriate lines were placed. The patient was sterilely prepped and draped. IV antibiotics were administered, and time-out was performed. A sharp midline incision was performed. A standard sternotomy was performed. Left internal mammary was harvested in a pedicle fashion. Simultaneously, endoscopic vein harvest was performed from the left lower extremity for the greater saphenous vein. The leg was closed in 3 layers and wrapped in Martin bandage. The patient was heparinized. The aorta was cannulated with 20-Micronesian 3D cannula. The right atrium was cannulated with a large dual stage cannula. A root vent antegrade needle was placed in the ascending aorta. Once the patient was therapeutic on heparin, cardiopulmonary bypass was instituted. Targets were identified and marked with 15 blade. The mammary and vein were prepared as bypass conduits. A temperature probe was placed in the interventricular septum. The cross-clamp was placed, and antegrade cardioplegia was administered until myocardial temperature was less than 10 degrees. It was approximately 1200 mL of cardioplegia. The heart was elevated. The PD was opened. An end-to-side 7-0 Prolene running continuous anastomosis was performed between reverse saphenous vein graft and the PD. The OM system was interrogated. The largest vessel was opened sharply. A venotomy was created, and a pzuy-nr-iswk 7-0 Prolene running continuous anastomosis was performed. Cardioplegia was administered in antegrade fashion. The heart was repositioned, and the ramus was opened. A venotomy was created, and a [id number]-nx-tgee 7-0 Prolene running continuous anastomosis was performed. An 11 blade was used to create an aortotomy. It was enlarged with a 4.5 mm punch, and a proximal anastomosis was constructed with a running 6-0. Antegrade cardioplegia was administered. There was excellent hemostasis at all stenotic sites. The heart was placed in a lap pad. The LAD was opened distally. The mammary to LAD anastomosis was performed with a running 7-0. There was excellent runoff after de-airing the vessel. The heart was de-aired, and the cross-clamp was removed. With the patient in steep Trendelenburg position, 24-Micronesian Calixto was placed in left pleural space, 24-Micronesian Calixto was placed in the diaphragm surface of the heart. 2 V wires were placed. The patient was weaned off bypass. The root vent was removed and oversewn after confirming de-airing by KIKA. The venous line was removed. Protamine was administered. The remainder of blood was transfused. The aortic line was removed and oversewn. Chest packed and irrigated. There was excellent hemostasis. A final 36-Micronesian chest tube was placed in the anterior mediastinum. Sternum was reapproximated with 8 stainless steel #6 wires. Fascia closed with 1 Vicryl, deep dermis closed with 2-0 Vicryl, skin closed with 4-0 Monocryl. At the end of procedure, all counts were correct. I was present, scrubbed, and participated in all parts of this procedure. Modifier 80S for surgical coordinator, QI Frey, who was present, scrubbed, and participated in all parts of procedure. /[id number] Calvin Rey IV, MD GMD/DOMONIQUE / KIRAN / MODL /[id number] documented in this encounter Plan of Treatment Not on file documented as of this encounter Visit Diagnoses Not on filedocumented in this encounter Care Teams Jewelry Technician Relationship Specialty Start Date End Date Raúl Caraballo MD [address] [place] [address] PCP - General Adolescent Medicine 12/08/22 documented as of this encounter
--- OUTSIDE RECORDS SUMMARY | 2025-04-21 12:59 | XMS_ITS | Encounter Summary ---
Author Organization [employer] ([place], [place], [place], [place], [place]) Address [address] [place] [address] Care Team Providers Care Local Company Tanker Driver Name Role Phone Raúl Card MD Primary Care Provider + [phone] Encounter Details Date Type Department Care Team (Late st Contact Info) Description 05/11/2021 Transcribed Document [facility] [place] [address] [place] [address] ProviderKyree MD [address] [place] [address] Social History Tobacco Use Types Packs/Day Years Used Date Smoking Tobacco: Never Assessed Sex and Gender Information Value Date Recorded Sex Assigned at Not on file Legal Sex Male 1:20 PM CDT Gender Identity Not on file Sexual Orientation Not on file documented as of this encounter Miscellaneous Notes * Cerner Conversion Note - Kyree Murdock MD - 05/11/2021 12:18 PM 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 [address] CHELSEA AVINA :1955 Visit Time:05/07/2021 Your Visit Summary Your Care Team Admitting Physician - AMARILYS JALLOH MD Attending Physician - AMARILYS JALLOH MD Primary Care Physician - RAÚL CARD (REF[facility] Referring Physician - AMARILYS JALLOH MD Your Diagnosis Atherosclerotic heart disease of [place] coronary artery without angina pectoris, Atherosclerotic heart disease of [place] coronary artery without angina pectoris, Coronary artery disease These Are Your Goals Patient Discharge Goal Patient Discharge Goal: Home Discharge Vitals Temperature 36.6 ??C Heart Rate (Monitored) 89 Respiratory Rate 15 Blood Pressure 144/97 What to do next Instructions From Your Care Team STOP taking the following medications: 1. Cozaar (losartan) 2. Imdur (isosorbide mononitrate) 3. Trazodone 4. Saw [place] Discharge Activity: Discharge Activity: No heavy lifting over 10 lbs Diet: Discharge Diet: Heart healthy diet Follow-Up Appointments Follow Up with RAÚL CARD MD (REF)-[facility] When Within 3 to 5 days Comments Please call 05/13, to make this appointment. Where: [address] [place] [address]- Follow Up with AMARILYS JALLOH When Within 2 weeks Comments Please call 05/13, to make this appointment. Where: [address] [facility] [facility] [place] [address]- Business (1) Follow Up with JANEEN PICKETT When Within 1 month Comments Please call 05/13, to make this appointment. Where: [address] [facility] [address] [place] [address]- Business (1) Follow Up with [facility] When Within 6 weeks Comments Office to call with appoint/instructions Where: Medications What How Much When Instructions Next Dose acetaminophen-hydrocodone ([place] 5 mg-325 mg oral tablet) 1 Tablet(s) Oral Every 4 Hours as needed for for pain Pickup at Clinic [facility] clopidogrel (Plavix 75 mg oral tablet) 1 Tablet(s) Oral Every Day Refills: 1 Printed Prescription 05/12/2021 9am metoprolol (Metoprolol Tartrate 25 mg oral tablet) 0.5 Tablet(s) Oral Two Times A Day Printed Prescription 05/11/2021 9pm aspirin 81 Milligram(s) 05/12/2021 9am atorvastatin 80 Milligram(s) Oral Every Day 05/11/2021 9pm levothyroxine (levothyroxine 125 mcg (0.125 mg) oral tablet) 1 Tablet(s) Oral Every Day 05/12/2021 9am multivitamin 1 Tablet(s) Oral Every Day 05/12/2021 9am tamsulosin (Flomax 0.4 mg oral capsule) Oral Every Day 05/12/2021 9am Pharmacy Information [facility] [place] [address] E MIA Lopes [phone] Take your medications faithfully. Do NOT skip [...] vomiting) Immunizations This Visit No Immunizations Found Education Materials Heart-Healthy Eating Plan Many factors influence your [...] plate with lean protein foods. ??? Eat 4???5 servings of vegetables per day. One serving equals 1 cup raw or cooked vegetable, or 2 cups raw leafy greens. ??? Eat 4???5 servings of fruit per day. One serving equals 1 medium whole fruit, ?? cup dried fruit, ?? cup fresh, frozen, or canned fruit, or ?? cup 100% fruit juice. ??? Eat more foods that contain soluble fiber. Examples include apples, broccoli, carrots, beans, peas, and barley. Aim to get 25???30 g of fiber per day. ??? Increase your consumption of legumes, nuts, and seeds to 4???5 servings per week. One serving of dried beans or legumes equals ?? cup cooked, 1 serving of nuts is ?? cup, and 1 serving of seeds equals [...] weight if you are overweight. Losing just 5???10% of your body weight can help your [...] Fats and oils Meat fat, or shortening. Edison butter, hydrogenated oils, palm oil, coconut oil, [...] weight if you are overweight. Losing just 5???10% of your body weight can help your [...] provider. Document Revised: 07/09/2018 Document Reviewed: 07/09/2018 [employer] Patient Education ?? 2020 Built In. Coronary Artery Disease, Male Coronary artery disease (CAD) is a condition in which the arteries that lead to the heart (coronary arteries) become narrow or blocked. The narrowing or blockage can lead to decreased blood flow to the heart. Prolonged reduced blood flow can cause a heart attack (myocardial infarction or VA). This condition may also be called coronary [...] these instructions at home: Medicines ??? Take wpxc-kuu-cazsmel and prescription medicines only as told by [...] ? Limit how much you have to 0???2 drinks per day. ? Be aware of how much alcohol is in your drink. In the [place] one drink equals one 12 oz bottle of beer (355 mL), one 5 oz glass of wine (148 mL), or one 1?? oz glass of hard liquor (44 mL). [...] provider. Document Revised: 02/18/2019 Document Reviewed: 02/08/2019 [employer] Patient Education ?? 202 [employer] Coronary Artery Bypass Grafting, Care After This [...] these instructions at home: Medicines ??? Take xqce-msy-lhnsquw and prescription medicines only as told by [...] cannot use soap and water, use hand dressing room porter. ? Change your bandage as told by [...] help quitting, ask your doctor. ??? Take 2???3 deep breaths every few hours during the [...] provider. Document Revised: 02/08/2019 Document Reviewed: 02/08/2019 [employer] Patient Education ?? 2020 Built In. Emergency Awareness and Preventative Care STROKE is [...] Assistance with quitting is available by contacting 8-180-ELBLFunderaNOW. This is a free resource providing counseling, [...] and how to prevent infections, visit www.cdc.gov/sepsis. Patient Name:CHELSEA AVINA I have received and understand this information and was given the opportunity to ask questions. Patient/Dining Room Busser Name: Patient/Dining Room Busser Signature: Relationship to Patient: Clinician/Hospital Dining Room Busser Signature: Date: documented in this encounter Plan of Treatment Not on file documented as of this encounter Visit Diagnoses Not on filedocumented in this encounter Care Teams Local Company Tanker Driver Relationship Specialty Start Date End Date Raúl Card MD [address] [place] [address] [place] [id number] PCP - General Adolescent Medicine 12/08/22 documented as of this encounter
--- OUTSIDE RECORDS SUMMARY | 2025-04-21 12:59 | XMS_ITS | Encounter Summary ---
Author Organization [employer] ([place], [place], [place], [place], [place]) Address [address] [place] [address] Care Team Providers Care Inspector Printed Circuit Boards Name Role Phone Raúl Caraballo MD Primary Care Provider + [phone] Encounter Details Date Type Department Care Team (Late st Contact Info) Description 05/07/2021 Transcribed Document [facility] [place] Family Medicine [address] [place] [address] ProviderKyree MD [address] [place] [address] Social History Tobacco Use Types Packs/Day Years Used Date Smoking Tobacco: Never Assessed Sex and Gender Information Value Date Recorded Sex Assigned at Not on file Legal Sex Male 1:20 PM CDT Gender Identity Not on file Sexual Orientation Not on file documented as of this encounter Miscellaneous Notes * Cerner Conversion Note - Historical ProviderMD - 05/07/2021 6:51 AM SALES 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 MANAGER Admission History, Adult Entered On: 05/07/2021 13:38 EST Performed On: 05/07/2021 13:35 EST by Krysta Gomez RN Advance Directive Patient has Advance Directive *Q : Yes, Advance Directive on file Advance Directive Type : Living will Copy Advance Directive Verified/on Chart : Yes Krysta Gomez RN - 05/07/2021 13:34 EST Anesthesia/Transfusion History Family History of Anesthesia Reaction : No prior transfusion(s) Blood Transfusion Acceptable to Patient : Yes Transfusion History : Prior anesthesia reaction Type of Anesthesia Reaction : Excessive somnolence Family History of Anesthesia Reaction : None Krysta Gomez RN - 05/07/2021 13:34 EST Anticipated Discharge Needs Discharge To, Anticipated : Home Krysta Gomez RN - 05/07/2021 13:34 EST Education Topics, Admission Orientation DCP GENERIC CODE Advance Directives : Verbalizes understanding Allergy Band Applied : Verbalizes understanding Assessment/Vital Signs : Verbalizes understanding Bed Control : Verbalizes understanding Call Light : Verbalizes understanding Confidentiality : Verbalizes understanding Diet/Room Service : Verbalizes understanding Fall Prevention : Verbalizes understanding Hand Hygiene : Verbalizes understanding Healthcare Provider Visit : Verbalizes understanding ID Band Applied : Verbalizes understanding Isolation Precautions : Verbalizes understanding Orientation to Room/Bathroom : Verbalizes understanding Patient Bill of Rights : Verbalizes understanding Patient Rights/Responsibilities : Verbalizes understanding Patient Safety : Verbalizes understanding Personal Privacy Code : Verbalizes understanding Rapid Response Initiated by Patient/Family : Verbalizes understanding Rounding : Verbalizes understanding Siderails use/risks : Verbalizes understanding Skin Precautions : Verbalizes understanding Smoking Policy : Verbalizes understanding Telemetry Monitoring : Verbalizes understanding Television/Phone : Verbalizes understanding Visiting Policy : Verbalizes understanding Krysta Gomez RN - 05/07/2021 13:34 EST Functional Assessment Living Situation : Home Patient Lives With : Spouse Persons Assisting Patient at Home : Significant other(s) Mobility Assistance Prior to Admission : Independent MCDONALD Hx Falls Immediate/Within 3 Months : No Current Home Treatments : Krysta Zambrano RN - 05/07/2021 13:34 EST General Info Preferred Name : Junaid Arrived From : Home Mode of Arrival on Unit : Ambulatory Contact Password : MAURO Support Person/Pt Rep Contact Information : [phone] Deja Blackwell Family/Rep/Phys Notified of Admit : No Emergency Contact #1 : Deja Duncan Emergency Contact #1 Emergency Contact #1 Relationship : Emergency Contact #2 : none Emergency Contact #2 Phone Number : none Emergency Contact #2 Relationship : none Chief Complaint : chest pain, testing reveals multiple blockages Information Obtained From : Patient Primary Language : Hungarian Communication Barrier : None Wash Mill Operator Needed : Krysta Luz RN - 05/07/2021 13:34 EST Fall Risk Scales ABCs Fall Injury Risk Identification : Surgery ABC Fall Injury Risk : Moderate to high injury risk Injury Moderate to High Risk Interventions : 1:1 observation, Supervise toileting as indicated, Transport methods appropriate to patient MCDONALD Hx Falls Immediate/Within 3 Months : No Mcdonald Secondary Diagnosis : Yes MCDONALD Use of Ambulatory Aid : Bed rest/Nurse assist MCDONALD IV Therapy or IV Access : Yes Mcdonald Gait/Transferring : Normal, bedrest, immobile Mcdonald Mental Status : Oriented to own ability Mcdonald Fall Risk Score : 35 MCDONALD Fall Scale Risk Level : 25-45 Medium Risk [place] Fall Interventions : Adequate lighting, Assistive devices within reach, Bed in low position, Call device within reach, Frequent orientation to call device, Frequent orientation to surroundings, Hourly comfort/safety rounds, Personal items within reach, Reinforced to call for assistance before getting out of bed, Room free of clutter/spills, Upper side-rails up, Wheels locked, Wires/Cords secured Fall Moderate to High Risk Interventions : Patient room close to nurses station, Transport methods appropriate to patient Fall Risk Scale Calc Temp : 0 Krysta Gomez RN - 05/07/2021 13:34 EST Health Histories Smoking Status : Former smoker, quit more than 30 days ago Smokeless Tobacco Status : Never Implant/Device Type, Actuary and Model : cardiac stents Krysta Gomez RN - 05/07/2021 13:34 EST Social History (As Of: 05/07/2021 13:38:51 EST) Tobacco: Smoking Status Former smoker. Last Used: stopped in 2001. (Last Updated: 11/18/2016 07:56:15 EDT by LUZMA VELIZ, RILEY) Former smoker, quit more than 30 days ago Smoking Status. Never Smokeless Tobacco Status. Years of Use: 5. Packs/Tins Daily: 1. Last Used: Quit 2000. (Last Updated: 05/02/2021 11:57:26 EST by SCOTT MITCHELL, RN) Alcohol: Alcohol Use History No. (Last Updated: 11/18/2016 07:56:35 EDT by LUZMA VELIZ, RILYE) Substance Abuse: Drug Use Hx: No. Use in Last 12 Months: No. (Last Updated: 05/03/2021 09:25:19 EST by WANDA ALMAZAN RN) Height and Weight, Clinical Dosing Height Source : Measured Height Entry Format : Brown Height, Feet : 5 ft(Converted to: 152 cm, 60 Inch) Height, Inches : 9 Inch(Converted to: 0 ft 9 Inch, 22.86 cm) Clinical Height : 175.26 cm Weight Source : Standing scale Weight Entry Format : Brown Clinical Dosing Weight : 85.45 kg Weight, Pounds : 188 lb Body Surface Area (BSA) : 2.01 m2 Body Mass Index : 27.8 kg/m2 (HI) [place] Body Weight : 70 kg Krysta Gomez RN - 05/07/2021 13:34 EST Infectious Disease History Does patient have symptoms of COVID-19? : No Has the Patient Been Tested for COVID-19 in the last 14 days? : Yes, Patient stated results Negative Does the Patient state known exposure to a COVID-19 positive case in the last 14 days? : No Patient Vaccinated for COVID-19 : Partially vaccinated or need booster Does Patient want a COVID-19 Vaccine? : Yes Krysta Gomez RN - 05/07/2021 13:34 EST Infectious Disease Risk Screening Grid Cough < 2 wks of unknown origin : NO Cough > 2 weeks : NO Blood in Sputum : NO Fever or self-reported Fever : NO Rash of unknown origin : NO Headache : NO Stiff neck : NO Night Sweats : NO Unexplained Weight Loss : NO Diarrhea (3 episode per day) : NO Krysta Gomez RN - 05/07/2021 13:34 EST Physical contact outside [place] in the last 30 days : No Hospitalized in Foreign Country : No Infectious Disease History : Chicken pox/Shingles, Influenza, Measles, Mumps INF Disease TB Screening Calc : 0 INF Disease Recent Travel Calc : 0 Krysta Gomez RN - 05/07/2021 13:34 EST Tetanus Immunization Status Previous Tetanus Immunizations : No qualifying data available. Tetanus Immunization : Unknown Krysta Gomez RN - 05/07/2021 13:34 EST Influenza Vaccine Asmt, Adult Previous Vaccines from Immunization Schedule : No qualifying data available. Influenza Immunization, Current Season : Unknown Inactivated Flu Vaccine Contraindications : No contraindications to inactivated influenza vaccine Transplant Workup/Recent Transplant : No Order for Influenza Vaccine : Order for influenza vaccine sent to pharmacy Krysta Gomez RN - 05/07/2021 13:34 EST Pneumococcal Vaccine Previous Vaccines from Immunization Schedule : No qualifying data available. Pneumonia Immunization Received : Unknown Pneumococcal Risk Assessment < Age 65 : N/A- Patient 65 years of age or older Pneumococcal Vaccine Contraindications : No contraindications to pneumococcal vaccine Transplant Workup/Recent Transplant : No Order for Pneumococcal Vaccine : Order for pneumococcal vaccine sent to pharmacy Krysta Gomez RN - 05/07/2021 13:34 EST Order Details Isolation Precautions Order Detail : Standard Precautions Order Detail : N/A IV Order Detail : 1 Oxygen Order Detail : 1 Nurse Collect Order Detail : 1 Lift/Transfer : Maximal assist Central Line Order Detail : Yes Room Service : Not Appropriate Arterial Line : Yes Patient Needs Meds Crushed/Liquid : Yes Meds Administered Via Tube : Yes Krysta Gomez RN - 05/07/2021 13:34 EST Nutrition History Eating Poorly Due to Decreased Appetite : No Unplanned Weight Loss in Past 3-6 Months : No Malnutrition Screening Tool Total(mal) : 0 Malnutrition Screening Tool Risk Level : Patient not at risk Krysta Gomez RN - 05/07/2021 13:34 EST [place] Suicide Severity Rating Scale (C-SSRS) CSSRS Past Month Wish to be : No CSSRS Past Month Suicidal Thoughts : No CSSRS Lifetime Suicide Behavior : No Suicide Severity Rating Score : 0 Suicide Severity Rating : No Additional Care Required at this time Krysta Gomez RN - 05/07/2021 13:34 EST Psychosocial History Do You Have a History of the Following? : Depression Currently in Unsafe Situation : No Krysta Gomez RN - 05/07/2021 13:34 EST Sleep Apnea Risk Assmt Hx of [...] Sleep Apnea Risk Level Score : 3 Krysta Gomez RN - 05/07/2021 13:34 EST Valuables and Belongings Valuables and Belongings : No clothing, No comfort items, No jewelry, No personal devices, No personal items, No assistive devices, No respiratory devices, No medications Krysta Gomez, RN - 05/07/2021 13:34 EST Electronically signed by [facility], [facility] Conversion Sleeve Separator Cerner at 09/29/2022 3:42 PM CDT documented in this encounter Plan of Treatment Not on file documented as of this encounter Visit Diagnoses Not on filedocumented in this encounter Care Teams Inspector Printed Circuit Boards Relationship Specialty Start Date End Date Raúl Caraballo MD [address] [place] [address] PCP - General Adolescent Medicine 12/08/22 documented as of this encounter
--- OUTSIDE RECORDS SUMMARY | 2025-04-21 12:59 | XMS_ITS | Encounter Summary ---
Author Organization [employer] ([place], [place], [place], [place], [place]) Address [address] [place] [address] Care Team Providers Care Database Programmer Analyst Name Role Phone Raúl Card MD Primary Care Provider + [phone] Encounter Details Date Type Department Care Team (Late st Contact Info) Description 05/11/2021 Transcribed Document [facility] [place] [facility] [place] [address] ProviderKyree MD [facility] [place], [place] [address] Social History Tobacco Use Types Packs/Day Years Used Date Smoking Tobacco: Never Assessed Sex and Gender Information Value Date Recorded Sex Assigned at Not on file Legal Sex Male 1:20 PM CDT Gender Identity Not on file Sexual Orientation Not on file documented as of this encounter Miscellaneous Notes * Cerner Conversion Note - Kyree ProviderMD - 05/11/2021 9:12 AM 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 Normal left ventricular function with estimated ejection fraction about 50% to 55%. Mild to moderate left ventricular hypertrophy. 2. No atheromatous disease seen in the thoracic aorta. 3. Trace mitral regurgitation. 4. Mild tricuspid regurgitation. 5. Left atrial enlargement. 6. Diastolic dysfunction of left ventricle. Reason for Hospitalization Mr. Avina is a 66-year-old gentleman who [...] the operating room in an elective fashion. Hospital Course 05/07 Coronary artery bypass grafting x4 (left [...] IS at home ASA, statin, BB, Plavix Vital Signs T: 36.8 ??C TMIN: 36.7 ??C TMAX: 36.9 ??C HR: 94(Monitored) RR: 16 BP: 118/72 SpO2: 100% Oxygen Settings (Last) Oxygen Therapy Mode: Nasal cannula (05/11/21 06:08:00) Oxygen Flow Rate: 2 Liter/Min (05/11/21 06:08:00) Physical Exam General: Alert and oriented, No acute distress. Neck: Supple. Respiratory: Lungs are clear to auscultation, Respirations are non-labored, Breath sounds are equal. Cardiovascular: Normal rate, 93 beats per minute, Regular rhythm, No edema. Gastrointestinal: Soft, Non-tender. Integumentary: Warm, Dry, Sternal incision and MTs healing well. Neurologic: Alert, Oriented, No focal deficits. Psychiatric: Cooperative, Appropriate mood & affect. Discharge Disposition Home Discharge Follow Up ARÚ[facility]ARD ([facility] - Within 3 to 5 days [facility] - Within 2 weeks [facility] - Within 6 weeks JANEEN PICKETT - Within 1 month Discharge Medications (8) Active aspirin 81 mg atorvastatin 80 mg, Oral, Daily Flomax 0.4 mg oral capsule , Oral, Daily levothyroxine 125 mcg (0.125 mg) oral tablet 125 mcg = 1 Tab, Oral, Daily Metoprolol Tartrate 25 mg oral tablet 12.5 mg = 0.5 Tab, Oral, BID multivitamin 1 Tab, Oral, Daily [place] 5 mg-325 mg oral tablet 1 Tab, PRN, Oral, Q4H Plavix 75 mg oral tablet 75 mg = 1 Tab, Oral, Daily Current Diet Order Diet, Adult - Ordered -- Start: 05/08/21 9:02:00 EST, Cardiac Diet, Isolation: Standard Precautions Patient Discharge Summary Orders Discharge Activity: Discharge Activity: No heavy lifting over 10 lbs Diet: Discharge Diet: Heart healthy diet Follow Up Labs/Studies MAY 11 05:10 140 106 20 / H 123 3.9 31 1.20 \ MAY 11 05:10 \ L 11.4 / H 9.8 177 / L 35.4 \ Electronically signed by [facility], [facility], [facility] Conversion Mechanical Engineering Technologist Cerner at 09/29/2022 3:20 PM CDT documented in this encounter Plan of Treatment Not on file documented as of this encounter Visit Diagnoses Not on filedocumented in this encounter Care Teams Database Programmer Analyst Relationship Specialty Start Date End Date Raúl Card MD [address] [place] [id number] PCP - General Adolescent Medicine 12/08/22 documented as of this encounter
--- OUTSIDE RECORDS SUMMARY | 2025-04-21 12:59 | XMS_ITS | Encounter Summary ---
Author Organization [employer] ([place], [place], [place], [place], [place]) Address [address] [place] [address] Care Team Providers Care Credit Risk Management Director Name Role Phone Raúl Caraballo MD Primary Care Provider + [phone] Encounter Details Date Type Department Care Team (Late st Contact Info) Description 05/07/2021 Transcribed Document [facility] [place] [address] [place] [address] ProviderKyree MD [address] [place], [place] [id number] Social History Tobacco Use Types Packs/Day Years Used Date Smoking Tobacco: Never Assessed Sex and Gender Information Value Date Recorded Sex Assigned at Not on file Legal Sex Male 1:20 PM CDT Gender Identity Not on file Sexual Orientation Not on file documented as of this encounter Miscellaneous Notes * Cerner Conversion Note - Historical ProviderMD - 05/07/2021 11:59 AM LEASING SALES CONSULTANT Pain Assessment Entered On: 05/08/2021 0:34 EST Performed On: 05/07/2021 23:43 EST by Lisa Soriano, Transport Corps Officer-Student Nurse Intervention Information: oxyCODONE Performed by Lisa Soriano, Transport Corps Officer-Student Nurse on 05/07/2021 22:43:00 EST oxyCODONE,5mg Oral,Pain (Moderate 4-6) Pain Assessment Pain Scale Goal : 2 Lisa Soriano, Transport Corps Officer-Student Nurse - 05/08/2021 0:34 EST Electronically signed by [facility] Conversion Customer Quality Engineer Cerner at 09/29/2022 3:36 PM CDT documented in this encounter Plan of Treatment Not on file documented as of this encounter Visit Diagnoses Not on filedocumented in this encounter Care Teams Credit Risk Management Director Relationship Specialty Start Date End Date Raúl Caraballo MD [address] [place] [id number] PCP - General Adolescent Medicine 12/08/22 documented as of this encounter
--- OUTSIDE RECORDS SUMMARY | 2025-04-21 12:59 | XMS_ITS | Encounter Summary ---
Author Organization [employer] ([place], [place], [place], [place], [place]) Address [address] [place] [address] Care Team Providers Care Health Insurance Sales Agent Name Role Phone Raúl Caraballo MD Primary Care Provider + [phone] Encounter Details Date Type Department Care Team (Late st Contact Info) Description 05/07/2021 Transcribed Document [facility] [place] [address] [place] [address] ProviderKyree MD [address], [place] [address] Social History Tobacco Use Types Packs/Day Years Used Date Smoking Tobacco: Never Assessed Sex and Gender Information Value Date Recorded Sex Assigned at Not on file Legal Sex Male 1:20 PM CDT Gender Identity Not on file Sexual Orientation Not on file documented as of this encounter Miscellaneous Notes * Cerner Conversion Note - Historical ProviderMD - 05/07/2021 5:00 PM FEDERAL DISTRICT CLERK Chart Check - Review Order Profile Entered On: 05/07/2021 17:10 EST Performed On: 05/07/2021 17:00 EST by Krysta Gomez, RN Chart Check Powerplans Initiated/Discontinued as Appropriate : Not applicable All Active Orders Reviewed : Yes Krysta Gomez, RN - 05/07/2021 17:10 EST Electronically signed by Jessica [facility] Conversion Paint Roller Assembler Cerner at 09/29/2022 3:21 PM CDT documented in this encounter Plan of Treatment Not on file documented as of this encounter Visit Diagnoses Not on filedocumented in this encounter Care Teams Health Insurance Sales Agent Relationship Specialty Start Date End Date Raúl Caraballo MD [address] [place] [id number] PCP - General Adolescent Medicine 12/08/22 documented as of this encounter
--- OUTSIDE RECORDS SUMMARY | 2025-04-21 12:59 | XMS_ITS | Encounter Summary ---
Author Organization [employer] ([place], [place], [place], [place], [place]) Address [address] [place] [address] Care Team Providers Care Filter Tank Tender Name Role Phone Raúl Caraballo MD Primary Care Provider + [phone] Encounter Details Date Type Department Care Team (Late st Contact Info) Description 05/10/2021 Transcribed Document [facility] [address] [place] [address] ProviderKyree MD [address] [place], [place] [address] Social History Tobacco Use Types Packs/Day Years Used Date Smoking Tobacco: Never Assessed Sex and Gender Information Value Date Recorded Sex Assigned at Not on file Legal Sex Male 1:20 PM CDT Gender Identity Not on file Sexual Orientation Not on file documented as of this encounter Miscellaneous Notes * Cerner Conversion Note - Historical ProviderMD - 05/10/2021 5:00 PM CINDER MAN Chart Check - Review Order Profile Entered On: 05/10/2021 18:32 EST Performed On: 05/10/2021 17:00 EST by SOLIS ISAACS, RN Chart Check All Active Orders Reviewed : Yes SOLIS ISAACS, RN - 05/10/2021 18:32 EST documented in this encounter Plan of Treatment Not on file documented as of this encounter Visit Diagnoses Not on filedocumented in this encounter Care Teams Filter Tank Tender Relationship Specialty Start Date End Date Raúl Caraballo MD [address] [place] [address] PCP - General Adolescent Medicine 12/08/22 documented as of this encounter
--- OUTSIDE RECORDS SUMMARY | 2025-04-21 12:59 | XMS_ITS | Encounter Summary ---
Author Organization [employer] ([place], [place], [place], [place], [place]) Address [address] [place] [address] Care Team Providers Care Bacteriologist Dairy Name Role Phone Raúl Caraballo MD Primary Care Provider + [phone] Encounter Details Date Type Department Care Team (Late st Contact Info) Description 05/07/2021 Transcribed Document [facility] [place] [address] [place] [address] ProviderKyree MD [address] [place], [place] [address] Social History Tobacco Use Types Packs/Day Years Used Date Smoking Tobacco: Never Assessed Sex and Gender Information Value Date Recorded Sex Assigned at Not on file Legal Sex Male 1:20 PM CDT Gender Identity Not on file Sexual Orientation Not on file documented as of this encounter Miscellaneous Notes * Cerner Conversion Note - Kyree ProviderMD - 05/07/2021 8:09 AM PROPERTY INSURANCE INSPECTOR [facility] Main OR Preop Summary Primary Physician: AMARILYS JALLOH MD Finalized Date/Time: 05/07/21 14:31:44 Pt. Name: CHELSEA AVINA /Sex: 1955 Male Med Rec #: [id number] Physician: AMARILYS JALLOH MD Financial #: [id number] Pt. Type: I Room/Bed: [facility] [place] Admit/Disch: 05/07/21 06:53:00 - Institution: [facility] PreOp Case Times Entry 1 In Preop 05/07/21 05:43:00 Ready for Holding n/a Room Patient Ready for 05/07/21 06:49:00 Surgery Patient Out of Preop 05/07/21 07:13:00 Patient Out of n/a Holding Room Last Modified By: ADRIAN DELEON 05/07/21 14:31:42 [facility] PreOp Case Times Audit 05/07/21 14:31:42 Land Surveying Survey Worker: LAUREN Modifier: LAUREN <+> 1 Patient Out of Preop Finalized By: ADRIAN DELEON Document Signatures Signed By: ADRIAN DELEON 05/07/21 14:31 Electronically signed by Jessica [facility] Conversion Psychology Fellow Cerner at 09/29/2022 3:36 PM CDT documented in this encounter Plan of Treatment Not on file documented as of this encounter Visit Diagnoses Not on filedocumented in this encounter Care Teams Bacteriologist Dairy Relationship Specialty Start Date End Date Raúl Caraballo MD [address] [place] [id number] PCP - General Adolescent Medicine 12/08/22 documented as of this encounter
--- OUTSIDE RECORDS SUMMARY | 2025-04-21 12:59 | XMS_ITS | Encounter Summary ---
Author Organization [employer] ([place], [place], [place], [place], [place]) Address [address] [place] [address] Care Team Providers Care Commercial Director Name Role Phone Raúl Caraballo MD Primary Care Provider + [phone] Encounter Details Date Type Department Care Team (Late st Contact Info) Description 05/07/2021 Transcribed Document [facility] [place] [place] [address] [place] [address] ProviderKyree MD [address] [place] [address] Social History Tobacco Use Types Packs/Day Years Used Date Smoking Tobacco: Never Assessed Sex and Gender Information Value Date Recorded Sex Assigned at Not on file Legal Sex Male 1:20 PM CDT Gender Identity Not on file Sexual Orientation Not on file documented as of this encounter Miscellaneous Notes * Cerner Conversion Note - Historical ProviderMD - 05/07/2021 2:00 AM JACKSCREW WORKER Spiritual Care Assessment Entered On: 05/07/2021 7:18 EST Performed On: 05/07/2021 6:55 EST by KATI BURKS General Information Initial Visit : Yes Referred by : Patient Referral Reason Comment : Pre-surgery visit Ministry Provided to : Patient, Family/Significant other KATI BURKS - 05/07/2021 7:17 EST Spiritual Assessment Spiritual Assessment Comment/Summary Points : Provided pre-surgery prayer with patient and . Spirital Assessment Comment/Summary Report : SPIRITUAL ASSESSMENT COMMENT/SUMMARY No qualifying data available. KATI BURKS - 05/07/2021 7:17 EST Interventions Emotional Support : Family/Significant other supported Spiritual and Evangelical : Prayer shared, Spiritual/Evangelical support provided KATI BURKS P - 05/07/2021 7:17 EST documented in this encounter Plan of Treatment Not on file documented as of this encounter Visit Diagnoses Not on filedocumented in this encounter Care Teams Commercial Director Relationship Specialty Start Date End Date Raúl Caraballo MD [address] [place] [address] PCP - General Adolescent Medicine 12/08/22 documented as of this encounter
--- OUTSIDE RECORDS SUMMARY | 2025-04-21 12:59 | XMS_ITS | Encounter Summary ---
Author Organization [employer] ([place], [place], [place], [place], [place]) Address [address] [place] [address] Care Team Providers Care Sales Receptionist Name Role Phone Raúl Caraballo MD Primary Care Provider + [phone] Encounter Details Date Type Department Care Team (Late st Contact Info) Description 05/10/2021 Transcribed Document [facility] [place] [facility] [place] [address] ProviderKyree MD [address] [place] [address] Social History Tobacco Use Types Packs/Day Years Used Date Smoking Tobacco: Never Assessed Sex and Gender Information Value Date Recorded Sex Assigned at Not on file Legal Sex Male 1:20 PM CDT Gender Identity Not on file Sexual Orientation Not on file documented as of this encounter Miscellaneous Notes * Cerner Conversion Note - Kyree ProviderMD - 05/10/2021 4:03 PM STOPPERER ASSEMBLER On Going Discharge Planning Entered On: 05/10/2021 16:06 EST Performed On: 05/10/2021 16:03 EST by CHRYSTAL PANTOJA, RN-Lining StamperRn Neonatal Icu Progress Note Discharge Arrangements : Patient Post-Acute Information Patient Name: CHELSEA AVINA Gender: Male : [birth year] Age: 66 Years No Post-Acute Placement(s) Listed No Post-Acute Service(s) Listed No [place] Referral(s) Listed Discharge Options Discussed with Patient : Outpatient services Barriers to Discharge Identified : Clinical Condition of Patient Barriers to Discharge Unresolved : Clinical Condition of Patient Patient Discharge Goal : Home Is the Patient Meeting Medical Necessity : Yes Physician Agreeable to Move Forward with D/C Plan? : Yes Did you Attend Multidisciplinary Rounds? : Yes CHRYSTAL PANTOJA, RN-Lining Stamper - 05/10/2021 16:03 EST Narrative Progress Note Narrative Progress Note : RAR Low ELOS: 6 days HD#3 66 year old male admitted for elective CABG 05/07 CABGX4 POD#3 O2 sat 94% on 4 liters. Right pleural tube removed. Telemetry NSR. Ambulated 350 feet with RWx and supervision. DCP: Anticipate patient will discharge home with family. May need RWx. Cardiac Rehab set up with [facility]. CHRYSTAL PANTOJA RN-Lining Stamper - 05/10/2021 16:03 EST Electronically signed by [facility] Conversion Warp Dresser Cerner at 09/29/2022 3:27 PM CDT documented in this encounter Plan of Treatment Not on file documented as of this encounter Visit Diagnoses Not on filedocumented in this encounter Care Teams Sales Receptionist Relationship Specialty Start Date End Date Raúl Caraballo MD [address] [place] [address] PCP - General Adolescent Medicine 12/08/22 documented as of this encounter
--- OUTSIDE RECORDS SUMMARY | 2025-04-21 12:59 | XMS_ITS | Encounter Summary ---
Author Organization [employer] ([place], [place], [place], [place], [place]) Address [address] [place] [address] Care Team Providers Care Feed House Supervisor Name Role Phone Raúl Card MD Primary Care Provider + [phone] Encounter Details Date Type Department Care Team (Late st Contact Info) Description 05/14/2021 Transcribed Document [facility] [place] [facility] [place] [address] ProviderKyree MD [address] [place] [address] Social History Tobacco Use Types Packs/Day Years Used Date Smoking Tobacco: Never Assessed Sex and Gender Information Value Date Recorded Sex Assigned at Not on file Legal Sex Male 1:20 PM CDT Gender Identity Not on file Sexual Orientation Not on file documented as of this encounter Miscellaneous Notes * Cerner Conversion Note - Kyree ProviderMD - 05/14/2021 9:43 AM DRY ICE MACHINE OPERATOR Patient Resource Center Entered On: 05/14/2021 9:44 EST Performed On: 05/14/2021 9:43 EST by Anastasiya Rodriguez, Desulphurizer Operator Patient Resource Center Provider Status : EST Other Established Provider Name : RAÚL CARD Patient Phone Number : [phone] Patient Insurance Type : Commercial (ex. [place] PPO, [employer] HMO) Source of Referral : Case management Location of Patient : Case management referral Primary Care Scheduled : Yes Primary Care Scheduled Type : Non [facility] Primary Care Provider Name : RAÚL CARD Primary Care Appointment Date/Time : 05/20/2021 10:30 EST Specialty Care Scheduled : Yes Specialty Type Scheduled1 : [facility] Cardiology Specialty Type Scheduled2 : [facility] Other [facility] Cardiology Provider Name : AMARILYS JALLOH [facility] Cardiology Appointment Date/Time : 05/27/2021 9:00 EST [facility] Other Provider Name : JANEEN PICKETT [facility] Other Provider Appointment Date/Time : 06/21/2020 13:45 EST Qualify for Diabetes and/or Nutrition Referral : No Wound Care Appointment Made : No Why Patient Visited ED- Specialty spent : Other How Patient Arrived at ED : Other Primary Language : Par[place]ayan Patient Resource Center Comment : Primary Care and cardiology follow up appointments have been made. Patient contacted and mailed appt reminder. Follow Up Needed : No Anastasiya Rodriguez, Desulphurizer Operator - 05/14/2021 9:43 EST documented in this encounter Plan of Treatment Not on file documented as of this encounter Visit Diagnoses Not on filedocumented in this encounter Care Teams Feed House Supervisor Relationship Specialty Start Date End Date Raúl Card MD [address] [place] [id number] PCP - General Adolescent Medicine 12/08/22 documented as of this encounter
--- NOTE | 2025-04-21 13:07 | CT_ITS ---
FINAL REPORT TECHNIQUE: Axial images of the chest was performed with and without contrast by computed tomography. Reformatted images were obtained and reviewed. This study was performed with techniques to keep radiation doses as low as reasonably achievable, (ALARA). Individualized dose reduction techniques using automated exposure control or adjustment of mA and/or kV according to the patient's size were employed. CLINICAL HISTORY: CHRONIC COUGH FINDINGS: Patient is status post median sternotomy and CABG. There is dense coronary artery calcification. There is no evidence of mediastinal mass or adenopathy. Epicardial leads are seen at the inferior margin of the heart. The lungs are clear. IMPRESSION: No acute intrathoracic abnormality. Reviewed, Interpreted and Dictated by Carl Watts MD Transcribed by Felisa Dominguez Authenticated and [facility]
[2025-04-21 13:46] LABS: Blood Urea Nitrogen 16 mg/dl (9-20); Creatinine,Serum 1.70 mg/dl (0.66-1.25); Estimated Glomerular Filt Rate 40 ml/min (>60); GFR (African American) 49 ML/MIN (>60)
[2025-04-21] MEDS: SODIUM CHLORIDE 0.9% 10ML SYR (RAD ONLY) 10 ML IV (14:02)
[2025-04-21] MEDS: IOPAMIDOL-370 (76%);100ML BOTTLE 75 ML IV (14:02)
== END 2025-04-21 23:59 | disposition home or self-care (01) ==
LOC: RAD 12:52
PROVIDERS: PCP Internal Medicine Adolescent Medicine; Visit Provider Internal Medicine Adolescent Medicine
DX: R05.3 Chronic cough (principal)
CPT/HCPCS: 36415; 71270; 82565; 84520; Q9967